=== PATIENT | male | born 1985 | race Two or more races ===

== ENCOUNTER 2024-03-19 21:34 | Inpatient (IN) ==
--- NOTE | 2024-03-19 22:08 | Emergency Department Note ---
History of Present Illness General Chief complaint: Confusion Time Seen by Provider: 03/19/24 22:02 History of Present Illness This is a 39-year-old male presenting to the emergency department through triage for evaluation of confusion. Patient arrives with friends who are acting as normal translators as patient is Wolof speaking only. Friends are concerned as they feel the patient is going through alcohol withdrawal. Patient feels like he is hallucinating but otherwise is without additional complaints. Patient denies drug or alcohol use. No pain or injury. He rates his discomfort a 7/10. Home Medications Medication Instructions Recorded Confirmed Type No Known Home Medications 03/20/24 03/20/24 History Allergies Allergy/AdvReac Type Severity Reaction Status Date / Time No Known Allergies Allergy Unverified 03/20/24 00:57 Past Med/Surg History Problem List (Updated 03/20/24 @ 01:13 by Chacha Guajardo MD) Elevated troponin (Acute) Acute renal failure with oliguria (Acute) Acute renal failure (Acute) Delirium due to general medical condition (Acute) DKA (diabetic ketoacidosis) (Acute) Medical History (Updated 03/20/24 @ 01:13 by Chacha Guajardo MD) No chronic diseases present Surgical History (Updated 03/19/24 @ 22:08 by Colt Meier PA-C) No significant past surgical history Social History Smoking Status: Unknown if ever smoked Preferred Language: Wolof Communication Tools: IPad Feels Safe at Home: Yes Review of Systems A total of 10 systems reviewed and were otherwise negative Physical Exam Vital Signs Vital Signs - 24 hr 03/19/24 21:46 03/19/24 21:53 03/19/24 21:57 Temperature 36.8 C Temperature Source Oral Pulse Rate 90 93 H Pulse Rate [Apical] Pulse Rate from SpO2 Sensor Pulse Rhythm Pulse Rhythm [Apical] Pulse Strength [Apical] Respiratory Rate 20 Respiratory Effort / Characteristics Non-Labored Spontaneous Respiratory Depth Normal Respiratory Pattern Regular Blood Pressure 131/85 Blood Pressure [Left Arm] Blood Pressure Mean 100 Blood Pressure Mean [Left Arm] Blood Pressure Position [Left Arm] Pulse Oximetry 98 88 L Oxygen Delivery Method Room Air Room Air Nasal Cannula Oxygen Flow Rate 0 Sepsis Recent Fever Within 48 Hours No Sepsis New/Unexplained Change in Mental Status Yes Sepsis Action Taken by Nursing No Action Required Pulse Oximetry Post Tiitration 92 06/03/24 22:48 03/19/24 22:57 03/19/24 23:00 Temperature Temperature Source Pulse Rate 93 H Pulse Rate [Apical] Pulse Rate from SpO2 Sensor 94 H Pulse Rhythm Pulse Rhythm [Apical] Pulse Strength [Apical] Respiratory Rate 26 H Respiratory Effort / Characteristics Respiratory Depth Respiratory Pattern Blood Pressure 127/73 144/86 H 120/85 Blood Pressure [Left Arm] Blood Pressure Mean 91 105 93 Blood Pressure Mean [Left Arm] Blood Pressure Position [Left Arm] Pulse Oximetry 90 Oxygen Delivery Method Nasal Cannula Oxygen Flow Rate 2 Sepsis Recent Fever Within 48 Hours Sepsis New/Unexplained Change in Mental Status Sepsis Action Taken by Nursing Pulse Oximetry Post Tiitration 03/19/24 23:06 03/19/24 23:12 03/19/24 23:24 Temperature 34.3 C L 36.1 C L Temperature Source Pulse Rate 91 H 92 H 93 H Pulse Rate [Apical] Pulse Rate from SpO2 Sensor 92 H 92 H 94 H Pulse Rhythm Pulse Rhythm [Apical] Pulse Strength [Apical] Respiratory Rate 27 H 19 21 Respiratory Effort / Characteristics Respiratory Depth Respiratory Pattern Blood Pressure Blood Pressure [Left Arm] Blood Pressure Mean Blood Pressure Mean [Left Arm] Blood Pressure Position [Left Arm] Pulse Oximetry 91 91 93 Oxygen Delivery Method Oxygen Flow Rate Sepsis Recent Fever Within 48 Hours Sepsis New/Unexplained Change in Mental Status Sepsis Action Taken by Nursing Pulse Oximetry Post Tiitration 03/19/24 23:36 03/19/24 23:42 03/19/24 23:43 Temperature 36.2 C L 36.2 C L Temperature Source Pulse Rate 90 92 H Pulse Rate [Apical] Pulse Rate from SpO2 Sensor 92 H Pulse Rhythm Pulse Rhythm [Apical] Pulse Strength [Apical] Respiratory Rate 41 H 33 H Respiratory Effort / Characteristics Respiratory Depth Respiratory Pattern Blood Pressure 133/79 Blood Pressure [Left Arm] Blood Pressure Mean 93 Blood Pressure Mean [Left Arm] Blood Pressure Position [Left Arm] Pulse Oximetry 94 Oxygen Delivery Method Oxygen Flow Rate Sepsis Recent Fever Within 48 Hours Sepsis New/Unexplained Change in Mental Status Sepsis Action Taken by Nursing Pulse Oximetry Post Tiitration 03/20/24 00:00 03/20/24 00:01 03/20/24 00:30 Temperature 36.2 C L 36.3 C L Temperature Source Sinha Cath ( Temp Sensing) Pulse Rate 94 H 90 Pulse Rate [Apical] 92 H Pulse Rate from SpO2 Sensor Pulse Rhythm Regular Pulse Rhythm [Apical] Regular Pulse Strength [Apical] Normal Respiratory Rate 36 H 30 H 40 H Respiratory Effort / Characteristics Non-Labored Spontaneous Respiratory Depth Shallow Respiratory Pattern Tachypnea Blood Pressure 133/82 Blood Pressure [Left Arm] 131/77 Blood Pressure Mean 99 Blood Pressure Mean [Left Arm] 95 Blood Pressure Position [Left Arm] Lying Pulse Oximetry 93 93 94 Oxygen Delivery Method Nasal Cannula Nasal Cannula Oxygen Flow Rate 2 2 Sepsis Recent Fever Within 48 Hours Sepsis New/Unexplained Change in Mental Status Sepsis Action Taken by Nursing Pulse Oximetry Post Tiitration 03/20/24 01:00 03/20/24 01:33 Temperature 36.4 C L Temperature Source Pulse Rate 88 Pulse Rate [Apical] 91 H Pulse Rate from SpO2 Sensor 87 Pulse Rhythm Pulse Rhythm [Apical] Regular Pulse Strength [Apical] Normal Respiratory Rate 45 H 30 H Respiratory Effort / Characteristics Non-Labored Spontaneous Respiratory Depth Shallow Respiratory Pattern Tachypnea Blood Pressure 120/78 Blood Pressure [Left Arm] 122/87 Blood Pressure Mean 92 Blood Pressure Mean [Left Arm] 98 Blood Pressure Position [Left Arm] Lying Pulse Oximetry 93 91 Oxygen Delivery Method Nasal Cannula Room Air Oxygen Flow Rate 2 Sepsis Recent Fever Within 48 Hours Sepsis New/Unexplained Change in Mental Status Sepsis Action Taken by Nursing Pulse Oximetry Post Tiitration VITALS: Vitals are noted on the nurse's note and reviewed by myself. Vital signs stable. GENERAL: Well-developed, well-nourished, male, who is mildly agitated but fairly redirectable. He does appear somewhat altered. EARS: External ear normal. External auditory canals clear, tympanic membranes pearly gregory without erythema or effusion bilaterally. EYES: Pupils equal round and reactive to light and accommodation. Conjunctivae without injection, sclerae without icterus. Extraocular movements intact. NOSE: Patent, turbinates without inflammation or discharge. MOUTH: Mucous membranes dry NECK: Supple without nuchal rigidity. No lymphadenopathy. No thyromegaly. Cervical spine is nontender. HEART: Regular rate and rhythm without murmurs gallops or rubs. LUNGS: Clear to auscultation bilaterally without wheezes, rales or rhonchi. No retractions or accessory muscle use. ABDOMEN: Positive normal bowel sounds x 4. Soft, nontender, without masses or organomegaly. No guarding or rebound tenderness. MUSCULOSKELETAL: No muscle atrophy, erythema, or edema noted. Full range of motion in all extremities. Course Administered Medications Insulin Human Regular 250 (units/ Sodium Chloride) 250 mls @ 10 mls/hr IV .Q24H LINDSEY; Protocol Stop: 04/18/24 23:14 Last Titration: 03/20/24 01:25 Dose: 10 units/hr, 10 mls/hr Documented By: BEBO Co-signed By: BOB Titration: 03/20/24 00:25 Dose: 10 units/hr, 10 mls/hr Documented By: BEBO Co-signed By: BOB Admin: 03/19/24 23:24 Dose: 10 units/hr, 10 mls/hr Documented By: BEBO Co-signed By: BOB Sodium Chloride (Nss) 1,000 mls @ 250 mls/hr IV .Q4H LINDSEY Stop: 04/19/24 00:44 Last Admin: 03/20/24 00:46 Dose: 250 mls/hr Documented By: BEBO Piperacillin Sod/Tazobactam Sod (Zosyn) 4.5 gm in 100 mls @ 200 mls/hr IV NOW ONE; Protocol Stop: 03/20/24 01:57 Last Admin: 03/20/24 01:38 Dose: 200 mls/hr Documented By: BEBO Discontinued Medications Albuterol (Albut/Ipratrop 3mg/0.5mg Neb 3 Ml Vial) 3 ml NEB NOW STA; Protocol Stop: 03/20/24 01:28 Last Admin: 03/20/24 01:38 Dose: 3 ml Documented By: BEBO Sodium Chloride (Nss) 1,000 mls @ 999 mls/hr IV .Q1H1M LINDSEY Stop: 03/19/24 23:15 Last Infusion: 03/19/24 23:10 Dose: Infused Documented By: Admin: 03/19/24 22:09 Dose: 999 mls/hr Documented By: MISTI Sodium Chloride (Nss) 1,000 mls @ 999 mls/hr IV .Q1H1M LINDSEY Stop: 03/20/24 01:15 Last Infusion: 03/20/24 00:56 Dose: Infused Documented By: Admin: 03/19/24 23:56 Dose: 999 mls/hr Documented By: Infusion: 03/19/24 23:56 Dose: Infused Documented By: Admin: 03/19/24 23:11 Dose: 999 mls/hr Documented By: BEOB Ceftriaxone Sodium (Rocephin) 2,000 mg in 50 mls @ 100 mls/hr IV NOW STA Stop: 03/19/24 23:50 Last Infusion: 03/20/24 00:10 Dose: Infused Documented By: Admin: 03/19/24 23:40 Dose: 100 mls/hr Documented By: BEBO Cefepime HCl (Maxipime) 2,000 mg in 20 mls @ 5 mls/min IV NOW STA; Protocol Stop: 03/20/24 00:21 Last Admin: 03/20/24 00:36 Dose: 5 mls/min Documented By: BEBO Calcium Gluconate () 1,000 mg in 60 mls @ 240 mls/hr IV NOW Stop: 03/20/24 00:39 Last Infusion: 03/20/24 01:15 Dose: Infused Documented By: Admin: 03/20/24 01:00 Dose: 240 mls/hr Documented By: BEBO Insulin Human Regular (Novolin-R Insulin Per Unit Charge) 10 units IV NOW STA Stop: 03/19/24 22:58 Last Admin: 03/19/24 23:13 Dose: 10 units Documented By: BEBO Co-signed By: MISTI Insulin Human Regular (Novolin-R Bolus From Bag) 3.5 units IV ONE ONE Stop: 03/19/24 23:16 Last Admin: 03/19/24 23:13 Dose: Not Given Documented By: BEBO Lorazepam (Lorazepam 1 Mg/1 Ml Syr Ed Inj Use) 1 mg IV ONE STA Stop: 03/19/24 22:07 Last Admin: 03/19/24 22:09 Dose: 1 mg Documented By: MISTI Boyd (Insulin Protocol Goal Range ) 1 each N/A ONE ONE Stop: 03/19/24 22:51 Last Admin: 03/19/24 23:25 Dose: Not Given Documented By: BEBO Boyd (Severe Stress Level ) 1 each N/A ONE ONE; Protocol Stop: 03/19/24 22:51 Last Admin: 03/19/24 23:25 Dose: Not Given Documented By: BEBO Boyd (Stat Iv Infusion Titration Per Protocol) 1 each N/A NOW Stop: 03/19/24 22:58 Last Admin: 03/20/24 00:03 Dose: Not Given Documented By: BEBO Miscellaneous Information (Patient's Allergy Info Needs Entered) 1 each N/A NOW STA Stop: 03/19/24 23:06 Last Admin: 03/20/24 00:03 Dose: Not Given Documented By: BEBO Sodium Bicarbonate (Sodium Bicarb 8.4% Inj 50 Meq/50 Ml Syr) 50 meq IV NOW STA Stop: 03/20/24 00:26 Last Admin: 03/20/24 00:56 Dose: 50 meq Documented By: BEBO Medical Decision Making Differential Diagnosis Differential diagnosis: Etiologies such as sepsis, dehydration, substance abuse, DKA, alcohol intoxication, toxicological, infection, hypoglycemia, electrolyte abnormalities, cardiac sources, intracerebral event, neurologic, as well as others were entertained. Laboratory Data 03/19/24 21:45 03/19/24 21:45 Lab Results 03/19/24 03/19/24 03/19/24 Range/Units 21:45 21:50 22:43 WBC 28.41 H (4.8-10.8) K/ul RBC 5.10 (4.70-6.10) M/uL Hgb 14.9 (14.0-18.0) g/dl Hct 42.3 (42.0-52.0) % MCV 82.9 (80.0-100.0) fL MCH 29.2 (25.0-34.0) pg MCHC 35.2 (32.0-36.0) g/dL RDW Std Deviation 43.8 (36.4-46.3) fL RDW Coeff of Eliza 14.4 (11.5-14.5) % Plt Count 42 L (130-400) K/uL Immature Gran % (Auto) 7.0 % Neut % (Auto) 87.0 % Lymph % (Auto) 2.5 % [place] % (Auto) 3.4 % Eos % (Auto) 0.0 % Baso % (Auto) 0.1 % Neut # (Auto) 24.70 H (1.40-6.50) K/uL Lymph # (Auto) 0.71 L (1.20-3.40) K/uL [place] # (Auto) 0.97 H (0.11-0.59) K/uL Eos # (Auto) 0.01 (0.00-0.50) K/uL Baso # (Auto) 0.04 (0.00-0.20) K/uL Immature Gran # (Auto) 1.98 H (0.01-0.20) K/uL Dohle Bodies 2+ PT 10.0 (9.0-12.0) Seconds INR 0.9 (0.9-1.1) APTT 26 (21-31) Seconds PTT Ratio 1.0 VBG pH (7.36-7.41) VBG pCO2 (38-50) mmHg VBG pO2 mmHg VBG HCO3 mmol/L VBG O2 Saturation % VBG Base Excess mEq/L Sodium 109 L* (136-145) mmol/L Potassium 6.2 H* (3.5-5.1) mmol/L Chloride 66 L (98-107) mmol/L Carbon Dioxide 18 L (21-32) mmol/L Anion Gap 25 H (3-11) BUN 145 H (6-23) mg/dl Creatinine 8.26 H* (0.6-1.4) mg/dl Est Cr Clr Drug Dosing 12.9 ml/min Est GFR ( Amer) 8.5 ml/min Est GFR (Non-Af Amer) 7.3 ml/min BUN/Creatinine Ratio 17.6 (10-20) Glucose 784 H* (70-99(Fasting)) mg/dl POC Glucose > 600 H* (70-99) mg/dl Osmolality 338 H (280-300) mOsm/kg Lactate (0.4-2.0) mmol/L Calcium 8.3 L (8.6-10.3) mg/dl Magnesium 4.1 H (1.7-2.4) mg/dl Total Bilirubin 1.6 H (0.2-1.0) mg/dl AST 19 (13-39) U/L ALT 41 (7-52) U/L Alkaline Phosphatase 284 H (34-104) U/L Ammonia (18-72) umol/L Troponin I High Sens 103.2 H* (0-20) pg/ml Total Protein 7.4 (6.0-8.3) gm/dl Albumin 2.9 L (3.4-5.0) gm/dl Globulin 4.5 H (2.5-4.0) gm/dl Albumin/Globulin Ratio 0.6 L (0.9-2) TSH 1.142 (0.300-4.500) uIu/ml Urine Color Yellow Urine Appearance Cloudy A (Clear) Urine pH 6.5 (4.5-7.5) Ur Specific Luna 1.020 (1.000-1.030) Urine Protein 3+ H (Negative) Urine Glucose (UA) 2+ H (Negative) Urine Ketones 1+ H (Negative) Urine Blood 3+ H (Negative) Urine Nitrite Positive A (Negative) Urine Bilirubin 1+ H (Negative) Urine Urobilinogen Negative (Negative) Ur Leukocyte Esterase 3+ H (Negative) Urine RBC 11-20 H (0-2) /hpf Urine WBC >50 H (0-5) /hpf Ur Epithelial Cells 6-10 H (0-2) /hpf Urine Bacteria 2+ H (None Seen) Urine Osmolality Ur Random Sodium mmol/L Urine Opiates Screen Neg (Neg) Ur Methadone, Qual Neg (Neg) Urine Fentanyl Screen Neg (Neg) Urine Barbiturates Neg (Neg) Ur Phencyclidine (PCP) Neg (Neg) U Amphetamin/Meth Scrn Neg (Neg) MDMA (Ecstasy) Screen Neg (Neg) U Benzodiazepines Scrn Neg (Neg) Ur Cocaine Metabolite Neg (Neg) U Marijuana (THC) Screen Neg (Neg) Ethyl Alcohol mg/dL < 10.0 (<10.0) mg/dl Adenovirus (PCR) (NotDetected) B. pertussis DNA (PCR) (NotDetected) B.parapertussis DNA PCR (NotDetected) C. pneumoniae DNA (PCR) (NotDetected) Coronavirus OC43 (PCR) (NotDetected) Coronavirus HKU1 (PCR) (NotDetected) Coronavirus 229E (PCR) (NotDetected) SARS-CoV-2 (PCR) (NotDetected) Coronavirus NL63 (PCR) (NotDetected) Human Metapneumovir PCR (NotDetected) Influenza Type A (PCR) (NotDetected) Influenza Type B (PCR) (NotDetected) M. pneumoniae (PCR) (NotDetected) Parainfluenza 1 (PCR) (NotDetected) Parainfluenza 2 (PCR) (NotDetected) Parainfluenza 3 (PCR) (NotDetected) Parainfluenza 4 (PCR) (NotDetected) RSV (PCR) (NotDetected) Entero/Rhino (PCR) (NotDetected) 03/19/24 03/19/24 03/20/24 Range/Units 23:01 23:05 00:25 WBC (4.8-10.8) K/ul RBC (4.70-6.10) M/uL Hgb (14.0-18.0) g/dl Hct (42.0-52.0) % MCV (80.0-100.0) fL MCH (25.0-34.0) pg MCHC (32.0-36.0) g/dL RDW Std Deviation (36.4-46.3) fL RDW Coeff of Eliza (11.5-14.5) % Plt Count (130-400) K/uL Immature Gran % (Auto) % Neut % (Auto) % Lymph % (Auto) % [place] % (Auto) % Eos % (Auto) % Baso % (Auto) % Neut # (Auto) (1.40-6.50) K/uL Lymph # (Auto) (1.20-3.40) K/uL [place] # (Auto) (0.11-0.59) K/uL Eos # (Auto) (0.00-0.50) K/uL Baso # (Auto) (0.00-0.20) K/uL Immature Gran # (Auto) (0.01-0.20) K/uL Dohle Bodies PT (9.0-12.0) Seconds INR (0.9-1.1) APTT (21-31) Seconds PTT Ratio VBG pH 7.27 L (7.36-7.41) VBG pCO2 37 L (38-50) mmHg VBG pO2 46 mmHg VBG HCO3 17 mmol/L VBG O2 Saturation 76.6 % VBG Base Excess -9.2 mEq/L Sodium (136-145) mmol/L Potassium (3.5-5.1) mmol/L Chloride (98-107) mmol/L Carbon Dioxide (21-32) mmol/L Anion Gap (3-11) BUN (6-23) mg/dl Creatinine (0.6-1.4) mg/dl Est Cr Clr Drug Dosing ml/min Est GFR ( Amer) ml/min Est GFR (Non-Af Amer) ml/min BUN/Creatinine Ratio (10-20) Glucose (70-99(Fasting)) mg/dl POC Glucose 570 H* (70-99) mg/dl Osmolality (280-300) mOsm/kg Lactate 2.4 H* (0.4-2.0) mmol/L Calcium (8.6-10.3) mg/dl Magnesium (1.7-2.4) mg/dl Total Bilirubin (0.2-1.0) mg/dl AST (13-39) U/L ALT (7-52) U/L Alkaline Phosphatase (34-104) U/L Ammonia 37.0 (18-72) umol/L Troponin I High Sens (0-20) pg/ml Total Protein (6.0-8.3) gm/dl Albumin (3.4-5.0) gm/dl Globulin (2.5-4.0) gm/dl Albumin/Globulin Ratio (0.9-2) TSH (0.300-4.500) uIu/ml Urine Color Urine Appearance (Clear) Urine pH (4.5-7.5) Ur Specific Luna (1.000-1.030) Urine Protein (Negative) Urine Glucose (UA) (Negative) Urine Ketones (Negative) Urine Blood (Negative) Urine Nitrite (Negative) Urine Bilirubin (Negative) Urine Urobilinogen (Negative) Ur Leukocyte Esterase (Negative) Urine RBC (0-2) /hpf Urine WBC (0-5) /hpf Ur Epithelial Cells (0-2) /hpf Urine Bacteria (None Seen) Urine Osmolality Ur Random Sodium mmol/L Urine Opiates Screen (Neg) Ur Methadone, Qual (Neg) Urine Fentanyl Screen (Neg) Urine Barbiturates (Neg) Ur Phencyclidine (PCP) (Neg) U Amphetamin/Meth Scrn (Neg) MDMA (Ecstasy) Screen (Neg) U Benzodiazepines Scrn (Neg) Ur Cocaine Metabolite (Neg) U Marijuana (THC) Screen (Neg) Ethyl Alcohol mg/dL (<10.0) mg/dl Adenovirus (PCR) Not Detected (NotDetected) B. pertussis DNA (PCR) Not Detected (NotDetected) B.parapertussis DNA PCR Not Detected (NotDetected) C. pneumoniae DNA (PCR) Not Detected (NotDetected) Coronavirus OC43 (PCR) Not Detected (NotDetected) Coronavirus HKU1 (PCR) Not Detected (NotDetected) Coronavirus 229E (PCR) Not Detected (NotDetected) SARS-CoV-2 (PCR) Not Detected (NotDetected) Coronavirus NL63 (PCR) Not Detected (NotDetected) Human Metapneumovir PCR Not Detected (NotDetected) Influenza Type A (PCR) Not Detected (NotDetected) Influenza Type B (PCR) Not Detected (NotDetected) M. pneumoniae (PCR) Not Detected (NotDetected) Parainfluenza 1 (PCR) Not Detected (NotDetected) Parainfluenza 2 (PCR) Not Detected (NotDetected) Parainfluenza 3 (PCR) Not Detected (NotDetected) Parainfluenza 4 (PCR) Not Detected (NotDetected) RSV (PCR) Not Detected (NotDetected) Entero/Rhino (PCR) Not Detected (NotDetected) 03/20/24 03/20/24 03/20/24 Range/Units 00:26 00:52 01:03 WBC (4.8-10.8) K/ul RBC (4.70-6.10) M/uL Hgb (14.0-18.0) g/dl Hct (42.0-52.0) % MCV (80.0-100.0) fL MCH (25.0-34.0) pg MCHC (32.0-36.0) g/dL RDW Std Deviation (36.4-46.3) fL RDW Coeff of Eliza (11.5-14.5) % Plt Count (130-400) K/uL Immature Gran % (Auto) % Neut % (Auto) % Lymph % (Auto) % [place] % (Auto) % Eos % (Auto) % Baso % (Auto) % Neut # (Auto) (1.40-6.50) K/uL Lymph # (Auto) (1.20-3.40) K/uL [place] # (Auto) (0.11-0.59) K/uL Eos # (Auto) (0.00-0.50) K/uL Baso # (Auto) (0.00-0.20) K/uL Immature Gran # (Auto) (0.01-0.20) K/uL Dohle Bodies PT (9.0-12.0) Seconds INR (0.9-1.1) APTT (21-31) Seconds PTT Ratio VBG pH (7.36-7.41) VBG pCO2 (38-50) mmHg VBG pO2 mmHg VBG HCO3 mmol/L VBG O2 Saturation % VBG Base Excess mEq/L Sodium (136-145) mmol/L Potassium (3.5-5.1) mmol/L Chloride (98-107) mmol/L Carbon Dioxide (21-32) mmol/L Anion Gap (3-11) BUN (6-23) mg/dl Creatinine (0.6-1.4) mg/dl Est Cr Clr Drug Dosing ml/min Est GFR ( Amer) ml/min Est GFR (Non-Af Amer) ml/min BUN/Creatinine Ratio (10-20) Glucose (70-99(Fasting)) mg/dl POC Glucose > 600 H* (70-99) mg/dl Osmolality (280-300) mOsm/kg Lactate 2.7 H* (0.4-2.0) mmol/L Calcium (8.6-10.3) mg/dl Magnesium (1.7-2.4) mg/dl Total Bilirubin (0.2-1.0) mg/dl AST (13-39) U/L ALT (7-52) U/L Alkaline Phosphatase (34-104) U/L Ammonia (18-72) umol/L Troponin I High Sens (0-20) pg/ml Total Protein (6.0-8.3) gm/dl Albumin (3.4-5.0) gm/dl Globulin (2.5-4.0) gm/dl Albumin/Globulin Ratio (0.9-2) TSH (0.300-4.500) uIu/ml Urine Color Urine Appearance (Clear) Urine pH (4.5-7.5) Ur Specific Luna (1.000-1.030) Urine Protein (Negative) Urine Glucose (UA) (Negative) Urine Ketones (Negative) Urine Blood (Negative) Urine Nitrite (Negative) Urine Bilirubin (Negative) Urine Urobilinogen (Negative) Ur Leukocyte Esterase (Negative) Urine RBC (0-2) /hpf Urine WBC (0-5) /hpf Ur Epithelial Cells (0-2) /hpf Urine Bacteria (None Seen) Urine Osmolality Ur Random Sodium 92 mmol/L Urine Opiates Screen (Neg) Ur Methadone, Qual (Neg) Urine Fentanyl Screen (Neg) Urine Barbiturates (Neg) Ur Phencyclidine (PCP) (Neg) U Amphetamin/Meth Scrn (Neg) MDMA (Ecstasy) Screen (Neg) U Benzodiazepines Scrn (Neg) Ur Cocaine Metabolite (Neg) U Marijuana (THC) Screen (Neg) Ethyl Alcohol mg/dL (<10.0) mg/dl Adenovirus (PCR) (NotDetected) B. pertussis DNA (PCR) (NotDetected) B.parapertussis DNA PCR (NotDetected) C. pneumoniae DNA (PCR) (NotDetected) Coronavirus OC43 (PCR) (NotDetected) Coronavirus HKU1 (PCR) (NotDetected) Coronavirus 229E (PCR) (NotDetected) SARS-CoV-2 (PCR) (NotDetected) Coronavirus NL63 (PCR) (NotDetected) Human Metapneumovir PCR (NotDetected) Influenza Type A (PCR) (NotDetected) Influenza Type B (PCR) (NotDetected) M. pneumoniae (PCR) (NotDetected) Parainfluenza 1 (PCR) (NotDetected) Parainfluenza 2 (PCR) (NotDetected) Parainfluenza 3 (PCR) (NotDetected) Parainfluenza 4 (PCR) (NotDetected) RSV (PCR) (NotDetected) Entero/Rhino (PCR) (NotDetected) 03/20/24 03/20/24 03/20/24 Range/Units 01:23 01:24 Unknown WBC (4.8-10.8) K/ul RBC (4.70-6.10) M/uL Hgb (14.0-18.0) g/dl Hct (42.0-52.0) % MCV (80.0-100.0) fL MCH (25.0-34.0) pg MCHC (32.0-36.0) g/dL RDW Std Deviation (36.4-46.3) fL RDW Coeff of Eliza (11.5-14.5) % Plt Count (130-400) K/uL Immature Gran % (Auto) % Neut % (Auto) % Lymph % (Auto) % [place] % (Auto) % Eos % (Auto) % Baso % (Auto) % Neut # (Auto) (1.40-6.50) K/uL Lymph # (Auto) (1.20-3.40) K/uL [place] # (Auto) (0.11-0.59) K/uL Eos # (Auto) (0.00-0.50) K/uL Baso # (Auto) (0.00-0.20) K/uL Immature Gran # (Auto) (0.01-0.20) K/uL Dohle Bodies PT (9.0-12.0) Seconds INR (0.9-1.1) APTT (21-31) Seconds PTT Ratio VBG pH (7.36-7.41) VBG pCO2 (38-50) mmHg VBG pO2 mmHg VBG HCO3 mmol/L VBG O2 Saturation % VBG Base Excess mEq/L Sodium (136-145) mmol/L Potassium (3.5-5.1) mmol/L Chloride (98-107) mmol/L Carbon Dioxide (21-32) mmol/L Anion Gap (3-11) BUN (6-23) mg/dl Creatinine (0.6-1.4) mg/dl Est Cr Clr Drug Dosing ml/min Est GFR ( Amer) ml/min Est GFR (Non-Af Amer) ml/min BUN/Creatinine Ratio (10-20) Glucose (70-99(Fasting)) mg/dl POC Glucose 523 H* 546 H* (70-99) mg/dl Osmolality (280-300) mOsm/kg Lactate (0.4-2.0) mmol/L Calcium (8.6-10.3) mg/dl Magnesium (1.7-2.4) mg/dl Total Bilirubin (0.2-1.0) mg/dl AST (13-39) U/L ALT (7-52) U/L Alkaline Phosphatase (34-104) U/L Ammonia (18-72) umol/L Troponin I High Sens (0-20) pg/ml Total Protein (6.0-8.3) gm/dl Albumin (3.4-5.0) gm/dl Globulin (2.5-4.0) gm/dl Albumin/Globulin Ratio (0.9-2) TSH (0.300-4.500) uIu/ml Urine Color Urine Appearance (Clear) Urine pH (4.5-7.5) Ur Specific Luna (1.000-1.030) Urine Protein (Negative) Urine Glucose (UA) (Negative) Urine Ketones (Negative) Urine Blood (Negative) Urine Nitrite (Negative) Urine Bilirubin (Negative) Urine Urobilinogen (Negative) Ur Leukocyte Esterase (Negative) Urine RBC (0-2) /hpf Urine WBC (0-5) /hpf Ur Epithelial Cells (0-2) /hpf Urine Bacteria (None Seen) Urine Osmolality Cancelled Ur Random Sodium Cancelled mmol/L Urine Opiates Screen (Neg) Ur Methadone, Qual (Neg) Urine Fentanyl Screen (Neg) Urine Barbiturates (Neg) Ur Phencyclidine (PCP) (Neg) U Amphetamin/Meth Scrn (Neg) MDMA (Ecstasy) Screen (Neg) U Benzodiazepines Scrn (Neg) Ur Cocaine Metabolite (Neg) U Marijuana (THC) Screen (Neg) Ethyl Alcohol mg/dL (<10.0) mg/dl Adenovirus (PCR) (NotDetected) B. pertussis DNA (PCR) (NotDetected) B.parapertussis DNA PCR (NotDetected) C. pneumoniae DNA (PCR) (NotDetected) Coronavirus OC43 (PCR) (NotDetected) Coronavirus HKU1 (PCR) (NotDetected) Coronavirus 229E (PCR) (NotDetected) SARS-CoV-2 (PCR) (NotDetected) Coronavirus NL63 (PCR) (NotDetected) Human Metapneumovir PCR (NotDetected) Influenza Type A (PCR) (NotDetected) Influenza Type B (PCR) (NotDetected) M. pneumoniae (PCR) (NotDetected) Parainfluenza 1 (PCR) (NotDetected) Parainfluenza 2 (PCR) (NotDetected) Parainfluenza 3 (PCR) (NotDetected) Parainfluenza 4 (PCR) (NotDetected) RSV (PCR) (NotDetected) Entero/Rhino (PCR) (NotDetected) MDM Narrative Physical exam and history were performed. Nursing notes, EMR, and Medication List were personally reviewed. No social concerns were identified as barriers to patients care. Patient appears to have altered mental status bringing him to the ER. Patient presentation is concerning as clinically he appears ill. IV access was established and labs were obtained. Chest x-ray was performed. Patient's blood work began to return very quickly, and patient has significant lab abnormalities. Creatinine is over 8. Glucose is over 700. Troponin is over 100. Patient is critically ill with potential life threatening process. Patient case was discussed with my attending physician, Dr. Guajardo, who will assume primary care of the patient. Please see Dr. Guajardo's dictation for further patient course. The chart was completed utilizing [employer] Speech Voice Recognition Software. Grammatical errors, random word insertions, pronoun errors, and incomplete sentences are an occasional consequence of this system due to software limitations, ambient noise, and hardware issues. Any formal questions or concerns about the content, text, or information contained within the body of this dictation should be directly addressed to the provider for clarification. . Impression & Plan DKA (diabetic ketoacidosis), Delirium due to general medical condition, Acute renal failure, Acute renal failure with oliguria, Elevated troponin Discharge Plan Visit Data Chief Complaint: Confusion ED Provider: Chacha Guajardo ED Midlevel Provider: Colt Meier Discharge Problem: DKA (diabetic ketoacidosis), Delirium due to general medical condition, Acute renal failure, Acute renal failure with oliguria, Elevated troponin Forms Stand Alone Forms: My knowNormal Prescriptions Prescriptions: No Action No Known Home Medications Referrals Referrals: PCP,TOMASZ [Primary Care Provider] -
[2024-03-19] MEDS: LORazepam 1 MG/1 ML SYR ED Inj Use IV STA (22:09)
[2024-03-19] MEDS: SODIUM CHLORIDE 0.9% 1,000 ML IV SCH ×2 (22:09→23:11)
[2024-03-19 22:13] LABS: Appearance Urine Cloudy (Clear); Bilirubin Urine 1+ (Negative); Blood Urine 3+ (Negative); Color Urine Yellow; Glucose Urine UA 2+ (Negative); Ketones Urine 1+ (Negative); Leukocyte Esterase Urine 3+ (Negative); Nitrite Urine Positive (Negative); Protein Urine 3+ (Negative); Urobilinogen Urine Negative (Negative); pH Urine 6.5 (4.5-7.5)
[2024-03-19 22:22] LABS: Hematocrit (blood only) 42.3 % (42.0-52.0); Hemoglobin 14.9 g/dl (14.0-18.0); Mean Corpuscular Hemoglobin 29.2 pg (25.0-34.0); Mean Corpuscular Hgb Conc 35.2 g/dL (32.0-36.0); Mean Corpuscular Volume 82.9 fL (80.0-100.0); Platelet Count 42 K/uL (130-400); RDW Coefficient of Variation 14.4 % (11.5-14.5); RDW Standard Deviation 43.8 fL (36.4-46.3); White Blood Count 28.41 K/ul (4.8-10.8)
[2024-03-19 22:26] LABS: Bacteria Urine 2+ (None Seen); WBC Urine >50 /hpf (0-5)
[2024-03-19 22:38] LABS: INR 0.9 (0.9-1.1); Partial Thromboplastin Time 26 Seconds (21-31)
[2024-03-19 22:39] LABS: Basophils # (auto) 0.04 K/uL (0.00-0.20); Basophils % (auto) 0.1 %; Dohle Bodies 2+; Eosinophils # (auto) 0.01 K/uL (0.00-0.50); Immature Granulocytes # (auto) 1.98 K/uL (0.01-0.20); Lymphocytes # (auto) 0.71 K/uL (1.20-3.40); Lymphocytes % (auto) 2.5 %; Monocytes # (auto) 0.97 K/uL (0.11-0.59); Monocytes % (auto) 3.4 %
[2024-03-19 22:48] LABS: Amphetamines+Metham, Urine Neg (Neg); Barbiturates, Urine Neg (Neg); Benzodiazepine, Urine Neg (Neg); Cocaine, Urine Neg (Neg); Fentanyl, Urine Neg (Neg); MDMA (Ecstacy), Urine Neg (Neg); Marijuana, Urine Neg (Neg); Methadone, Urine Neg (Neg); Opiate, Urine Neg (Neg); Phencyclidine, Urine Neg (Neg)
[2024-03-19] MEDS ORDERED: NovoLIN-R BOLUS FROM BAG IV ONE (22:50)
[2024-03-19 22:51] LABS: Albumin Globulin Ratio 0.6 (0.9-2); Albumin Level 2.9 gm/dl (3.4-5.0); BUN Creatinine Ratio 17.6 (10-20); Bilirubin,Total 1.6 mg/dl (0.2-1.0); Calcium 8.3 mg/dl (8.6-10.3); Creatinine Clr Calc Pharmacy 12.9 ml/min; Est GFR (African American) 8.5 ml/min; Est GFR (Non-African American) 7.3 ml/min; Globulin 4.5 gm/dl (2.5-4.0); Magnesium 4.1 mg/dl (1.7-2.4); Potassium 6.2 mmol/L (3.5-5.1); Thyroid Stimulating Hormone 1.142 uIu/ml (0.300-4.500); Total Protein 7.4 gm/dl (6.0-8.3); Troponin I High Sensitivity 103.2 pg/ml (0-20)
[2024-03-19] MEDS ORDERED: INSULIN REGULAR 250 UNITS in SODIUM CHLORIDE 0.9% 247.5 ML IV SCH (23:00)
[2024-03-19] MEDS: NovoLIN-R BOLUS FROM BAG IV ONE (23:13)
[2024-03-19] MEDS: NovoLIN-R INSULIN PER UNIT CHARGE IV STA (23:13)
[2024-03-19] MEDS ORDERED: CARBOHYDRATES FOR HYPOGLYCEMIA PO PRN (23:15)
[2024-03-19] MEDS ORDERED: GLUCOSE 10 TAB/TUBE PO PRN (23:15)
[2024-03-19] MEDS ORDERED: GLUCOSE 40% GEL 15 GM TUBE PO PRN (23:15)
[2024-03-19] MEDS ORDERED: DEXTROSE 50% 50 ML SYRINGE IV PRN (23:15)
[2024-03-19] MEDS ORDERED: GLUCAGON FOR INJ 1 MG VIAL IM PRN (23:15)
[2024-03-19 23:21] LABS: Base Excess VBG -9.2 mEq/L; HCO3 VBG 17 mmol/L; Oxygen Saturation VBG 76.6 %; PCO2 VBG 37 mmHg (38-50); PO2 VBG 46 mmHg; pH VBG 7.27 (7.36-7.41)
[2024-03-19] MEDS: INSULIN REGULAR 250 UNITS in SODIUM CHLORIDE 0.9% 247.5 ML IV SCH (23:24)
[2024-03-19] MEDS: SEVERE STRESS LEVEL ONE (23:25)
[2024-03-19] MEDS: INSULIN PROTOCOL GOAL RANGE ONE (23:25)
[2024-03-19] MEDS: cefTRIAXone SODIUM 2,000 MG/50 ML BAG IV STA (23:40)
[2024-03-20] MEDS: STAT IV Infusion **Titration per Protocol STA (00:03)
[2024-03-20] MEDS: Patient's ALLERGY Info needs ENTERED STA (00:03)
[2024-03-20 00:31] LABS: Adenovirus PCR Not Detected (NotDetected); Bordetella parapertussis PCR Not Detected (NotDetected); Bordetella pertussis PCR Not Detected (NotDetected); Chlamydia pneumoniae PCR Not Detected (NotDetected); Coronavirus 229E PCR Not Detected (NotDetected); Coronavirus CoV-2 (COVID19)PCR Not Detected (NotDetected); Coronavirus HKU1 PCR Not Detected (NotDetected); Coronavirus NL63 PCR Not Detected (NotDetected); Coronavirus OC43PCR Not Detected (NotDetected); Human Metapneumovirus PCR Not Detected (NotDetected); Influenza A PCR Not Detected (NotDetected); Influenza B PCR Not Detected (NotDetected); Mycoplasma pneumoniae PCR Not Detected (NotDetected); Parainfluenza Virus 1 PCR Not Detected (NotDetected); Parainfluenza Virus 2 PCR Not Detected (NotDetected); Parainfluenza Virus 3 PCR Not Detected (NotDetected); Parainfluenza Virus 4 PCR Not Detected (NotDetected); Respiratory Syncytial VirusPCR Not Detected (NotDetected); Rhinovirus/Enterovirus PCR Not Detected (NotDetected)
[2024-03-20] MEDS: CEFEPIME 2,000 MG/20 ML VIAL IV STA (00:36)
--- NOTE | 2024-03-20 00:43 | Emergency Department Note ---
Impression & Plan DKA (diabetic ketoacidosis), Delirium due to general medical condition, Acute renal failure, Acute renal failure with oliguria, Elevated troponin ED Provider Note NAME: DAVID MONSALVE AGE: 39 SEX: M : 1985 ARRIVES VIA: Walk-In INFORMANT: Patient, ED PROVIDER(S): Chacha Guajardo MD CHIEF COMPLAINT: Confusion HPI: This is a 39-year-old male presenting for confusion. Initially seen by Colt Meier PA-C, who claimed that patient is Ukrainian-speaking, confused as per his coworkers. The coworkers are stating that he is having dizziness, hallucinations. They deny any alcohol or drug use with this that he drinks occasionally. Otherwise he has remote history of possible diabetes. Patient initial blood work showing signs of significant DKA. Upon my evaluation patient able to answer basic questioning, states he has no family members in the [place]. He states that he understands what is going on and he is permitted but he also is confused and sometimes trails off and does not finish speaking. He does appear clinically well ROS: Unable to obtain PHYSICAL EXAMINATION: General: Awake, grasping and air Head: Normocephalic and atraumatic Eyes: Normal inspection, extraocular muscles intact Ear, nose, throat: Normal external exam Neck: Normal range of motion Respiratory: lungs clear to auscultation bilaterally Cardiovascular: Regular rate/rhythm, no murmur GI: Distended without tenderness or rebound Extremities: nontender, moves all extremities Neuro: Awake, moves all extremities spontaneously, symmetric face Skin: Warm, dry, and intact MEDICAL DECISION MAKING: This is a 39-year-old male presenting for likely DKA. Patient care transition from Cotl Meier PA-C, after is found the patient has significant abnormalities on blood work -Chest Xray independently interpreted by me showing no pneumothorax,pleural effusions, possible opacity in left lower lobe concerning for pneumonia. -Patient blood work shows a significant leukocytosis 2/28. Otherwise patient has acidosis with pH of 7.27/37. Significant hyponatremia 109 corrected is 120. Potassium is 6.2 with EKG that does not show signs of hyperkalemia. He is simply hypochloremic, acidotic, anion gap 25 with a glucose of 784. -Patient does have a creatinine of 8.26 but is not anuric. He we will give a urine sample and has been making small amounts of urine while here. -Urinalysis reveals signs of UTI -Given ceftriaxone for broad coverage of this pneumonia as well as UTI -Will start DKA protocol. Will give 10 units as a bolus, fluids to stay with 3 L and 2 maintenance fluid at 250 MLS per hour. Will do insulin drip at 0.1 units per kilogram per hour, (10 units/h at this time) -Will recheck BMPs every 2 hours. -Patient has improvement in glucose from 786 to 500s over the course of 1 hour. -Care discussed with Dr. Sanford, hospitalist -Patient care assisted by friend who speaks manage well as iPad director of in service education Differential diagnosis: DKA, sepsis, ER treatment provided: See below Diagnostics interpreted by me: ECG: ECG independently interpreted by me with normal sinus rhythm, rate of 89, normal axis, normal NV, normal QRS, normal QTc, no ST segment elevations consistent with STEMI criteria Cardiac Monitoring: An order was placed for continuous cardiac monitoring. The monitor shows a rate of 92 with sinus rhythm. Laboratory studies: As stated above and show below. Imaging studies: See below. Critical Care Note: I have personally spent 120 minutes of critical care time in the direct management of this patient. This includes bedside care, interpretation of diagnostic studies, and testing, discussion with consultants, patient, and family members, and other required patient management activities. This 120 minutes is in excess of all separately billable procedures. Past Med/Surg History Problem List (Updated 03/20/24 @ 01:13 by Chacha Guajardo MD) Elevated troponin (Acute) Acute renal failure with oliguria (Acute) Acute renal failure (Acute) Delirium due to general medical condition (Acute) DKA (diabetic ketoacidosis) (Acute) Medical History (Updated 03/20/24 @ 01:13 by Chacha Guajardo MD) No chronic diseases present Surgical History (Updated 03/19/24 @ 22:08 by Colt Meier PA-C) No significant past surgical history Social History Smoking Status: Unknown if ever smoked Preferred Language: Ukrainian Communication Tools: IPad Feels Safe at Home: Yes Allergies Allergies Allergy/AdvReac Type Severity Reaction Status Date / Time No Known Allergies Allergy Unverified 03/20/24 00:57 Home Meds Home Medications Medication Instructions Recorded Confirmed No Known Home Medications 03/20/24 03/20/24 Results & Data (ED) Vital Signs Vital Signs - 24 hr 03/19/24 21:46 03/19/24 21:53 03/19/24 21:57 Temperature 36.8 C Temperature Source Oral Pulse Rate 90 93 H Pulse Rate [Apical] Pulse Rate from SpO2 Sensor Pulse Rhythm Pulse Rhythm [Apical] Pulse Strength [Apical] Respiratory Rate 20 Respiratory Effort / Characteristics Non-Labored Spontaneous Respiratory Depth Normal Respiratory Pattern Regular Blood Pressure 131/85 Blood Pressure [Left Arm] Blood Pressure Mean 100 Blood Pressure Mean [Left Arm] Blood Pressure Position [Left Arm] Pulse Oximetry 98 88 L Oxygen Delivery Method Room Air Room Air Nasal Cannula Oxygen Flow Rate 0 Sepsis Recent Fever Within 48 Hours No Sepsis New/Unexplained Change in Mental Status Yes Sepsis Action Taken by Nursing No Action Required Pulse Oximetry Post Tiitration 92 03/19/24 22:48 03/19/24 22:57 03/19/24 23:00 Temperature Temperature Source Pulse Rate 93 H Pulse Rate [Apical] Pulse Rate from SpO2 Sensor 94 H Pulse Rhythm Pulse Rhythm [Apical] Pulse Strength [Apical] Respiratory Rate 26 H Respiratory Effort / Characteristics Respiratory Depth Respiratory Pattern Blood Pressure 127/73 144/86 H 120/85 Blood Pressure [Left Arm] Blood Pressure Mean 91 105 93 Blood Pressure Mean [Left Arm] Blood Pressure Position [Left Arm] Pulse Oximetry 90 Oxygen Delivery Method Nasal Cannula Oxygen Flow Rate 2 Sepsis Recent Fever Within 48 Hours Sepsis New/Unexplained Change in Mental Status Sepsis Action Taken by Nursing Pulse Oximetry Post Tiitration 03/19/24 23:06 03/19/24 23:12 03/19/24 23:24 Temperature 34.3 C L 36.1 C L Temperature Source Pulse Rate 91 H 92 H 93 H Pulse Rate [Apical] Pulse Rate from SpO2 Sensor 92 H 92 H 94 H Pulse Rhythm Pulse Rhythm [Apical] Pulse Strength [Apical] Respiratory Rate 27 H 19 21 Respiratory Effort / Characteristics Respiratory Depth Respiratory Pattern Blood Pressure Blood Pressure [Left Arm] Blood Pressure Mean Blood Pressure Mean [Left Arm] Blood Pressure Position [Left Arm] Pulse Oximetry 91 91 93 Oxygen Delivery Method Oxygen Flow Rate Sepsis Recent Fever Within 48 Hours Sepsis New/Unexplained Change in Mental Status Sepsis Action Taken by Nursing Pulse Oximetry Post Tiitration 03/19/24 23:36 03/19/24 23:42 03/19/24 23:43 Temperature 36.2 C L 36.2 C L Temperature Source Pulse Rate 90 92 H Pulse Rate [Apical] Pulse Rate from SpO2 Sensor 92 H Pulse Rhythm Pulse Rhythm [Apical] Pulse Strength [Apical] Respiratory Rate 41 H 33 H Respiratory Effort / Characteristics Respiratory Depth Respiratory Pattern Blood Pressure 133/79 Blood Pressure [Left Arm] Blood Pressure Mean 93 Blood Pressure Mean [Left Arm] Blood Pressure Position [Left Arm] Pulse Oximetry 94 Oxygen Delivery Method Oxygen Flow Rate Sepsis Recent Fever Within 48 Hours Sepsis New/Unexplained Change in Mental Status Sepsis Action Taken by Nursing Pulse Oximetry Post Tiitration 03/20/24 00:00 03/20/24 00:01 03/20/24 00:30 Temperature 36.2 C L 36.3 C L Temperature Source Sinha Cath ( Temp Sensing) Pulse Rate 94 H 90 Pulse Rate [Apical] 92 H Pulse Rate from SpO2 Sensor Pulse Rhythm Regular Pulse Rhythm [Apical] Regular Pulse Strength [Apical] Normal Respiratory Rate 36 H 30 H 40 H Respiratory Effort / Characteristics Non-Labored Spontaneous Respiratory Depth Shallow Respiratory Pattern Tachypnea Blood Pressure 133/82 Blood Pressure [Left Arm] 131/77 Blood Pressure Mean 99 Blood Pressure Mean [Left Arm] 95 Blood Pressure Position [Left Arm] Lying Pulse Oximetry 93 93 94 Oxygen Delivery Method Nasal Cannula Nasal Cannula Oxygen Flow Rate 2 2 Sepsis Recent Fever Within 48 Hours Sepsis New/Unexplained Change in Mental Status Sepsis Action Taken by Nursing Pulse Oximetry Post Tiitration Laboratory Data 03/19/24 21:45 03/19/24 21:45 Lab Results 03/19/24 03/19/24 03/19/24 Range/Units 21:45 21:50 22:43 WBC 28.41 H (4.8-10.8) K/ul RBC 5.10 (4.70-6.10) M/uL Hgb 14.9 (14.0-18.0) g/dl Hct 42.3 (42.0-52.0) % MCV 82.9 (80.0-100.0) fL MCH 29.2 (25.0-34.0) pg MCHC 35.2 (32.0-36.0) g/dL RDW Std Deviation 43.8 (36.4-46.3) fL RDW Coeff of Eliza 14.4 (11.5-14.5) % Plt Count 42 L (130-400) K/uL Immature Gran % (Auto) 7.0 % Neut % (Auto) 87.0 % Lymph % (Auto) 2.5 % [place] % (Auto) 3.4 % Eos % (Auto) 0.0 % Baso % (Auto) 0.1 % Neut # (Auto) 24.70 H (1.40-6.50) K/uL Lymph # (Auto) 0.71 L (1.20-3.40) K/uL [place] # (Auto) 0.97 H (0.11-0.59) K/uL Eos # (Auto) 0.01 (0.00-0.50) K/uL Baso # (Auto) 0.04 (0.00-0.20) K/uL Immature Gran # (Auto) 1.98 H (0.01-0.20) K/uL Dohle Bodies 2+ PT 10.0 (9.0-12.0) Seconds INR 0.9 (0.9-1.1) APTT 26 (21-31) Seconds PTT Ratio 1.0 VBG pH (7.36-7.41) VBG pCO2 (38-50) mmHg VBG pO2 mmHg VBG HCO3 mmol/L VBG O2 Saturation % VBG Base Excess mEq/L Sodium 109 L* (136-145) mmol/L Potassium 6.2 H* (3.5-5.1) mmol/L Chloride 66 L (98-107) mmol/L Carbon Dioxide 18 L (21-32) mmol/L Anion Gap 25 H (3-11) BUN 145 H (6-23) mg/dl Creatinine 8.26 H* (0.6-1.4) mg/dl Est Cr Clr Drug Dosing 12.9 ml/min Est GFR ( Amer) 8.5 ml/min Est GFR (Non-Af Amer) 7.3 ml/min BUN/Creatinine Ratio 17.6 (10-20) Glucose 784 H* (70-99(Fasting)) mg/dl POC Glucose > 600 H* (70-99) mg/dl Lactate (0.4-2.0) mmol/L Calcium 8.3 L (8.6-10.3) mg/dl Magnesium 4.1 H (1.7-2.4) mg/dl Total Bilirubin 1.6 H (0.2-1.0) mg/dl AST 19 (13-39) U/L ALT 41 (7-52) U/L Alkaline Phosphatase 284 H (34-104) U/L Ammonia (18-72) umol/L Troponin I High Sens 103.2 H* (0-20) pg/ml Total Protein 7.4 (6.0-8.3) gm/dl Albumin 2.9 L (3.4-5.0) gm/dl Globulin 4.5 H (2.5-4.0) gm/dl Albumin/Globulin Ratio 0.6 L (0.9-2) TSH 1.142 (0.300-4.500) uIu/ml Urine Color Yellow Urine Appearance Cloudy A (Clear) Urine pH 6.5 (4.5-7.5) Ur Specific [place] 1.020 (1.000-1.030) Urine Protein 3+ H (Negative) Urine Glucose (UA) 2+ H (Negative) Urine Ketones 1+ H (Negative) Urine Blood 3+ H (Negative) Urine Nitrite Positive A (Negative) Urine Bilirubin 1+ H (Negative) Urine Urobilinogen Negative (Negative) Ur Leukocyte Esterase 3+ H (Negative) Urine RBC 11-20 H (0-2) /hpf Urine WBC >50 H (0-5) /hpf Ur Epithelial Cells 6-10 H (0-2) /hpf Urine Bacteria 2+ H (None Seen) Urine Osmolality Ur Random Sodium Urine Opiates Screen Neg (Neg) Ur Methadone, Qual Neg (Neg) Urine Fentanyl Screen Neg (Neg) Urine Barbiturates Neg (Neg) Ur Phencyclidine (PCP) Neg (Neg) U Amphetamin/Meth Scrn Neg (Neg) MDMA (Ecstasy) Screen Neg (Neg) U Benzodiazepines Scrn Neg (Neg) Ur Cocaine Metabolite Neg (Neg) U Marijuana (THC) Screen Neg (Neg) Ethyl Alcohol mg/dL < 10.0 (<10.0) mg/dl Adenovirus (PCR) (NotDetected) B. pertussis DNA (PCR) (NotDetected) B.parapertussis DNA PCR (NotDetected) C. pneumoniae DNA (PCR) (NotDetected) Coronavirus OC43 (PCR) (NotDetected) Coronavirus HKU1 (PCR) (NotDetected) Coronavirus 229E (PCR) (NotDetected) SARS-CoV-2 (PCR) (NotDetected) Coronavirus NL63 (PCR) (NotDetected) Human Metapneumovir PCR (NotDetected) Influenza Type A (PCR) (NotDetected) Influenza Type B (PCR) (NotDetected) M. pneumoniae (PCR) (NotDetected) Parainfluenza 1 (PCR) (NotDetected) Parainfluenza 2 (PCR) (NotDetected) Parainfluenza 3 (PCR) (NotDetected) Parainfluenza 4 (PCR) (NotDetected) RSV (PCR) (NotDetected) Entero/Rhino (PCR) (NotDetected) 03/19/24 03/19/24 03/20/24 Range/Units 23:01 23:05 00:25 WBC (4.8-10.8) K/ul RBC (4.70-6.10) M/uL Hgb (14.0-18.0) g/dl Hct (42.0-52.0) % MCV (80.0-100.0) fL MCH (25.0-34.0) pg MCHC (32.0-36.0) g/dL RDW Std Deviation (36.4-46.3) fL RDW Coeff of Eliza (11.5-14.5) % Plt Count (130-400) K/uL Immature Gran % (Auto) % Neut % (Auto) % Lymph % (Auto) % [place] % (Auto) % Eos % (Auto) % Baso % (Auto) % Neut # (Auto) (1.40-6.50) K/uL Lymph # (Auto) (1.20-3.40) K/uL [place] # (Auto) (0.11-0.59) K/uL Eos # (Auto) (0.00-0.50) K/uL Baso # (Auto) (0.00-0.20) K/uL Immature Gran # (Auto) (0.01-0.20) K/uL Dohle Bodies PT (9.0-12.0) Seconds INR (0.9-1.1) APTT (21-31) Seconds PTT Ratio VBG pH 7.27 L (7.36-7.41) VBG pCO2 37 L (38-50) mmHg VBG pO2 46 mmHg VBG HCO3 17 mmol/L VBG O2 Saturation 76.6 % VBG Base Excess -9.2 mEq/L Sodium (136-145) mmol/L Potassium (3.5-5.1) mmol/L Chloride (98-107) mmol/L Carbon Dioxide (21-32) mmol/L Anion Gap (3-11) BUN (6-23) mg/dl Creatinine (0.6-1.4) mg/dl Est Cr Clr Drug Dosing ml/min Est GFR ( Amer) ml/min Est GFR (Non-Af Amer) ml/min BUN/Creatinine Ratio (10-20) Glucose (70-99(Fasting)) mg/dl POC Glucose 570 H* (70-99) mg/dl Lactate 2.4 H* (0.4-2.0) mmol/L Calcium (8.6-10.3) mg/dl Magnesium (1.7-2.4) mg/dl Total Bilirubin (0.2-1.0) mg/dl AST (13-39) U/L ALT (7-52) U/L Alkaline Phosphatase (34-104) U/L Ammonia 37.0 (18-72) umol/L Troponin I High Sens (0-20) pg/ml Total Protein (6.0-8.3) gm/dl Albumin (3.4-5.0) gm/dl Globulin (2.5-4.0) gm/dl Albumin/Globulin Ratio (0.9-2) TSH (0.300-4.500) uIu/ml Urine Color Urine Appearance (Clear) Urine pH (4.5-7.5) Ur Specific [place] (1.000-1.030) Urine Protein (Negative) Urine Glucose (UA) (Negative) Urine Ketones (Negative) Urine Blood (Negative) Urine Nitrite (Negative) Urine Bilirubin (Negative) Urine Urobilinogen (Negative) Ur Leukocyte Esterase (Negative) Urine RBC (0-2) /hpf Urine WBC (0-5) /hpf Ur Epithelial Cells (0-2) /hpf Urine Bacteria (None Seen) Urine Osmolality Ur Random Sodium Urine Opiates Screen (Neg) Ur Methadone, Qual (Neg) Urine Fentanyl Screen (Neg) Urine Barbiturates (Neg) Ur Phencyclidine (PCP) (Neg) U Amphetamin/Meth Scrn (Neg) MDMA (Ecstasy) Screen (Neg) U Benzodiazepines Scrn (Neg) Ur Cocaine Metabolite (Neg) U Marijuana (THC) Screen (Neg) Ethyl Alcohol mg/dL (<10.0) mg/dl Adenovirus (PCR) Not Detected (NotDetected) B. pertussis DNA (PCR) Not Detected (NotDetected) B.parapertussis DNA PCR Not Detected (NotDetected) C. pneumoniae DNA (PCR) Not Detected (NotDetected) Coronavirus OC43 (PCR) Not Detected (NotDetected) Coronavirus HKU1 (PCR) Not Detected (NotDetected) Coronavirus 229E (PCR) Not Detected (NotDetected) SARS-CoV-2 (PCR) Not Detected (NotDetected) Coronavirus NL63 (PCR) Not Detected (NotDetected) Human Metapneumovir PCR Not Detected (NotDetected) Influenza Type A (PCR) Not Detected (NotDetected) Influenza Type B (PCR) Not Detected (NotDetected) M. pneumoniae (PCR) Not Detected (NotDetected) Parainfluenza 1 (PCR) Not Detected (NotDetected) Parainfluenza 2 (PCR) Not Detected (NotDetected) Parainfluenza 3 (PCR) Not Detected (NotDetected) Parainfluenza 4 (PCR) Not Detected (NotDetected) RSV (PCR) Not Detected (NotDetected) Entero/Rhino (PCR) Not Detected (NotDetected) 03/20/24 03/20/24 Range/Units 00:26 Unknown WBC (4.8-10.8) K/ul RBC (4.70-6.10) M/uL Hgb (14.0-18.0) g/dl Hct (42.0-52.0) % MCV (80.0-100.0) fL MCH (25.0-34.0) pg MCHC (32.0-36.0) g/dL RDW Std Deviation (36.4-46.3) fL RDW Coeff of Eliza (11.5-14.5) % Plt Count (130-400) K/uL Immature Gran % (Auto) % Neut % (Auto) % Lymph % (Auto) % [place] % (Auto) % Eos % (Auto) % Baso % (Auto) % Neut # (Auto) (1.40-6.50) K/uL Lymph # (Auto) (1.20-3.40) K/uL [place] # (Auto) (0.11-0.59) K/uL Eos # (Auto) (0.00-0.50) K/uL Baso # (Auto) (0.00-0.20) K/uL Immature Gran # (Auto) (0.01-0.20) K/uL Dohle Bodies PT (9.0-12.0) Seconds INR (0.9-1.1) APTT (21-31) Seconds PTT Ratio VBG pH (7.36-7.41) VBG pCO2 (38-50) mmHg VBG pO2 mmHg VBG HCO3 mmol/L VBG O2 Saturation % VBG Base Excess mEq/L Sodium (136-145) mmol/L Potassium (3.5-5.1) mmol/L Chloride (98-107) mmol/L Carbon Dioxide (21-32) mmol/L Anion Gap (3-11) BUN (6-23) mg/dl Creatinine (0.6-1.4) mg/dl Est Cr Clr Drug Dosing ml/min Est GFR ( Amer) ml/min Est GFR (Non-Af Amer) ml/min BUN/Creatinine Ratio (10-20) Glucose (70-99(Fasting)) mg/dl POC Glucose > 600 H* (70-99) mg/dl Lactate (0.4-2.0) mmol/L Calcium (8.6-10.3) mg/dl Magnesium (1.7-2.4) mg/dl Total Bilirubin (0.2-1.0) mg/dl AST (13-39) U/L ALT (7-52) U/L Alkaline Phosphatase (34-104) U/L Ammonia (18-72) umol/L Troponin I High Sens (0-20) pg/ml Total Protein (6.0-8.3) gm/dl Albumin (3.4-5.0) gm/dl Globulin (2.5-4.0) gm/dl Albumin/Globulin Ratio (0.9-2) TSH (0.300-4.500) uIu/ml Urine Color Urine Appearance (Clear) Urine pH (4.5-7.5) Ur Specific [place] (1.000-1.030) Urine Protein (Negative) Urine Glucose (UA) (Negative) Urine Ketones (Negative) Urine Blood (Negative) Urine Nitrite (Negative) Urine Bilirubin (Negative) Urine Urobilinogen (Negative) Ur Leukocyte Esterase (Negative) Urine RBC (0-2) /hpf Urine WBC (0-5) /hpf Ur Epithelial Cells (0-2) /hpf Urine Bacteria (None Seen) Urine Osmolality Cancelled Ur Random Sodium Cancelled Urine Opiates Screen (Neg) Ur Methadone, Qual (Neg) Urine Fentanyl Screen (Neg) Urine Barbiturates (Neg) Ur Phencyclidine (PCP) (Neg) U Amphetamin/Meth Scrn (Neg) MDMA (Ecstasy) Screen (Neg) U Benzodiazepines Scrn (Neg) Ur Cocaine Metabolite (Neg) U Marijuana (THC) Screen (Neg) Ethyl Alcohol mg/dL (<10.0) mg/dl Adenovirus (PCR) (NotDetected) B. pertussis DNA (PCR) (NotDetected) B.parapertussis DNA PCR (NotDetected) C. pneumoniae DNA (PCR) (NotDetected) Coronavirus OC43 (PCR) (NotDetected) Coronavirus HKU1 (PCR) (NotDetected) Coronavirus 229E (PCR) (NotDetected) SARS-CoV-2 (PCR) (NotDetected) Coronavirus NL63 (PCR) (NotDetected) Human Metapneumovir PCR (NotDetected) Influenza Type A (PCR) (NotDetected) Influenza Type B (PCR) (NotDetected) M. pneumoniae (PCR) (NotDetected) Parainfluenza 1 (PCR) (NotDetected) Parainfluenza 2 (PCR) (NotDetected) Parainfluenza 3 (PCR) (NotDetected) Parainfluenza 4 (PCR) (NotDetected) RSV (PCR) (NotDetected) Entero/Rhino (PCR) (NotDetected) Administered Medications Sodium Chloride (Nss) 1,000 mls @ 999 mls/hr IV .Q1H1M LINDSEY Stop: 03/20/24 01:15 Last Infusion: 03/20/24 00:56 Dose: Infused Documented By: Admin: 03/19/24 23:56 Dose: 999 mls/hr Documented By: Infusion: 03/19/24 23:56 Dose: Infused Documented By: Admin: 03/19/24 23:11 Dose: 999 mls/hr Documented By: BEBO Insulin Human Regular 250 (units/ Sodium Chloride) 250 mls @ 10 mls/hr IV .Q24H LINDSEY; Protocol Stop: 04/18/24 23:14 Last Titration: 03/20/24 00:25 Dose: 10 units/hr, 10 mls/hr Documented By: BEBO Co-signed By: BOB Admin: 03/19/24 23:24 Dose: 10 units/hr, 10 mls/hr Documented By: BEBO Co-signed By: BOB Sodium Chloride (Nss) 1,000 mls @ 250 mls/hr IV .Q4H LINDSEY Stop: 04/19/24 00:44 Last Admin: 03/20/24 00:46 Dose: 250 mls/hr Documented By: BEBO Discontinued Medications Sodium Chloride (Nss) 1,000 mls @ 999 mls/hr IV .Q1H1M LINDSEY Stop: 03/19/24 23:15 Last Infusion: 03/19/24 23:10 Dose: Infused Documented By: Admin: 03/19/24 22:09 Dose: 999 mls/hr Documented By: MISTI Ceftriaxone Sodium (Rocephin) 2,000 mg in 50 mls @ 100 mls/hr IV NOW STA Stop: 03/19/24 23:50 Last Infusion: 03/20/24 00:10 Dose: Infused Documented By: Admin: 03/19/24 23:40 Dose: 100 mls/hr Documented By: BEBO Cefepime HCl (Maxipime) 2,000 mg in 20 mls @ 5 mls/min IV NOW STA; Protocol Stop: 03/20/24 00:21 Last Admin: 03/20/24 00:36 Dose: 5 mls/min Documented By: BEBO Calcium Gluconate () 1,000 mg in 60 mls @ 240 mls/hr IV NOW STA Stop: 03/20/24 00:39 Last Admin: 03/20/24 01:00 Dose: 240 mls/hr Documented By: BEBO Insulin Human Regular (Novolin-R Insulin Per Unit Charge) 10 units IV NOW STA Stop: 03/19/24 22:58 Last Admin: 03/19/24 23:13 Dose: 10 units Documented By: BEBO Co-signed By: MISTI Insulin Human Regular (Novolin-R Bolus From Bag) 3.5 units IV ONE ONE Stop: 03/19/24 23:16 Last Admin: 03/19/24 23:13 Dose: Not Given Documented By: BEBO Lorazepam (Lorazepam 1 Mg/1 Ml Syr Ed Inj Use) 1 mg IV ONE STA Stop: 03/19/24 22:07 Last Admin: 03/19/24 22:09 Dose: 1 mg Documented By: MISTI Boyd (Insulin Protocol Goal Range ) 1 each N/A ONE ONE Stop: 03/19/24 22:51 Last Admin: 03/19/24 23:25 Dose: Not Given Documented By: BEBO Boyd (Severe Stress Level ) 1 each N/A ONE ONE; Protocol Stop: 03/19/24 22:51 Last Admin: 03/19/24 23:25 Dose: Not Given Documented By: BEBO Boyd (Stat Iv Infusion Titration Per Protocol) 1 each N/A NOW STA Stop: 03/19/24 22:58 Last Admin: 03/20/24 00:03 Dose: Not Given Documented By: BEBO Boyd Information (Patient's Allergy Info Needs Entered) 1 each N/A NOW STA Stop: 03/19/24 23:06 Last Admin: 03/20/24 00:03 Dose: Not Given Documented By: BEBO Sodium Bicarbonate (Sodium Bicarb 8.4% Inj 50 Meq/50 Ml Syr) 50 meq IV NOW Stop: 03/20/24 00:26 Last Admin: 03/20/24 00:56 Dose: 50 meq Documented By: BEBO Discharge Plan Visit Data Chief Complaint: Confusion ED Provider: Chacha Guajardo ED Midlevel Provider: Colt Meier Discharge Problem: DKA (diabetic ketoacidosis), Delirium due to general medical condition, Acute renal failure, Acute renal failure with oliguria, Elevated troponin Forms Stand Alone Forms: My [facility] [email or web address] Prescriptions Prescriptions: No Action No Known Home Medications Referrals Referrals: PCP,NO [Primary Care Provider] -
[2024-03-20] MEDS: SODIUM CHLORIDE 0.9% 1,000 ML IV SCH (00:46)
[2024-03-20] MEDS: SODIUM BICARB 8.4% INJ 50 MEQ/50 ML SYR IV STA (00:56)
[2024-03-20] MEDS: CALCIUM GLUCONATE 1,000 MG/60 ML BAG IV STA (01:00)
--- NOTE | 2024-03-20 01:30 | History & Physical Report ---
Date of Service March 20, 2024 Assessment & Plan (1) Encephalopathy: Plan: Multifactorial: Hyperglycemic crisis (combined HHS/DKA), new diagnosis DM Severe sepsis (SIRS plus lactic acidosis plus ARF plus encephalopathy) secondary to complicated UTI, atypical pneumonia Hyponatremia Past tobacco abuse Thrombocytopenia possibly from sepsis ICU IV insulin, IVF Check hemoglobin A1c,Pharmacy glycemic control consult DM education CS, Cefepime for complicated UTI, Doxycycline for atypical pneumonia Hyponatremia workup Nephrology consult Re: Hyponatremia, ARF Nicotine replacement therapy as needed DVT prophylaxis. SCDs Re: Thrombocytopenia Full code Patient friend requesting updates providers. Mr. Blaine William, contact #[phone]. Total critical time was 40 minutes. Text document was generated using [employer] voice recognition software. It may contain grammatical or spelling errors. Kindly contact undersigned for clarification of any documentation item in question. History of Present Illness Chief Complaint: Dizziness, hallucinations Primary Care Provider: NO PCP History obtained from patient, patient's friend and records. History limited from patient due to confusion and language barrier. Medical history significant for ongoing tobacco abuse. Patient is a resident of [place], [place] who arrived in [facility] last week to do contractual [employer] work. Patient not feeling well the last few days. Achy abdominal pain with nausea, vomiting symptoms. Cough symptoms productive of junky sputum. Not sure about sick contacts. No chest pain, no SOB. Mild headache symptoms. Last night, patient noted to be confused and disoriented by work buddies. Patient with visual hallucinations. Patient denies EtOH abuse. Last drink was few weeks ago. Patient brought to the ER for evaluation. BSG 700s. NSS boluses, IV insulin, ceftriaxone, Zosyn administered at the ER. 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, occasional EtOH intake, demolition work Allergies Allergy/AdvReac Type Severity Reaction Status Date / Time No Known Allergies Allergy Unverified 03/20/24 00:57 Home Medications Medication Instructions Recorded Confirmed Type No Known Home Medications 03/20/24 03/20/24 History Past Med/Surg History Problem List (Updated 03/20/24 @ 05:23 by Sarbjit Varner MD) Encephalopathy UTI (urinary tract infection) Sepsis Hyponatremia Encephalopathy acute Elevated troponin (Acute) Acute renal failure with oliguria (Acute) Acute renal failure (Acute) Delirium due to general medical condition (Acute) DKA (diabetic ketoacidosis) (Acute) Medical History (Updated 03/20/24 @ 05:23 by Sarbjit Varner MD) No chronic diseases present Surgical History (Updated 03/19/24 @ 22:08 by Colt Meier PA-C) No significant past surgical history Social History Smoking Status: Current some day smoker Tobacco Type: Cigarettes Hx Alcohol Use: No Hx Substance Use: No Preferred Language: Lao Communication Ability: Effective Communication Tools: IPad Keno Writer Required: Yes Beliefs That Will Affect Care: None Current Living Situation: Other Current Living Situation Comment: Patient from [place]. Staying in [place] with friends for work Other Information That Helps Us Care for You: No Feels Safe at Home: Yes Safety Concerns: Feels Safe At This Time Assistive Devices: None Review of Systems Review of Systems: Could not be reliably obtained secondary to disorientation/language barrier Physical Exam Physical Exam: GENERAL: Lethargic, uncomfortable, obese, no respiratory distress SKIN: Normal color, warm HEENT: Friant palpebral conjunctivae, no ptosis, dry buccal mucosa NECK : Supple, no tenderness CHEST : Scattered expiratory wheezes,, no tenderness HEART : Tachycardic, no obvious murmurs ABDOMEN: Some distention, minimal central abdominal tenderness EXTREMITIES : Minimal LE swelling, no LE tenderness, no other conspicuous deformities noted NEUROLOGIC : Lethargic, no facial asymmetry, no other gross focality Results & Data Results & Data Vital Signs (Past 12 Hours) Vital Signs Temp Pulse Pulse Resp BP BP Pulse Ox 03/20/24 01:00 36.4 C L 88 45 H 120/78 93 03/20/24 00:30 36.3 C L 90 40 H 133/82 94 03/20/24 00:01 94 H 30 H 93 03/20/24 00:00 36.2 C L 92 H 36 H 131/77 93 03/19/24 23:43 133/79 03/19/24 23:42 36.2 C L 92 H 33 H 94 03/19/24 23:36 36.2 C L 90 41 H 03/19/24 23:24 36.1 C L 93 H 21 93 03/19/24 23:12 34.3 C L 92 H 19 91 03/19/24 23:06 91 H 27 H 91 06/03/24 23:00 120/85 03/19/24 22:57 144/86 H 03/19/24 22:48 93 H 26 H 127/73 90 03/19/24 21:57 88 L 03/19/24 21:53 36.8 C 93 H 20 131/85 98 03/19/24 21:46 90 O2 Del Method O2 Flow Rate 03/20/24 01:00 Nasal Cannula 2 03/20/24 00:30 03/20/24 00:01 Nasal Cannula 2 03/20/24 00:00 Nasal Cannula 2 03/19/24 23:43 03/19/24 23:42 03/19/24 23:36 03/19/24 23:24 03/19/24 23:12 03/19/24 23:06 03/19/24 23:00 03/19/24 22:57 03/19/24 22:48 Nasal Cannula 2 03/19/24 21:57 Room Air, Nasal Cannula 0 03/19/24 21:53 Room Air 03/19/24 21:46 Laboratory Results Laboratory Results WBC 28.41 K/ul (4.8-10.8) H 03/19/24 21:45 RBC 5.10 M/uL (4.70-6.10) 03/19/24 21:45 Hgb 14.9 g/dl (14.0-18.0) 03/19/24 21:45 Hct 42.3 % (42.0-52.0) 03/19/24 21:45 MCV 82.9 fL (80.0-100.0) 03/19/24 21:45 MCH 29.2 pg (25.0-34.0) 03/19/24 21:45 MCHC 35.2 g/dL (32.0-36.0) 03/19/24 21:45 RDW Std Deviation 43.8 fL (36.4-46.3) 03/19/24 21:45 RDW Coeff of Eliza 14.4 % (11.5-14.5) 03/19/24 21:45 Plt Count 42 K/uL (130-400) L 03/19/24 21:45 Immature Gran % (Auto) 7.0 % 03/19/24 21:45 Neut % (Auto) 87.0 % 03/19/24 21:45 Lymph % (Auto) 2.5 % 03/19/24 21:45 [place] % (Auto) 3.4 % 03/19/24 21:45 Eos % (Auto) 0.0 % 03/19/24 21:45 Baso % (Auto) 0.1 % 03/19/24 21:45 Neut # (Auto) 24.70 K/uL (1.40-6.50) H 03/19/24 21:45 Lymph # (Auto) 0.71 K/uL (1.20-3.40) L 03/19/24 21:45 [place] # (Auto) 0.97 K/uL (0.11-0.59) H 03/19/24 21:45 Eos # (Auto) 0.01 K/uL (0.00-0.50) 03/19/24 21:45 Baso # (Auto) 0.04 K/uL (0.00-0.20) 03/19/24 21:45 Immature Gran # (Auto) 1.98 K/uL (0.01-0.20) H 03/19/24 21:45 Dohle Bodies 2+ 03/19/24 21:45 PT 10.0 Seconds (9.0-12.0) 03/19/24 21:45 INR 0.9 (0.9-1.1) 03/19/24 21:45 APTT 26 Seconds (21-31) 03/19/24 21:45 PTT Ratio 1.0 03/19/24 21:45 VBG pH 7.27 (7.36-7.41) L 03/19/24 23:05 VBG pCO2 37 mmHg (38-50) L 03/19/24 23:05 VBG pO2 46 mmHg 03/19/24 23:05 VBG HCO3 17 mmol/L 03/19/24 23:05 VBG O2 Saturation 76.6 % 03/19/24 23:05 VBG Base Excess -9.2 mEq/L 03/19/24 23:05 Sodium 109 mmol/L (136-145) L* 03/19/24 21:45 Potassium 6.2 mmol/L (3.5-5.1) H* 03/19/24 21:45 Chloride 66 mmol/L (98-107) L 06/03/24 21:45 Carbon Dioxide 18 mmol/L (21-32) L 03/19/24 21:45 Anion Gap 25 (3-11) H 03/19/24 21:45 BUN 145 mg/dl (6-23) H 03/19/24 21:45 Creatinine 8.26 mg/dl (0.6-1.4) H* 03/19/24 21:45 Est Cr Clr Drug Dosing 12.9 ml/min 03/19/24 21:45 Est GFR ( Amer) 8.5 ml/min 03/19/24 21:45 Est GFR (Non-Af Amer) 7.3 ml/min 03/19/24 21:45 BUN/Creatinine Ratio 17.6 (10-20) 03/19/24 21:45 Glucose 784 mg/dl (70-99(Fasting)) H* 03/19/24 21:45 POC Glucose 546 mg/dl (70-99) H* 03/20/24 01:24 Lactate 2.7 mmol/L (0.4-2.0) H* 03/20/24 00:52 Calcium 8.3 mg/dl (8.6-10.3) L 03/19/24 21:45 Magnesium 4.1 mg/dl (1.7-2.4) H 03/19/24 21:45 Total Bilirubin 1.6 mg/dl (0.2-1.0) H 03/19/24 21:45 AST 19 U/L (13-39) 03/19/24 21:45 ALT 41 U/L (7-52) 03/19/24 21:45 Alkaline Phosphatase 284 U/L (34-104) H 03/19/24 21:45 Ammonia 37.0 umol/L (18-72) 03/19/24 23:05 Troponin I High Sens 103.2 pg/ml (0-20) H* 03/19/24 21:45 Total Protein 7.4 gm/dl (6.0-8.3) 03/19/24 21:45 Albumin 2.9 gm/dl (3.4-5.0) L 03/19/24 21:45 Globulin 4.5 gm/dl (2.5-4.0) H 03/19/24 21:45 Albumin/Globulin Ratio 0.6 (0.9-2) L 03/19/24 21:45 TSH 1.142 uIu/ml (0.300-4.500) 03/19/24 21:45 Urine Color Yellow 03/19/24 21:50 Urine Appearance Cloudy (Clear) A 03/19/24 21:50 Urine pH 6.5 (4.5-7.5) 03/19/24 21:50 Ur Specific Davenport 1.020 (1.000-1.030) 03/19/24 21:50 Urine Protein 3+ (Negative) H 03/19/24 21:50 Urine Glucose (UA) 2+ (Negative) H 03/19/24 21:50 Urine Ketones 1+ (Negative) H 03/19/24 21:50 Urine Blood 3+ (Negative) H 03/19/24 21:50 Urine Nitrite Positive (Negative) A 03/19/24 21:50 Urine Bilirubin 1+ (Negative) H 03/19/24 21:50 Urine Urobilinogen Negative (Negative) 03/19/24 21:50 Ur Leukocyte Esterase 3+ (Negative) H 03/19/24 21:50 Urine RBC 11-20 /hpf (0-2) H 03/19/24 21:50 Urine WBC >50 /hpf (0-5) H 03/19/24 21:50 Ur Epithelial Cells 6-10 /hpf (0-2) H 03/19/24 21:50 Urine Bacteria 2+ (None Seen) H 03/19/24 21:50 Urine Osmolality Cancelled 03/20/24 Unknown Ur Random Sodium Cancelled 03/20/24 Unknown Urine Opiates Screen Neg (Neg) 03/19/24 21:50 Ur Methadone, Qual Neg (Neg) 03/19/24 21:50 Urine Fentanyl Screen Neg (Neg) 03/19/24 21:50 Urine Barbiturates Neg (Neg) 03/19/24 21:50 Ur Phencyclidine (PCP) Neg (Neg) 03/19/24 21:50 U Amphetamin/Meth Scrn Neg (Neg) 03/19/24 21:50 MDMA (Ecstasy) Screen Neg (Neg) 03/19/24 21:50 U Benzodiazepines Scrn Neg (Neg) 03/19/24 21:50 Ur Cocaine Metabolite Neg (Neg) 03/19/24 21:50 U Marijuana (THC) Screen Neg (Neg) 03/19/24 21:50 Ethyl Alcohol mg/dL < 10.0 mg/dl (<10.0) 03/19/24 21:45 Adenovirus (PCR) Not Detected (NotDetected) 03/19/24 23:01 B. pertussis DNA (PCR) Not Detected (NotDetected) 03/19/24 23:01 B.parapertussis DNA PCR Not Detected (NotDetected) 03/19/24 23:01 C. pneumoniae DNA (PCR) Not Detected (NotDetected) 03/19/24 23:01 Coronavirus OC43 (PCR) Not Detected (NotDetected) 03/19/24 23:01 Coronavirus HKU1 (PCR) Not Detected (NotDetected) 03/19/24 23:01 Coronavirus 229E (PCR) Not Detected (NotDetected) 03/19/24 23:01 SARS-CoV-2 (PCR) Not Detected (NotDetected) 03/19/24 23:01 Coronavirus NL63 (PCR) Not Detected (NotDetected) 03/19/24 23:01 Human Metapneumovir PCR Not Detected (NotDetected) 03/19/24 23:01 Influenza Type A (PCR) Not Detected (NotDetected) 03/19/24 23:01 Influenza Type B (PCR) Not Detected (NotDetected) 03/19/24 23:01 M. pneumoniae (PCR) Not Detected (NotDetected) 03/19/24 23:01 Parainfluenza 1 (PCR) Not Detected (NotDetected) 03/19/24 23:01 Parainfluenza 2 (PCR) Not Detected (NotDetected) 03/19/24 23:01 Parainfluenza 3 (PCR) Not Detected (NotDetected) 03/19/24 23:01 Parainfluenza 4 (PCR) Not Detected (NotDetected) 03/19/24 23:01 RSV (PCR) Not Detected (NotDetected) 03/19/24 23:01 Entero/Rhino (PCR) Not Detected (NotDetected) 03/19/24 23:01 CT head: No acute intracranial finding CT chest Interseptal thickening could relate to atelectasis, atypical infection and/or pulmonary edema. CT abdomen pelvis: 1. Markedly enlarged bilateral kidneys with perinephric stranding, right slightly greater than left. No definitive hydronephrosis. There is nonspecific, cannot exclude ascending infection. 2. Diverticulosis. Diagnostic Findings EKG as per my interpretation : Rate 90, NSR, normal axis, no ischemia
[2024-03-20] MEDS: ALBUT/IPRATROP 3MG/0.5MG NEB 3 ML VIAL NEB STA (01:38)
[2024-03-20] MEDS: PIPERACILLIN/TAZOBACTAM 4.5 GM/100 ML BAG IV ONE (01:38)
[2024-03-20] MEDS ORDERED: PHARMACY GLYCEMIC MGMT CONSULT PRN (01:39)
[2024-03-20] MEDS ORDERED: PROMETHAZINE HCL 12.5 MG in SODIUM CHLORIDE 0.9% 50 ML IV PRN (01:43)
[2024-03-20] MEDS ORDERED: oxyCODONE HCL IR 5 MG TAB (IMMEDIATE RELEASE) PO PRN (01:43)
[2024-03-20] MEDS: ACETAMINOPHEN 1,000 MG/100 ML VIAL IV STA (01:55)
[2024-03-20 02:16] LABS: BUN Creatinine Ratio 17.8 (10-20); Calcium 7.2 mg/dl (8.6-10.3); Creatinine Clr Calc Pharmacy 13.3 ml/min; Est GFR (African American) 8.7 ml/min; Est GFR (Non-African American) 7.5 ml/min; Potassium 5.2 mmol/L (3.5-5.1)
--- NOTE | 2024-03-20 03:27 | Critical Care Consultation ---
Date of Consultation March 20, 2024 Assessment & Plan (1) DKA (diabetic ketoacidosis): Impression: 39-year-old speaking male with PMH of DM type II presents to the ICU with what appears to be new onset DKA, and acute renal failure possibly due to underlying sepsis from urinary source. Neuro - Encephalopathypatient with mild confusion with what appears to be metabolic encephalopathy in the setting of DKA, underlying sepsis, Uremia, and hyponatremia may be contributing as well. - Follow-up read on CT head - Treat underlying disease process and monitor. Cardiac - No history of cardiac disease. Elevated troponin of 100 in the setting of acute renal failure and tachycardia likely demand ischemia, with underlying DKA and sepsis. - EKG without ST elevation. - Trend troponins for peak. - Continuous monitor on telemetry Respiratory - Currently maintaining oxygen saturation on room air. No known history of pulmonary disease. Continuous monitoring pulse ox GI - N.p.o. for now RENAL/LYTES - Acute renal failurepatient with creatinine of 8 and BUN 140. Expect this is prerenal in the setting of DKA with severe dehydration. Serum Osmo 338. - Received 2 L crystalloid bolus and emergency department. Continue with aggressive fluid resuscitation - CT abdomen and pelvis pending - Avoid nephrotoxins and renally adjust medications -Trend BMPs -Nephrology consult pending Hyperosmolar hypovolemic Hyponatremiapatient with corrected sodium of 125 in the setting of DKA and acute renal failure. - Currently receiving Plasma-Lyte at 200 mL/h. Trending BMPs every 4 hours. Correction complicated by underlying DKA. Goal to increase corrected sodium by 8 mEq/dL over 24hr -Nephrology consult pending - Foleystrict I's and O's ENDO - DKApatient with history of type 2 diabetes previously managed with oral medications. Patient currently noncompliant with his normal regimen. - Initial BSG 700, Anion gap 25, HCO3 18, pH 7.28. Positive ketones in urine - Continue fluid resuscitation and insulin drip per DKA protocol. HEME - H&H stable, monitor routine CBC ID - Sepsis?Suspect patient may have underlying sepsis from urinary source given UTI which may be contributing to her DKA. - BioFire negative - Nasal MRSA pending - CT abdomen pelvis, chest pending - Urine culture and blood cultures pending - Continue Zosyn for now LINES/IV ACCESS - Peripheral IVs DVT PROPHYLAXIS - SCDs I have personally spent 42 minutes of critical care time in the direct management of this patient. This is a life/limb threatening event. This includes time spent evaluating patient, direct bedside care, chart review, placing orders, interpretation of diagnostic studies, discussion with consultants, patient, and family members, as well as other required patient management activities. This time is exclusive of all separately billable procedures, and teaching time and separate from and in addition to any other critical care service time. Thank you for allowing us to participate in the care of this patient. Please refer to my attending physician's documentation for any further recommendations. (2) Encephalopathy acute: (3) Acute renal failure: (4) Hyponatremia: (5) Sepsis: (6) UTI (urinary tract infection): Supervising Physician Co-Signing Physician Notes I have personally evaluated and examined this patient. I agree with assessment and plan of Stella STYLES. This note reflects my management from signout at 0 700 till 1900. Patient's mental status waxed and waned throughout the day. He was seen by urology for any concerns for possible obstructive issues. Discussed the case with nephrology, patient's history is vague and unreliable with waxing and waning mental status. Not forthcoming with any family members or contact information. The numbers provided of who dropped him off today he reports he does not know these individuals. Upon further questioning he reports he has a in [place] who is who he does not want to make worry/contact. He is not forthcoming with his citizenship, we do not have identification for this individual and he is not forthcoming with a substitute medical decision-maker. Accordingly we proceeded with two-physician consent for dialysis lines and dialysis. Patient did verbally assent to the procedure. Of note the patient is bacteremic, he has significant thrombocytopenia. The acute encephalopathy is likely multifactorial not limited to but including sepsis/bacteremia and azotemia. He does not exhibit any hard signs indicative of meningitis, he has full range of motion of his neck not complaining of neck pain. He did report mild sore throat. I feel the risks of possible lumbar puncture for encephalopathy without hard signs of meningismus given significant thrombocytopenia outweigh the benefits. Have requested social work to assist in obtaining additional details/surrogate decision makers for this individual. Patient was been significantly volume expanded and has no urine production. Given the encephalopathy and mild impulsivity felt it was safer to proceed with intubation for a more controlled environment and to allow for effective dialysis. I am hopeful we will be able to liberate the patient from the ventilator after course of dialysis and see if this significantly improves his encephalopathy. I have personally spent 95 minutes of critical care time in the direct management of this patient. This is a life/limb threatening event. This includes time spent evaluating patient, direct bedside care, chart review, placing orders, interpretation of diagnostic studies, discussion with consultants, patient, and/or family members regarding treatment decisions, as well as other required patient management activities. This time is exclusive of all separately billable procedures, and teaching time and separate from and in addition to any other critical care service time. 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 Patient is in town doing demolition work locally. He was dropped off at the emergency department. On arrival to the emergency department was patient was found to be confused. He underwent CT head, CT abdomen and pelvis, and CT chest with reads currently pending. Lab work is consistent with DKA, with initial BSG 700s, high anion gap metabolic acidosis, and positive ketones in urine, Along with acute renal failure with creatinine of 8 and BUN of 140. Urinalysis is consistent with UTI. Patient does not have history of diabetes, but also does not follow with primary care physician. He was given 2 L crystalloid bolus and started on insulin drip. He is now transferred to ICU for further management at this time. On arrival to the ICU, he is without acute distress and hemodynamically stable. He was interviewed with japanese interpreter as he speaks very little [place]. He currently complains of abdominal pain. He denies headache, dizziness, syncope, shortness of breath, chest pain or palpitations, cough or congestion or sore throat, back pain, changes in gait, swelling hands or feet. Allergies Allergy/AdvReac Type Severity Reaction Status Date / Time No Known Allergies Allergy Unverified 03/20/24 00:57 Home Medications Medication Instructions Recorded Confirmed Type No Known Home Medications 03/20/24 03/20/24 History Patient History Medical History No chronic diseases present Surgical History No significant past surgical history Social History Smoking Status: Current some day smoker Tobacco Type: Cigarettes Hx Alcohol Use: No Hx Substance Use: No Preferred Language: Scottish Communication Ability: Effective Communication Tools: IPad and Language Line Telecommunications Field Technician Telecommunications Field Technician Required: Yes Beliefs That Will Affect Care: None Current Living Situation: Other Current Living Situation Comment: Patient from [place]. Staying in [place] with friends for work Other Information That Helps Us Care for You: No Feels Safe at Home: Yes Safety Concerns: Feels Safe At This Time Assistive Devices: None Review of Systems Review of Systems: All systems reviewed & are unremarkable except as noted in HPI & below Physical Exam Constitutional: cooperative and comfortable; no acute distress Eyes: PERRL, conjunctivae normal, anicteric sclerae ENMT: external ear and nose normal, oropharynx normal Neck: trachea midline, no thyromegaly Respiratory: normal respiratory effort, lungs clear to auscultation Cardiovascular: RRR, no murmur, no edema Heart Sounds: normal S1 and normal S2; no murmur Gastrointestinal (Abdomen): Abdomen semifirm, nontender, distended, bowel sounds auscultated all 4 quadrants Musculoskeletal: no cyanosis or clubbing, extremities motor strength 5/5 Skin: no rashes, warm and dry Neurologic: PERRL, EOMI, accommodation nl, no face palsy, no dysarthria Psychiatric: Orientation: oriented to person and cooperative; + not oriented to place and + not oriented to time Results & Data Results & Data Vital Signs (Past 12 Hours) Vital Signs Temp Pulse Pulse Resp BP BP Pulse Ox 03/20/24 01:40 93 H 03/20/24 01:33 36.4 C L 91 H 36 H 122/87 91 03/20/24 01:33 91 H 30 H 122/87 91 03/20/24 01:00 36.4 C L 88 45 H 120/78 93 03/20/24 00:30 36.3 C L 90 40 H 133/82 94 03/20/24 00:01 94 H 30 H 93 03/20/24 00:00 36.2 C L 92 H 36 H 131/77 93 03/19/24 23:43 133/79 03/19/24 23:42 36.2 C L 92 H 33 H 94 03/19/24 23:36 36.2 C L 90 41 H 03/19/24 23:24 36.1 C L 93 H 21 93 03/19/24 23:12 34.3 C L 92 H 19 91 03/19/24 23:06 91 H 27 H 91 03/19/24 23:00 120/85 03/19/24 22:57 144/86 H 03/19/24 22:48 93 H 26 H 127/73 90 03/19/24 21:57 88 L 03/19/24 21:53 36.8 C 93 H 20 131/85 98 03/19/24 21:46 90 O2 Del Method O2 Flow Rate 03/20/24 01:40 03/20/24 01:33 03/20/24 01:33 Room Air 03/20/24 01:00 Nasal Cannula 2 03/20/24 00:30 03/20/24 00:01 Nasal Cannula 2 03/20/24 00:00 Nasal Cannula 2 03/19/24 23:43 03/19/24 23:42 03/19/24 23:36 03/19/24 23:24 03/19/24 23:12 03/19/24 23:06 03/19/24 23:00 03/19/24 22:57 03/19/24 22:48 Nasal Cannula 2 03/19/24 21:57 Room Air, Nasal Cannula 0 03/19/24 21:53 Room Air 03/19/24 21:46 Coding Level of Care Code 73817 CRITICAL CARE 1ST 30-74M Diagnoses DKA (diabetic ketoacidosis) E11.10 Encephalopathy acute G93.40 Acute renal failure N17.9 Hyponatremia E87.1 Sepsis A41.9 UTI (urinary tract infection) N39.0 Time Spent (min) 132
--- NOTE | 2024-03-20 03:56 | CT Scan Report ---
Exam(s): CT ABDOMEN + PELVIS Without Contrast EXAM: CT Abdomen and Pelvis Without Intravenous Contrast CLINICAL HISTORY: Abdominal Pain. TECHNIQUE: Axial computed tomography images of the abdomen and pelvis without intravenous contrast. CTDI is 28 mGy and DLP is 3687 mGy-cm. Automated exposure control was utilized for the study. A dose lowering technique was utilized adhering to the principles of ALARA. COMPARISON: No relevant prior studies available. FINDINGS: Lung bases: Unremarkable. No mass. No consolidation. ABDOMEN: Liver: Unremarkable. Gallbladder and bile ducts: Unremarkable. No calcified stones. No ductal dilation. Pancreas: Unremarkable. No ductal dilation. Spleen: Unremarkable. No splenomegaly. Adrenals: Unremarkable. No mass. Kidneys and ureters: Markedly enlarged bilateral kidneys with perinephric stranding, right slightly greater than left. No definitive hydronephrosis. Stomach and bowel: Diverticulosis. No obstruction. No mucosal thickening. PELVIS: Appendix: Normal appendix. Bladder: A Sinha catheter is present. No stones. Reproductive: Unremarkable as visualized. ABDOMEN and PELVIS: Intraperitoneal space: Unremarkable. No free air. No significant fluid collection. Bones/joints: No acute fracture. No dislocation. Soft tissues: Small bilateral fat-containing inguinal hernias. Vasculature: Unremarkable. No abdominal aortic aneurysm. Lymph nodes: Unremarkable. No enlarged lymph nodes. IMPRESSION: 1. Markedly enlarged bilateral kidneys with perinephric stranding, right slightly greater than left. No definitive hydronephrosis. There is nonspecific, cannot exclude ascending infection. 2. Diverticulosis. Electronically signed by: Tracee Iqbal MD 03/20/24 03:55 AM
[2024-03-20] MEDS: PLASMA-LYTE A 1,000 ML IV SCH ×2 (03:57→11:07)
--- NOTE | 2024-03-20 03:57 | CT Scan Report ---
Exam(s): CT HEAD Without Contrast EXAM: CT Head Without Intravenous Contrast CLINICAL HISTORY: Headache TECHNIQUE: Axial computed tomography images of the head/brain without intravenous contrast. CTDI is 37 mGy and DLP is 624 mGy-cm. Automated exposure control was utilized for the study. A dose lowering technique was utilized adhering to the principles of ALARA. COMPARISON: No relevant prior studies available. FINDINGS: Brain: Unremarkable. No significant white matter disease. No intracranial hemorrhage, mass-effect or midline shift. No abnormal extra axial fluid. No evidence of acute infarct. Ventricles: Unremarkable. No ventriculomegaly. Bones/joints: Unremarkable. No acute fracture. Soft tissues: Unremarkable. Sinuses: Unremarkable as visualized. No acute sinusitis. Mastoid air cells: Unremarkable as visualized. No mastoid effusion. IMPRESSION: No acute intracranial finding. Electronically signed by: Tracee Iqbal MD 03/20/24 03:56 AM
--- NOTE | 2024-03-20 03:59 | CT Scan Report ---
Exam(s): CT CHEST Without Contrast EXAM: CT Chest Without Intravenous Contrast CLINICAL HISTORY: Cough. TECHNIQUE: Axial computed tomography images of the chest without intravenous contrast. CTDI is 28 mGy and DLP is 1596 mGy-cm. Automated exposure control was utilized for the study. A dose lowering technique was utilized adhering to the principles of ALARA. COMPARISON: No relevant prior studies available. FINDINGS: Lungs: Interseptal thickening could relate to atelectasis and/or pulmonary edema. No mass. Pleural space: Unremarkable. No pneumothorax. No significant effusion. Heart: Unremarkable. No cardiomegaly. No significant pericardial effusion. No significant coronary artery calcifications. Bones/joints: There are degenerative changes of the spine. Fusion of T3, T4 and T5 with posterior screws and rods extending from the cervical spine through T8. No acute fracture. No dislocation. Soft tissues: Unremarkable. Vasculature: Unremarkable. No thoracic aortic aneurysm. Lymph nodes: Unremarkable. No enlarged lymph nodes. IMPRESSION: Interseptal thickening could relate to atelectasis, atypical infection and/or pulmonary edema. Electronically signed by: Tracee Iqbal MD 03/20/24 03:58 AM
[2024-03-20 04:45] LABS: Hematocrit (blood only) 32.9 % (42.0-52.0); Mean Corpuscular Hemoglobin 29.2 pg (25.0-34.0); Mean Corpuscular Hgb Conc 36.5 g/dL (32.0-36.0); Nucleated RBC # (auto) 0.02 K/uL (0.00-0.12); Nucleated RBC % (auto) 0.1 %; Platelet Count 36 K/uL (130-400); RDW Coefficient of Variation 13.6 % (11.5-14.5); RDW Standard Deviation 39.8 fL (36.4-46.3); Red Blood Count 4.11 M/uL (4.70-6.10); White Blood Count 28.78 K/ul (4.8-10.8)
[2024-03-20 05:05] LABS: BUN Creatinine Ratio 18.9 (10-20); Calcium 6.9 mg/dl (8.6-10.3); Creatinine Clr Calc Pharmacy 13.6 ml/min; Est GFR (Non-African American) 7.8 ml/min; Phosphorus 5.8 mg/dl (2.5-4.9); Potassium 4.7 mmol/L (3.5-5.1); Troponin I High Sensitivity 23.9 pg/ml (0-20)
[2024-03-20 05:09] LABS: Basophils # (auto) 0.15 K/uL (0.00-0.20); Basophils % (auto) 0.5 %; Dohle Bodies 1+; Echinocytes 1+; Eosinophils # (auto) 0.02 K/uL (0.00-0.50); Eosinophils % (auto) 0.1 %; Immature Granulocytes # (auto) 1.68 K/uL (0.01-0.20); Immature Granulocytes % (auto) 5.8 %; Lymphocytes # (auto) 0.92 K/uL (1.20-3.40); Lymphocytes % (auto) 3.2 %; Monocytes # (auto) 1.15 K/uL (0.11-0.59); Neutrophils # (auto) 24.86 K/uL (1.40-6.50); Neutrophils % (auto) 86.4 %
[2024-03-20] MEDS: DOXYCYCLINE HYCLATE 100 MG in DEXTROSE 5% MINI-B 100 ML IV STA (05:25)
[2024-03-20] MEDS: POTASSIUM CHLORIDE 20 MEQ in PLASMA-LYTE A 1,000 ML IV SCH (06:35)
--- NOTE | 2024-03-20 07:06 | XRay Report ---
XR chest 2V PA/lateral HISTORY: 39 years-old Male ams acute weakness COMPARISON: Chest CT 03/20/2024 TECHNIQUE: PA and lateral views of the chest FINDINGS: Cardiac silhouette is enlarged. There is mild right hemidiaphragmatic elevation. Nonspecific reticula r interstitial densities, most pronounced on the midlung distributions and lung bases. No pneumothora x, pleural effusion or lobar airspace consolidation. Healed chronic left clavicular fracture deformit y. Extensive spinal fusion hardware. IMPRESSION: Cardiomegaly with nonspecific reticular interstitial densities. Pulmonary edema, intersti tial pneumonia versus pulmonary fibrosis are differential considerations. ACT 112: Negative or not required by law. The above report was generated using voice recognition software. It may contain grammatical, syntax o r spelling errors. Electronically signed by: Augusto Morris M.D. 03/20/2024 7:04 AM
[2024-03-20 07:09] LABS: Estimated Average Glucose 260 mg/dl; Hemoglobin A1C 10.7 % (4.5-5.6)
--- NOTE | 2024-03-20 07:37 | Communication Note ---
Date of Service: March 20, 2024 Pt was seen while in the ICU. Agitated, complaining of pain in the penile area. Urology consulted by ICU, appreciate recs. For full plan of care, please see History and Physical from same date of service.
[2024-03-20] MEDS ORDERED: MIDAZOLAM HCL 5 MG/ML 2ML VIAL IV ONE (08:44)
[2024-03-20] MEDS ORDERED: ROCURONIUM BROMIDE 10 MG/ML 5 ML VIAL IV ONE (08:44)
[2024-03-20] MEDS ORDERED: fentaNYL citrate PF 100 MCG/2 ML VIAL IV ONE (08:44)
[2024-03-20] MEDS: PIPERACILLIN/TAZOBACTAM 4.5 GM in DEXTROSE 5% MINI-B 100 ML IV SCH ×2 (08:47→19:31)
[2024-03-20 10:39] LABS: Calcium 7.1 mg/dl (8.6-10.3); Creatinine Clr Calc Pharmacy 13.6 ml/min; Est GFR (Non-African American) 7.8 ml/min; Phosphorus 5.1 mg/dl (2.5-4.9); Potassium 4.9 mmol/L (3.5-5.1)
[2024-03-20 10:51] LABS: BUN Creatinine Ratio 19.2 (10-20)
[2024-03-20] MEDS: fentaNYL citrate PF 100 MCG/2 ML VIAL IV STA (11:38)
--- NOTE | 2024-03-20 12:08 | Pharmacy Report ---
Pharmacy Glycemic Short Note 2 - Date of Service March 20, 2024 - Glycemic Short BSG Results (Last 24 hours): 03/19/24 03/19/24 03/20/24 21:45 22:43 00:25 Glucose 784 H* POC Glucose > 600 H* 570 H* 03/20/24 03/20/24 03/20/24 00:26 01:23 01:24 Glucose POC Glucose > 600 H* 523 H* 546 H* 03/20/24 03/20/24 03/20/24 01:25 02:29 03:32 Glucose 578 H* POC Glucose 503 H* 462 H* 03/20/24 03/20/24 03/20/24 03:56 04:30 05:36 Glucose 482 H* POC Glucose 409 H* 353 H* 03/20/24 03/20/24 03/20/24 06:30 07:32 08:25 Glucose POC Glucose 302 H* 223 H 230 H 03/20/24 03/20/24 03/20/24 09:23 09:51 10:24 Glucose 204 H POC Glucose 203 H 181 H 03/20/24 11:33 Glucose POC Glucose 196 H OUTPATIENT ANTIDIABETIC REGIMEN: * Not taking any medications currently (previously on orals) * HbA1c 10.7% ASSESSMENT: * 39 yo M w hx T2DM but not on any current medications admitted with complicated clinical picture of sepsis possibly 2nd urinary source, acute renal failure, hyponatremia, DKA (acidosis and anion gap noted) and possible HHS (calculated effective osmolality not elevated, but serum was) * Discussed extensively at ICU rounds - prefer to keep BSG's higher 2nd possible HHS and goal range was adjusted to 250-350 mg/dL, per Dr. Post. Insulin drip was temporarily put on hold for BSG below goal, per Dr. Post. OK to hold despite also having DKA picture as CO2 has normalized and pH is now elevated. Patient is not producing urine at this time. * Discussed fluids extensively as well - Plasmalyte w/o potassium reasonable as K is high/normal and patient is not making urine. OK to hold off on adding dextrose as insulin not as necessary at this time 2nd pH elevation and normal CO2. * Will continue to follow labs and make adjustments to regimen, with input from Dr. Post. * Discussed w Dr. Post again at 1630 - OK to resume insulin drip at this time. Discussed goal range of 250-350 mg/dL and resuming at lower rate of 2 units/hr. Discussed fluids - stopping all fluids. May or may not be DKA, but either way patient doesn't need dextrose at this point to keep BSG >250. Discussed pending order to flag RN to notify sales support engineer if/when insulin drip falls below 1 unit/hr to consider need for supplemental dextrose at this time. Dr. Post agreed. HD planned for today. PLAN FOR INPATIENT GLYCEMIC CONTROL: * Insulin drip * Goal range 250-350 mg/dL * Resume at 2 units/hr
--- NOTE | 2024-03-20 12:16 | Urology Consultation ---
Date of Consultation March 20, 2024 Assessment & Plan (1) Acute renal failure with oliguria: Plan Acutely ill 39-year-old male with multiple acute issues Current leukocytosis of 28,000 Sodium level of 123 Creatinine of 7.8 currently, similar to arrival Current glucose level 204 Hemoglobin A1c 10.7 Essentially no urine output since Sinha placement He has renal parenchymal swelling without hydronephrosis Has perinephric stranding This is all consistent with a nephrological cause of renal failure not an obstructive cause. Unfortunately we do not yet know the definitive underlying cause. He does have some evidence of diabetic ketoacidosis, however there very well could be a secondary issue that is contributing -hypotensive injury? low perfusion injury? For now certainly appears that his renal failure is not post renal it is either prerenal or intrinsic renal. I have recommended nephrology evaluation in addition to his acute care management. At present I see no role for urology and treatment of his current disease. History of Present Illness Attending Physician: Barbara Boggs MD History of Present Illness 39-year-old gentleman presenting secondary to acute renal failure with question of sepsis Called by the ICU attending secondary to CT findings of swollen kidneys without hydronephrosis, Sinha catheter in position and no urine output I have personally reviewed his imaging studies and his lab work and discussed the case with the ICU attending His CT shows renal parenchymal swelling and stranding without any hydronephrosis His Sinha catheter is in good position also without any distention of the bladder or significant urine around the catheter. Has had minimal urine output since catheter placement When I evaluated the patient he was undergoing renal bladder ultrasound in the room and I was able to look over the shoulder with the field rep and again has no evidence of building hydronephrosis or distention of the bladder. He has a dark-colored urine within the tubingapproximately 10 cc consistent with a renal failure produced urine Currently temperature is 37.6, heart rate 100, he is mentating only moderately, somewhat confused He is not a quileute Citizen Of [place] speaker Allergies Allergy/AdvReac Type Severity Reaction Status Date / Time No Known Allergies Allergy Unverified 03/20/24 00:57 Home Medications Medication Instructions Recorded Confirmed Type No Known Home Medications 03/20/24 03/20/24 History Patient History Medical History No chronic diseases present Surgical History No significant past surgical history Social History Smoking Status: Current some day smoker Tobacco Type: Cigarettes Hx Alcohol Use: No Hx Substance Use: No Preferred Language: Finnish Communication Ability: Effective Communication Tools: IPad and Language Line Document Control Coordinator Document Control Coordinator Required: Yes Beliefs That Will Affect Care: None Current Living Situation: Other Current Living Situation Comment: Patient from [place]. Staying in [place] with friends for work Other Information That Helps Us Care for You: No Feels Safe at Home: Yes Safety Concerns: Feels Safe At This Time Assistive Devices: None Review of Systems Review of Systems: All systems reviewed & are unremarkable except as noted in HPI & below Physical Exam Physical Exam: NC O2 in place responds to questions, but quite somnolent abd mildly distended/protuberant no rebound, no guarding no severe edema urine dark/tea colored with scant production Results & Data Vital Signs (Past 12 Hours) Vital Signs Temp Pulse Pulse Resp BP BP BP 03/20/24 09:00 37.6 C H 100 H 24 134/77 03/20/24 08:00 37.3 C 102 H 21 136/60 03/20/24 07:00 03/20/24 07:00 37.0 C 86 22 140/79 03/20/24 06:00 36.6 C 87 42 H 130/73 03/20/24 05:54 36.6 C 95 H 22 03/20/24 05:36 36.6 C 91 H 39 H 03/20/24 05:00 36.6 C 91 H 31 H 122/75 03/20/24 04:57 36.6 C 91 H 37 H 03/20/24 04:30 36.6 C 92 H 28 H 03/20/24 04:24 36.6 C 92 H 35 H 03/20/24 04:12 36.6 C 93 H 35 H 03/20/24 04:00 129/80 03/20/24 03:48 36.6 C 92 H 36 H 03/20/24 03:05 03/20/24 03:05 36.6 C 92 H 18 126/70 03/20/24 01:40 93 H 03/20/24 01:33 36.4 C L 91 H 36 H 122/87 03/20/24 01:33 91 H 30 H 122/87 03/20/24 01:00 36.4 C L 88 45 H 120/78 03/20/24 00:30 36.3 C L 90 40 H 133/82 Pulse Ox O2 Del Method O2 Flow Rate 03/20/24 09:00 93 Room Air 03/20/24 08:00 91 Room Air 03/20/24 07:00 Room Air 03/20/24 07:00 94 Room Air 03/20/24 06:00 93 03/20/24 05:54 91 03/20/24 05:36 93 03/20/24 05:00 93 03/20/24 04:57 92 03/20/24 04:30 94 03/20/24 04:24 92 03/20/24 04:12 92 03/20/24 04:00 03/20/24 03:48 93 03/20/24 03:05 Room Air 03/20/24 03:05 92 Room Air 03/20/24 01:40 03/20/24 01:33 91 03/20/24 01:33 91 Room Air 03/20/24 01:00 93 Nasal Cannula 2 03/20/24 00:30 94 PG Care Time/CCT Total # of Minutes Spent Total Time Spent with Patient: Total time spent is greater than 50% in coordination of care (as documented) at patient's floor/unit and/or counseling patient: Coding Level of Care Code 13905 IN/OBS CONSULT LVL 4,60M Diagnoses Acute renal failure with oliguria N17.9; R34
--- NOTE | 2024-03-20 12:27 | Nephrology Consultation ---
Date of Consultation March 20, 2024 Assessment & Plan (1) Acute renal failure with oliguria: anuric renal failure with unknown baseline and uremic sx (encephalopathy) w/ large kidneys and cortical thickening >> presume CKD; cannot r/o R ANGELICA, though BP has been controlled. AG 25>18; VBG w/ minimal acidemia > not unexpected given tachypnea/Kussmaul. his osmolal gap from admission is high at 25 >> could be accumulated small solutes from advanced /untreated CKD; less likely toxic EtOH ingestion though can't r/o -emergent dialysis given encephalopathy, anuria -spoke w/ pt at length and consent obtained w/ RN and catalyst supervisor and later with Dr Post >> consider this emergent procedure; he will need intubation in order to place line and to dialyze safely -reevaluate need for dialysis daily > likely to need tomorrow; for today 2.5 hr tx with regular dialyzer Qb250; Qd 400; 3K bath; no heparin; Na 134; bic 32; up to 500 mL UF as tolerated - may not need any -monitor K carefully > stat level at start of tx and again stat 2 hrs after; K dropping as expected w/ better blood sugar control; total body K stores unknown/complicated by anuric renal failure -hold tylenol pending level -f/u pending thrombocytopenia w/u > again do not believe emergent PLEX indicated at this time; hemolysis eval/workup -f/u pending cultures -strict I/O -recheck osmolal gap and lipid profile (2) Bacteremia due to Escherichia coli: also w/ Enterobacter on biofire. on daptomycin now >consider switching back to zosyn or ceftazidime >> primary service put on ceftriaxone; >>consider antispeudomonal coverage (3) Hyponatremia: Presenting sodium 109 at 2200 with a blood sugar of 784 (corrects to 123); at 10 AM today sodium was 123 with a blood sugar of 204 (corrects for BG to 125). >goal is sNa no more than 129 this evening 2099 >cont q6h BMP (4) DKA (diabetic ketoacidosis): gap improving; on insulin gtt; agree w/ lower fluid rate of plasmalyte 75 for the moment; has already had 5.7 L fluid and 70 mL UOP only (5) Thrombocytopenia: plts in 30-40s; coags ok >do not believe emergent PLEX indicated despite renal failure, altered MS >hemolysis eval/work up > stat smear, fibrinogen, B12, TORRE TS 13, haptoglobin, LDH, D dimer >serial cbc (6) Encephalopathy: Possibly uremic; possibly from septicemia. Neuro exam somewhat odd/atypical > stares briefly at times; very restless. tox screen negative; head CT unremarkable. does c/o sore thoat Consider LP if persistent after dialysis and if thrombocytopenia improves; consider neck CT Plan total time spent today 110 minutes reviewing data, repeatedly interviewing patient and obtaining consent, working w/ catalyst supervisor, coordinating repeatedly w/ Dr Post and with ICU and dialysis RNs. History of Present Illness Reason for Consultation: hyponatremia, ARF Requesting Physician: Dr Varner Attending Physician: Barbara Boggs MD History of Present Illness 39 y/o M whom I'm asked to see for hyponatremia and ARF was admitted overnight to ICU for HHS/DKA and SIRS/Sepsis. Only PMH is active tobacco use. He tells me he's had problems w/ his kidneys in the past but does not follow w/ a kidney doctor; denies stone hx. I asked him how long he's had diabetes but he does not really answer. He denies nsaid use but tells me he's been taking daily tylenol for 3 days; 3 pills once daily he states. He presented after a few days of malaise, n/v abd pain, productive cough; did have some confusion and visual hallucinations per coworker who brought him in per report. Pt denies hallucinations visual to me. hi presented w/ BG 784, Na 109, creat 8.3, BUN 145, plts 42. 3LNS > plasmalyte at 200 mL hourly, insulin gtt, ceftriaxone, Zosyn > currently on doxycycline; urine and blood cxs + in <12 hrs for E coli. he is anuric. we removed the grewal b/c it was causing him pain. he has no urine in bladder on multiple bladder scans. 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 His 's name is Andie and they're expecting; she's in [place] but he does not have her # b/c his coworkers took his fphone. Allergies Allergy/AdvReac Type Severity Reaction Status Date / Time No Known Allergies Allergy Unverified 03/20/24 00:57 Home Medications Medication Instructions Recorded Confirmed Type No Known Home Medications 03/20/24 03/20/24 History Patient History Medical History No chronic diseases present Surgical History No significant past surgical history Social History Smoking Status: Current some day smoker Tobacco Type: Cigarettes Hx Alcohol Use: No Hx Substance Use: No Preferred Language: Qatari Communication Ability: Effective Communication Tools: IPad and Language Line Senior Product Marketing Manager Senior Product Marketing Manager Required: Yes Beliefs That Will Affect Care: None Current Living Situation: Other Current Living Situation Comment: Patient from [place]. Staying in [place] with friends for work Other Information That Helps Us Care for You: No Feels Safe at Home: Yes Safety Concerns: Feels Safe At This Time Assistive Devices: None Review of Systems 2 Review of Systems: All systems reviewed & are unremarkable except as noted in HPI & below Physical Exam 2 Constitutional: well developed, well nourished, + acute distress, + obese, + altered mental status, + language barrier (faroese speaking; speaks w/ me in faroese and w/ catalyst supervisor) and cooperative Eyes: EOM intact bilaterally ENMT: Ears: no external ear abnormality Nose: no external nose abnormality Mouth: + dry oral mucous membranes Neck: no nuchal rigidity Respiratory: normal respiratory effort, + labored breathing, able to speak in complete sentences, + abnormal respiratory pattern and + tachypneic; no respiratory distress, no cough, expiratory phase not prolonged, no grunting and no stridor Auscultation: + diminished lung sounds Cardiovascular: RRR, no murmur, no edema Gastrointestinal (Abdomen): Inspection/Auscultation: + abdomen distended and normal bowel sounds Percussion/Palpation: abdomen soft; abdomen nontender and no ascites Musculoskeletal: Extremities: strength 5/5 throughout Skin: no rashes, warm and dry Neurologic: farris, fluent speech, no tremor; very restless in bed, moves constantly, stares into space periodically Psychiatric: Orientation: oriented to person, oriented to place and cooperative Insight: + limited insight Judgment: + limited judgement Genitourinary: no grewal Results & Data Vital Signs (Past 12 Hours) Vital Signs Temp Pulse Pulse Resp BP BP BP 03/20/24 09:00 37.6 C H 100 H 24 134/77 03/20/24 08:00 37.3 C 102 H 21 136/60 03/20/24 07:00 03/20/24 07:00 37.0 C 86 22 140/79 03/20/24 06:00 36.6 C 87 42 H 130/73 03/20/24 05:54 36.6 C 95 H 22 03/20/24 05:36 36.6 C 91 H 39 H 03/20/24 05:00 36.6 C 91 H 31 H 122/75 03/20/24 04:57 36.6 C 91 H 37 H 03/20/24 04:30 36.6 C 92 H 28 H 03/20/24 04:24 36.6 C 92 H 35 H 03/20/24 04:12 36.6 C 93 H 35 H 03/20/24 04:00 129/80 03/20/24 03:48 36.6 C 92 H 36 H 03/20/24 03:05 03/20/24 03:05 36.6 C 92 H 18 126/70 03/20/24 01:40 93 H 03/20/24 01:33 36.4 C L 91 H 36 H 122/87 03/20/24 01:33 91 H 30 H 122/87 03/20/24 01:00 36.4 C L 88 45 H 120/78 03/20/24 00:30 36.3 C L 90 40 H 133/82 Pulse Ox O2 Del Method O2 Flow Rate 03/20/24 09:00 93 Room Air 03/20/24 08:00 91 Room Air 03/20/24 07:00 Room Air 03/20/24 07:00 94 Room Air 03/20/24 06:00 93 03/20/24 05:54 91 03/20/24 05:36 93 03/20/24 05:00 93 03/20/24 04:57 92 03/20/24 04:30 94 03/20/24 04:24 92 03/20/24 04:12 92 03/20/24 04:00 03/20/24 03:48 93 03/20/24 03:05 Room Air 03/20/24 03:05 92 Room Air 03/20/24 01:40 03/20/24 01:33 91 03/20/24 01:33 91 Room Air 03/20/24 01:00 93 Nasal Cannula 2 03/20/24 00:30 94 Laboratory Results 03/20/24 03:56 03/20/24 09:[address] a/p 1. Markedly enlarged bilateral kidneys with perinephric stranding, right slightly greater than left. No definitive hydronephrosis. There is nonspecific, cannot exclude ascending infection. 2. Diverticulosis. ct chest Interseptal thickening could relate to atelectasis, atypical infection and/or pulmonary edema.
[2024-03-20] MEDS: DOXYCYCLINE HYCLATE 100 MG in D5W MINI-B 100 ML (Q12H) IV SCH (12:34)
[2024-03-20 12:35] LABS: A calco-baum cmplx NotReported Not Detected (NotDetected); Bact fragilis Not Reported Not Detected (NotDetected); Blood Culture Id Panel See PCR Comment (NotDetected); C auris Not Reported Not Detected (NotDetected); CTX-M Resistant Gene Not Detected (NotDetected); Calbicans Not Reported Not Detected (NotDetected); Candida glabrata Not Reported Not Detected (NotDetected); Candida krusei Not Reported Not Detected (NotDetected); Cneoformans/gatti Not Reported Not Detected (NotDetected); Cparapsilosis Not Reported Not Detected (NotDetected); E cloacae compx Not Reported Not Detected (NotDetected); Efaecalis Not Reported Not Detected (NotDetected); Efaecium Not Reported Not Detected (NotDetected); Enterobacterales Not Reported DETECTED (NotDetected); Escherichia coli Not Reported DETECTED (NotDetected); H influenzae Not Reported Not Detected (NotDetected); IMP Resistant Gene Not Detected (NotDetected); K aerogenes Not Reported Not Detected (NotDetected); KPC Resistant Gene Not Detected (NotDetected); Koxytoca Not Reported Not Detected (NotDetected); Kpneumoniae grp Not Reported Not Detected (NotDetected); Lmonocyt Not Reported Not Detected (NotDetected); N meningitidis Not Reported Not Detected (NotDetected); NDM Resistant Gene Not Detected (NotDetected); OXA 48 Like Resistant Gene Not Detected (NotDetected); P aeruginosa Not Reported Not Detected (NotDetected); Proteus spp Not Reported Not Detected (NotDetected); Salmonella spp Not Reported Not Detected (NotDetected); Smarcescens Not Reported Not Detected (NotDetected); Staph lugdunensis Not Reported Not Detected (NotDetected); Staph spp. Not Reported Not Detected (NotDetected); Staphaureus Not Reported Not Detected (NotDetected); Staphepi Not Reported Not Detected (NotDetected); Stenmaltophilia Not Reported Not Detected (NotDetected); Strep agal(GrpB) Not Reported Not Detected (NotDetected); Strep pneum Not Reported Not Detected (NotDetected); Strep pyog (GrpA) Not Reported Not Detected (NotDetected); Strep spp Not Reported Not Detected (NotDetected); VIM Resistant Gene Not Detected (NotDetected); mcr-1 Colistin Resistant Gene Not Detected (NotDetected)
--- NOTE | 2024-03-20 12:44 | Ultrasound Report ---
ULTRASOUND KIDNEYS AND BLADDER CLINICAL HISTORY: Acute renal insufficiency. COMPARISON STUDY: Abdominal CT dated 03/20/2024 TECHNIQUE: Real-time, grayscale, and color flow sonography of the kidneys and bladder is performed. I mages are reviewed in the transverse and longitudinal planes. FINDINGS: Kidneys: The kidneys appear enlarged with cortical thickening. Echotexture is normal. The right kidne y measures 14.2 cm in length and the left kidney measures 14.0 cm in length. There is no hydronephro sis. No shadowing renal calculi are identified. There is no sonographic evidence of contour deforming renal mass lesion. No perinephric fluid is identified. Bladder: The bladder is decompressed around a Sinha catheter and could not be assessed. IMPRESSION: 1. The kidneys are enlarged with cortical thickening. 2. No hydronephrosis is seen. 3. The bladder was decompressed and could not be evaluated. ACT 112: Negative or not required by law. Electronically signed by: Rui Tee M.D. 03/20/2024 12:43 PM
[2024-03-20 12:47] LABS: Enterobacterales DETECTED (NotDetected)
--- NOTE | 2024-03-20 13:01 | Ultrasound Report ---
DOPPLER ULTRASOUND OF THE RENAL ARTERIES CLINICAL HISTORY: Acute renal insufficiency. COMPARISON STUDY: Renal ultrasound dated 03/20/2024. Abdominal CT dated 03/20/2024. TECHNIQUE: Doppler sonography of the renal arteries was performed to assess renal artery stenosis. Im ages are reviewed in the transverse and longitudinal planes. The examination is degraded by lack of p atient cooperation. FINDINGS: The kidneys appear enlarged with cortical thickening. Echotexture is normal. The right kidney measure s 14.2 cm in length and the left kidney measures 14.0 cm in length. There is no hydronephrosis. On the right, intrarenal arterial resistive indices range from 0.71 to 0.81. Intrarenal arterial wave forms are normal with brisk upstrokes. The proximal right renal artery is not visualized. Velocities within the mid to distal portions measure up to 232 cm/sec. The right renal vein is patent. On the left, intrarenal arterial resistive indices range from 0.47 to 0.76. Intrarenal arterial wave forms are normal with brisk upstrokes. The left renal arterial waveform is normal, and velocities wit hin the left renal artery measure up to 112 cm/sec. The left renal vein is patent. The abdominal aorta is patent. Velocities within the abdominal aorta measure up to 121 cm/s. IMPRESSION: 1. The kidneys are enlarged and show cortical thickening. 2. There are mildly elevated velocities within the mid right renal artery. No significant atheroscler otic plaque was seen by CT and this may be artifactual. Stenosis is not excluded. 3. There is no sonographic evidence of left renal artery stenosis. ACT 112: Negative or not required by law. Electronically signed by: Rui Tee M.D. 03/20/2024 12:59 PM
[2024-03-20] MEDS ORDERED: STAT IV Infusion **Titration per Protocol STA ×5 (15:00→19:53)
[2024-03-20] MEDS ORDERED: fentaNYL citrate PF 100 MCG/2 ML VIAL IV PRN (15:00)
[2024-03-20] MEDS: PROPOFOL BOLUS FROM BAG IV PRN (15:06)
[2024-03-20] MEDS: RAPID SEQUENCE INDUCTION BAG ONE (15:07)
[2024-03-20 15:10] LABS: White Blood Count 42.36 K/ul (4.8-10.8)
[2024-03-20] MEDS: propofoL 1,000 MG/100 ML VIAL IV SCH (15:16)
[2024-03-20] MEDS ORDERED: SODIUM CHLORIDE 0.9% 1,000 ML IV PRN (15:26)
[2024-03-20 15:42] LABS: Fibrinogen > 860 mg/dl (184-400)
[2024-03-20 15:47] LABS: Hemoglobin 12.2 g/dl (14.0-18.0); Mean Corpuscular Hgb Conc 35.9 g/dL (32.0-36.0); Nucleated RBC # (auto) 0.03 K/uL (0.00-0.12); Nucleated RBC % (auto) 0.1 %; Platelet Count 44 K/uL (130-400); RDW Coefficient of Variation 13.7 % (11.5-14.5)
[2024-03-20 15:52] LABS: D Dimer 4540 ug/L FEU (0-500)
[2024-03-20] MEDS: PROPOFOL IV EMULSION 10 MG/ML 100 ML VIAL IV ONE (15:53)
[2024-03-20 15:57] LABS: Creatinine Clr Calc Pharmacy 13.6 ml/min; Est GFR (Non-African American) 7.8 ml/min; Potassium 5.5 mmol/L (3.5-5.1)
[2024-03-20 15:58] LABS: Phosphorus 5.4 mg/dl (2.5-4.9)
[2024-03-20] MEDS ORDERED: Nursing to Pharmacy Communication SCH ×3 (16:00→18:00)
[2024-03-20] MEDS: fentaNYL citrate PF 100 MCG/2 ML VIAL IV PRN (16:03)
[2024-03-20 16:27] LABS: BUN Creatinine Ratio 19.4 (10-20)
[2024-03-20] MEDS: fentaNYL citrate 2,500 MCG/250 ML BAG IV SCH (16:52)
--- NOTE | 2024-03-20 17:04 | XRay Report ---
XR chest 1V portable HISTORY: Evaluate lines and tubes. COMPARISON: Chest 03/19/2024. FINDINGS: The china is is not clearly identified due to the overlapping spinal fusion hardware. Ramirez rufus, the endotracheal tube appears to terminate approximately 4.2 cm from the china. The nasogastric tube terminates in the mid stomach. A right jugular central venous catheter terminates in the SVC. T here are low lung volumes. No definite pneumothorax. The heart remains enlarged. Small right pleural effusion. Mild congestive changes noted. There are patchy bibasilar densities. IMPRESSION: 1. Satisfactory support line placement as described above. 2. Cardiomegaly with mild congestive change and a small right pleural effusion. 3. Patchy bibasilar densities have progressed. This could represent atelectasis or a pneumonia ACT 112: Negative or not required by law. Electronically signed by: En Stahl M.D. 03/20/2024 5:02 PM
[2024-03-20] MEDS: MIDAZOLAM HCL 125 MG/250 ML BAG IV SCH (17:39)
[2024-03-20] MEDS: MIDAZOLAM HCL 125MG/250ML D5W IV ONE (17:46)
[2024-03-20] MEDS: ROCURONIUM BROMIDE 10 MG/ML 5 ML VIAL IV ONE ×2 (17:47→17:50)
[2024-03-20] MEDS: PHENYLEPHRINE/NSS 25 MG/250 ML BAG IV SCH (17:51)
[2024-03-20] MEDS: PHENYLEPHRINE HCL 25 MG/250 ML NSS IV ONE (17:52)
--- NOTE | 2024-03-20 18:38 | Dialysis Progress Note ---
Date of Service March 20, 2024 Assessment & Plan (1) Acute renal failure with oliguria: Plan: anuric renal failure with unknown baseline and uremic sx (encephalopathy) w/ large kidneys and cortical thickening >> presume CKD; cannot r/o R ANGELICA, though BP has been controlled. AG 25>18; VBG w/ minimal acidemia > not unexpected given tachypnea/Kussmaul. his osmolal gap from admission is high at 25 >> could be accumulated small solutes from advanced /untreated CKD; less likely toxic EtOH ingestion though can't r/o -emergent dialysis given encephalopathy, anuria >> first tx today; reeval /plan further tx in AM -intubated in order to place dialysis catheter and to dialyze safely >> issues w/ sedation, hypotension as above -reevaluate need for dialysis daily > likely to need tomorrow; for today 2.5 hr tx with regular dialyzer Qb250; Qd 400; 3K bath; no heparin; Na 134; bic 32; up to 1000 mL UF as tolerated - rapidly stopped all UF -monitor K carefully > stat level at start of tx and again stat 2 hrs after; K dropping as expected w/ better blood sugar control; total body K stores unknown/complicated by anuric renal failure -hold tylenol pending level -f/u pending thrombocytopenia w/u > again do not believe emergent PLEX indicated at this time; hemolysis eval/workup -f/u pending cultures -strict I/O -recheck osmolal gap and lipid profile in AM (2) Bacteremia due to Escherichia coli: Plan: also w/ Enterobacter on biofire >> this is apparently cross reactivity, not a true +. >on zosyn and doxy now -f/u pending TTE (3) Hyponatremia: Plan: Presenting sodium 109 at 2200 with a blood sugar of 784 (corrects to 123); at 10 AM today sodium was 123 with a blood sugar of 204 (corrects for BG to 125). >goal is sNa no more than 129 corrected this evening 2099 >cont q6h BMP -maintain eukalemia (4) DKA (diabetic ketoacidosis): Plan: gap improving; on insulin gtt; agree w/ lower fluid rate of plasmalyte 75 for the moment; has already had 5.7 L fluid and 70 mL UOP only > defer to critical care for use of pressors/IVF after HD (5) Thrombocytopenia: Plan: plts in 30-40s; coags ok >do not believe emergent PLEX indicated despite renal failure, altered MS >hemolysis eval/work up > stat smear, fibrinogen, B12, TORRE TS 13, haptoglobin, LDH, D dimer >serial cbc (6) Encephalopathy: Plan: Possibly uremic; possibly from septicemia. Neuro exam somewhat odd/atypical > stares briefly at times; very restless. tox screen negative; head CT unremarkable. does c/o sore thoat Consider LP if persistent after dialysis and if thrombocytopenia improves; consider neck CT Plan work for this evaluation is discrete and separate from previous 110 min w/u; reviewed data, coordinated repeatedly w/ Dr Post and with ICU and dialysis RNs. Admission and Anticipated Discharge Date Admission Date: March 20, 2024 Subjective Seen on dialysis. He remained very agitated after intubation despite aggressive sedation medication. Propofol was added and his blood pressure dropped shortly thereafter requiring 2 pressors. I came by again shortly after propofol was stopped and patient was weaned back to 1 pressor. All UF was held for dialysis Review of Systems 2 Review of Systems: Unobtainable due to endotracheal tube Physical Exam 2 Constitutional: well developed, well nourished, + acute distress (On initial exam on dialysis; then improved with sedation) and + obese Eyes: EOM intact bilaterally ENMT: Ears: no external ear abnormality Nose: no external nose abnormality Mouth: + dry oral mucous membranes Neck: no nuchal rigidity Respiratory: normal respiratory effort (On ventilator) Auscultation: + diminished lung sounds Cardiovascular: Rate/Rhythm: + tachycardic Extremities: no edema Gastrointestinal (Abdomen): Inspection/Auscultation: + abdomen distended and normal bowel sounds Percussion/Palpation: abdomen soft; abdomen nontender and no ascites Musculoskeletal: Extremities: strength 5/5 throughout Skin: no rashes, warm and dry Results & Data Vital Signs (Past 12 Hours) Vital Signs Temp Pulse Pulse Resp BP BP BP 03/20/24 18:28 03/20/24 18:00 130 H 114/65 03/20/24 17:51 128 H 19 03/20/24 17:48 124 H 19 03/20/24 17:45 123 H 68/43 L 03/20/24 17:36 121 H 33 H 03/20/24 17:33 96/69 L 03/20/24 17:30 103/70 03/20/24 17:30 127 H 103/70 03/20/24 17:25 130 H 112/53 L 03/20/24 17:24 130 H 30 H 03/20/24 17:20 03/20/24 17:00 119/51 L 03/20/24 16:57 125 H 34 H 03/20/24 16:42 124 H 27 H 03/20/24 16:30 119 H 26 H 03/20/24 16:21 119 H 28 H 03/20/24 16:18 124/72 03/20/24 16:15 114 H 26 H 03/20/24 16:15 117 H 27 H 130/55 L 03/20/24 16:14 96/60 L 03/20/24 16:00 122 H 22 03/20/24 16:00 122 H 23 139/63 03/20/24 15:50 122 H 25 H 03/20/24 15:20 110 H 16 104/60 03/20/24 15:18 112 H 16 111/64 03/20/24 15:17 116 H 16 135/71 03/20/24 15:15 86 95/55 L 03/20/24 15:12 102 H 97/62 L 03/20/24 15:10 100 H 102/62 03/20/24 15:08 100 H 104/68 03/20/24 15:07 97 H 36 H 120/86 03/20/24 14:00 37.0 C 98 H 39 H 132/81 03/20/24 13:00 99 H 41 H 126/76 03/20/24 12:00 37.7 C H 99 H 38 H 119/56 L 03/20/24 11:00 37.6 C H 96 H 25 H 125/70 03/20/24 10:00 37.6 C H 95 H 40 H 128/73 03/20/24 09:00 37.6 C H 100 H 24 134/77 03/20/24 08:00 37.3 C 102 H 21 136/60 03/20/24 07:00 03/20/24 07:00 37.0 C 86 22 140/79 Pulse Ox O2 Del Method O2 Flow Rate FiO2 03/20/24 18:28 80 03/20/24 18:00 03/20/24 17:51 96 03/20/24 17:48 95 03/20/24 17:45 03/20/24 17:36 94 03/20/24 17:33 03/20/24 17:30 03/20/24 17:30 03/20/24 17:25 03/20/24 17:24 94 03/20/24 17:20 80 03/20/24 17:00 03/20/24 16:57 92 03/20/24 16:42 92 03/20/24 16:30 92 03/20/24 16:21 92 03/20/24 16:18 03/20/24 16:15 91 03/20/24 16:15 92 Mechanical Vent 80 03/20/24 16:14 03/20/24 16:00 91 03/20/24 16:00 91 Mechanical Vent 80 03/20/24 15:50 92 80 03/20/24 15:20 94 Mechanical Vent 80 03/20/24 15:18 94 Mechanical Vent 80 03/20/24 15:17 94 Mechanical Vent 80 03/20/24 15:15 97 Mechanical Vent 80 03/20/24 15:12 58 L Ambu-Bag 15 03/20/24 15:10 94 Room Air 03/20/24 15:08 97 Room Air 03/20/24 15:07 95 Room Air 03/20/24 14:00 93 Room Air 03/20/24 13:00 92 Room Air 03/20/24 12:00 95 Room Air 03/20/24 11:00 93 Room Air 03/20/24 10:00 92 Room Air 03/20/24 09:00 93 Room Air 03/20/24 08:00 91 Room Air 03/20/24 07:00 Room Air 03/20/24 07:00 94 Room Air Laboratory Results 03/20/24 14:25 03/20/24 14:25
--- NOTE | 2024-03-20 18:53 | Procedure Note ---
Procedure Note Date of Service March 20, 2024 Note Procedure Date: Noted above Procedure: Endotracheal intubation Pre-procedure Diagnosis: Inability to follow commands, acute encephalopathy need for dialysis Post-procedure Diagnosis: same as above Prior to Procedure: Informed Consent: emergent Attending Staff: Ivette Post DO The identity of the patient was confirmed and a bedside time out was performed. Description of Procedure: Patient was evaluated and required intubation for impending respiratory failure. The patient was prepared in the usual fashion. A video laryngoscope was used. A 8 mm inner diameter endotrachial tube was placed endotracheally to 24 cm at the teeth. A grade 2 view was obtained. The endotracheal tube was noted to pass through the vocal cords. Chest rise was bilateral. Bilateral breath sounds were heard without air sounds in the abdomen. Mist was noted in the endotracheal tube. End-tidal CO2 measurement was positive. Chest x-ray shows proper endotracheal tube placement. Complications: None Findings: Not applicable Specimens: Not applicable Estimated blood loss: Zero Coding CPT Codes Resuscitation - Resuscitation: 57443 Endotracheal Intubation, emergency ([id number]) [facility] [place] Procedure Codes (Charges) Resuscitation Resuscitation: 30159 Endotracheal Intubation, emergency
--- NOTE | 2024-03-20 18:55 | Procedure Note ---
Procedure Note Date of Service March 20, 2024 Note Procedure date: Noted above Procedure: Central venous access Pre-procedure indication: Need for dialysis Post-procedure Diagnosis: same as above Prior to Procedure: Informed Consent: Emergent consent implied, two-physician consent with Dr. Dyer nephrology. Patient assented to procedure verbally Attending Staff: Ivette Post DO Resident/APC: Not applicable Skin Prep: Chlorhexidine Anesthesia: 4 mL 1% lidocaine without epinephrine The identity of the patient was confirmed and a bedside time out was performed. Description of Procedure: After sterile prep and sterile drape utilizing standard sterile technique the superficial skin of the right internal jugular area was anesthetized. The target vessel was identified and entered with an 18- gauge needle. Dark venous blood return was noted. A guidewire was inserted through the needle and into the vessel. The needle was withdrawn and a skin karri was made. A tissue dilator was advanced via Seldinger technique and removed. A double lumen catheter was inserted via Seldinger technique and the guidewire removed. All ports joseph and flushed easily. A Biopatch was placed, and the catheter was secured via silk suture. A sterile dressing was then applied. Complications: None Estimated blood loss: Trace Patient tolerated the procedure well. Procedure Date: Noted Above Procedure: Procedural Ultrasound Indication: Central venous access Attending: Ivette Post DO Resident/Physician Governor Assembler: Not applicable Artery visualized: Yes Vein visualized: Yes Compressible Vein: Yes Vein patent: Yes Guidewire or Short Catheter seen in vein prior to dilation: Yes Line confirmed in Vein with ultrasound: Yes Lung Sliding on side of attempt (if applicable): NA If no lung sliding or not obtained has CXR been ordered: Yes Impression: Successful central venous access placement Images obtained are saved for permanent record Coding CPT Codes Tubes, Drains, and Vasc Access - Tubes, Drains, and Vasc Access: [id number] Insertion Of Non-tunneled Catheter Age 4 Yrs> ([id number]) Tubes, Drains, and Vasc Access - Tubes, Drains, and Vasc Access: [id number] Ultrasound Guidance For Vascular ([id number]) [facility] [place] C[place] (Charges) Tubes, Drains, and Vasc Access Procedure 1: Tubes, Drains, and Vasc Access: [id number] Insertion Of Non-tunneled Catheter Age 4 Yrs> Procedure 2: Tubes, Drains, and Vasc Access: [id number] Ultrasound Guidance For Vascular
--- NOTE | 2024-03-20 18:57 | Procedure Note ---
Procedure Note Date of Service March 20, 2024 Note Procedure date: Noted above Procedure: Radial artery cannulation Pre-procedure Diagnosis: Need for invasive monitoring, hypotension/frequent blood draws Post-procedure Diagnosis: same as above Prior to Procedure: Informed Consent: Emergent consent implied. Attending Staff: Ivette Post DO Skin Prep: Chlorhexidine Anesthesia: 3 mL 1% lidocaine without epinephrine The identity of the patient was confirmed and a bedside time out was performed. Description of Procedure: After sterile prep and sterile drape utilizing standard sterile technique the superficial skin of the right radial artery was anesthetized. The target artery was identified via dynamic ultrasound guidance and entered with a 20-gauge arrow Angiocath. Pulsatile bright red blood return was noted. Via modified Seldinger technique the self-contained guidewire was advanced and the Angiocath advanced over the guidewire. The guidewire was removed and brisk arterial blood return was noted. The pressure monitor was connected, and the arterial line was secured via commercial securement device. A sterile dressing was then applied. Complications: None Estimated blood loss: Trace Patient tolerated the procedure well. Coding CPT Codes Tubes, Drains, and Vasc Access - Tubes, Drains, and Vasc Access: [id number] Arterial Cath/Cannulation Sampling/Monitoring/Transfusion ([id number]) [facility] [place] Procedure Codes (Charges) Tubes, Drains, and Vasc Access Procedure 1: Tubes, Drains, and Vasc Access: [id number] Arterial Cath/Cannulation Sampling/Monitoring/Transfusion
[2024-03-20] MEDS: NOREPINEPHRINE/D5W 4 MG/250 ML PLCT IV SCH (20:00)
[2024-03-20] MEDS: MIDAZOLAM BOLUS FROM BAG IV PRN (20:30)
[2024-03-20] MEDS: fentaNYL BOLUS from BAG IV PRN (20:30)
[2024-03-20] MEDS: NOREPINEPHRINE/D5W 4 MG/250 ML IV ONE (20:31)
[2024-03-20] MEDS ORDERED: cefTRIAXone SODIUM 2,000 MG/50 ML BAG IV SCH (21:00)
[2024-03-20] MEDS ORDERED: DOXYCYCLINE HYCLATE 100 MG CAP PO SCH (21:00)
[2024-03-20 21:07] LABS: iSTAT Art Bld Gas pCO2 Correct 47 mmHg (35-46); iSTAT Art Bld Gas pH Corrected 7.263 (7.35-7.45); iSTAT Arterial Blood Gas HCO3 21 meg/L (19-24); iSTAT Arterial Blood Gas pCO2 47 mmHg (35-46); iSTAT Arterial Blood Gas pH 7.26 (7.35-7.45); iSTAT Arterial Blood Gas pO2 139 mmHg (80-95); iSTAT Arterial Blood Gas pO2 C 137; iSTAT Carbon Dioxide 22 mmol/L (24-31); iSTAT FiO2 70 %; iSTAT Hematocrit 37 % (42-52); iSTAT Hemoglobin 12.6 g/dl (14.0-18.0); iSTAT Potassium 5.1 mmol/L (3.3-5.0); iSTAT Site Art Line; iSTAT Sodium 125 mmol/L (135-144)
[2024-03-20 21:52] LABS: BUN Creatinine Ratio 16.3 (10-20); Calcium 7.4 mg/dl (8.6-10.3); Creatinine Clr Calc Pharmacy 17.4 ml/min; Est GFR (African American) 12.1 ml/min; Est GFR (Non-African American) 10.4 ml/min; Phosphorus 6.3 mg/dl (2.5-4.9); Potassium 5.1 mmol/L (3.5-5.1)
[2024-03-20] MEDS: CALCIUM GLUCONATE 1,000 MG/60 ML BAG IV SCH (23:20)
[2024-03-21 01:19] LABS: Urine Potassium 15.6 mmol/L
[2024-03-21 01:21] LABS: Calcium 7.6 mg/dl (8.6-10.3); Creatinine Clr Calc Pharmacy 16.1 ml/min; Est GFR (Non-African American) 9.5 ml/min; Potassium 5.3 mmol/L (3.5-5.1)
[2024-03-21 01:23] LABS: BUN Creatinine Ratio 16.3 (10-20)
[2024-03-21] MEDS: ACETAMINOPHEN 325 MG TAB PO PRN (03:48)
[2024-03-21 04:13] LABS: iSTAT Art Bld Gas pCO2 Correct 43 mmHg (35-46); iSTAT Art Bld Gas pH Corrected 7.339 (7.35-7.45); iSTAT Arterial Blood Gas HCO3 23 meg/L (19-24); iSTAT Arterial Blood Gas pCO2 41 mmHg (35-46); iSTAT Arterial Blood Gas pH 7.36 (7.35-7.45); iSTAT Arterial Blood Gas pO2 93 mmHg (80-95); iSTAT Arterial Blood Gas pO2 C 99; iSTAT Carbon Dioxide 24 mmol/L (24-31); iSTAT FiO2 40 %; iSTAT Hematocrit 33 % (42-52); iSTAT Hemoglobin 11.2 g/dl (14.0-18.0); iSTAT Potassium 5.8 mmol/L (3.3-5.0); iSTAT Site Art Line; iSTAT Sodium 124 mmol/L (135-144)
[2024-03-21] MEDS: ACETAMINOPHEN SUSP 325 MG/10.15 ML UDC PO PRN (04:25)
[2024-03-21 05:26] LABS: Creatinine Clr Calc Pharmacy 15.8 ml/min; Est GFR (African American) 10.8 ml/min; Est GFR (Non-African American) 9.3 ml/min
[2024-03-21 05:27] LABS: Anion Gap 15 (3-11); BUN Creatinine Ratio 16.1 (10-20); Blood Urea Nitrogen 109 mg/dl (6-23); Calcium 7.4 mg/dl (8.6-10.3); Carbon Dioxide 21 mmol/L (21-32); Chloride 90 mmol/L (98-107); Chol HDL Ratio 39.7 (0-5); Cholesterol 119 mg/dl (0-200); Glucose 308 mg/dl (70-99(Fasting)); HDL Cholesterol 3 mg/dl; Magnesium 3.2 mg/dl (1.7-2.4); Phosphorus 7.2 mg/dl (2.5-4.9); Potassium 5.3 mmol/L (3.5-5.1); Sodium 126 mmol/L (136-145); Triglycerides 419 mg/dl (0-150)
[2024-03-21 06:22] LABS: Basophils # (auto) 0.04 K/uL (0.00-0.20); Basophils % (auto) 0.1 %; Dohle Bodies 1+; Eosinophils # (auto) 0.04 K/uL (0.00-0.50); Eosinophils % (auto) 0.1 %; Hematocrit (blood only) 29.4 % (42.0-52.0); Hemoglobin 10.5 g/dl (14.0-18.0); Immature Granulocytes # (auto) 2.36 K/uL (0.01-0.20); Immature Granulocytes % (auto) 6.7 %; Lymphocytes # (auto) 1.35 K/uL (1.20-3.40); Lymphocytes % (auto) 3.9 %; Mean Corpuscular Hgb Conc 35.7 g/dL (32.0-36.0); Mean Corpuscular Volume 81.2 fL (80.0-100.0); Monocytes # (auto) 1.62 K/uL (0.11-0.59); Monocytes % (auto) 4.6 %; Neutrophils # (auto) 29.64 K/uL (1.40-6.50); Neutrophils % (auto) 84.6 %; Nucleated RBC # (auto) 0.04 K/uL (0.00-0.12); Nucleated RBC % (auto) 0.1 %; Platelet Count 67 K/uL (130-400); RDW Coefficient of Variation 14.5 % (11.5-14.5); Red Blood Count 3.62 M/uL (4.70-6.10)
[2024-03-21 06:24] LABS: White Blood Count 35.05 K/ul (4.8-10.8)
--- NOTE | 2024-03-21 07:22 | Pharmacy Report ---
Pharmacy Glycemic Short Note 2 - Date of Service March 21, 2024 - Glycemic Short BSG Results (Last 24 hours): 03/20/24 03/20/24 03/20/24 07:32 08:25 09:23 Glucose POC Glucose 223 H 230 H 203 H POC Glucose (other) 03/20/24 03/20/24 03/20/24 09:51 10:24 11:33 Glucose 204 H POC Glucose 181 H 196 H POC Glucose (other) 03/20/24 03/20/24 03/20/24 12:30 13:46 14:25 Glucose 267 H POC Glucose 234 H 243 H POC Glucose (other) 03/20/24 03/20/24 03/20/24 14:27 15:56 16:55 Glucose POC Glucose 260 H 322 H* 343 H* POC Glucose (other) 03/20/24 03/20/24 03/20/24 19:21 20:28 21:08 Glucose 283 H POC Glucose POC Glucose (other) 277 H 273 H 03/20/24 03/21/24 03/21/24 22:33 00:27 00:34 Glucose 315 H* POC Glucose POC Glucose (other) 301 H 313 H 03/21/24 03/21/24 03/21/24 02:31 04:18 04:38 Glucose 308 H* POC Glucose POC Glucose (other) 310 H 305 H 03/21/24 06:25 Glucose POC Glucose POC Glucose (other) 299 H OUTPATIENT ANTIDIABETIC REGIMEN: * Not taking any medications currently (previously on orals) * HbA1c 10.7% ASSESSMENT: 03/21 * Patient completed 2.5 hours of HD yesterday, ending at ~1999. He is now intubated and on pressors in the ICU. * Since resuming the insulin drip at a lower rate of 2 units/hr yesterday, BSG's have remained in goal range consistently and no drip titrations have been needed * Discussed on ICU rounds - per Dr. Post, continue insulin drip but reduce goal range to 150-250 mg/dL 03/20 * 39 yo M w hx T2DM but not on any current medications admitted with complicated clinical picture of sepsis possibly 2nd urinary source, acute renal failure, hyponatremia, DKA (acidosis and anion gap noted) and possible HHS (calculated effective osmolality not elevated, but serum was) * Discussed extensively at ICU rounds - prefer to keep BSG's higher 2nd possible HHS and goal range was adjusted to 250-350 mg/dL, per Dr. Post. Insulin drip was temporarily put on hold for BSG below goal, per Dr. Post. OK to hold despite also having DKA picture as CO2 has normalized and pH is now elevated. Patient is not producing urine at this time. * Discussed fluids extensively as well - Plasmalyte w/o potassium reasonable as K is high/normal and patient is not making urine. OK to hold off on adding dextrose as insulin not as necessary at this time 2nd pH elevation and normal CO2. * Will continue to follow labs and make adjustments to regimen, with input from Dr. Post. * Discussed w Dr. Post again at 1630 - OK to resume insulin drip at this time. Discussed goal range of 250-350 mg/dL and resuming at lower rate of 2 units/hr. Discussed fluids - stopping all fluids. May or may not be DKA, but either way patient doesn't need dextrose at this point to keep BSG >250. Discussed pending order to flag RN to notify tile finisher if/when insulin drip falls below 1 unit/hr to consider need for supplemental dextrose at this time. Dr. Post agreed. HD planned for today. PLAN FOR INPATIENT GLYCEMIC CONTROL: * Insulin drip * Change goal range to 150-250 mg/dL * Currently running at 2 units/hr * Continue for today
--- NOTE | 2024-03-21 08:13 | XRay Report ---
XR chest 1V portable HISTORY: Resp failure COMPARISON: Chest 03/20/2024. FINDINGS: Endotracheal tube and china are not well visualized due to the overlapping thoracic spinal fusion hardware. The endotracheal tube appears to be coursing towards the right mainstem bronchus an d is likely at the level of the china. This should be pulled back by approximately 2 cm. There are l ow lung volumes. The heart remains enlarged. There is mild congestive change and a small right pleura l effusion. Patchy bibasilar densities persist. There are low lung volumes. Lucency at the right lung base may represent a small amount of aerated lung. A right jugular central venous catheter terminate s at the SVC. The nasogastric tube terminates below the diaphragm. The tip is not included on this st udy. IMPRESSION: 1. The endotracheal tube and china are not well visualized due to the overlapping thoracic spinal fu patricia hardware. The endotracheal tube appears to be coursing towards the right mainstem bronchus and i s likely at the level of the china. This should be pulled back by approximately 2 cm. 2. Low lung volumes with patchy bibasilar densities. This may represent a pneumonia. 3. Cardiomegaly and mild congestive change persist. 4. This report was called/faxed to the referring physician following dictation. ACT 112: Negative or not required by law. Electronically signed by: En Stahl M.D. 03/21/2024 8:12 AM
[2024-03-21] MEDS: PANTOprazole 40 MG in SYRINGE 0 ML IV SCH (08:27)
[2024-03-21 08:42] LABS: BUN Creatinine Ratio 16.6 (10-20); Calcium 7.1 mg/dl (8.6-10.3); Est GFR (African American) 10.3 ml/min; Est GFR (Non-African American) 8.9 ml/min; Potassium 5.2 mmol/L (3.5-5.1)
[2024-03-21] MEDS ORDERED: SODIUM CHLORIDE 0.9% 1,000 ML IV PRN (08:59)
--- NOTE | 2024-03-21 09:30 | Dialysis Progress Note ---
Date of Service March 21, 2024 Assessment & Plan Admission and Anticipated Discharge Date Admission Date: March 20, 2024 Subjective Assessment & Plan (1) Acute renal failure with oliguria: Plan: anuric renal failure with unknown baseline and uremic sx (encephalopathy) w/ large kidneys and cortical thickening. Most likely had some preexisting CKD from DM. He had emergent dialysis yesterday given encephalopathy, anuria and severe renal failure. intubated in order to place dialysis catheter and to dialyze safely Dialysis today qb 300 Qd 600 take 2 kilo off with help from pressors. 2K bath; no heparin. epogen 64956 units. Will reassess for dialysis need tomorrow. Sometime they need daily dialysis (2) Bacteremia due to Escherichia coli: Plan: also w/ Enterobacter on biofire >> this is apparently cross reactivity, not a true +. on zosyn and doxy now f/u pending TTE (3) Hyponatremia: Plan: Presenting sodium 109 at 2200 with a blood sugar of 784 (corrects to 123); at 10 AM today sodium was 123 with a blood sugar of 204 (corrects for BG to 125). na is rising nicely at appropriate rate (5) Thrombocytopenia: Plan: plts `went up a bit. Most likely related with bacteremia and sepsis. do not believe emergent PLEX indicated despite renal failure, altered MS hemolysis eval/work up -- stat smear, fibrinogen, B12, TORRE TS 13, haptoglobin, LDH, D dimer--pending peripheral smear as per report--related more with sepsis than Thrombotic microangiopathy. So no indication for PLEX. (6) Encephalopathy: Plan: Possibly uremic and septicemia. tox screen negative; head CT unremarkable. Does c/o sore thoat Consider LP if persistent after dialysis and if thrombocytopenia improves. Case complexity high. Subjective Seen on dialysis. So far tolerating fine. CVC working fine. had fever last night. Now intubated and more sedated and is on pressors also. has high fever also. Review of Systems Review of Systems: Unobtainable due to endotracheal tube Physical Exam Constitutional: well developed, well nourished, + acute distress (On initial exam on dialysis; then improved with sedation) and + obese Eyes: EOM intact bilaterally ENMT: Ears: no external ear abnormality Nose: no external nose abnormality Mouth: + dry oral mucous membranes Neck: no nuchal rigidity Respiratory: normal respiratory effort (On ventilator) Auscultation: + diminished lung sounds Cardiovascular: Rate/Rhythm: + tachycardic Extremities: no edema Gastrointestinal (Abdomen): Inspection/Auscultation: + abdomen distended and normal bowel sounds Percussion/Palpation: abdomen soft; abdomen nontender and no ascites Musculoskeletal: Extremities: strength 5/5 throughout Skin: no rashes, warm and dry Results & Data Vital Signs (Past 12 Hours) Vital Signs Temp Pulse Resp BP Pulse Ox O2 Del Method FiO2 03/21/24 08:56 Mechanical Vent 40 03/21/24 08:53 85 03/21/24 08:00 40 03/21/24 07:22 89 25 H 94 40 03/21/24 07:00 38.5 C H 90 24 03/21/24 06:12 38.5 C H 86 25 H 03/21/24 06:09 38.5 C H 86 26 H 03/21/24 05:51 38.4 C H 87 26 H 03/21/24 05:33 38.4 C H 87 24 03/21/24 05:21 38.4 C H 87 25 H 03/21/24 05:15 38.4 C H 87 25 H 03/21/24 05:00 38.4 C H 90 20 03/21/24 04:51 38.4 C H 92 H 23 03/21/24 04:18 38.2 C H 87 24 03/21/24 04:00 40 03/21/24 03:57 38.1 C H 87 24 03/21/24 03:50 86 24 95 40 03/21/24 03:42 38.0 C H 86 24 03/21/24 03:30 38.0 C H 86 24 03/21/24 03:21 37.9 C H 86 21 03/21/24 03:12 37.8 C H 85 21 03/21/24 03:00 37.8 C H 85 21 03/21/24 02:57 37.7 C H 85 21 03/21/24 02:15 37.5 C 84 24 03/21/24 02:06 37.4 C 84 24 03/21/24 01:45 37.3 C 83 21 03/21/24 01:30 37.2 C 82 21 97 03/21/24 01:21 37.2 C 82 21 97 03/21/24 01:12 37.1 C 81 24 97 03/21/24 01:03 37.1 C 81 24 96 03/21/24 00:48 37.0 C 81 21 96 03/21/24 00:33 37.0 C 83 24 96 03/21/24 00:12 36.9 C 86 24 95 03/21/24 00:00 36.9 C 86 24 95 03/21/24 00:00 50 03/21/24 00:00 84 03/20/24 23:51 37.0 C 86 24 94 03/20/24 23:50 86 25 H 98 50 03/20/24 23:24 82 25 H 92 03/20/24 23:00 136/66 03/20/24 23:00 84 24 96 03/20/24 22:54 84 24 96 03/20/24 22:45 81 24 97 03/20/24 22:30 125/65 03/20/24 22:30 84 24 96 03/20/24 22:27 84 24 96 03/20/24 21:54 86 24 95 03/20/24 21:42 87 24 95 03/20/24 21:30 89 24 138/71 95
--- NOTE | 2024-03-21 10:10 | Critical Care Progress Note ---
Date of Service March 21, 2024 Assessment & Plan (1) DKA (diabetic ketoacidosis): Plan: Impression: 39-year-old speaking male with PMH of DM type II sepsis secondary to E. coli bacteremia Neuro - Encephalopathylikely multifactorial: Azotemia and infection -Impulsivity encephalopathy large indications to proceed with intubation to facilitate dialysis Cardiac - Elevated troponins: Likely in the setting of acute kidney injury and sepsis -Echo reviewed Respiratory - Pleural effusion: Right -Suspect relative volume overload from crystalloid expansion yesterday in the setting of oliguric acute kidney failure GI - N.p.o. for now Hypertriglyceridemia: Given diabetes patient would probably benefit from statin therapy, question compliance given current noncompliance with diabetic regimen RENAL/LYTES - Acute renal failure -Reviewed nephrology notes, tolerated dialysis today anticipate repeat dialysis tomorrow - Foleystrict I's and O's ENDO - Hyperglycemiapatient with history of type 2 diabetes previously managed with oral medications. Patient currently noncompliant with his normal regimen. -Blood sugar goal 150-250 -Continue insulin infusion HEME - Leukocytosis Anemia: Suspect related to underlying kidney disease Thrombocytopenia: Likely related to underlying bacteremia ID - Sepsispansensitive E. coli bacteremia -Rocephin day: Will require 14 days from negative blood culture date -Repeat blood cultures LINES/IV ACCESS - Right IJ temporary HD cath, left radial art line DVT PROPHYLAXIS - SCDs Social: Social work to assist to obtain identification and surrogate decision tommie juarez I have personally spent 50 minutes of critical care time in the direct management of this patient. This is a life/limb threatening event. This includes time spent evaluating patient, direct bedside care, chart review, placing orders, interpretation of diagnostic studies, discussion with consultants, patient, and family members, as well as other required patient management activities. This time is exclusive of all separately billable procedures, and teaching time and separate from and in addition to any other critical care service time. (2) Encephalopathy acute: (3) Acute renal failure: (4) Hyponatremia: (5) Sepsis: (6) UTI (urinary tract infection): Admission and Anticipated Discharge Date Admission Date: March 20, 2024 Subjective No overnight events. Physical Exam Physical Exam: General: Sedated. nontoxic. Skin: Warm, dry, Head: Atraumatic Ears, nose, mouth and throat: airway obscured by endotracheal tube Cardiovascular: Normal peripheral perfusion Respiratory: Ventilator settings reviewed Gastrointestinal: Non distended Musculoskeletal: No deformity Results & Data Results & Data Vital Signs (Past 12 Hours) Vital Signs Temp Pulse Pulse Resp BP Pulse Ox O2 Del Method 03/21/24 09:30 82 100/50 L 03/21/24 09:18 83 103/51 L 03/21/24 09:10 38.5 C H 84 03/21/24 08:56 Mechanical Vent 03/21/24 08:53 85 03/21/24 08:00 03/21/24 07:22 89 25 H 94 03/21/24 07:00 38.5 C H 90 24 03/21/24 06:12 38.5 C H 86 25 H 94 03/21/24 06:09 38.5 C H 86 26 H 03/21/24 05:51 38.4 C H 87 26 H 03/21/24 05:33 38.4 C H 87 24 03/21/24 05:21 38.4 C H 87 25 H 03/21/24 05:15 38.4 C H 87 25 H 95 03/21/24 05:00 38.4 C H 90 20 03/21/24 04:51 38.4 C H 92 H 23 03/21/24 04:18 38.2 C H 87 24 03/21/24 04:00 03/21/24 03:57 38.1 C H 87 24 03/21/24 03:50 86 24 03/21/24 03:42 38.0 C H 86 24 03/21/24 03:30 38.0 C H 86 24 03/21/24 03:21 37.9 C H 86 21 03/21/24 03:12 37.8 C H 85 21 03/21/24 03:00 37.8 C H 85 21 03/21/24 02:57 37.7 C H 85 21 03/21/24 02:15 37.5 C 84 24 03/21/24 02:06 37.4 C 84 24 03/21/24 01:45 37.3 C 83 21 03/21/24 01:30 37.2 C 82 21 03/21/24 01:21 37.2 C 82 21 97 06/05/24 01:12 37.1 C 81 24 97 03/21/24 01:03 37.1 C 81 24 96 03/21/24 00:48 37.0 C 81 21 96 03/21/24 00:33 37.0 C 83 24 96 03/21/24 00:12 36.9 C 86 24 95 03/21/24 00:00 36.9 C 86 24 95 03/21/24 00:00 03/21/24 00:00 84 03/20/24 23:51 37.0 C 86 24 94 03/20/24 23:50 86 25 H 98 03/20/24 23:24 82 25 H 92 03/20/24 23:00 136/66 03/20/24 23:00 84 24 96 03/20/24 22:54 84 24 96 03/20/24 22:45 81 24 97 03/20/24 22:30 125/65 03/20/24 22:30 84 24 96 03/20/24 22:27 84 24 96 FiO2 03/21/24 09:30 03/21/24 09:18 03/21/24 09:10 03/21/24 08:56 40 03/21/24 08:53 03/21/24 08:00 40 03/21/24 07:22 40 03/21/24 07:00 03/21/24 06:12 03/21/24 06:09 03/21/24 05:51 03/21/24 05:33 03/21/24 05:21 03/21/24 05:15 03/21/24 05:00 03/21/24 04:51 03/21/24 04:18 03/21/24 04:00 40 03/21/24 03:57 03/21/24 03:50 40 03/21/24 03:42 03/21/24 03:30 03/21/24 03:21 03/21/24 03:12 03/21/24 03:00 03/21/24 02:57 03/21/24 02:15 03/21/24 02:06 03/21/24 01:45 03/21/24 01:30 03/21/24 01:21 03/21/24 01:12 03/21/24 01:03 03/21/24 00:48 03/21/24 00:33 03/21/24 00:12 03/21/24 00:00 03/21/24 00:00 50 03/21/24 00:00 03/20/24 23:51 03/20/24 23:50 50 03/20/24 23:24 03/20/24 23:00 03/20/24 23:00 03/20/24 22:54 03/20/24 22:45 03/20/24 22:30 03/20/24 22:30 03/20/24 22:27 Critical Care Results & Data Vital Signs (Past 12 Hours) Vital Signs Temp Pulse Pulse Resp BP BP Pulse Ox 03/21/24 15:49 83 03/21/24 15:40 03/21/24 15:07 85 24 95 03/21/24 12:20 37.8 C H 79 118/59 L 03/21/24 12:00 03/21/24 12:00 77 107/56 L 03/21/24 11:30 78 98/52 L 03/21/24 11:00 38.0 C H 79 24 95 03/21/24 11:00 79 92/48 L 03/21/24 10:51 79 24 95 03/21/24 10:33 38.0 C H 81 25 H 95 03/21/24 10:30 79 96/52 L 03/21/24 10:12 38.1 C H 83 28 H 95 03/21/24 10:00 81 99/52 L 03/21/24 09:33 38.3 C H 87 26 H 96 03/21/24 09:30 82 100/50 L 03/21/24 09:18 83 103/51 L 03/21/24 09:10 38.5 C H 84 03/21/24 09:00 38.5 C H 85 22 94 03/21/24 08:56 03/21/24 08:53 85 03/21/24 08:51 38.5 C H 85 22 94 03/21/24 08:24 38.5 C H 85 27 H 94 03/21/24 08:00 03/21/24 07:30 38.5 C H 86 24 94 03/21/24 07:22 89 25 H 94 03/21/24 07:00 38.5 C H 90 24 94 03/21/24 06:12 38.5 C H 86 25 H 94 03/21/24 06:09 38.5 C H 86 26 H 94 03/21/24 05:51 38.4 C H 87 26 H 95 03/21/24 05:33 38.4 C H 87 24 95 03/21/24 05:21 38.4 C H 87 25 H 95 03/21/24 05:15 38.4 C H 87 25 H 95 03/21/24 05:00 38.4 C H 90 20 95 03/21/24 04:51 38.4 C H 92 H 23 95 03/21/24 04:18 38.2 C H 87 24 95 O2 Del Method FiO2 03/21/24 15:49 03/21/24 15:40 40 03/21/24 15:07 40 03/21/24 12:20 03/21/24 12:00 40 03/21/24 12:00 03/21/24 11:30 03/21/24 11:00 03/21/24 11:00 03/21/24 10:51 40 03/21/24 10:33 03/21/24 10:30 03/21/24 10:12 03/21/24 10:00 03/21/24 09:33 03/21/24 09:30 03/21/24 09:18 03/21/24 09:10 03/21/24 09:00 03/21/24 08:56 Mechanical Vent 40 03/21/24 08:53 03/21/24 08:51 03/21/24 08:24 03/21/24 08:00 40 03/21/24 07:30 03/21/24 07:22 40 03/21/24 07:00 03/21/24 06:12 03/21/24 06:09 03/21/24 05:51 03/21/24 05:33 03/21/24 05:21 03/21/24 05:15 03/21/24 05:00 03/21/24 04:51 03/21/24 04:18 Lab & Micro Results (Past 24 Hours) RBC 3.62 M/uL (4.70-6.10) L 03/21/24 WBC 35.05 K/ul (4.8-10.8) H* 03/21/24 Hgb 10.5 g/dl (14.0-18.0) L 03/21/24 Hct 29.4 % (42.0-52.0) L 03/21/24 MCV 81.2 fL (80.0-100.0) 03/21/24 MCH 29.0 pg (25.0-34.0) 03/21/24 MCHC 35.7 g/dL (32.0-36.0) 03/21/24 RDW Standard Deviation 43.0 fL (36.4-46.3) 03/21/24 RDW Coefficient of Variation 14.5 % (11.5-14.5) 03/21/24 Plt Count 67 K/uL (130-400) L 03/21/24 Nucleated Red Blood Cells % (auto) 0.1 % 03/21 Nucleated RBC Absolute Count (auto) 0.04 K/uL (0.00-0.12) 0 03/21/24 Neutrophils (%) (Auto) 84.6 % 03/21/24 Lymphocytes (%) (Auto) 3.9 % 03/21/24 Monocytes # (Auto) 1.62 K/uL (0.11-0.59) H 03/21/24 Eosinophils # (Auto) 0.04 K/uL (0.00-0.50) 03/21/24 Immature Granulocyte % (Auto) 6.7 % 03/21/24 Neutrophils # (Auto) 29.64 K/uL (1.40-6.50) H 03/21/24 Lymphocytes # (Auto) 1.35 K/uL (1.20-3.40) 03/21/24 Monocytes # (Auto) 1.62 K/uL (0.11-0.59) H 03/21/24 Eosinophils # (Auto) 0.04 K/uL (0.00-0.50) 03/21/24 Basophils # (Auto) 0.04 K/uL (0.00-0.20) 03/21/24 Immature Granulocyte # (Auto) 2.36 K/uL (0.01-0.20) H 03/21 Dohle Bodies 1+ 03/21/24 Na 133 mmol/L (136-145) L 03/21/24 K 3.6 mmol/L (3.5-5.1) 03/21/24 Cl 98 mmol/L (98-107) 03/21/24 CO2 25 mmol/L (21-32) 03/21/24 Anion Gap 10 (3-11) 03/21/24 BUN 56 mg/dl (6-23) H 03/21/24 Creatinine 3.64 mg/dl (0.6-1.4) H 03/21/24 Estimated GFR ( Amer) 22.8 ml/min 03/21/24 Estimated GFR (Non-Af Amer) 19.7 ml/min 03/21/24 BUN/Creatinine Ratio 15.4 (10-20) 03/21/24 Glu 182 mg/dl (70-99(Fasting)) H 03/21/24 Ca 7.4 mg/dl (8.6-10.3) L 03/21/24 Phosphorus Level 7.2 mg/dl (2.5-4.9) H 03/21/24 Mg 3.2 mg/dl (1.7-2.4) H 03/21/24 04:18 Calcium Level 7.4 mg/dl (8.6-10.3) L 03/21/24 11:56 Ionized Calcium 1.00 mmol/L (1.12-1.32) L 03/20/24 21:08 Eugene Test NA 03/21/24 04:00 Microbiology 03/19/24 21:50 Urine Culture - Final Urine,Clean Catch Escherichia coli 03/19/24 23:06 Aerobic Blood Culture - Preliminary Blood Gram negative bacilli Anaerobic Blood Culture - Final 03/19/24 23:00 Aerobic Blood Culture - Preliminary Blood Gram negative bacilli Anaerobic Blood Culture - Preliminary Gram negative bacilli Diagnostic Findings (Past 24 Hours) Chest X-Ray 03/20/24 16:27 XR chest 1V portable HISTORY: Evaluate lines and tubes. COMPARISON: Chest 03/19/2024. FINDINGS: The [place] is is not clearly identified due to the overlapping spinal fusion hardware. However, the endotracheal tube appears to terminate approximately 4.2 cm from the [place]. The nasogastric tube terminates in the mid stomach. A right jugular central venous catheter terminates in the SVC. There are low lung volumes. No definite pneumothorax. The heart remains enlarged. Small right pleural effusion. Mild congestive changes noted. There are patchy bibasilar densities. IMPRESSION: 1. Satisfactory support line placement as described above. 2. Cardiomegaly with mild congestive change and a small right pleural effusion. 3. Patchy bibasilar densities have progressed. This could represent atelectasis or a pneumonia ACT 112: Negative or not required by law. Electronically signed by: En Stahl M.D. 03/20/2024 5:02 PM Chest X-Ray 03/21/24 07:00 XR chest 1V portable HISTORY: Resp failure COMPARISON: Chest 03/20/2024. FINDINGS: Endotracheal tube and [place] are not well visualized due to the overlapping thoracic spinal fusion hardware. The endotracheal tube appears to be coursing towards the right mainstem bronchus and is likely at the level of the [place]. This should be pulled back by approximately 2 cm. There are low lung volumes. The heart remains enlarged. There is mild congestive change and a small right pleural effusion. Patchy bibasilar densities persist. There are low lung volumes. Lucency at the right lung base may represent a small amount of aerated lung. A right jugular central venous catheter terminates at the SVC. The nasogastric tube terminates below the diaphragm. The tip is not included on this study. IMPRESSION: 1. The endotracheal tube and [place] are not well visualized due to the overlapping thoracic spinal fusion hardware. The endotracheal tube appears to be coursing towards the right mainstem bronchus and is likely at the level of the [place]. This should be pulled back by approximately 2 cm. 2. Low lung volumes with patchy bibasilar densities. This may represent a pneumonia. 3. Cardiomegaly and mild congestive change persist. 4. This report was called/faxed to the referring physician following dictation. ACT 112: Negative or not required by law. Electronically signed by: En Stahl M.D. 03/21/2024 8:12 AM I & O Totals 24 Hours 03/20/24 03/21/24 03/22/24 06:59 06:59 06:59 Intake Total 4603.713 / 4603.713 2727.151 / 2727.151 859.834 / 859.834 Output Total 38 / 38 55 / 55 15 / 15 Balance 4565.713 / 4565.713 2672.151 / 2672.151 844.834 / 844.834 Cumulative 03/19/24 21:33 thru 03/21/24 14:22 Intake Total 8190.698 Output Total 108 Balance 8082.698 RT Ventilator Mngmt (Last Documented) Ventilator Ordered Settings Ventilator Support Mode Assist Control 03/21/24 15:40 Respiratory Rate 24 03/21/24 15:07 Ventilator Tidal Volume 400 03/21/24 15:40 Setting Minute Ventilation 10 03/21/24 15:07 Positive End Expiratory 5 03/21/24 15:40 Pressure Fraction of Inspired Oxygen 40 03/21/24 15:40 Peak Inspiratory Flow 46 03/20/24 15:50 Ventilator - PT Measurements Respiratory Rate 24 Exhaled Tidal Volume 400 Minute Ventilation 10 Peak Inspiratory Airway 26 Pressure Plateau Pressure 14 Respiratory Cycle Inspiratory: 1:2.6 Expiratory Ratio Inspiratory Phase Time 0.7 End-Tidal CO2 40 Static Lung Compliance 44.44 Dynamic Lung Compliance 19.05 Normal Static Lung Compliance 45.00 Patient Measurements Comment vent setting changed after obtaining ABG results Coding Level of Care Code 12875 CRITICAL CARE 1ST 30-74M Diagnoses DKA (diabetic ketoacidosis) E11.10 Encephalopathy acute G93.40 Acute renal failure N17.9 Hyponatremia E87.1 Sepsis due to Escherichia coli with acute renal failure without septic shock, unspecified acute renal failure type A41.51; R65.20; N17.9 Sepsis type: Escherichia coli Sepsis acute organ dysfunction status: with acute organ dysfunction Severe sepsis acute organ dysfunction type: acute renal failure Acute renal failure type: unspecified Severe sepsis shock status: without septic shock UTI (urinary tract infection) N39.0 (5) Sepsis Sepsis type: Escherichia coli Sepsis acute organ dysfunction status: with acute organ dysfunction Severe sepsis acute organ dysfunction type: acute renal failure Acute renal failure type: unspecified Severe sepsis shock status: without septic shock Qualified Code(s): A41.51 - Sepsis due to Escherichia coli [E. coli]; R65.20 - Severe sepsis without septic shock; N17.9 - Acute kidney failure, unspecified
--- NOTE | 2024-03-21 11:14 | Electrocardiogram Report ---
Test Reason : Blood Pressure : / mmHG Vent. Rate : 089 BPM Atrial Rate : 089 BPM P-R Int : 198 ms QRS Dur : 114 ms QT Int : 394 ms P-R-T Axes : 026 020 038 degrees QTc Int : 479 ms Normal sinus rhythm Minimal voltage criteria for LVH, may be normal variant Nonspecific ST abnormality Abnormal ECG No previous ECGs available Confirmed by Dc Gutierrez ([id number]) on 03/21/2024 11:14:40 AM Referred By: REFERRED SELF Confirmed By:Dc Gutierrez
[2024-03-21] MEDS: EPOETIN ALFA 10,000 UNITS/ML VIAL IV ONE (11:28)
[2024-03-21] MEDS: cefTRIAXone SODIUM 2,000 MG/50 ML BAG IV SCH (12:03)
[2024-03-21 12:31] LABS: BUN Creatinine Ratio 15.4 (10-20); Calcium 7.4 mg/dl (8.6-10.3); Creatinine Clr Calc Pharmacy 29.1 ml/min; Est GFR (African American) 22.8 ml/min; Est GFR (Non-African American) 19.7 ml/min; Potassium 3.6 mmol/L (3.5-5.1)
[2024-03-21 16:32] LABS: BUN Creatinine Ratio 13.7 (10-20); Calcium 7.2 mg/dl (8.6-10.3); Creatinine Clr Calc Pharmacy 21.1 ml/min; Est GFR (African American) 15.4 ml/min; Est GFR (Non-African American) 13.3 ml/min; Potassium 4.2 mmol/L (3.5-5.1)
--- NOTE | 2024-03-21 16:58 | Hospitalist Progress Note ---
Date of Service March 21, 2024 Assessment & Plan (1) Encephalopathy: Plan: Multifactorial: Complicated by sepsis, FER and hyponatremia Hyperglycemic crisis (combined HHS/DKA), new diagnosis DM Has been on insulin infusion Intravenous fluid as needed Appreciate glycemic pharmacist input and recommendation Severe sepsis (SIRS plus lactic acidosis plus ARF plus encephalopathy) secondary to complicated UTI, atypical pneumonia Secondary to E. coli bacteremia Has been on intravenous Rocephin and will need help least 14 days of antibiotic from negative culture date Repeat blood cultures have been taken Leukocytosis has not improved yet Acute renal failure Likely complicated by sepsis with ATN Requiring dialysis Appreciate nephrology input and recommendation Monitor electrolytes and avoid any nephrotoxins Hyponatremia Severe hyponatremia with sodium of 109 on admission Has been improved to 130 as of 03/21/2024 at 4 PM Appreciate nephrology input and recommendation Past tobacco abuse Thrombocytopenia possibly from sepsis Nicotine replacement therapy as needed DVT prophylaxis. SCDs Re: Thrombocytopenia Full code Patient friend requesting updates providers. Mr. Blaine William, contact #[phone]. Will need social service and case management involvement Admission and Anticipated Discharge Date Admission Date: March 20, 2024 Subjective 03/21/2024 The patient was seen and examined in ICU Remains intubated and sedated Opens eyes but not in any acute distress Review of Systems Review of Systems: Unobtainable due to endotracheal tube Physical Exam Physical Exam: Lying in bed without any acute distress on mechanical ventilator Constitutional: well developed, well nourished and + ill appearing Eyes: PERRL, conjunctivae normal, anicteric sclerae ENMT: external ear and nose normal, oropharynx normal Neck: trachea midline, no thyromegaly Respiratory: no respiratory distress Auscultation: + diminished lung sounds; no crackles (Bibasilar crackles) Cardiovascular: Rate/Rhythm: regular rate and regular rhythm; not tachycardic Heart Sounds: normal S1 and normal S2; no murmur Extremities: no edema Gastrointestinal (Abdomen): Inspection/Auscultation: normal bowel sounds; abdomen not distended Percussion/Palpation: abdomen soft; abdomen nontender Musculoskeletal: No acute arthritis involving any of the joint Neurologic: Remains sedated on vent Results & Data Results & Data Vital Signs (Past 12 Hours) Vital Signs Temp Pulse Pulse Resp BP BP Pulse Ox 03/21/24 16:03 38.6 C H 81 24 95 03/21/24 15:49 83 03/21/24 15:40 03/21/24 15:30 38.7 C H 84 24 94 03/21/24 15:09 38.6 C H 85 24 94 03/21/24 15:07 85 24 95 03/21/24 14:45 38.4 C H 84 25 H 84 L 03/21/24 14:00 38.1 C H 79 24 97 03/21/24 13:30 37.9 C H 77 24 97 03/21/24 13:03 37.8 C H 78 24 97 03/21/24 12:39 37.8 C H 80 24 97 03/21/24 12:20 37.8 C H 79 118/59 L 03/21/24 12:00 37.8 C H 77 24 95 03/21/24 12:00 03/21/24 12:00 77 107/56 L 03/21/24 11:36 37.9 C H 78 24 94 03/21/24 11:30 78 98/52 L 03/21/24 11:00 38.0 C H 79 24 95 03/21/24 11:00 79 92/48 L 03/21/24 10:51 79 24 95 03/21/24 10:33 38.0 C H 81 25 H 95 03/21/24 10:30 79 96/52 L 03/21/24 10:12 38.1 C H 83 28 H 95 03/21/24 10:00 81 99/52 L 03/21/24 09:33 38.3 C H 87 26 H 96 03/21/24 09:30 82 100/50 L 03/21/24 09:18 83 103/51 L 03/21/24 09:10 38.5 C H 84 03/21/24 09:00 38.5 C H 85 22 94 03/21/24 08:56 03/21/24 08:53 85 03/21/24 08:51 38.5 C H 85 22 94 03/21/24 08:24 38.5 C H 85 27 H 94 03/21/24 08:00 03/21/24 07:30 38.5 C H 86 24 94 03/21/24 07:22 89 25 H 94 03/21/24 07:00 38.5 C H 90 24 94 03/21/24 06:12 38.5 C H 86 25 H 94 03/21/24 06:09 38.5 C H 86 26 H 94 03/21/24 05:51 38.4 C H 87 26 H 95 03/21/24 05:33 38.4 C H 87 24 95 03/21/24 05:21 38.4 C H 87 25 H 95 03/21/24 05:15 38.4 C H 87 25 H 95 03/21/24 05:00 38.4 C H 90 20 95 03/21/24 04:51 38.4 C H 92 H 23 95 O2 Del Method FiO2 03/21/24 16:03 03/21/24 15:49 03/21/24 15:40 40 03/21/24 15:30 03/21/24 15:09 03/21/24 15:07 40 03/21/24 14:45 03/21/24 14:00 03/21/24 13:30 03/21/24 13:03 03/21/24 12:39 03/21/24 12:20 03/21/24 12:00 03/21/24 12:00 40 03/21/24 12:00 03/21/24 11:36 03/21/24 11:30 03/21/24 11:00 03/21/24 11:00 03/21/24 10:51 40 03/21/24 10:33 03/21/24 10:30 03/21/24 10:12 03/21/24 10:00 03/21/24 09:33 03/21/24 09:30 03/21/24 09:18 03/21/24 09:10 03/21/24 09:00 03/21/24 08:56 Mechanical Vent 40 03/21/24 08:53 03/21/24 08:51 03/21/24 08:24 03/21/24 08:00 40 03/21/24 07:30 03/21/24 07:22 40 03/21/24 07:00 03/21/24 06:12 03/21/24 06:09 03/21/24 05:51 03/21/24 05:33 03/21/24 05:21 03/21/24 05:15 03/21/24 05:00 03/21/24 04:51 Laboratory Results Short CBC 06/05/24 Range/Units 04:18 WBC 35.05 H* (4.8-10.8) K/ul Hgb 10.5 L (14.0-18.0) g/dl Hct 29.4 L (42.0-52.0) % Plt Count 67 L D (130-400) K/uL BMP 03/20/24 03/21/24 03/21/24 21:08 00:34 04:18 Sodium 127 L 126 L 126 L Potassium 5.1 5.3 H 5.3 H Chloride 90 L 90 L 90 L Carbon Dioxide 20 L 20 L 21 BUN 100 H D 108 H 109 H Creatinine 6.14 H* D 6.63 H* D 6.75 H* Glucose 283 H 315 H* 308 H* Calcium 7.4 L 7.6 L 7.4 L 03/21/24 03/21/24 03/21/24 07:59 11:56 16:01 Sodium 126 L 133 L 130 L Potassium 5.2 H 3.6 D 4.2 Chloride 90 L 98 96 L Carbon Dioxide 20 L 25 23 BUN 117 H 56 H D 69 H Creatinine 7.04 H* 3.64 H D 5.02 H* D Glucose 300 H 182 H 216 H Calcium 7.1 L 7.4 L 7.2 L Medications Administered Current Inpatient Medications Acetaminophen (Acetaminophen Susp 325 Mg/10.15 Ml Udc) 650 mg PO Q6H PRN PRN Reason: Fever Stop: 04/20/24 03:56 Last Admin: 03/21/24 14:48 Dose: 650 mg Dextrose (Dextrose 50% 50 Ml Syringe) 25 - 50 ml IV UD PRN; Protocol PRN Reason: Hypoglycemia Protocol Stop: 04/18/24 23:14 Fentanyl Citrate (Fentanyl Bolus From Bag) 50 mcg IV Q60M PRN PRN Reason: Pain or Agitation Stop: 04/03/24 16:43 Last Admin: 03/20/24 23:59 Dose: 50 mcg Glucagon (Glucagon For Inj 1 Mg Vial) 1 mg IM UD PRN; Protocol PRN Reason: Hypoglycemia Protocol Stop: 04/18/24 23:14 Glucose (Glucose 40% Gel 15 Gm Tube) 15 - 30 gm PO UD PRN; Protocol PRN Reason: Hypoglycemia Protocol Stop: 04/18/24 23:14 Glucose (Glucose 10 Tab/Tube) 4 - 8 tab PO UD PRN; Protocol PRN Reason: Hypoglycemia Protocol Stop: 04/18/24 23:14 Insulin Human Regular 250 (units/ Sodium Chloride) 250 mls @ 2 mls/hr IV .Q24H [facility]; Protocol Stop: 04/18/24 23:14 Last Titration: 03/21/24 16:10 Dose: 2 units/hr, 2 mls/hr Propofol (Diprivan) 1,000 mg in 100 mls @ 0 mls/hr IV .Q0M [facility]; Protocol Stop: 03/23/24 14:59 Last Admin: 03/21/24 14:18 Dose: Not Given Fentanyl Citrate (Fentanyl Citrate) 2,500 mcg in 250 mls @ 12.5 mls/hr IV .Q20H [facility]; Protocol Stop: 04/03/24 16:44 Last Admin: 03/21/24 07:35 Dose: 125 mcg/hr, 12.5 mls/hr Midazolam HCl (Versed) 125 mg in 250 mls @ 10 mls/hr IV .Q25H [facility]; Protocol Stop: 04/19/24 17:29 Last Admin: 03/21/24 16:11 Dose: 5 mg/hr, 10 mls/hr Phenylephrine HCl (Phenylephrine/Nss) 25 mg in 250 mls @ 30 mls/hr IV .Q8H20M [facility]; Protocol Stop: 04/19/24 17:59 Last Admin: 03/21/24 12:12 Dose: Not Given Norepinephrine Bitartrate (Levophed/D5w) 4 mg in 250 mls @ 15 mls/hr IV .[id number] [facility]; Protocol Stop: 04/19/24 19:59 Last Titration: 03/21/24 16:49 Dose: 0.08 mcg/kg/min, 30 mls/hr Ceftriaxone Sodium (Rocephin) 2,000 mg in 50 mls @ 100 mls/hr IV Q24H [facility] Stop: 04/04/24 11:59 Last Infusion: 03/21/24 12:48 Dose: Infused Pantoprazole Sodium 40 mg/ (Syringe) 10 mls @ 5 mls/min IV DAILY@1100 [facility] Stop: 04/21/24 10:59 Midazolam HCl (Midazolam Bolus From Bag) 2 mg IV Q60M PRN PRN Reason: Sedation Stop: 04/19/24 17:26 Last Admin: 03/20/24 23:59 Dose: 2 mg Miscellaneous (Carbohydrates For Hypoglycemia ) 15 - 30 gm PO UD PRN PRN Reason: Hypoglycemia Treatment Stop: 04/18/24 23:14 Miscellaneous Information (Pharmacy Glycemic Mgmt Consult) 1 each N/A UD PRN PRN Reason: Consult Stop: 04/19/24 01:38 Propofol (Propofol Bolus From Bag) 20 mg IV Q5M PRN PRN Reason: Sedation Stop: 03/23/24 14:59 Last Admin: 03/20/24 16:42 Dose: 20 mg
[2024-03-21 21:05] LABS: BUN Creatinine Ratio 13.9 (10-20); Calcium 7.3 mg/dl (8.6-10.3); Creatinine Clr Calc Pharmacy 19.6 ml/min; Est GFR (African American) 14.1 ml/min; Est GFR (Non-African American) 12.2 ml/min; Potassium 4.3 mmol/L (3.5-5.1)
--- NOTE | 2024-03-21 22:48 | Electrocardiogram Report ---
Test Reason : Blood Pressure : / mmHG Vent. Rate : 092 BPM Atrial Rate : 092 BPM P-R Int : 162 ms QRS Dur : 102 ms QT Int : 386 ms P-R-T Axes : 036 009 015 degrees QTc Int : 477 ms Normal sinus rhythm Normal ECG When compared with ECG of 19-MAR-2024 21:41, No significant change was found Confirmed by Dc Gutierrez ([id number]) on 03/21/2024 10:48:45 PM Referred By: REFERRED SELF Confirmed By:Dc Gutierrez
[2024-03-22 05:05] LABS: iSTAT Art Bld Gas pCO2 Correct 40 mmHg (35-46); iSTAT Art Bld Gas pH Corrected 7.358 (7.35-7.45); iSTAT Arterial Blood Gas HCO3 22 meg/L (19-24); iSTAT Arterial Blood Gas pCO2 38 mmHg (35-46); iSTAT Arterial Blood Gas pH 7.38 (7.35-7.45); iSTAT Arterial Blood Gas pO2 79 mmHg (80-95); iSTAT Arterial Blood Gas pO2 C 86; iSTAT Carbon Dioxide 23 mmol/L (24-31); iSTAT FiO2 40 %; iSTAT Hematocrit 31 % (42-52); iSTAT Hemoglobin 10.5 g/dl (14.0-18.0); iSTAT Site Art Line; iSTAT Sodium 129 mmol/L (135-144)
[2024-03-22 05:36] LABS: Hematocrit (blood only) 28.5 % (42.0-52.0); Mean Corpuscular Hemoglobin 28.7 pg (25.0-34.0); Mean Corpuscular Hgb Conc 35.1 g/dL (32.0-36.0); Mean Corpuscular Volume 81.9 fL (80.0-100.0); Mean Platelet Volume 14.2 fL (9.4-12.4); Nucleated RBC # (auto) 0.03 K/uL (0.00-0.12); Nucleated RBC % (auto) 0.1 %; Platelet Count 123 K/uL (130-400); RDW Coefficient of Variation 14.6 % (11.5-14.5); RDW Standard Deviation 43.1 fL (36.4-46.3); Red Blood Count 3.48 M/uL (4.70-6.10); White Blood Count 38.51 K/ul (4.8-10.8)
[2024-03-22 05:42] LABS: BUN Creatinine Ratio 14.4 (10-20); Calcium 7.1 mg/dl (8.6-10.3); Creatinine Clr Calc Pharmacy 18.4 ml/min; Est GFR (African American) 13.1 ml/min; Est GFR (Non-African American) 11.3 ml/min; Magnesium 2.7 mg/dl (1.7-2.4); Phosphorus 5.6 mg/dl (2.5-4.9); Potassium 4.1 mmol/L (3.5-5.1)
[2024-03-22 06:40] LABS: Basophils # (auto) 0.16 K/uL (0.00-0.20); Basophils % (auto) 0.4 %; Dohle Bodies 1+; Eosinophils # (auto) 0.18 K/uL (0.00-0.50); Eosinophils % (auto) 0.5 %; Immature Granulocytes # (auto) 3.68 K/uL (0.01-0.20); Immature Granulocytes % (auto) 9.6 %; Lymphocytes # (auto) 1.42 K/uL (1.20-3.40); Lymphocytes % (auto) 3.7 %; Monocytes # (auto) 1.25 K/uL (0.11-0.59); Monocytes % (auto) 3.2 %; Neutrophils # (auto) 31.82 K/uL (1.40-6.50); Neutrophils % (auto) 82.6 %; Polychromasia 1+
--- NOTE | 2024-03-22 07:09 | XRay Report ---
XR chest 1V portable HISTORY: Resp failure COMPARISON: Chest 03/21/2024. FINDINGS: The tip of the endotracheal tube is obscured by the thoracic spinal fusion hardware. Nasoga stric tube terminates below the diaphragm. The tip is not included on this study. A right jugular mahi tral venous catheter terminates in the SVC. No pneumothorax. Cardiomegaly again noted. Mild congestiv e change has slightly improved.. Patchy bibasilar densities/effusions are again noted. There are low lung volumes. Old, healed right rib and left clavicle fractures. IMPRESSION: 1. The tip of the endotracheal tube is obscured by the overlying thoracic spinal fusion hardware. 2. Otherwise, satisfactory support line placement. 3. Mild congestive change has improved. 4. Patchy bibasilar densities/effusions persist. ACT 112: Negative or not required by law. Electronically signed by: En Stahl M.D. 03/22/2024 7:08 AM
[2024-03-22] MEDS ORDERED: SODIUM CHLORIDE 0.9% 1,000 ML IV PRN (08:13)
--- NOTE | 2024-03-22 09:00 | Dialysis Progress Note ---
Date of Service March 22, 2024 Assessment & Plan Admission and Anticipated Discharge Date Admission Date: March 20, 2024 Subjective Assessment & Plan (1) Acute renal failure with oliguria: Plan: anuric renal failure with unknown baseline and uremic sx (encephalopathy) w/ large kidneys and cortical thickening. Most likely had some preexisting CKD from DM. but we dont know the baseline creat He had emergent dialysis yesterday given encephalopathy, anuria and severe renal failure. intubated in order to place dialysis catheter and to dialyze safely Dialysis today qb 300 Qd 600 take 2 kilo off with help from pressors. 3K bath; will do low dose heparin as he clotted yesterday. Will reassess for dialysis need tomorrow.But more likely he will not need ECHO reviewed and did not look bad. (2) Bacteremia due to Escherichia coli: Plan: also w/ Enterobacter on biofire >> this is apparently cross reactivity, not a true +. on zosyn and doxy now f/u pending TTE (3) Hyponatremia: Plan: Presenting sodium 109 at 2200 and now 129. Should get better with dialysis na is rising nicely at appropriate rate (5) Thrombocytopenia: Plan: plts `went up quite a bit. Related with bacteremia and sepsis. peripheral smear as per report--related more with sepsis than Thrombotic microangiopathy. So no indication for PLEX. (6) Encephalopathy: Plan: Possibly uremic and septicemia. tox screen negative; head CT unremarkable. Does c/o sore thoat Consider LP if persistent after dialysis and if thrombocytopenia improves. Case complexity high. Subjective Seen on dialysis. So far tolerating fine. CVC working fine. He had Clotting last 1/2 hr yesterday. Still intubated and more sedated and is on pressors also. Still has fever Review of Systems Review of Systems: Unobtainable due to endotracheal tube Physical Exam Constitutional: well developed, well nourished, + acute distress (On initial exam on dialysis; then improved with sedation) and + obese Eyes: EOM intact bilaterally ENMT: Ears: no external ear abnormality Nose: no external nose abnormality Mouth: + dry oral mucous membranes Neck: no nuchal rigidity Respiratory: normal respiratory effort (On ventilator) Auscultation: + diminished lung sounds Cardiovascular: Rate/Rhythm: + tachycardic Extremities: no edema Gastrointestinal (Abdomen): Inspection/Auscultation: + abdomen distended and normal bowel sounds Percussion/Palpation: abdomen soft; abdomen nontender and no ascites Musculoskeletal: Extremities: strength 5/5 throughout Skin: no rashes, warm and dry Results & Data Vital Signs (Past 12 Hours) Vital Signs Temp Pulse Resp BP Pulse Ox O2 Del Method FiO2 03/22/24 08:00 Mechanical Vent 40 03/22/24 08:00 77 03/22/24 07:42 76 24 96 40 03/22/24 06:16 38.2 C H 77 24 103/49 L 96 Mechanical Vent 03/22/24 05:06 38.3 C H 78 24 103/49 L 96 Mechanical Vent 40 03/22/24 04:59 Mechanical Vent 40 03/22/24 04:06 38.5 C H 79 24 125/53 L 96 Mechanical Vent 40 03/22/24 04:00 40 03/22/24 03:30 79 24 96 40 03/22/24 02:06 38.2 C H 75 24 118/55 L 97 Mechanical Vent 97 03/22/24 01:00 38.0 C H 74 24 96 Mechanical Vent 03/22/24 00:06 37.8 C H 73 24 97 Mechanical Vent 03/21/24 23:30 40 03/21/24 23:19 72 03/21/24 23:04 72 24 97 40 03/21/24 23:03 37.8 C H 71 24 98 Mechanical Vent 03/21/24 22:03 38.0 C H 74 24 98 Mechanical Vent 03/21/24 21:00 38.2 C H 76 21 97 Mechanical Vent
[2024-03-22] MEDS: HEPARIN SOD (PORCINE) 1000 UNIT/ML IV ONE (10:06)
[2024-03-22] MEDS: HEPARIN SOD (PORCINE) 1000 UNIT/ML IV SCH (10:06)
--- NOTE | 2024-03-22 10:08 | Critical Care Progress Note ---
Date of Service March 22, 2024 Assessment & Plan (1) DKA (diabetic ketoacidosis): Plan: Impression: 39-year-old speaking male with PMH of DM type II sepsis secondary to E. coli bacteremia Neuro - Encephalopathylikely multifactorial: Azotemia and infection -Off sedation after extubation -I am hopeful that with improvement in azotemia the patient's mental status will have also improved Cardiac - Elevated troponins: Likely in the setting of acute kidney injury and sepsis -Echo reviewed Hypotension: Most consistent secondary to sedation requirements hopefully we will be able to discontinue vasoactive medication Respiratory - Pleural effusion: Right: Improved GI - N.p.o. for now Hypertriglyceridemia: Given diabetes patient would probably benefit from statin therapy, question compliance given current noncompliance with diabetic regimen RENAL/LYTES - Acute renal failure -Reviewed nephrology notes, tolerated dialysis today, negligible urine output - Foleystrict I's and O's ENDO - Hyperglycemiapatient with history of type 2 diabetes previously managed with oral medications. Patient currently noncompliant with his normal regimen. -Blood sugar goal 150-250 -Continue insulin infusion HEME - Leukocytosis Anemia: Suspect related to underlying kidney disease Thrombocytopenia: Significant improvement -Heparin 7500 subcu 3 times daily ID - Sepsispansensitive E. coli bacteremia -Rocephin day: Will require 14 days from negative blood culture date -Repeat blood cultures LINES/IV ACCESS - Right IJ temporary HD cath, left radial art line DVT PROPHYLAXIS - SCDs Social: Hopefully patient will be more forthcoming if mental status improves after extubation and metabolizing sedatives. No report of visitors I have personally spent 45 minutes of critical care time in the direct management of this patient. This is a life/limb threatening event. This includes time spent evaluating patient, direct bedside care, chart review, placing orders, interpretation of diagnostic studies, discussion with consultants, patient, and family members, as well as other required patient management activities. This time is exclusive of all separately billable procedures, and teaching time and separate from and in addition to any other critical care service time. (2) Encephalopathy acute: (3) Acute renal failure: (4) Hyponatremia: (5) Sepsis: (6) UTI (urinary tract infection): Admission and Anticipated Discharge Date Admission Date: March 20, 2024 Subjective No overnight events. With lightening of sedation patient became very agitated attempted to remove breathing tube pulling at lines necessitating increase of sedation. Physical Exam Physical Exam: General: Sedated. nontoxic. Skin: Warm, dry, Head: Atraumatic, right temporary HD catheter in place Ears, nose, mouth and throat: airway obscured by endotracheal tube Cardiovascular: Normal peripheral perfusion Respiratory: Ventilator settings reviewed Gastrointestinal: Non distended Musculoskeletal: No deformity Results & Data Results & Data Vital Signs (Past 12 Hours) Vital Signs Temp Pulse Pulse Resp BP Pulse Ox O2 Del Method 03/22/24 09:01 75 108/48 L 03/22/24 08:56 38.3 C H 75 03/22/24 08:00 Mechanical Vent 03/22/24 08:00 77 03/22/24 07:42 76 24 96 03/22/24 06:16 38.2 C H 77 24 103/49 L 96 Mechanical Vent 03/22/24 05:06 38.3 C H 78 24 103/49 L 96 Mechanical Vent 03/22/24 04:59 Mechanical Vent 03/22/24 04:06 38.5 C H 79 24 125/53 L 96 Mechanical Vent 03/22/24 04:00 03/22/24 03:30 79 24 96 03/22/24 02:06 38.2 C H 75 24 118/55 L 97 Mechanical Vent 03/22/24 01:00 38.0 C H 74 24 96 Mechanical Vent 03/22/24 00:06 37.8 C H 73 24 97 Mechanical Vent 03/21/24 23:30 03/21/24 23:19 72 03/21/24 23:04 72 24 97 03/21/24 23:03 37.8 C H 71 24 98 Mechanical Vent FiO2 03/22/24 09:01 03/22/24 08:56 03/22/24 08:00 40 03/22/24 08:00 03/22/24 07:42 40 03/22/24 06:16 03/22/24 05:06 40 03/22/24 04:59 40 03/22/24 04:06 40 03/22/24 04:00 40 03/22/24 03:30 40 03/22/24 02:06 97 03/22/24 01:00 03/22/24 00:06 03/21/24 23:30 40 03/21/24 23:19 03/21/24 23:04 40 03/21/24 23:03 Critical Care Results & Data Vital Signs (Past 12 Hours) Vital Signs Temp Pulse Pulse Resp BP BP Pulse Ox 03/22/24 13:30 80 40 H 96 03/22/24 13:00 38.0 C H 89 24 98 03/22/24 12:45 37.9 C H 86 24 99 03/22/24 12:38 37.3 C 85 137/61 03/22/24 12:27 37.8 C H 81 24 99 03/22/24 12:00 37.8 C H 79 24 99 03/22/24 12:00 03/22/24 12:00 78 118/53 L 03/22/24 12:00 78 118/53 L 03/22/24 11:57 37.7 C H 80 25 H 99 03/22/24 11:39 37.7 C H 78 23 99 03/22/24 11:30 77 114/53 L 03/22/24 11:18 37.7 C H 77 24 99 03/22/24 11:00 37.8 C H 76 24 99 03/22/24 11:00 85 24 99 03/22/24 11:00 79 106/49 L 03/22/24 10:48 37.8 C H 76 21 99 03/22/24 10:30 77 107/50 L 03/22/24 10:15 37.8 C H 75 24 98 03/22/24 10:06 37.9 C H 76 24 98 03/22/24 10:00 74 112/51 L 03/22/24 09:48 38.0 C H 75 29 H 98 03/22/24 09:39 38.0 C H 75 29 H 98 03/22/24 09:30 76 107/51 L 03/22/24 09:18 38.2 C H 76 21 98 03/22/24 09:01 75 108/48 L 03/22/24 09:00 38.2 C H 76 21 96 03/22/24 08:56 38.3 C H 75 03/22/24 08:45 38.2 C H 75 21 97 03/22/24 08:36 38.2 C H 75 29 H 96 03/22/24 08:24 38.2 C H 78 29 H 97 03/22/24 08:00 03/22/24 08:00 77 03/22/24 07:42 76 24 96 03/22/24 07:18 38.2 C H 76 24 96 03/22/24 07:03 38.2 C H 77 24 97 03/22/24 06:16 38.2 C H 77 24 103/49 L 96 03/22/24 05:06 38.3 C H 78 24 103/49 L 96 03/22/24 04:59 03/22/24 04:06 38.5 C H 79 24 125/53 L 96 03/22/24 04:00 03/22/24 03:30 79 24 96 O2 Del Method FiO2 03/22/24 13:30 03/22/24 13:00 03/22/24 12:45 03/22/24 12:38 03/22/24 12:27 03/22/24 12:00 03/22/24 12:00 40 03/22/24 12:00 03/22/24 12:00 03/22/24 11:57 03/22/24 11:39 03/22/24 11:30 03/22/24 11:18 03/22/24 11:00 03/22/24 11:00 40 03/22/24 11:00 03/22/24 10:48 03/22/24 10:30 03/22/24 10:15 03/22/24 10:06 03/22/24 10:00 03/22/24 09:48 03/22/24 09:39 03/22/24 09:30 03/22/24 09:18 03/22/24 09:01 03/22/24 09:00 03/22/24 08:56 03/22/24 08:45 03/22/24 08:36 03/22/24 08:24 03/22/24 08:00 Mechanical Vent 40 03/22/24 08:00 03/22/24 07:42 40 03/22/24 07:18 03/22/24 07:03 03/22/24 06:16 Mechanical Vent 03/22/24 05:06 Mechanical Vent 40 03/22/24 04:59 Mechanical Vent 40 03/22/24 04:06 Mechanical Vent 40 03/22/24 04:00 40 03/22/24 03:30 40 Lab & Micro Results (Past 24 Hours) RBC 3.48 M/uL (4.70-6.10) L 03/22/24 WBC 38.51 K/ul (4.8-10.8) H* 03/22/24 Hgb 10.0 g/dl (14.0-18.0) L 03/22/24 Hct 28.5 % (42.0-52.0) L 03/22/24 MCV 81.9 fL (80.0-100.0) 03/22/24 MCH 28.7 pg (25.0-34.0) 03/22/24 MCHC 35.1 g/dL (32.0-36.0) 03/22/24 RDW Standard Deviation 43.1 fL (36.4-46.3) 03/22/24 RDW Coefficient of Variation 14.6 % (11.5-14.5) H 03/22/24 Plt Count 123 K/uL (130-400) L 03/22/24 MPV 14.2 fL (9.4-12.4) H 03/22/24 Nucleated Red Blood Cells % (auto) 0.1 % 03/22 Nucleated RBC Absolute Count (auto) 0.03 K/uL (0.00-0.12) 0 03/22/24 Neutrophils (%) (Auto) 82.6 % 03/22/24 Lymphocytes (%) (Auto) 3.7 % 03/22/24 Monocytes # (Auto) 1.25 K/uL (0.11-0.59) H 03/22/24 Eosinophils # (Auto) 0.18 K/uL (0.00-0.50) 03/22/24 Immature Granulocyte % (Auto) 9.6 % 03/22/24 Neutrophils # (Auto) 31.82 K/uL (1.40-6.50) H 03/22/24 Lymphocytes # (Auto) 1.42 K/uL (1.20-3.40) 03/22/24 Monocytes # (Auto) 1.25 K/uL (0.11-0.59) H 03/22/24 Eosinophils # (Auto) 0.18 K/uL (0.00-0.50) 03/22/24 Basophils # (Auto) 0.16 K/uL (0.00-0.20) 03/22/24 Immature Granulocyte # (Auto) 3.68 K/uL (0.01-0.20) H 03/22 Polychromasia 1+ 03/22/24 Dohle Bodies 1+ 03/22/24 Na 129 mmol/L (136-145) L 03/22/24 K 4.1 mmol/L (3.5-5.1) 03/22/24 Cl 94 mmol/L (98-107) L 03/22/24 CO2 22 mmol/L (21-32) 03/22/24 Anion Gap 13 (3-11) H 03/22/24 BUN 83 mg/dl (6-23) H 03/22/24 Creatinine 5.75 mg/dl (0.6-1.4) H* 03/22/24 Estimated GFR ( Amer) 13.1 ml/min 03/22/24 Estimated GFR (Non-Af Amer) 11.3 ml/min 03/22/24 BUN/Creatinine Ratio 14.4 (10-20) 03/22/24 Glu 201 mg/dl (70-99(Fasting)) H 03/22/24 Ca 7.1 mg/dl (8.6-10.3) L 03/22/24 Phosphorus Level 5.6 mg/dl (2.5-4.9) H 03/22/24 Mg 2.7 mg/dl (1.7-2.4) H 03/22/24 04:32 Calcium Level 7.1 mg/dl (8.6-10.3) L 03/22/24 04:32 Eugene Test NA 03/22/24 04:50 Microbiology 03/19/24 23:06 Aerobic Blood Culture - Final Blood Escherichia coli Anaerobic Blood Culture - Final 03/19/24 23:00 Aerobic Blood Culture - Final Blood Escherichia coli Anaerobic Blood Culture - Final Escherichia coli 03/20/24 16:49 Aerobic Blood Culture - Preliminary Blood No growth in Aerobic bottle after 24 hours. Anaerobic Blood Culture - Preliminary No growth in Anaerobic bottle after 24 hours. Diagnostic Findings (Past 24 Hours) Chest X-Ray 03/22/24 07:00 XR chest 1V portable HISTORY: Resp failure COMPARISON: Chest 03/21/2024. FINDINGS: The tip of the endotracheal tube is obscured by the thoracic spinal fusion hardware. Nasogastric tube terminates below the diaphragm. The tip is not included on this study. A right jugular central venous catheter terminates in the SVC. No pneumothorax. Cardiomegaly again noted. Mild congestive change has slightly improved.. Patchy bibasilar densities/effusions are again noted. There are low lung volumes. Old, healed right rib and left clavicle fractures. IMPRESSION: 1. The tip of the endotracheal tube is obscured by the overlying thoracic spinal fusion hardware. 2. Otherwise, satisfactory support line placement. 3. Mild congestive change has improved. 4. Patchy bibasilar densities/effusions persist. ACT 112: Negative or not required by law. Electronically signed by: En Stahl M.D. 03/22/2024 7:08 AM I & O Totals 24 Hours 03/21/24 03/22/24 03/23/24 06:59 06:59 06:59 Intake Total 2727.151 / 2727.151 1504.677 / 1504.677 775.320 / 775.320 Output Total 55 / 55 585 / 585 Balance 2672.151 / 2672.151 919.677 / 919.677 775.320 / 775.320 Cumulative 03/19/24 21:33 thru 03/22/24 14:38 Intake Total 9610.861 Output Total 678 Balance 8932.861 RT Ventilator Mngmt (Last Documented) Ventilator Ordered Settings Ventilator Support Mode Assist Control 03/22/24 12:00 Respiratory Rate 40 03/22/24 13:30 Ventilator Tidal Volume 400 03/22/24 12:00 Setting Minute Ventilation 13.3 03/22/24 13:30 Positive End Expiratory 8 03/22/24 12:00 Pressure Fraction of Inspired Oxygen 40 03/22/24 12:00 Peak Inspiratory Flow 46 03/20/24 15:50 Ventilator - PT Measurements Respiratory Rate 40 Exhaled Tidal Volume 375 Minute Ventilation 13.3 Peak Inspiratory Airway 18 Pressure Plateau Pressure 25 Respiratory Cycle Inspiratory: 1:2.1 Expiratory Ratio Inspiratory Phase Time 0.8 End-Tidal CO2 38 Static Lung Compliance 23.53 Dynamic Lung Compliance 21.05 Normal Static Lung Compliance 46.00 Patient Measurements Comment Pt is awake, but very agitated and uncooperative . Pt is tachypnic w/ RR in the 40s due to level of agitation. Per Dr. Post, RT is to extubate pt at this time. Pre-extubation, RT suctioned pt thoroughly both in-line and orally. Pt extubated at this time. Post-extubation, no stridor present. Pt placed on 4LPM NC. Coding Level of Care Code 93954 CRITICAL CARE 1ST 30-74M Diagnoses DKA (diabetic ketoacidosis) E11.10 Encephalopathy acute G93.40 Acute renal failure N17.9 Hyponatremia E87.1 Sepsis due to Escherichia coli with acute renal failure without septic shock, unspecified acute renal failure type A41.51; R65.20; N17.9 Acute renal failure type: unspecified Sepsis acute organ dysfunction status: with acute organ dysfunction Sepsis type: Escherichia coli Severe sepsis acute organ dysfunction type: acute renal failure Severe sepsis shock status: without septic shock UTI (urinary tract infection) N39.0 (5) Sepsis Acute renal failure type: unspecified Sepsis acute organ dysfunction status: with acute organ dysfunction Sepsis type: Escherichia coli Severe sepsis acute organ dysfunction type: acute renal failure Severe sepsis shock status: without septic shock Qualified Code(s): A41.51 - Sepsis due to Escherichia coli [E. coli]; R65.20 - Severe sepsis without septic shock; N17.9 - Acute kidney failure, unspecified
[2024-03-22] MEDS: PANTOprazole 40 MG in SYRINGE 0 ML IV SCH (13:07)
--- NOTE | 2024-03-22 13:08 | Hospitalist Progress Note ---
Date of Service March 22, 2024 Assessment & Plan (1) Encephalopathy: Plan: Multifactorial: Complicated by sepsis, FER and hyponatremia Remains intubated on mechanical vent Sedated Management as per accounts receivable clerk Planned extubation after dialysis today 03/22/2024 Hyperglycemic crisis (combined HHS/DKA), new diagnosis DM Has been on insulin infusion Intravenous fluid as needed Appreciate glycemic pharmacist input and recommendation Blood sugar seems to be reasonably controlled Severe sepsis (SIRS plus lactic acidosis plus ARF plus encephalopathy) secondary to complicated UTI, atypical pneumonia Secondary to E. coli bacteremia Has been on intravenous Rocephin and will need help least 14 days of antibiotic from negative culture date Repeat blood cultures have been taken Leukocytosis has not improved yet and remains febrile Will continue current antibiotic Acute renal failure Likely complicated by sepsis with ATN Requiring dialysis Appreciate nephrology input and recommendation Monitor electrolytes and avoid any nephrotoxins Continue with hemodialysis as per globe tester Hyponatremia Severe hyponatremia with sodium of 109 on admission Has been improved to 130 as of 03/21/2024 at 4 PM Appreciate nephrology input and recommendation Sodium level remains low at 129 Past tobacco abuse Thrombocytopenia possibly from sepsis Nicotine replacement therapy as needed DVT prophylaxis. SCDs Re: Thrombocytopenia Has been on heparin subcu Full code Patient friend requesting updates providers. Mr. Blaine William, contact #[phone]. Will need social service and case management involvement Will try to call the family members Prognosis remains guarded Admission and Anticipated Discharge Date Admission Date: March 20, 2024 Subjective 03/21/2024 The patient was seen and examined in ICU Remains intubated and sedated Opens eyes but not in any acute distress 03/22/2024 The patient was seen and examined in ICU Remains intubated and sedated On hemodialysis Planned extubation today after dialysis Review of Systems Review of Systems: Unobtainable due to endotracheal tube Physical Exam Physical Exam: Lying in bed without any acute distress on mechanical ventilator Constitutional: well developed, well nourished and + ill appearing Eyes: PERRL, conjunctivae normal, anicteric sclerae ENMT: external ear and nose normal, oropharynx normal Neck: trachea midline, no thyromegaly Respiratory: no respiratory distress Auscultation: + diminished lung sounds; no crackles (Bibasilar crackles) Cardiovascular: Rate/Rhythm: regular rate and regular rhythm; not tachycardic Heart Sounds: normal S1 and normal S2; no murmur Extremities: no edema Gastrointestinal (Abdomen): Inspection/Auscultation: normal bowel sounds; abdomen not distended Percussion/Palpation: abdomen soft; abdomen nontender Musculoskeletal: No acute arthritis involving any of the joint Neurologic: Remains sedated on vent Results & Data Results & Data Vital Signs (Past 12 Hours) Vital Signs Temp Pulse Pulse Resp BP Pulse Ox O2 Del Method 03/22/24 12:00 03/22/24 12:00 78 118/53 L 03/22/24 12:00 78 118/53 L 03/22/24 11:30 77 114/53 L 03/22/24 11:00 85 24 99 03/22/24 11:00 79 106/49 L 03/22/24 10:30 77 107/50 L 03/22/24 10:00 74 112/51 L 03/22/24 09:30 76 107/51 L 03/22/24 09:01 75 108/48 L 03/22/24 08:56 38.3 C H 75 03/22/24 08:00 Mechanical Vent 03/22/24 08:00 77 03/22/24 07:42 76 24 96 03/22/24 06:16 38.2 C H 77 24 103/49 L 96 Mechanical Vent 03/22/24 05:06 38.3 C H 78 24 103/49 L 96 Mechanical Vent 03/22/24 04:59 Mechanical Vent 03/22/24 04:06 38.5 C H 79 24 125/53 L 96 Mechanical Vent 03/22/24 04:00 03/22/24 03:30 79 24 96 03/22/24 02:06 38.2 C H 75 24 118/55 L 97 Mechanical Vent 03/22/24 01:00 38.0 C H 74 24 96 Mechanical Vent FiO2 03/22/24 12:00 40 03/22/24 12:00 03/22/24 12:00 03/22/24 11:30 03/22/24 11:00 40 03/22/24 11:00 03/22/24 10:30 03/22/24 10:00 03/22/24 09:30 03/22/24 09:01 03/22/24 08:56 03/22/24 08:00 40 03/22/24 08:00 03/22/24 07:42 40 03/22/24 06:16 06/06/24 05:06 40 03/22/24 04:59 40 03/22/24 04:06 40 03/22/24 04:00 40 03/22/24 03:30 40 03/22/24 02:06 97 03/22/24 01:00 Laboratory Results Short CBC 03/22/24 Range/Units 04:32 WBC 38.51 H* (4.8-10.8) K/ul Hgb 10.0 L (14.0-18.0) g/dl Hct 28.5 L (42.0-52.0) % Plt Count 123 L D (130-400) K/uL BMP 03/21/24 03/21/24 03/22/24 16:01 20:19 04:32 Sodium 130 L 129 L 129 L Potassium 4.2 4.3 4.1 Chloride 96 L 95 L 94 L Carbon Dioxide 23 23 22 BUN 69 H 75 H 83 H Creatinine 5.02 H* D 5.40 H* D 5.75 H* D Glucose 216 H 218 H 201 H Calcium 7.2 L 7.3 L 7.1 L Medications Administered Current Inpatient Medications Acetaminophen (Acetaminophen Susp 325 Mg/10.15 Ml Udc) 650 mg PO Q6H PRN PRN Reason: Fever Stop: 04/20/24 03:56 Last Admin: 03/22/24 03:46 Dose: 650 mg Dextrose (Dextrose 50% 50 Ml Syringe) 25 - 50 ml IV UD PRN; Protocol PRN Reason: Hypoglycemia Protocol Stop: 04/18/24 23:14 Fentanyl Citrate (Fentanyl Bolus From Bag) 50 mcg IV Q60M PRN PRN Reason: Pain or Agitation Stop: 04/03/24 16:43 Last Admin: 03/21/24 20:00 Dose: 50 mcg Glucagon (Glucagon For Inj 1 Mg Vial) 1 mg IM UD PRN; Protocol PRN Reason: Hypoglycemia Protocol Stop: 04/18/24 23:14 Glucose (Glucose 40% Gel 15 Gm Tube) 15 - 30 gm PO UD PRN; Protocol PRN Reason: Hypoglycemia Protocol Stop: 04/18/24 23:14 Glucose (Glucose 10 Tab/Tube) 4 - 8 tab PO UD PRN; Protocol PRN Reason: Hypoglycemia Protocol Stop: 04/18/24 23:14 Heparin Sodium (Porcine) (Heparin Sod 5,000 Unit/0.5 Ml Vial) 7,500 units SQ TID [facility] Stop: 04/21/24 13:59 Insulin Human Regular 250 (units/ Sodium Chloride) 250 mls @ 0 mls/hr IV .Q0M [facility]; Protocol Stop: 04/18/24 23:14 Last Titration: 03/22/24 10:20 Dose: 0 units/hr, 0 mls/hr Propofol (Diprivan) 1,000 mg in 100 mls @ 0 mls/hr IV .Q0M [facility]; Protocol Stop: 03/23/24 14:59 Last Admin: 03/22/24 04:46 Dose: Not Given Fentanyl Citrate (Fentanyl Citrate) 2,500 mcg in 250 mls @ 12.5 mls/hr IV .Q20H [facility]; Protocol Stop: 04/03/24 16:44 Last Titration: 03/22/24 07:13 Dose: 125 mcg/hr, 12.5 mls/hr Midazolam HCl (Versed) 125 mg in 250 mls @ 10 mls/hr IV .Q25H [facility]; Protocol Stop: 04/19/24 17:29 Last Titration: 03/22/24 07:13 Dose: 5 mg/hr, 10 mls/hr Phenylephrine HCl (Phenylephrine/Nss) 25 mg in 250 mls @ 30 mls/hr IV .Q8H20M [facility]; Protocol Stop: 04/19/24 17:59 Last Admin: 03/22/24 03:50 Dose: Not Given Norepinephrine Bitartrate (Levophed/D5w) 4 mg in 250 mls @ 37.5 mls/hr IV .Q6H40M [facility]; Protocol Stop: 04/19/24 19:59 Last Titration: 03/22/24 09:22 Dose: 0.1 mcg/kg/min, 37.5 mls/hr Ceftriaxone Sodium (Rocephin) 2,000 mg in 50 mls @ 100 mls/hr IV Q24H [facility] Stop: 04/04/24 11:59 Last Infusion: 03/21/24 12:48 Dose: Infused Pantoprazole Sodium 40 mg/ (Syringe) 10 mls @ 5 mls/min IV DAILY@1100 [facility] Stop: 04/21/24 10:59 Sodium Chloride (Nss) 1,000 mls @ 0 mls/hr IV .Q0M PRN PRN Reason: For Hemodialysis Use ONLY Stop: 03/22/24 14:12 Midazolam HCl (Midazolam Bolus From Bag) 2 mg IV Q60M PRN PRN Reason: Sedation Stop: 04/19/24 17:26 Last Admin: 03/22/24 08:00 Dose: 2 mg Miscellaneous (Carbohydrates For Hypoglycemia ) 15 - 30 gm PO UD PRN PRN Reason: Hypoglycemia Treatment Stop: 04/18/24 23:14 Miscellaneous Information (Pharmacy Glycemic Mgmt Consult) 1 each N/A UD PRN PRN Reason: Consult Stop: 04/19/24 01:38 Propofol (Propofol Bolus From Bag) 20 mg IV Q5M PRN PRN Reason: Sedation Stop: 03/23/24 14:59 Last Admin: 03/20/24 16:42 Dose: 20 mg
--- NOTE | 2024-03-22 14:18 | Pharmacy Report ---
Pharmacy Glycemic Short Note 2 - Date of Service March 22, 2024 - Glycemic Short BSG Results (Last 24 hours): 03/20/24 03/21/24 03/21/24 18:18 16:01 16:10 Glucose 216 H POC Glucose POC Glucose (other) 312 H 212 H 03/21/24 03/21/24 03/21/24 20:17 20:19 23:40 Glucose 218 H POC Glucose 213 H 209 H POC Glucose (other) 03/22/24 03/22/24 03/22/24 03:56 04:32 07:33 Glucose 201 H POC Glucose 186 H 256 H POC Glucose (other) 03/22/24 03/22/24 03/22/24 09:05 10:17 10:29 Glucose POC Glucose 186 H 144 H 145 H POC Glucose (other) 03/22/24 03/22/24 03/22/24 10:46 11:04 11:24 Glucose POC Glucose 133 H 149 H 142 H POC Glucose (other) 03/22/24 03/22/24 03/22/24 11:42 13:00 13:25 Glucose POC Glucose 123 H 148 H 161 H POC Glucose (other) 03/22/24 13:50 Glucose POC Glucose 181 H POC Glucose (other) OUTPATIENT ANTIDIABETIC REGIMEN: * Not taking any medications currently (previously on orals) * HbA1c 10.7% (03/20/24) ASSESSMENT: 03/22: * Insulin drip ran all day yesterday at 2 units/hr. Patient has required 3 straight days of hemodialysis. * Discussed on ICU rounds. Still requiring norepinephrine, currently running at 0.04 mcg/kg/min. Patient was extubated this afternoon. Hat And Cap Drying Room Attendant okay with transitioning off insulin drip at this time. * Will give 15 units basal x 1 dose. Overlap with the insulin drip for 2 hours and shut drip off (currently running at 0.8 units/hr). * Novolog will be ordered q4 with goal range 120-160. Carb ratio and correction will be based on weight/stress of 2-3. 6/5: * Patient completed 2.5 hours of HD yesterday, ending at ~2000. He is now intubated and on pressors in the ICU. * Since resuming the insulin drip at a lower rate of 2 units/hr yesterday, BSG's have remained in goal range consistently and no drip titrations have been needed * Discussed on ICU rounds - per Dr. Post, continue insulin drip but reduce goal range to 150-250 mg/dL 03/20: * 39 yo M w hx T2DM but not on any current medications admitted with complicated clinical picture of sepsis possibly 2nd urinary source, acute renal failure, hyponatremia, DKA (acidosis and anion gap noted) and possible HHS (calculated effective osmolality not elevated, but serum was) * Discussed extensively at ICU rounds - prefer to keep BSG's higher 2nd possible HHS and goal range was adjusted to 250-350 mg/dL, per Dr. Post. Insulin drip was temporarily put on hold for BSG below goal, per Dr. Post. OK to hold despite also having DKA picture as CO2 has normalized and pH is now elevated. Patient is not producing urine at this time. * Discussed fluids extensively as well - Plasmalyte w/o potassium reasonable as K is high/normal and patient is not making urine. OK to hold off on adding dextrose as insulin not as necessary at this time 2nd pH elevation and normal CO2. * Will continue to follow labs and make adjustments to regimen, with input from Dr. Post. * Discussed w Dr. Post again at 1630 - OK to resume insulin drip at this time. Discussed goal range of 250-350 mg/dL and resuming at lower rate of 2 units/hr. Discussed fluids - stopping all fluids. May or may not be DKA, but either way patient doesn't need dextrose at this point to keep BSG >250. Discussed pending order to flag RN to notify accounts payable payroll coordinator if/when insulin drip falls below 1 unit/hr to consider need for supplemental dextrose at this time. Dr. Post agreed. HD planned for today. PLAN FOR INPATIENT GLYCEMIC CONTROL: * Insulin drip * Currently running at 0.8 units/hr * D/c insulin drip 2 hours after administering 15 units of Lantus and BSG must be < 200 mg/dL at time of discontinuation * Basal * Lantus 15 units SC x 1 * Reassess this evening * Bolus * Accuchecks q4 hours for the time being regardless if NPO or eating * Goal range: 120 - 160 mg/dL * Correction factor: 1 unit for every 20 mg/dL over goal range * Carb ratio: 1 unit for every 7 g of CHO eaten
[2024-03-22] MEDS: HEPARIN SOD 5,000 UNIT/0.5 ML VIAL SQ SCH (14:21)
[2024-03-22] MEDS: LANTUS PER UNIT CHARGE SC STA (14:22)
[2024-03-22 15:22] LABS: HBSAG NON-REACTIVE (NON-REACTIVE); Haptoglobin 318 mg/dL (43-212); Hepatitis B Core Antibody IgM NON-REACTIVE (NON-REACTIVE); Hepatitis B Surface Ab, Quant <5 mIU/mL (> OR = 10)
[2024-03-23 04:23] LABS: BUN Creatinine Ratio 11.1 (10-20); Calcium 7.5 mg/dl (8.6-10.3); Est GFR (African American) 13.6 ml/min; Est GFR (Non-African American) 11.7 ml/min; Magnesium 2.5 mg/dl (1.7-2.4); Phosphorus 6.5 mg/dl (2.5-4.9); Potassium 4.1 mmol/L (3.5-5.1)
[2024-03-23 04:24] LABS: Hematocrit (blood only) 29.4 % (42.0-52.0); Hemoglobin 10.1 g/dl (14.0-18.0); Mean Corpuscular Hemoglobin 29.1 pg (25.0-34.0); Mean Corpuscular Hgb Conc 34.4 g/dL (32.0-36.0); Mean Corpuscular Volume 84.7 fL (80.0-100.0); Platelet Count 187 K/uL (130-400); Red Blood Count 3.47 M/uL (4.70-6.10); White Blood Count 35.01 K/ul (4.8-10.8)
[2024-03-23 04:53] LABS: Basophils # (auto) 0.17 K/uL (0.00-0.20); Basophils % (auto) 0.5 %; Dohle Bodies 1+; Eosinophils # (auto) 0.18 K/uL (0.00-0.50); Eosinophils % (auto) 0.5 %; Immature Granulocytes # (auto) 3.39 K/uL (0.01-0.20); Immature Granulocytes % (auto) 9.7 %; Lymphocytes # (auto) 1.03 K/uL (1.20-3.40); Lymphocytes % (auto) 2.9 %; Monocytes # (auto) 1.43 K/uL (0.11-0.59); Monocytes % (auto) 4.1 %; Neutrophils # (auto) 28.81 K/uL (1.40-6.50); Neutrophils % (auto) 82.3 %
[2024-03-23] MEDS: LANTUS PER UNIT CHARGE SC ONE (08:46)
[2024-03-23] MEDS: INSULIN ASPART PER UNIT CHARGE SC SCH (08:47)
--- NOTE | 2024-03-23 09:21 | Critical Care Progress Note ---
Date of Service March 23, 2024 Assessment & Plan (1) DKA (diabetic ketoacidosis): Plan: Impression: 39-year-old speaking male with PMH of DM type II sepsis secondary to E. coli bacteremia and acute renal failure Neuro - Encephalopathylikely multifactorial: Azotemia and infection -Off sedation -Unclear if at risk for alcohol withdraw, suspect encephalopathy more likely to underlying medical issues Cardiac - Elevated troponins: Likely in the setting of acute kidney injury and sepsis -Echo reviewed Hypotension: Resolved this appears to be secondary to sedative effects to facilitate mechanical ventilation, off pressors since 10pm yesterday Respiratory - Pleural effusion: Right: Improved GI - N.p.o. for now Hypertriglyceridemia: Given diabetes patient would probably benefit from statin therapy, question compliance given current noncompliance with diabetic regimen RENAL/LYTES - Acute renal failure -negligible urine output, I suspect patient will require additional runs of dialysis - Foleystrict I's and O's ENDO - Hyperglycemiapatient with history of type 2 diabetes previously managed with oral medications. Patient currently noncompliant with his normal regimen. -Blood sugar goal 150-250 -Small basal insulin dose HEME - Leukocytosis: Improving Anemia: Suspect related to underlying kidney disease Thrombocytopenia: Significant improvement -Heparin 7500 subcu 3 times daily ID - Sepsispansensitive E. coli bacteremia, possible pyelonephritis -Rocephin day: Will require 14 days from negative blood culture date (last negative culture 03/20/2024: Day 4) -Consideration given to repeat scan for possible evolution of pyelo-/perinephric abscess, would likely require contrast which is ill- advised waiting for return of renal function) LINES/IV ACCESS - Right IJ temporary HD cath DVT PROPHYLAXIS - SCDs: Heparin 7500 3 times daily Social: Report of phone contact overnight, attempting to coordinate conference call to include custodial engineer Andie number placed into chart, non-nauruan speaking. (2) Encephalopathy acute: (3) Acute renal failure: (4) Hyponatremia: (5) Sepsis: (6) UTI (urinary tract infection): Admission and Anticipated Discharge Date Admission Date: March 20, 2024 Supervising Physician Co-Signing Physician Notes I have personally spent 45 minutes of critical care time in the direct management of this patient. This is a life/limb threatening event. This i ncludes time spent evaluating patient, direct bedside care, chart review, placing orders, interpretation of diagnostic studies, discussion with consultants, patient, and/or family members regarding treatment decisions, as well as other required patient management activities. This time is exclusive of all separately billable procedures, and teaching time and separate from and in addition to any other critical care service time. Subjective Overnight patient came to arterial line and this was discontinued. Review of Systems Review of Systems: Unobtainable due to cognitive status Physical Exam Physical Exam: General: Alert. Mildly agitated moving in bed, difficult to communicate with not withstanding language barrier appears to follow simple commands but minimal insight/orientation. Skin: Warm, dry, Head: Atraumatic Ears, nose, mouth and throat: airway patent, poor dentition Cardiovascular: Normal peripheral perfusion Respiratory: no respiratory distress, mild tachypnea Gastrointestinal: Non distended, no guarding no rebound Musculoskeletal: No deformity Results & Data Results & Data Vital Signs (Past 12 Hours) Vital Signs Temp Pulse Resp BP Pulse Ox O2 Del Method O2 Flow Rate 03/23/24 08:00 Nasal Cannula 2 03/23/24 08:00 91 H 03/23/24 07:00 37.5 C 91 H 26 H 133/74 95 03/23/24 06:00 91 H 28 H 120/82 95 03/23/24 05:30 130/78 03/23/24 05:29 93 H 42 H 95 03/23/24 05:02 94 H 32 H 95 03/23/24 05:00 130/78 03/23/24 05:00 132/70 03/23/24 04:05 91 H 43 H 94 03/23/24 04:00 127/63 03/23/24 04:00 37.5 C 03/23/24 03:08 93 H 28 H 96 03/23/24 03:00 123/79 03/23/24 02:31 119/64 03/23/24 02:01 108/80 03/23/24 01:06 85 24 97 03/23/24 00:00 82 25 H 96 03/23/24 00:00 80 03/22/24 23:59 37.1 C 03/22/24 23:00 85 31 H 97 03/22/24 22:39 86 13 97 03/22/24 22:03 85 29 H 98 03/22/24 21:30 85 17 97 Critical Care Results & Data Vital Signs (Past 12 Hours) Vital Signs Temp Pulse Resp BP Pulse Ox O2 Del Method O2 Flow Rate 03/23/24 09:10 37.3 C 03/23/24 08:00 Nasal Cannula 2 03/23/24 08:00 91 H 03/23/24 07:00 37.5 C 91 H 26 H 133/74 95 03/23/24 06:00 91 H 28 H 120/82 95 03/23/24 05:30 130/78 03/23/24 05:29 93 H 42 H 95 03/23/24 05:02 94 H 32 H 95 03/23/24 05:00 130/78 03/23/24 05:00 132/70 03/23/24 04:05 91 H 43 H 94 03/23/24 04:00 127/63 03/23/24 04:00 37.5 C 03/23/24 03:08 93 H 28 H 96 03/23/24 03:00 123/79 03/23/24 02:31 119/64 03/23/24 02:01 108/80 03/23/24 01:06 85 24 97 03/23/24 00:00 82 25 H 96 03/23/24 00:00 80 03/22/24 23:59 37.1 C 03/22/24 23:00 85 31 H 97 03/22/24 22:39 86 13 97 03/22/24 22:03 85 29 H 98 03/22/24 21:30 85 17 97 Lab & Micro Results (Past 24 Hours) 2 RBC 3.47 M/uL (4.70-6.10) L 03/23/24 WBC 35.01 K/ul (4.8-10.8) H* 03/23/24 Hgb 10.1 g/dl (14.0-18.0) L 03/23/24 Hct 29.4 % (42.0-52.0) L 03/23/24 MCV 84.7 fL (80.0-100.0) 03/23/24 MCH 29.1 pg (25.0-34.0) 03/23/24 MCHC 34.4 g/dL (32.0-36.0) 03/23/24 RDW Standard Deviation 46.0 fL (36.4-46.3) 03/23/24 RDW Coefficient of Variation 15.0 % (11.5-14.5) H 03/23/24 Plt Count 187 K/uL (130-400) 03/23/24 MPV 13.0 fL (9.4-12.4) H 03/23/24 Neutrophils (%) (Auto) 82.3 % 03/23/24 Lymphocytes (%) (Auto) 2.9 % 03/23/24 Monocytes # (Auto) 1.43 K/uL (0.11-0.59) H 03/23/24 Eosinophils # (Auto) 0.18 K/uL (0.00-0.50) 03/23/24 Immature Granulocyte % (Auto) 9.7 % 03/23/24 Neutrophils # (Auto) 28.81 K/uL (1.40-6.50) H 03/23/24 Lymphocytes # (Auto) 1.03 K/uL (1.20-3.40) L 03/23/24 Monocytes # (Auto) 1.43 K/uL (0.11-0.59) H 03/23/24 Eosinophils # (Auto) 0.18 K/uL (0.00-0.50) 03/23/24 Basophils # (Auto) 0.17 K/uL (0.00-0.20) 03/23/24 Immature Granulocyte # (Auto) 3.39 K/uL (0.01-0.20) H 03/23 Dohle Bodies 1+ 03/23/24 Na 134 mmol/L (136-145) L 03/23/24 K 4.1 mmol/L (3.5-5.1) 03/23/24 Cl 100 mmol/L (98-107) 03/23/24 CO2 22 mmol/L (21-32) 03/23/24 Anion Gap 12 (3-11) H 03/23/24 BUN 62 mg/dl (6-23) H 03/23/24 Creatinine 5.58 mg/dl (0.6-1.4) H* 03/23/24 Estimated GFR ( Amer) 13.6 ml/min 03/23/24 Estimated GFR (Non-Af Amer) 11.7 ml/min 03/23/24 BUN/Creatinine Ratio 11.1 (10-20) 03/23/24 Glu 151 mg/dl (70-99(Fasting)) H 03/23/24 Ca 7.5 mg/dl (8.6-10.3) L 03/23/24 Phosphorus Level 6.5 mg/dl (2.5-4.9) H 03/23/24 Mg 2.5 mg/dl (1.7-2.4) H 03/23/24 03:37 Calcium Level 7.5 mg/dl (8.6-10.3) L 03/23/24 03:37 Microbiology 03/20/24 16:49 Aerobic Blood Culture - Preliminary Blood No growth in Aerobic bottle after 48 hours. Anaerobic Blood Culture - Preliminary No growth in Anaerobic bottle after 48 hours. 03/19/24 23:06 Aerobic Blood Culture - Final Blood Escherichia coli Anaerobic Blood Culture - Final 03/19/24 23:00 Aerobic Blood Culture - Final Blood Escherichia coli Anaerobic Blood Culture - Final Escherichia coli I & O Totals 24 Hours 03/22/24 03/23/24 03/24/24 06:59 06:59 06:59 Intake Total 1504.677 / 1708.495 5786.897 / 1037.897 1.733 / 1.733 Output Total 585 / 585 30 / 30 Balance 919.677 / 891.946 7811.897 / 1007.897 1.733 / 1.733 Cumulative 03/19/24 21:33 thru 03/23/24 08:47 Intake Total 9875.171 Output Total 708 Balance 9167.171 RT Ventilator Mngmt (Last Documented) Ventilator Ordered Settings Ventilator Support Mode Assist Control 03/22/24 12:00 Respiratory Rate 26 03/23/24 07:00 Ventilator Tidal Volume 400 03/22/24 12:00 Setting Minute Ventilation 13.3 03/22/24 13:30 Positive End Expiratory 8 03/22/24 12:00 Pressure Fraction of Inspired Oxygen 40 03/22/24 12:00 Peak Inspiratory Flow 46 03/20/24 15:50 Ventilator - PT Measurements Respiratory Rate 26 Exhaled Tidal Volume 375 Minute Ventilation 13.3 Peak Inspiratory Airway 18 Pressure Plateau Pressure 25 Respiratory Cycle Inspiratory: 1:2.1 Expiratory Ratio Inspiratory Phase Time 0.8 End-Tidal CO2 35 Static Lung Compliance 23.53 Dynamic Lung Compliance 21.05 Normal Static Lung Compliance 46.00 Patient Measurements Comment Pt is awake, but very agitated and uncooperative . Pt is tachypnic w/ RR in the 40s due to level of agitation. Per Dr. Post, RT is to extubate pt at this time. Pre-extubation, RT suctioned pt thoroughly both in-line and orally. Pt extubated at this time. Post-extubation, no stridor present. Pt placed on 4LPM NC. Coding Level of Care Code 98511 CRITICAL CARE 1ST 30-74M Diagnoses DKA (diabetic ketoacidosis) E11.10 Encephalopathy acute G93.40 Acute renal failure N17.9 Hyponatremia E87.1 Sepsis due to Escherichia coli with acute renal failure without septic shock, unspecified acute renal failure type A41.51; R65.20; N17.9 Acute renal failure type: unspecified Sepsis acute organ dysfunction status: with acute organ dysfunction Sepsis type: Escherichia coli Severe sepsis acute organ dysfunction type: acute renal failure Severe sepsis shock status: without septic shock UTI (urinary tract infection) N39.0 (5) Sepsis Acute renal failure type: unspecified Sepsis acute organ dysfunction status: with acute organ dysfunction Sepsis type: Escherichia coli Severe sepsis acute organ dysfunction type: acute renal failure Severe sepsis shock status: without septic shock Qualified Code(s): A41.51 - Sepsis due to Escherichia coli [E. coli]; R65.20 - Severe sepsis without septic shock; N17.9 - Acute kidney failure, unspecified
--- NOTE | 2024-03-23 10:15 | Nephrology Progress Note ---
Date of Service March 23, 2024 Assessment & Plan Admission and Anticipated Discharge Date Admission Date: March 20, 2024 Subjective Assessment & Plan (1) Acute renal failure with oliguria: Plan: anuric renal failure with unknown baseline and uremic sx (encephalopathy) w/ large kidneys and cortical thickening. Most likely he had some preexisting CKD from DM. but we dont know the baseline creat for sure He had emergent dialysis given encephalopathy, anuria and severe renal failure. intubated in order to place dialysis catheter and to dialyze safely Dialysis yesterday. took 2 kilo off with help from pressors. 3K bath. No clotting. ECHO reviewed and did not look bad. after 3 dialysis days in a row will pause today. will do again tomorrow and then tuesday. Still minimal urine. Dialysis 4hrs , 2k bath and take 2 kilo off tomorrow with heparin. (2) Bacteremia due to Escherichia coli: Plan: also w/ Enterobacter on biofire >> this is apparently cross reactivity, not a true +. on zosyn and doxy now f/u pending TTE (3) Hyponatremia: Plan: Presenting sodium 109 at 2200 and now 129. Should get better with dialysis na is rising nicely at appropriate rate and now 134. (5) Thrombocytopenia: Plan: plts `went up quite a bit. Related with bacteremia and sepsis. peripheral smear as per report--related more with sepsis than Thrombotic microangiopathy. So no indication for PLEX. PLT normal today. (6) Encephalopathy: Plan: Possibly uremic and septicemia. tox screen negative; head CT unremarkable. Does c/o sore thoat Consider LP/MRI. he still seems very agitated and restless. Case complexity high. Discussed with Dr Post. Subjective has had dialysis 3 days in a row. No issues with Clotting yesterday. still no urine. CVC working fine. Now extubated. No fever now. Review of Systems Review of Systems: Unobtainable due to endotracheal tube Physical Exam Constitutional: well developed, well nourished, + acute distress (On initial exam on dialysis; then improved with sedation) and + obese Eyes: EOM intact bilaterally ENMT: Ears: no external ear abnormality Nose: no external nose abnormality Mouth: + dry oral mucous membranes Neck: no nuchal rigidity Respiratory: normal respiratory effort (On ventilator) Auscultation: + diminished lung sounds Cardiovascular: Rate/Rhythm: + tachycardic Extremities: no edema Gastrointestinal (Abdomen): Inspection/Auscultation: + abdomen distended and normal bowel sounds Percussion/Palpation: abdomen soft; abdomen nontender and no ascites Musculoskeletal: Extremities: strength 5/5 throughout Skin: no rashes, warm and dry Results & Data Vital Signs (Past 12 Hours) Vital Signs Temp Pulse Resp BP Pulse Ox O2 Del Method O2 Flow Rate 03/23/24 09:10 37.3 C 03/23/24 08:00 Nasal Cannula 2 03/23/24 08:00 91 H 03/23/24 07:00 37.5 C 91 H 26 H 133/74 95 03/23/24 06:00 91 H 28 H 120/82 95 03/23/24 05:30 130/78 03/23/24 05:29 93 H 42 H 95 03/23/24 05:02 94 H 32 H 95 03/23/24 05:00 130/78 03/23/24 05:00 132/70 03/23/24 04:05 91 H 43 H 94 03/23/24 04:00 127/63 03/23/24 04:00 37.5 C 03/23/24 03:08 93 H 28 H 96 03/23/24 03:00 123/79 03/23/24 02:31 119/64 03/23/24 02:01 108/80 03/23/24 01:06 85 24 97 03/23/24 00:00 82 25 H 96 03/23/24 00:00 80 03/22/24 23:59 37.1 C 03/22/24 23:00 85 31 H 97 03/22/24 22:39 86 13 97
--- NOTE | 2024-03-23 11:44 | Pharmacy Report ---
Pharmacy Glycemic Short Note 2 - Date of Service March 23, 2024 - Glycemic Short BSG Results (Last 24 hours): 03/22/24 03/22/24 03/22/24 11:42 13:00 13:25 Glucose POC Glucose 123 H 148 H 161 H POC Glucose (other) 03/22/24 03/22/24 03/22/24 13:50 15:04 16:31 Glucose POC Glucose 181 H 238 H 262 H POC Glucose (other) 03/22/24 03/22/24 03/22/24 17:26 18:28 19:37 Glucose POC Glucose 215 H 249 H POC Glucose (other) 230 H 03/22/24 03/22/24 03/22/24 20:49 21:42 22:43 Glucose POC Glucose 158 H POC Glucose (other) 222 H 187 H 03/22/24 03/23/24 03/23/24 23:38 00:30 02:33 Glucose POC Glucose 182 H 150 H 152 H POC Glucose (other) 03/23/24 03/23/24 03/23/24 03:37 04:48 06:23 Glucose 151 H POC Glucose 147 H 144 H POC Glucose (other) 03/23/24 03/23/24 08:41 11:03 Glucose POC Glucose 139 H 191 H POC Glucose (other) OUTPATIENT ANTIDIABETIC REGIMEN: * Not taking any medications currently (previously on orals) * HbA1c 10.7% (03/20/24) ASSESSMENT: 03/23: * Patient was transitioned off insulin drip for only a short period yesterday and then it was resumed for BSGs persistently above 200 mg/dL. Insulin drip ran at 0.8 units/hr overnight. * Still NPO and encephalopathic. No HD today. Orders in for HD tomorrow. * Will give an increased basal dose this AM and shut insulin drip off. Novolog again will be started based on weight/stress of 2-3 with q4 checks to start. May need tightened throughout the evening. Would be hesitant to give any more basal today. 03/22: * Insulin drip ran all day yesterday at 2 units/hr. Patient has required 3 straight days of hemodialysis. * Discussed on ICU rounds. Still requiring norepinephrine, currently running at 0.04 mcg/kg/min. Patient was extubated this afternoon. Gas Maker okay with transitioning off insulin drip at this time. * Will give 15 units basal x 1 dose. Overlap with the insulin drip for 2 hours and shut drip off (currently running at 0.8 units/hr). * Novolog will be ordered q4 with goal range 120-160. Carb ratio and correction will be based on weight/stress of 2-3. 6/5: * Patient completed 2.5 hours of HD yesterday, ending at ~2000. He is now intubated and on pressors in the ICU. * Since resuming the insulin drip at a lower rate of 2 units/hr yesterday, BSG's have remained in goal range consistently and no drip titrations have been needed * Discussed on ICU rounds - per Dr. Post, continue insulin drip but reduce goal range to 150-250 mg/dL 03/20: * 39 yo M w hx T2DM but not on any current medications admitted with complicated clinical picture of sepsis possibly 2nd urinary source, acute renal failure, hyponatremia, DKA (acidosis and anion gap noted) and possible HHS (calculated effective osmolality not elevated, but serum was) * Discussed extensively at ICU rounds - prefer to keep BSG's higher 2nd possible HHS and goal range was adjusted to 250-350 mg/dL, per Dr. Post. Insulin drip was temporarily put on hold for BSG below goal, per Dr. Post. OK to hold despite also having DKA picture as CO2 has normalized and pH is now elevated. Patient is not producing urine at this time. * Discussed fluids extensively as well - Plasmalyte w/o potassium reasonable as K is high/normal and patient is not making urine. OK to hold off on adding dextrose as insulin not as necessary at this time 2nd pH elevation and normal CO2. * Will continue to follow labs and make adjustments to regimen, with input from Dr. Post. * Discussed w Dr. Post again at 1630 - OK to resume insulin drip at this time. Discussed goal range of 250-350 mg/dL and resuming at lower rate of 2 units/hr. Discussed fluids - stopping all fluids. May or may not be DKA, but either way patient doesn't need dextrose at this point to keep BSG >250. Discussed pending order to flag RN to notify sports information director if/when insulin drip falls below 1 unit/hr to consider need for supplemental dextrose at this time. Dr. Post agreed. HD planned for today. PLAN FOR INPATIENT GLYCEMIC CONTROL: * Insulin drip * Discontinue * Basal * Lantus 20 units SC x 1 * Reassess tomorrow morning * Bolus * Accuchecks q4 hours for the time being regardless if NPO or eating * Goal range: 110 - 140 mg/dL * Correction factor: 1 unit for every 20 mg/dL over goal range * Carb ratio: 1 unit for every 7 g of CHO eaten
--- NOTE | 2024-03-23 14:38 | Hospitalist Progress Note ---
Date of Service March 23, 2024 Assessment & Plan (1) Encephalopathy: Plan: Multifactorial: Complicated by sepsis, FER and hyponatremia Remains intubated on mechanical vent Sedated Management as per refinery operator assistant Planned extubation after dialysis today 03/22/2024 S/p extubation on 03/22/2024 Remains hemodynamically stable with restlessness in bed Maintaining on 2 L of nasal cannula Hyperglycemic crisis (combined HHS/DKA), new diagnosis DM Has been on insulin infusion Intravenous fluid as needed Appreciate glycemic pharmacist input and recommendation Blood sugar seems to be reasonably controlled Severe sepsis (SIRS plus lactic acidosis plus ARF plus encephalopathy) secondary to complicated UTI, atypical pneumonia Secondary to E. coli bacteremia Has been on intravenous Rocephin and will need help least 14 days of antibiotic from negative culture date Repeat blood cultures have been taken Leukocytosis has not improved yet and remains febrile Will continue current antibiotic White count remains elevated without any more fever and or chills Acute renal failure Likely complicated by sepsis with ATN Requiring dialysis Appreciate nephrology input and recommendation Monitor electrolytes and avoid any nephrotoxins Continue with hemodialysis as per metal or wood blocker Has had dialysis today and will have dialysis tomorrow and on Tuesday as per metal or wood blocker Hyponatremia Severe hyponatremia with sodium of 109 on admission Has been improved to 130 as of 03/21/2024 at 4 PM Appreciate nephrology input and recommendation Sodium level remains low at 129 Hyponatremia seems to be corrected at 134 today Past tobacco abuse Thrombocytopenia possibly from sepsis Nicotine replacement therapy as needed DVT prophylaxis. SCDs Re: Thrombocytopenia Has been on heparin subcu Full code Patient friend requesting updates providers. Mr. Blaine William, contact #[phone]. Will need social service and case management involvement Will try to call the family members Prognosis remains guarded [place]-speaking Not yet ready to communicate normal Will try to contact the family members Admission and Anticipated Discharge Date Admission Date: March 20, 2024 Subjective 03/21/2024 The patient was seen and examined in ICU Remains intubated and sedated Opens eyes but not in any acute distress 03/22/2024 The patient was seen and examined in ICU Remains intubated and sedated On hemodialysis Planned extubation today after dialysis 03/23/2024 The patient was seen and examined in ICU He is a status post extubation on 03/22/2024 Remains confused with occasional restlessness Remains hemodynamically stable Review of Systems Review of Systems: Unobtainable due to cognitive status Physical Exam Physical Exam: Lying in bed with some restlessness Constitutional: well developed, well nourished and + ill appearing Eyes: PERRL, conjunctivae normal, anicteric sclerae ENMT: external ear and nose normal, oropharynx normal Neck: trachea midline, no thyromegaly Respiratory: no respiratory distress Auscultation: + diminished lung sounds; no crackles (Bibasilar crackles) Cardiovascular: Rate/Rhythm: regular rate and regular rhythm; not tachycardic Heart Sounds: normal S1 and normal S2; no murmur Extremities: no edema Gastrointestinal (Abdomen): Inspection/Auscultation: normal bowel sounds; abdomen not distended Percussion/Palpation: abdomen soft; abdomen nontender Musculoskeletal: No acute arthritis involving any of the joints Neurologic: Remains confused. Encephalopathic. Occasional restlessness. Moving all limbs Results & Data Results & Data Vital Signs (Past 12 Hours) Vital Signs Temp Pulse Resp BP Pulse Ox O2 Del Method O2 Flow Rate 03/23/24 13:32 37.2 C 03/23/24 11:01 37.4 C 03/23/24 10:30 96 H 41 H 97 03/23/24 09:30 126/96 03/23/24 09:18 97 H 49 H 98 03/23/24 09:12 98 H 47 H 99 03/23/24 09:10 37.3 C 03/23/24 08:31 101/78 03/23/24 08:30 99 H 25 H 96 03/23/24 08:06 93 H 49 H 97 03/23/24 08:00 Nasal Cannula 2 03/23/24 08:00 91 H 03/23/24 07:33 96 H 29 H 96 03/23/24 07:00 37.5 C 91 H 26 H 133/74 95 03/23/24 06:00 91 H 28 H 120/82 95 03/23/24 05:30 130/78 03/23/24 05:29 93 H 42 H 95 03/23/24 05:02 94 H 32 H 95 03/23/24 05:00 130/78 03/23/24 05:00 132/70 03/23/24 04:05 91 H 43 H 94 03/23/24 04:00 127/63 03/23/24 04:00 37.5 C 03/23/24 03:08 93 H 28 H 96 03/23/24 03:00 123/79 Laboratory Results Short CBC 03/23/24 Range/Units 03:37 WBC 35.01 H* (4.8-10.8) K/ul Hgb 10.1 L (14.0-18.0) g/dl Hct 29.4 L (42.0-52.0) % Plt Count 187 D (130-400) K/uL BMP 03/23/24 03:37 Sodium 134 L Potassium 4.1 Chloride 100 Carbon Dioxide 22 BUN 62 H D Creatinine 5.58 H* Glucose 151 H Calcium 7.5 L Medications Administered Current Inpatient Medications Acetaminophen (Acetaminophen Susp 325 Mg/10.15 Ml Udc) 650 mg PO Q6H PRN PRN Reason: Fever Stop: 04/20/24 03:56 Last Admin: 03/22/24 13:07 Dose: 650 mg Dextrose (Dextrose 50% 50 Ml Syringe) 25 - 50 ml IV UD PRN; Protocol PRN Reason: Hypoglycemia Protocol Stop: 04/18/24 23:14 Epoetin Mark (Epoetin Mark 20,000 Units/Ml Vial) 20,000 units IV ONE ONE Stop: 03/24/24 07:01 Glucagon (Glucagon For Inj 1 Mg Vial) 1 mg IM UD PRN; Protocol PRN Reason: Hypoglycemia Protocol Stop: 04/18/24 23:14 Glucose (Glucose 40% Gel 15 Gm Tube) 15 - 30 gm PO UD PRN; Protocol PRN Reason: Hypoglycemia Protocol Stop: 04/18/24 23:14 Glucose (Glucose 10 Tab/Tube) 4 - 8 tab PO UD PRN; Protocol PRN Reason: Hypoglycemia Protocol Stop: 04/18/24 23:14 Heparin Sodium (Porcine) (Heparin Sod 5,000 Unit/0.5 Ml Vial) 7,500 units SQ TID LINDSEY Stop: 04/21/24 13:59 Last Admin: 03/23/24 08:48 Dose: 7,500 units Ceftriaxone Sodium (Rocephin) 2,000 mg in 50 mls @ 100 mls/hr IV Q24H LINDSEY Stop: 04/04/24 11:59 Last Infusion: 03/23/24 11:37 Dose: Infused Pantoprazole Sodium 40 mg/ (Syringe) 10 mls @ 5 mls/min IV DAILY@1100 [facility] Stop: 04/21/24 10:59 Last Admin: 03/23/24 11:09 Dose: 5 mls/min Sodium Chloride (Nss) 1,000 mls @ 0 mls/hr IV .Q0M PRN PRN Reason: For Hemodialysis Use ONLY Stop: 03/24/24 12:59 Insulin Aspart (Insulin Aspart Per Unit Charge) 0 units SC Q4 LINDSEY; Protocol Stop: 04/22/24 08:34 Last Admin: 03/23/24 11:09 Dose: 3 units Miscellaneous (Carbohydrates For Hypoglycemia ) 15 - 30 gm PO UD PRN PRN Reason: Hypoglycemia Treatment Stop: 04/18/24 23:14 Miscellaneous Information (Pharmacy Glycemic Mgmt Consult) 1 each N/A UD PRN PRN Reason: Consult Stop: 04/19/24 01:38
[2024-03-24 04:26] LABS: BUN Creatinine Ratio 10.6 (10-20); Calcium 7.3 mg/dl (8.6-10.3); Creatinine Clr Calc Pharmacy 13.7 ml/min; Est GFR (African American) 9.5 ml/min; Est GFR (Non-African American) 8.2 ml/min; Magnesium 2.8 mg/dl (1.7-2.4); Phosphorus 8.8 mg/dl (2.5-4.9); Potassium 4.1 mmol/L (3.5-5.1)
[2024-03-24 04:42] LABS: Basophils # (auto) 0.17 K/uL (0.00-0.20); Basophils % (auto) 0.5 %; Dohle Bodies 1+; Eosinophils # (auto) 0.14 K/uL (0.00-0.50); Eosinophils % (auto) 0.4 %; Hematocrit (blood only) 30.9 % (42.0-52.0); Hemoglobin 10.7 g/dl (14.0-18.0); Immature Granulocytes # (auto) 2.66 K/uL (0.01-0.20); Immature Granulocytes % (auto) 7.6 %; Lymphocytes % (auto) 3.4 %; Mean Corpuscular Hemoglobin 29.2 pg (25.0-34.0); Mean Corpuscular Hgb Conc 34.6 g/dL (32.0-36.0); Mean Corpuscular Volume 84.2 fL (80.0-100.0); Mean Platelet Volume 11.8 fL (9.4-12.4); Monocytes # (auto) 1.34 K/uL (0.11-0.59); Monocytes % (auto) 3.8 %; Neutrophils # (auto) 29.45 K/uL (1.40-6.50); Neutrophils % (auto) 84.3 %; Platelet Count 311 K/uL (130-400); Polychromasia 1+; RDW Coefficient of Variation 14.9 % (11.5-14.5); RDW Standard Deviation 46.1 fL (36.4-46.3); Red Blood Count 3.67 M/uL (4.70-6.10); White Blood Count 34.96 K/ul (4.8-10.8)
[2024-03-24] MEDS ORDERED: SODIUM CHLORIDE 0.9% 1,000 ML IV PRN (07:00)
[2024-03-24] MEDS: RAPID SEQUENCE INDUCTION BAG ONE (07:05)
[2024-03-24] MEDS ORDERED: STAT IV Infusion **Titration per Protocol STA ×2 (07:19→07:24)
[2024-03-24] MEDS ORDERED: PROPOFOL BOLUS FROM BAG IV PRN (07:19)
[2024-03-24] MEDS ORDERED: MIDAZOLAM HCL 1 MG/ML 2ML VIAL IV PRN (07:24)
[2024-03-24] MEDS ORDERED: MIDAZOLAM BOLUS FROM BAG IV PRN (07:24)
[2024-03-24] MEDS: VECURONIUM BROMIDE 10 MG VIAL IV ONE (07:26)
[2024-03-24] MEDS ORDERED: propofoL 1,000 MG/100 ML VIAL IV SCH (07:30)
[2024-03-24] MEDS: fentaNYL citrate 2,500 MCG/250 ML BAG IV SCH (07:40)
[2024-03-24] MEDS: MIDAZOLAM HCL 125 MG/250 ML BAG IV SCH (07:40)
[2024-03-24] MEDS: NOREPINEPHRINE/D5W 4 MG/250 ML PLCT IV SCH (07:51)
--- NOTE | 2024-03-24 08:39 | Procedure Note ---
Procedure Note Date of Service March 24, 2024 Note INTUBATION PROCEDURE NOTE: Attending: Lemuel Psot DO KWAN: Baltazar STYLES ([facility]) A time-out was completed verifying correct patient, procedure, site, positioning. Patient was evaluated and required intubation for obtaining advanced imaging as well as LP for continued encephalopathy Sedative agent used: Fentanyl/Etomidate Paralysis agent used: Vecuronium Emergent consent was implied given patients continued encephalopathy and need for further advanced diagnostics The patient was prepared in the appropriate fashion. Sedation was achieved utilizing Etomidate, Fentanyl and Vecuronium, per Dr. Post's administration. The patient was easily ventilated using [id number] to achieve adequate oxygenation. Under direct video laryngoscopy with manipulation from Dr. Post, the chords and epiglotis were visualized. Suction was needed to clear thick white secretions. Under direct video visualization a 8.0 Citizen [place] endotracheal tube was placed under 23 to cm at the lip. The stylette was removed and balloon was inflated with 10mL of air. Appropriate Colorimetric change was appreciated. Bilateral breath sounds were heard without air sounds in the abdomen. Dr. Post was present and completed the procedure Post Intubation Chest X-ray confirms placement without pneumothorax. Patient tolerated the procedure well and there were no immediate complications. Coding CPT Codes Resuscitation - Resuscitation: 71286 Endotracheal Intubation, emergency ([id number]) [facility] [place] Procedure Codes (Charges) Resuscitation Resuscitation: 40676 Endotracheal Intubation, emergency
[2024-03-24] MEDS: fentaNYL citrate 2,500 MCG/250 ML BAG IV ONE (08:43)
--- NOTE | 2024-03-24 08:43 | Procedure Note ---
Procedure Note Date of Service March 24, 2024 Note INTERNAL JUGULAR CENTRAL LINE PROCEDURE NOTE: Procedure: Internal Jugular Central Line Placement Proceduralist: Baltazar STYLES ([facility]) Attending: Lemuel Saini DO Indication: Central Drug Administration, Poor Venous Access, Multiple Lab Draws Necessary, etc. Anesthesia: Sedation with fentanyl and Versed Emergent Consent was implied as patient required central access for advanced diagnostics and hemodyanmic support A time-out was completed verifying correct patient, procedure, site, positioning, and implants(s) or special equipment if applicable. Patients LEFT Neck was scouted prior to procedure to identify appropriate target. Once apporpriate target was identified, the left neck was cleansed and draped in the typical sterile fashion using Chloraprep. The Internal Jugular Vein and Carotid Artery were identified using ultrasound. Internal Jugular vein was cannulated under direct ultrasound guidance using an introducer needle on a syringe. Good venous blood return was maintained prior to removal of syringe from introducer needle. There was initial difficulty maintain flow and passing the wire requiring assistance from Dr. Post to maintain the vascular space. Using Seldinger Technique, a guide wire was advanced through the introducer needle without resistance. The introducer needle was removed and ultrasound images were obtained of the guide wire within the Internal Jugular Vein and saved to the patients medical record. A small incision was made in penetrating fashion at the guide wire insertion site utilizing an 11 blade scalpel. The dilator was advanced to the vessel without resistance. The dilator was exchanged for the triple lumen catheter which was advanced into the vessel without resistance. The guide wire was removed intact from the catheter without issue. Claves were pl aced on each catheter tip with confirmation of good blood flow from each lumen. Each port was easily flushed with sterile saline. The catheter was placed at [] cm and sutured in place. CHG impregnated dressing was applied to the catheter and a sterile Tegaderm dressing was applied over the catheter with careful attention to sterility. Patient tolerated procedure well. No immediate complications were met. Post procedure x-ray was completed, placement was appropriate and no pneumothorax was noted. Images obtained are saved for permanent record Procedural Ultrasound Guidance: Procedure Date: 03/24/24 Indication: Central venous access Attending: Dr. Post Artery AND Vein visualized: YES Compressible Vein: YES Guidewire or Short Catheter seen in vein prior to dilation: YES Images obtained are saved for permanent record. Coding CPT Codes Tubes, Drains, and Vasc Access - Tubes, Drains, and Vasc Access: [id number] Ultrasound Guidance For Vascular ([id number]) Tubes, Drains, and Vasc Access - Tubes, Drains, and Vasc Access: [id number] Insertion Of Non-tunneled Catheter Age 4 Yrs> ([id number]) [facility] [place] Procedure Codes (Charges) Tubes, Drains, and Vasc Access Procedure 1: Tubes, Drains, and Vasc Access: [id number] Ultrasound Guidance For Vascular Procedure 2: Tubes, Drains, and Vasc Access: [id number] Insertion Of Non-tunneled Catheter Age 4 Yrs>
[2024-03-24] MEDS: NOREPINEPHRINE/D5W 4 MG/250 ML IV ONE (08:44)
[2024-03-24] MEDS: MIDAZOLAM HCL 125MG/250ML D5W IV ONE (08:44)
[2024-03-24] MEDS ORDERED: Nursing to Pharmacy Communication SCH (09:00)
--- NOTE | 2024-03-24 09:01 | XRay Report ---
SINGLE VIEW CHEST CLINICAL HISTORY: Central venous catheter placement. FINDINGS: An AP, portable, supine chest radiograph is compared to study dated 03/22/2024 and correlated with chest CT dated 03/20/2024. A right internal jugular central venous catheter is unchanged in posit ion. A left internal jugular central venous catheter has been placed. The tip projects over the SVC. An endotracheal tube is in place. An enteric tube has been removed. The heart is enlarged. There is p ulmonary vascular congestion. There are small pleural effusions. Multifocal airspace opacities are se en throughout both lungs. No pneumothorax is seen. There is chronic posttraumatic deformity of the le ft clavicle. Cervicothoracic spinal rods are in place. IMPRESSION: 1. Lines and tubes as above. No pneumothorax is seen following central venous catheter placement. 2. Cardiomegaly with pulmonary vascular congestion. 3. Small pleural effusions. 4. Multifocal airspace opacities have somewhat increased from yesterday ACT 112: Negative or not required by law. Electronically signed by: Rui Tee M.D. 03/24/2024 8:59 AM
[2024-03-24] MEDS: OPTIRAY 320 100ml IV ONE (09:19)
[2024-03-24] MEDS: LANTUS PER UNIT CHARGE SC SCH (09:41)
--- NOTE | 2024-03-24 09:51 | CT Scan Report ---
CT SCAN OF THE BRAIN WITHOUT IV CONTRAST CLINICAL HISTORY: Encephalopathy. COMPARISON STUDY: CT of the brain dated 03/20/2024. TECHNIQUE: Unenhanced axial CT scan of the brain is performed from the vertex to the skull base. A d ose lowering technique was utilized adhering to the principles of ALARA. FINDINGS: Brain parenchyma: The brain parenchyma is normal in appearance. There is no hemorrhage, mass effect, or evidence of acute territorial ischemia by CT criteria. Alfonso-white matter differentiation is preser luz. No extra-axial fluid collection is seen. Ventricles, sulci, cisterns: Normal in configuration. Intracranial vasculature: The visualized intracranial vasculature at the skull base is normal in appe arance. Calvarium: Unremarkable. Sinuses and mastoids: There is mild mucosal thickening within the ethmoid sinuses. The remaining para nasal sinuses are clear. There is evidence of previous right mastoid surgery. There is fluid within t he remaining right mastoid air cells as well as the right middle ear. The left the mastoid air cells are well pneumatized. Orbits: The bony orbits are grossly intact. IMPRESSION: There is no hemorrhage, mass effect, or evidence of acute territorial ischemia by CT timothy reyes. ACT 112: Negative or not required by law. Electronically signed by: Rui Tee M.D. 03/24/2024 9:48 AM
--- NOTE | 2024-03-24 10:00 | CT Scan Report ---
CT SCAN OF THE ABDOMEN AND PELVIS WITH IV CONTRAST CLINICAL HISTORY: Acute renal failure. Concern for renal abscess. COMPARISON STUDY: Abdominal CT and renal ultrasound dated 03/20/2024. TECHNIQUE: Following the IV administration of 90 cc of Optiray 320, CT scan of the abdomen and pelvi s is performed from the lung bases to the proximal femora. Images are reviewed in the axial, sagittal , and coronal planes. IV contrast was administered without complication. A dose lowering technique wa s utilized adhering to the principles of ALARA. The examination is degraded by streak artifact from t he arms which could not be elevated above the abdomen. CT DOSE: 2297.5 mGy.cm FINDINGS: Lung bases: The heart is enlarged and without pericardial effusion. There are small pleural effusions with dependent consolidation. Liver: The contrast-enhanced liver is enlarged, measuring 21.5 cm in craniocaudal length. Attenuation is diffusely diminished indicating steatosis. There is no intrahepatic biliary ductal dilatation. Th e hepatic veins and portal veins are patent. Gallbladder: Unremarkable. Spleen: Normal in size and attenuation. Pancreas: Unremarkable. Adrenal glands: Unremarkable. Kidneys: The contrast enhanced kidneys are enlarged and markedly heterogeneous. There is no hydroneph rosis. Enhancement of both kidneys is markedly heterogeneous, right greater than left. There is peric ystic perinephric inflammation/fluid. Phlegmonous change and a tiny focus of gas is suggested in the lower pole of the right kidney. Subcentimeter cortical hypodensities are seen in both kidneys. No org anized/drainable fluid collection is seen at this time. Mild urothelial thickening is noted involving the ureters with surrounding inflammation. The renal vessels appear patent. Abdominal vasculature: The abdominal aorta is normal in course and caliber. Bowel: There is mild colonic diverticulosis without CT evidence of acute diverticulitis. No bowel obs truction is identified. The appendix is well-visualized and normal. Peritoneum: There is trace perihepatic and perisplenic ascites, as well as trace pelvic ascites. No i ntraperitoneal free air is seen. There is a fat-containing umbilical hernia. Lymphadenopathy: None. Pelvic viscera: The bladder is largely decompressed around a Sinha catheter and appears thick-walled. There is pericystic infiltration. Gas is noted within the bladder lumen. The prostate and seminal ve sicles are normal as visualized. There are small bilateral fat-containing groin hernias. Skeletal structures: No lytic or blastic lesions are seen. Fusion hardware is seen in the lower cervi montrell spine. There are numerous chronic/healed right-sided rib fractures. Soft tissues: There is body wall edema. IMPRESSION: 1. The kidneys are enlarged and edematous. No hydronephrosis is seen. 2. There is markedly heterogeneous enhancement of both kidneys, right greater than left with perineph mónica inflammation and fluid. Correlate with clinical findings and urinalysis for evidence of infection /pyelonephritis. 3. There is phlegmonous change with a small focus of gas involving the lower pole of the right kidney . No organized/drainable fluid collection is seen at this time to indicate abscess. 4. The bladder wall appears thickened with surrounding inflammation and there is urothelial thickenin g with surrounding inflammation involving the ureters. Again, this could be related to cystitis/infec tion. 5. Small pleural effusions with airspace consolidation at both lung bases. 6. Trace abdominal pelvic ascites. 7. Hepatomegaly and hepatic steatosis. 8. Additional findings as above. ACT 112: Negative or not required by law. Electronically signed by: Rui Tee M.D. 03/24/2024 9:58 AM
[2024-03-24 10:07] LABS: Cryptococcus neoformans/ga PCR Not Detected (NotDetected); Cytomegalovirus PCR Not Detected (NotDetected); Enterovirus PCR Not Detected (NotDetected); Escherichia coli K1 PCR Not Detected (NotDetected); Haemophilius influenzae PCR Not Detected (NotDetected); Herpes Simplex Virus 1 PCR Not Detected (NotDetected); Herpes Simplex Virus 2 PCR Not Detected (NotDetected); Human Herpes Virus 6 PCR Not Detected (NotDetected); Human Parechovirus PCR Not Detected (NotDetected); Listeria monocytogenes PCR Not Detected (NotDetected); Neisseria meningitidis PCR Not Detected (NotDetected); Streptococcus agalactiae PCR Not Detected (NotDetected); Streptococcus pneumoniae PCR Not Detected (NotDetected); Varicella Zoster Virus PCR Not Detected (NotDetected)
[2024-03-24] MEDS: EPOETIN ALFA 20,000 UNITS/ML VIAL IV ONE (10:38)
--- NOTE | 2024-03-24 11:44 | Dialysis Progress Note ---
Date of Service March 24, 2024 Assessment & Plan Admission and Anticipated Discharge Date Admission Date: March 20, 2024 Subjective Assessment & Plan (1) Acute renal failure with oliguria: Plan: anuric renal failure with unknown baseline and uremic sx (encephalopathy) w/ large kidneys and cortical thickening. Most likely had some preexisting CKD from DM. but we dont know the baseline creat He had emergent dialysis yesterday given encephalopathy, anuria and severe renal failure. intubated in order to place dialysis catheter and to dialyze safely Dialysis today qb 300 Qd 600 take 2 to 3 kilo off with help from pressors. 3K bath; will do low dose heparin next dialysis will be on tuesday. ECHO reviewed and did not look bad. (2) Bacteremia due to Escherichia coli: Plan: TTE--normal. On abx. 3 ) Encephalopathy: Plan: Possibly uremic and septicemia. tox screen negative; head CT unremarkable. had LP and is pending. Not quite clear about the etiology. Case complexity high. Subjective Seen on dialysis. So far tolerating fine. CVC working fine. had to be intubated for dialysis as he was very agitated. also had LP earlier. is on low pressors also. Still has fever Mo urine yet. Review of Systems Review of Systems: Unobtainable due to endotracheal tube Physical Exam Constitutional: well developed, well nourished, + acute distress (On initial exam on dialysis; then improved with sedation) and + obese. intubated an sedated Eyes: EOM intact bilaterally ENMT: Ears: no external ear abnormality Nose: no external nose abnormality Mouth: + dry oral mucous membranes Neck: no nuchal rigidity Respiratory: normal respiratory effort (On ventilator) Auscultation: + diminished lung sounds Cardiovascular: Rate/Rhythm: + tachycardic Extremities: no edema Gastrointestinal (Abdomen): Inspection/Auscultation: + abdomen distended and normal bowel sounds Percussion/Palpation: abdomen soft; abdomen nontender and no ascites Musculoskeletal: Extremities: strength 5/5 throughout Skin: no rashes, warm and dry Results & Data Vital Signs (Past 12 Hours) Vital Signs Temp Pulse Pulse Resp BP Pulse Ox O2 Del Method 03/24/24 11:00 78 94/60 L 03/24/24 10:56 71 18 96 03/24/24 10:30 70 90/66 L 03/24/24 10:00 73 89/53 L 03/24/24 09:45 73 92/58 L 03/24/24 09:45 73 24 99 03/24/24 09:39 75 95/56 L 03/24/24 09:32 36.4 C L 80 03/24/24 09:32 100/59 L 03/24/24 09:30 85 24 93 03/24/24 08:51 77 24 96 03/24/24 08:45 130/72 03/24/24 08:42 83 24 97 03/24/24 08:34 99/59 L 03/24/24 08:27 87 29 H 98 03/24/24 08:26 153/105 H 03/24/24 08:19 138/95 03/24/24 08:15 79 24 97 03/24/24 08:06 113/77 03/24/24 08:03 93 H 24 98 03/24/24 08:02 166/97 H 03/24/24 08:00 142/81 H 03/24/24 08:00 Mechanical Vent 03/24/24 07:54 142/90 H 03/24/24 07:36 96/63 L 03/24/24 07:30 79 32 H 96 03/24/24 07:28 117/84 03/24/24 07:21 80 28 H 98 03/24/24 07:20 116/79 03/24/24 07:18 80 31 H 98 03/24/24 07:18 120/77 03/24/24 07:15 81 36 H 97 03/24/24 07:00 79 26 H 98 03/24/24 06:57 79 26 H 98 03/24/24 06:21 87 25 H 98 03/24/24 06:12 82 29 H 98 03/24/24 06:00 104/65 03/24/24 06:00 82 27 H 97 03/24/24 05:18 85 31 H 121/70 95 03/24/24 04:00 92 H 32 H 91 03/24/24 04:00 145/85 H 03/24/24 04:00 36.8 C 03/24/24 03:01 157/82 H 03/24/24 03:00 94 H 40 H 93 03/24/24 02:03 93 H 36 H 124/76 96 03/24/24 01:00 126/80 03/24/24 00:42 96 H 28 H 93 03/24/24 00:06 94 H 25 H 95 03/24/24 00:00 93 H 03/24/24 00:00 136/77 03/24/24 00:00 37.1 C FiO2 03/24/24 11:00 03/24/24 10:56 50 03/24/24 10:30 03/24/24 10:00 03/24/24 09:45 03/24/24 09:45 03/24/24 09:39 03/24/24 09:32 03/24/24 09:32 03/24/24 09:30 03/24/24 08:51 03/24/24 08:45 03/24/24 08:42 03/24/24 08:34 03/24/24 08:27 03/24/24 08:26 03/24/24 08:19 03/24/24 08:15 100 03/24/24 08:06 03/24/24 08:03 03/24/24 08:02 03/24/24 08:00 03/24/24 08:00 65 03/24/24 07:54 03/24/24 07:36 03/24/24 07:30 03/24/24 07:28 03/24/24 07:21 03/24/24 07:20 03/24/24 07:18 03/24/24 07:18 03/24/24 07:15 03/24/24 07:00 03/24/24 06:57 03/24/24 06:21 03/24/24 06:12 03/24/24 06:00 03/24/24 06:00 03/24/24 05:18 03/24/24 04:00 03/24/24 04:00 03/24/24 04:00 03/24/24 03:01 03/24/24 03:00 03/24/24 02:03 03/24/24 01:00 03/24/24 00:42 03/24/24 00:06 03/24/24 00:00 03/24/24 00:00 03/24/24 00:00
--- NOTE | 2024-03-24 12:48 | Hospitalist Progress Note ---
Date of Service March 24, 2024 Assessment & Plan (1) Encephalopathy: Plan: Multifactorial: Complicated by sepsis, FER and hyponatremia Remains intubated on mechanical vent Sedated Management as per metal drill operator Planned extubation after dialysis today 03/22/2024 S/p extubation on 03/22/2024 Remains hemodynamically stable with restlessness in bed Maintaining on 2 L of nasal cannula Required reintubation early this morning on 03/24/2024 Remains sedated Hyperglycemic crisis (combined HHS/DKA), new diagnosis DM Has been on insulin infusion Intravenous fluid as needed Appreciate glycemic pharmacist input and recommendation Blood sugar seems to be reasonably controlled Severe sepsis (SIRS plus lactic acidosis plus ARF plus encephalopathy) secondary to complicated UTI, atypical pneumonia Secondary to E. coli bacteremia Has been on intravenous Rocephin and will need help least 14 days of antibiotic from negative culture date Repeat blood cultures have been taken Leukocytosis has not improved yet and remains febrile Will continue current antibiotic White count remains elevated without any more fever and or chills Has had limited LP-fluid chemistry is not yet back but CSF viral serology have been negative. Gram stain did not show any WBC and or organisms and the culture is pending Continue with current antibiotic Acute renal failure Likely complicated by sepsis with ATN Requiring dialysis Appreciate nephrology input and recommendation Monitor electrolytes and avoid any nephrotoxins Continue with hemodialysis as per bread molder Has had dialysis today and will have dialysis tomorrow and on Tuesday as per bread molder Has been having hemodialysis today Hyponatremia Severe hyponatremia with sodium of 109 on admission Has been improved to 130 as of 03/21/2024 at 4 PM Appreciate nephrology input and recommendation Sodium level remains low at 129 Hyponatremia seems to be corrected at 134 today 03/23/2024 Past tobacco abuse Thrombocytopenia possibly from sepsis Nicotine replacement therapy as needed DVT prophylaxis. SCDs Re: Thrombocytopenia Has been on heparin subcu Full code Patient friend requesting updates providers. Mr. Blaine William, contact #[phone]. Will need social service and case management involvement Will try to call the family members Prognosis remains guarded Maltese-speaking Not yet ready to communicate normal Will try to contact the family members Admission and Anticipated Discharge Date Admission Date: March 20, 2024 Subjective 03/21/2024 The patient was seen and examined in ICU Remains intubated and sedated Opens eyes but not in any acute distress 03/22/2024 The patient was seen and examined in ICU Remains intubated and sedated On hemodialysis Planned extubation today after dialysis 03/23/2024 The patient was seen and examined in ICU He is a status post extubation on 03/22/2024 Remains confused with occasional restlessness Remains hemodynamically stable 03/24/2024 The patient was seen and examined in ICU He is reintubated this morning Has had limited LP Remains sedated on vent with ongoing hemodialysis Review of Systems Review of Systems: Unobtainable due to endotracheal tube Physical Exam Physical Exam: Lying in bed with some restlessness Constitutional: well developed, well nourished and + ill appearing Eyes: PERRL, conjunctivae normal, anicteric sclerae ENMT: external ear and nose normal, oropharynx normal Neck: trachea midline, no thyromegaly Respiratory: no respiratory distress Auscultation: + diminished lung sounds; no crackles (Bibasilar crackles) Cardiovascular: Rate/Rhythm: regular rate and regular rhythm; not tachycardic Heart Sounds: normal S1 and normal S2; no murmur Extremities: no edema Gastrointestinal (Abdomen): Inspection/Auscultation: normal bowel sounds; abdomen not distended Percussion/Palpation: abdomen soft; abdomen nontender Musculoskeletal: No acute arthritis involving any of the joints Neurologic: Remains confused. Encephalopathic. Occasional restlessness. Moving all limbs Results & Data Results & Data Vital Signs (Past 12 Hours) Vital Signs Temp Pulse Pulse Resp BP Pulse Ox O2 Del Method 03/24/24 12:12 78 20 99 03/24/24 11:48 80 24 96 03/24/24 11:39 76 21 97 03/24/24 11:18 77 23 95 03/24/24 11:00 79 24 91 Mechanical Vent 03/24/24 11:00 78 94/60 L 03/24/24 10:56 71 18 96 03/24/24 10:54 80 21 92 03/24/24 10:30 90/66 L 03/24/24 10:30 70 90/66 L 03/24/24 10:15 78/50 L Mechanical Vent 03/24/24 10:09 73 24 100 03/24/24 10:06 73 24 100 03/24/24 10:00 89/55 L Mechanical Vent 03/24/24 10:00 73 89/53 L 03/24/24 09:51 72 24 99 03/24/24 09:45 73 92/58 L 03/24/24 09:45 73 24 99 03/24/24 09:39 75 95/56 L 03/24/24 09:32 36.4 C L 80 03/24/24 09:32 100/59 L 03/24/24 09:30 85 24 93 03/24/24 08:51 77 24 96 03/24/24 08:45 130/72 03/24/24 08:42 83 24 97 03/24/24 08:34 99/59 L 03/24/24 08:27 87 29 H 98 03/24/24 08:26 153/105 H 03/24/24 08:19 138/95 03/24/24 08:15 79 24 97 03/24/24 08:06 113/77 03/24/24 08:03 93 H 24 98 03/24/24 08:02 166/97 H 03/24/24 08:00 142/81 H 03/24/24 08:00 Mechanical Vent 03/24/24 07:54 142/90 H 03/24/24 07:36 96/63 L 03/24/24 07:30 79 32 H 96 03/24/24 07:28 117/84 03/24/24 07:21 80 28 H 98 03/24/24 07:20 116/79 03/24/24 07:18 80 31 H 98 03/24/24 07:18 120/77 03/24/24 07:15 81 36 H 97 03/24/24 07:00 79 26 H 98 03/24/24 06:57 79 26 H 98 03/24/24 06:21 87 25 H 98 03/24/24 06:12 82 29 H 98 03/24/24 06:00 104/65 03/24/24 06:00 82 27 H 97 03/24/24 05:18 85 31 H 121/70 95 03/24/24 04:00 92 H 32 H 91 03/24/24 04:00 145/85 H 03/24/24 04:00 36.8 C 03/24/24 03:01 157/82 H 03/24/24 03:00 94 H 40 H 93 03/24/24 02:03 93 H 36 H 124/76 96 03/24/24 01:00 126/80 FiO2 03/24/24 12:12 06/08/24 11:48 03/24/24 11:39 03/24/24 11:18 03/24/24 11:00 50 03/24/24 11:00 03/24/24 10:56 50 03/24/24 10:54 03/24/24 10:30 03/24/24 10:30 03/24/24 10:15 50 03/24/24 10:09 03/24/24 10:06 03/24/24 10:00 03/24/24 10:00 03/24/24 09:51 03/24/24 09:45 03/24/24 09:45 03/24/24 09:39 03/24/24 09:32 03/24/24 09:32 03/24/24 09:30 03/24/24 08:51 03/24/24 08:45 03/24/24 08:42 03/24/24 08:34 03/24/24 08:27 03/24/24 08:26 03/24/24 08:19 03/24/24 08:15 100 03/24/24 08:06 03/24/24 08:03 03/24/24 08:02 03/24/24 08:00 03/24/24 08:00 65 03/24/24 07:54 03/24/24 07:36 03/24/24 07:30 03/24/24 07:28 03/24/24 07:21 03/24/24 07:20 03/24/24 07:18 03/24/24 07:18 03/24/24 07:15 03/24/24 07:00 03/24/24 06:57 03/24/24 06:21 03/24/24 06:12 03/24/24 06:00 03/24/24 06:00 03/24/24 05:18 03/24/24 04:00 03/24/24 04:00 03/24/24 04:00 03/24/24 03:01 03/24/24 03:00 03/24/24 02:03 03/24/24 01:00 Laboratory Results Short CBC 03/24/24 Range/Units 03:46 WBC 34.96 H* (4.8-10.8) K/ul Hgb 10.7 L (14.0-18.0) g/dl Hct 30.9 L (42.0-52.0) % Plt Count 311 D (130-400) K/uL [facility] 03/24/24 03:46 Sodium 138 Potassium 4.1 Chloride 101 Carbon Dioxide 15 L BUN 80 H Creatinine 7.53 H* D Glucose 125 H Calcium 7.3 L Medications Administered Current Inpatient Medications Acetaminophen (Acetaminophen Susp 325 Mg/10.15 Ml Udc) 650 mg PO Q6H PRN PRN Reason: Fever Stop: 04/20/24 03:56 Last Admin: 03/22/24 13:07 Dose: 650 mg Dextrose (Dextrose 50% 50 Ml Syringe) 25 - 50 ml IV UD PRN; Protocol PRN Reason: Hypoglycemia Protocol Stop: 04/18/24 23:14 Fentanyl Citrate (Fentanyl Bolus From Bag) 50 mcg IV Q60M PRN PRN Reason: Pain or Agitation Stop: 04/07/24 07:18 Glucagon (Glucagon For Inj 1 Mg Vial) 1 mg IM UD PRN; Protocol PRN Reason: Hypoglycemia Protocol Stop: 04/18/24 23:14 Glucose (Glucose 40% Gel 15 Gm Tube) 15 - 30 gm PO UD PRN; Protocol PRN Reason: Hypoglycemia Protocol Stop: 04/18/24 23:14 Glucose (Glucose 10 Tab/Tube) 4 - 8 tab PO UD PRN; Protocol PRN Reason: Hypoglycemia Protocol Stop: 04/18/24 23:14 Heparin Sodium (Porcine) (Heparin Sod 5,000 Unit/0.5 Ml Vial) 7,500 units SQ TID [facility] Stop: 04/21/24 13:59 Last Admin: 03/24/24 09:41 Dose: Not Given Ceftriaxone Sodium (Rocephin) 2,000 mg in 50 mls @ 100 mls/hr IV Q24H [facility] Stop: 04/04/24 11:59 Last Infusion: 03/23/24 11:37 Dose: Infused Pantoprazole Sodium 40 mg/ (Syringe) 10 mls @ 5 mls/min IV DAILY@1100 [facility] Stop: 04/21/24 10:59 Last Admin: 03/24/24 11:06 Dose: 5 mls/min Sodium Chloride (Nss) 1,000 mls @ 0 mls/hr IV .Q0M PRN PRN Reason: For Hemodialysis Use ONLY Stop: 03/24/24 12:59 Norepinephrine Bitartrate (Levophed/D5w) 4 mg in 250 mls @ 20.61 mls/hr IV .Q12H8M [facility]; Protocol Stop: 04/23/24 07:29 Last Titration: 03/24/24 12:07 Dose: 0.06 mcg/kg/min, 20.6 mls/hr Fentanyl Citrate (Fentanyl Citrate) 2,500 mcg in 250 mls @ 12.5 mls/hr IV .Q20H [facility]; Protocol Stop: 04/07/24 07:29 Last Titration: 03/24/24 09:58 Dose: 125 mcg/hr, 12.5 mls/hr Midazolam HCl (Versed) 125 mg in 250 mls @ 10 mls/hr IV .Q25H [facility]; Protocol Stop: 04/23/24 07:29 Last Titration: 03/24/24 09:58 Dose: 5 mg/hr, 10 mls/hr Insulin Aspart (Insulin Aspart Per Unit Charge) 0 units SC Q6 [facility]; Protocol Stop: 04/23/24 17:59 Insulin Glargine (Lantus Per Unit Charge) 0 units SC QAM [facility]; Protocol Stop: 04/23/24 08:59 Last Admin: 03/24/24 09:41 Dose: 20 units Midazolam HCl (Midazolam Hcl 1 Mg/Ml 2ml Vial) 2 mg IV Q2H PRN PRN Reason: RASS goal -1 Stop: 04/23/24 07:23 Midazolam HCl (Midazolam Bolus From Bag) 2 mg IV Q60M PRN PRN Reason: Sedation Stop: 04/23/24 07:23 Miscellaneous (Carbohydrates For Hypoglycemia ) 15 - 30 gm PO UD PRN PRN Reason: Hypoglycemia Treatment Stop: 04/18/24 23:14 Miscellaneous Information (Pharmacy Glycemic Mgmt Consult) 1 each N/A UD PRN PRN Reason: Consult Stop: 04/19/24 01:38
[2024-03-24] MEDS: fentaNYL BOLUS from BAG IV PRN (13:14)
--- NOTE | 2024-03-24 13:31 | Procedure Note ---
Procedure Note Date of Service March 24, 2024 Note Procedure Date: Noted above Procedure: Lumbar puncture Pre-procedure Diagnosis: Encephalopathy Post-procedure Diagnosis: same as above Prior to Procedure: Informed Consent: Emergent consent implied Attending Staff: Montse Post DO Resident/Physician Latex Thread Machine Operator: Miky Indications: Patient is a 39-year-old male who has continued ongoing dense encephalopathy, ongoing elevated white blood cell count and fevers. The identity of the patient was confirmed and a bedside time out was performed. Description of Procedure: Patient was positioned in the left lateral decubitus position, prepped and draped in usual sterile fashion. The 3 4 space located with bilateral iliac crests as landmarks. 1% Lidocaine without epinephrine was used to anesthetize the area. A 20 gauge spinal needle was introduced into the subarachnoid space. Stylet was removed with appropriate fluid return. Needle removed after adequate fluid collected and sterile bandage placed at puncture site. 1 mL of CSF fluid collected. Fluid was clear. Specimen(s): sent for Gram Stain, BioFire PCR Complications: 0.5 mL of clear fluid was returned and then the fluid flow stopped. The needle was manipulated and approximately half mL more was collected. 2 additional needle passes were undertaken and felt to be in the space and no fluid was returned. Estimated Blood Loss: None Coding CPT Codes Lumbar Puncture - Lumbar Puncture, Diagnostic: 90378 Lumbar Puncture, Diagnostic ([id number]) [facility] Procedure Codes (Charges) Lumbar Puncture Lumbar Puncture, Diagnostic: 80774 Lumbar Puncture, Diagnostic
--- NOTE | 2024-03-24 13:43 | Critical Care Progress Note ---
Date of Service March 24, 2024 Assessment & Plan (1) Bacteremia due to Escherichia coli: Plan: Impression: 39-year-old speaking male with PMH of DM type II sepsis secondary to E. coli bacteremia and acute renal failure Neuro - Encephalopathylikely multifactorial: Azotemia and infection -Not able to follow commands, pulling at lines and tubes -Unclear if at risk for alcohol withdraw, suspect encephalopathy more likely to underlying medical issues -Cannot obtain MRI, D/W radiology, rods within the last 10 years have been none MRI compliant, unable to obtain history regarding spinal manipulation -EEG pending -LP performed: Minimal CSF, I doubt this represents infection I have ordered culture and bio fire studies and priority -If additional evaluation via lumbar puncture is needed may necessitate performance in interventional radiology Cardiac - Elevated troponins: Likely in the setting of acute kidney injury and sepsis -Echo reviewed Hypotension: Resolved this appears to be secondary to sedative effects to facilitate mechanical ventilation Respiratory - Pleural effusion: Right: Improved Initial intubation was to facilitate dialysis given patient was very impulsive and agitated, was successfully extubated following course of dialysis Repeat intubation to facilitate medical care again with dialysis optimized CT with contrast first to further evaluate ongoing infectious etiologies and to facilitate evaluation of encephalopathy GI - Would start trickle tube feed once NG placed. Hypertriglyceridemia: Given diabetes patient would probably benefit from statin therapy, question compliance given current noncompliance with diabetic regimen -Soft bore NG tube to facilitate tube feedings RENAL/LYTES - Acute renal failure -Clinical findings concerning patient will need long-term renal replacement therapy. -Would consult vascular surgery next week for possible timing of tunneled HD cath - Foleystrict I's and O's ENDO - Hyperglycemiapatient with history of type 2 diabetes previously managed with oral medications. Patient currently noncompliant with his normal regimen. -Blood sugar goal 150-250 Hyperglycemic ICU protocol HEME - Leukocytosis: Persistent Anemia: Suspect related to underlying kidney disease Thrombocytopenia: Significant improvement -Heparin 7500 subcu 3 times daily ID - Sepsispansensitive E. coli bacteremia, pyelonephritis -Rocephin day: Will require 14 days from negative blood culture date (last negative culture 03/20/2024: Day 02/27) -Repeat CT scan concerning for evolution of severe pyelonephritis, phlegmonous change of right kidney, no obvious abscess -At risk for possible development of nephric abscess: Continued monitoring LINES/IV ACCESS - Right IJ temporary HD cath Left IJ triple-lumen CVC DVT PROPHYLAXIS - SCDs: Heparin 7500 3 times daily Social: Report of phone contact overnight, attempting to coordinate conference call to include pmp project manager Andie appiah placed into chart, non-kazakh speaking. (2) Encephalopathy acute: (3) Hyponatremia: (4) Sepsis: (5) UTI (urinary tract infection): (6) Acute renal failure with oliguria: Admission and Anticipated Discharge Date Admission Date: March 20, 2024 Supervising Physician Co-Signing Physician Notes I have personally spent 70 minutes of critical care time in the direct management of this patient. This is a life/limb threatening event. This includes time spent evaluating patient, direct bedside care, chart review, placing orders, interpretation of diagnostic studies, discussion with consultants, patient, and/or family members regarding treatment decisions, as well as other required patient management activities. This time is exclusive of all separately billable procedures, and teaching time and separate from and in addition to any other critical care service time. Subjective No significant overnight events. Patient unable to follow commands nor pantomime Review of Systems Review of Systems: Unobtainable due to reduced consciousness Physical Exam Physical Exam: General: Arouses to verbal stimuli. Picking at equipment Skin: Warm, dry, Head: Atraumatic Ears, nose, mouth and throat: airway patent Cardiovascular: Normal peripheral perfusion Respiratory: no respiratory distress Gastrointestinal: Non distended Musculoskeletal: No deformity Skin: Possible grade 1 sacral decubiti, presacral edema Results & Data Results & Data Vital Signs (Past 12 Hours) Vital Signs Temp Pulse Pulse Resp BP Pulse Ox O2 Del Method 03/24/24 13:00 77 98/59 L 03/24/24 12:57 77 18 100 03/24/24 12:45 93/60 L 03/24/24 12:36 76 25 H 100 03/24/24 12:30 77 21 88/62 L 100 Mechanical Vent 03/24/24 12:30 77 88/62 L 03/24/24 12:12 78 20 99 03/24/24 12:00 79 88/57 L 03/24/24 11:48 80 24 96 03/24/24 11:39 76 21 97 03/24/24 11:30 76 97/64 L 03/24/24 11:18 77 23 95 03/24/24 11:00 79 24 91 Mechanical Vent 03/24/24 11:00 78 94/60 L 03/24/24 10:56 71 18 96 03/24/24 10:54 80 21 92 03/24/24 10:30 90/66 L 03/24/24 10:30 70 90/66 L 03/24/24 10:15 78/50 L Mechanical Vent 03/24/24 10:09 73 24 100 03/24/24 10:06 73 24 100 03/24/24 10:00 89/55 L Mechanical Vent 03/24/24 10:00 73 89/53 L 03/24/24 09:51 72 24 99 03/24/24 09:45 73 92/58 L 03/24/24 09:45 73 24 99 03/24/24 09:39 75 95/56 L 03/24/24 09:32 36.4 C L 80 03/24/24 09:32 100/59 L 03/24/24 09:30 85 24 93 03/24/24 08:51 77 24 96 03/24/24 08:45 130/72 03/24/24 08:42 83 24 97 03/24/24 08:34 99/59 L 03/24/24 08:27 87 29 H 98 03/24/24 08:26 153/105 H 03/24/24 08:19 138/95 03/24/24 08:15 79 24 97 03/24/24 08:06 113/77 03/24/24 08:03 93 H 24 98 03/24/24 08:02 166/97 H 03/24/24 08:00 142/81 H 03/24/24 08:00 Mechanical Vent 03/24/24 07:54 142/90 H 03/24/24 07:36 96/63 L 03/24/24 07:30 79 32 H 96 03/24/24 07:28 117/84 03/24/24 07:21 80 28 H 98 03/24/24 07:20 116/79 03/24/24 07:18 80 31 H 98 03/24/24 07:18 120/77 03/24/24 07:15 81 36 H 97 03/24/24 07:00 79 26 H 98 03/24/24 06:57 79 26 H 98 03/24/24 06:21 87 25 H 98 03/24/24 06:12 82 29 H 98 03/24/24 06:00 104/65 03/24/24 06:00 82 27 H 97 03/24/24 05:18 85 31 H 121/70 95 03/24/24 04:00 92 H 32 H 91 03/24/24 04:00 145/85 H 03/24/24 04:00 36.8 C 03/24/24 03:01 157/82 H 03/24/24 03:00 94 H 40 H 93 03/24/24 02:03 93 H 36 H 124/76 96 FiO2 03/24/24 13:00 03/24/24 12:57 03/24/24 12:45 03/24/24 12:36 03/24/24 12:30 50 03/24/24 12:30 03/24/24 12:12 03/24/24 12:00 03/24/24 11:48 03/24/24 11:39 03/24/24 11:30 03/24/24 11:18 03/24/24 11:00 50 03/24/24 11:00 03/24/24 10:56 50 03/24/24 10:54 03/24/24 10:30 03/24/24 10:30 03/24/24 10:15 50 03/24/24 10:09 03/24/24 10:06 03/24/24 10:00 03/24/24 10:00 03/24/24 09:51 03/24/24 09:45 03/24/24 09:45 03/24/24 09:39 03/24/24 09:32 03/24/24 09:32 03/24/24 09:30 03/24/24 08:51 03/24/24 08:45 03/24/24 08:42 03/24/24 08:34 03/24/24 08:27 03/24/24 08:26 03/24/24 08:19 03/24/24 08:15 100 03/24/24 08:06 03/24/24 08:03 03/24/24 08:02 03/24/24 08:00 03/24/24 08:00 65 03/24/24 07:54 03/24/24 07:36 03/24/24 07:30 03/24/24 07:28 03/24/24 07:21 03/24/24 07:20 03/24/24 07:18 03/24/24 07:18 03/24/24 07:15 03/24/24 07:00 03/24/24 06:57 03/24/24 06:21 03/24/24 06:12 03/24/24 06:00 03/24/24 06:00 03/24/24 05:18 03/24/24 04:00 03/24/24 04:00 03/24/24 04:00 03/24/24 03:01 03/24/24 03:00 03/24/24 02:03 Critical Care Results & Data Vital Signs (Past 12 Hours) Vital Signs Temp Pulse Pulse Resp BP Pulse Ox O2 Del Method 03/24/24 13:00 78 96/53 L 03/24/24 13:00 77 98/59 L 03/24/24 12:57 77 18 100 03/24/24 12:45 93/60 L 03/24/24 12:36 76 25 H 100 03/24/24 12:30 77 21 88/62 L 100 Mechanical Vent 03/24/24 12:30 77 88/62 L 03/24/24 12:12 78 20 99 03/24/24 12:00 79 88/57 L 03/24/24 11:48 80 24 96 03/24/24 11:39 76 21 97 03/24/24 11:30 76 97/64 L 03/24/24 11:18 77 23 95 03/24/24 11:00 79 24 91 Mechanical Vent 03/24/24 11:00 78 94/60 L 03/24/24 10:56 71 18 96 03/24/24 10:54 80 21 92 03/24/24 10:30 90/66 L 03/24/24 10:30 70 90/66 L 03/24/24 10:15 78/50 L Mechanical Vent 03/24/24 10:09 73 24 100 03/24/24 10:06 73 24 100 03/24/24 10:00 89/55 L Mechanical Vent 03/24/24 10:00 73 89/53 L 03/24/24 09:51 72 24 99 03/24/24 09:45 73 92/58 L 03/24/24 09:45 73 24 99 03/24/24 09:39 75 95/56 L 03/24/24 09:32 36.4 C L 80 03/24/24 09:32 100/59 L 03/24/24 09:30 85 24 93 03/24/24 08:51 77 24 96 03/24/24 08:45 130/72 03/24/24 08:42 83 24 97 03/24/24 08:34 99/59 L 03/24/24 08:27 87 29 H 98 03/24/24 08:26 153/105 H 03/24/24 08:19 138/95 03/24/24 08:15 79 24 97 03/24/24 08:06 113/77 03/24/24 08:03 93 H 24 98 03/24/24 08:02 166/97 H 03/24/24 08:00 142/81 H 03/24/24 08:00 Mechanical Vent 03/24/24 07:54 142/90 H 03/24/24 07:36 96/63 L 03/24/24 07:30 79 32 H 96 03/24/24 07:28 117/84 03/24/24 07:21 80 28 H 98 03/24/24 07:20 116/79 03/24/24 07:18 80 31 H 98 03/24/24 07:18 120/77 03/24/24 07:15 81 36 H 97 03/24/24 07:00 79 26 H 98 03/24/24 06:57 79 26 H 98 03/24/24 06:21 87 25 H 98 03/24/24 06:12 82 29 H 98 03/24/24 06:00 104/65 03/24/24 06:00 82 27 H 97 03/24/24 05:18 85 31 H 121/70 95 03/24/24 04:00 92 H 32 H 91 03/24/24 04:00 145/85 H 03/24/24 04:00 36.8 C 03/24/24 03:01 157/82 H 03/24/24 03:00 94 H 40 H 93 03/24/24 02:03 93 H 36 H 124/76 96 FiO2 03/24/24 13:00 03/24/24 13:00 03/24/24 12:57 03/24/24 12:45 03/24/24 12:36 03/24/24 12:30 50 03/24/24 12:30 03/24/24 12:12 03/24/24 12:00 03/24/24 11:48 03/24/24 11:39 03/24/24 11:30 03/24/24 11:18 03/24/24 11:00 50 03/24/24 11:00 03/24/24 10:56 50 03/24/24 10:54 03/24/24 10:30 03/24/24 10:30 03/24/24 10:15 50 03/24/24 10:09 03/24/24 10:06 03/24/24 10:00 03/24/24 10:00 03/24/24 09:51 03/24/24 09:45 03/24/24 09:45 03/24/24 09:39 03/24/24 09:32 03/24/24 09:32 03/24/24 09:30 03/24/24 08:51 03/24/24 08:45 03/24/24 08:42 03/24/24 08:34 03/24/24 08:27 03/24/24 08:26 03/24/24 08:19 03/24/24 08:15 100 03/24/24 08:06 03/24/24 08:03 03/24/24 08:02 03/24/24 08:00 03/24/24 08:00 65 03/24/24 07:54 03/24/24 07:36 03/24/24 07:30 03/24/24 07:28 03/24/24 07:21 03/24/24 07:20 03/24/24 07:18 03/24/24 07:18 03/24/24 07:15 03/24/24 07:00 03/24/24 06:57 03/24/24 06:21 03/24/24 06:12 03/24/24 06:00 03/24/24 06:00 03/24/24 05:18 03/24/24 04:00 03/24/24 04:00 03/24/24 04:00 03/24/24 03:01 03/24/24 03:00 03/24/24 02:03 Lab & Micro Results (Past 24 Hours) RBC 3.67 M/uL (4.70-6.10) L 03/24/24 WBC 34.96 K/ul (4.8-10.8) H* 03/24/24 Hgb 10.7 g/dl (14.0-18.0) L 03/24/24 Hct 30.9 % (42.0-52.0) L 03/24/24 MCV 84.2 fL (80.0-100.0) 03/24/24 MCH 29.2 pg (25.0-34.0) 03/24/24 MCHC 34.6 g/dL (32.0-36.0) 03/24/24 RDW Standard Deviation 46.1 fL (36.4-46.3) 03/24/24 RDW Coefficient of Variation 14.9 % (11.5-14.5) H 03/24/24 Plt Count 311 K/uL (130-400) 03/24/24 MPV 11.8 fL (9.4-12.4) 03/24/24 Neutrophils (%) (Auto) 84.3 % 03/24/24 Lymphocytes (%) (Auto) 3.4 % 03/24/24 Monocytes # (Auto) 1.34 K/uL (0.11-0.59) H 03/24/24 Eosinophils # (Auto) 0.14 K/uL (0.00-0.50) 03/24/24 Immature Granulocyte % (Auto) 7.6 % 03/24/24 Neutrophils # (Auto) 29.45 K/uL (1.40-6.50) H 03/24/24 Lymphocytes # (Auto) 1.20 K/uL (1.20-3.40) 03/24/24 Monocytes # (Auto) 1.34 K/uL (0.11-0.59) H 03/24/24 Eosinophils # (Auto) 0.14 K/uL (0.00-0.50) 03/24/24 Basophils # (Auto) 0.17 K/uL (0.00-0.20) 03/24/24 Immature Granulocyte # (Auto) 2.66 K/uL (0.01-0.20) H 03/24 Polychromasia 1+ 03/24/24 Dohle Bodies 1+ 03/24/24 Na 138 mmol/L (136-145) 03/24/24 K 4.1 mmol/L (3.5-5.1) 03/24/24 Cl 101 mmol/L (98-107) 03/24/24 CO2 15 mmol/L (21-32) L 03/24/24 Anion Gap 22 (3-11) H 03/24/24 BUN 80 mg/dl (6-23) H 03/24/24 Creatinine 7.53 mg/dl (0.6-1.4) H* 03/24/24 Estimated GFR ( Amer) 9.5 ml/min 03/24/24 Estimated GFR (Non-Af Amer) 8.2 ml/min 03/24/24 BUN/Creatinine Ratio 10.6 (10-20) 03/24/24 Glu 125 mg/dl (70-99(Fasting)) H 03/24/24 Ca 7.3 mg/dl (8.6-10.3) L 03/24/24 Phosphorus Level 8.8 mg/dl (2.5-4.9) H 03/24/24 Mg 2.8 mg/dl (1.7-2.4) H 03/24/24 03:46 Calcium Level 7.3 mg/dl (8.6-10.3) L 03/24/24 03:46 Microbiology 03/22/24 10:15 Aerobic Blood Culture - Preliminary Blood No growth in Aerobic bottle after 48 hours. Anaerobic Blood Culture - Preliminary No growth in Anaerobic bottle after 48 hours. 03/24/24 Unknown Gram Stain - Final Cerebral Spinal Fluid Diagnostic Findings (Past 24 Hours) Abdomen/Pelvis CT 03/24/24 07:21 CT SCAN OF THE ABDOMEN AND PELVIS WITH IV CONTRAST CLINICAL HISTORY: Acute renal failure. Concern for renal abscess. COMPARISON STUDY: Abdominal CT and renal ultrasound dated 03/20/2024. TECHNIQUE: Following the IV administration of 90 cc of Optiray 320, CT scan of the abdomen and pelvis is performed from the lung bases to the proximal femora. Images are reviewed in the axial, sagittal, and coronal planes. IV contrast was administered without complication. A dose lowering technique was utilized adhering to the principles of ALARA. The examination is degraded by streak artifact from the arms which could not be elevated above the abdomen. CT DOSE: 2297.5 mGy.cm FINDINGS: Lung bases: The heart is enlarged and without pericardial effusion. There are small pleural effusions with dependent consolidation. Liver: The contrast-enhanced liver is enlarged, measuring 21.5 cm in craniocaudal length. Attenuation is diffusely diminished indicating steatosis. There is no intrahepatic biliary ductal dilatation. The hepatic veins and portal veins are patent. Gallbladder: Unremarkable. Spleen: Normal in size and attenuation. Pancreas: Unremarkable. Adrenal glands: Unremarkable. Kidneys: The contrast enhanced kidneys are enlarged and markedly heterogeneous. There is no hydronephrosis. Enhancement of both kidneys is markedly heterogeneous, right greater than left. There is pericystic perinephric inflammation/fluid. Phlegmonous change and a tiny focus of gas is suggested in the lower pole of the right kidney. Subcentimeter cortical hypodensities are seen in both kidneys. No organized/drainable fluid collection is seen at this time. Mild urothelial thickening is noted involving the ureters with surrounding inflammation. The renal vessels appear patent. Abdominal vasculature: The abdominal aorta is normal in course and caliber. Bowel: There is mild colonic diverticulosis without CT evidence of acute diverticulitis. No bowel obstruction is identified. The appendix is well-visua lized and normal. Peritoneum: There is trace perihepatic and perisplenic ascites, as well as trace pelvic ascites. No intraperitoneal free air is seen. There is a fat-containing umbilical hernia. Lymphadenopathy: None. Pelvic viscera: The bladder is largely decompressed around a Sinha catheter and appears thick-walled. There is pericystic infiltration. Gas is noted within the bladder lumen. The prostate and seminal vesicles are normal as visualized. There are small bilateral fat-containing groin hernias. Skeletal structures: No lytic or blastic lesions are seen. Fusion hardware is seen in the lower cervical spine. There are numerous chronic/healed right-sided rib fractures. Soft tissues: There is body wall edema. IMPRESSION: 1. The kidneys are enlarged and edematous. No hydronephrosis is seen. 2. There is markedly heterogeneous enhancement of both kidneys, right greater than left with perinephric inflammation and fluid. Correlate with clinical findings and urinalysis for evidence of infection/pyelonephritis. 3. There is phlegmonous change with a small focus of gas involving the lower pole of the right kidney. No organized/drainable fluid collection is seen at this time to indicate abscess. 4. The bladder wall appears thickened with surrounding inflammation and there is urothelial thickening with surrounding inflammation involving the ureters. Again, this could be related to cystitis/infection. 5. Small pleural effusions with airspace consolidation at both lung bases. 6. Trace abdominal pelvic ascites. 7. Hepatomegaly and hepatic steatosis. 8. Additional findings as above. ACT 112: Negative or not required by law. Electronically signed by: Rui Tee M.D. 03/24/2024 9:[address] 03/24/24 08:03 CT SCAN OF THE BRAIN WITHOUT IV CONTRAST CLINICAL HISTORY: Encephalopathy. COMPARISON STUDY: CT of the brain dated 03/20/2024. TECHNIQUE: Unenhanced axial CT scan of the brain is performed from the vertex to the skull base. A dose lowering technique was utilized adhering to the principles of ALARA. FINDINGS: Brain parenchyma: The brain parenchyma is normal in appearance. There is no hemorrhage, mass effect, or evidence of acute territorial ischemia by CT criteria. Alfonso-white matter differentiation is preserved. No extra-axial fluid collection is seen. Ventricles, sulci, cisterns: Normal in configuration. Intracranial vasculature: The visualized intracranial vasculature at the skull base is normal in appearance. Calvarium: Unremarkable. Sinuses and mastoids: There is mild mucosal thickening within the ethmoid sinuses. The remaining paranasal sinuses are clear. There is evidence of previous right mastoid surgery. There is fluid within the remaining right mastoid air cells as well as the right middle ear. The left the mastoid air cells are well pneumatized. Orbits: The bony orbits are grossly intact. IMPRESSION: There is no hemorrhage, mass effect, or evidence of acute territorial ischemia by CT criteria. ACT 112: Negative or not required by law. Electronically signed by: Rui Tee M.D. 03/24/2024 9:48 AM Chest X-Ray 03/24/24 08:26 SINGLE VIEW CHEST CLINICAL HISTORY: Central venous catheter placement. FINDINGS: An AP, portable, supine chest radiograph is compared to study dated 03/22/2024 and correlated with chest CT dated 03/20/2024. A right internal jugular central venous catheter is unchanged in position. A left internal jugular central venous catheter has been placed. The tip projects over the SVC. An endotracheal tube is in place. An enteric tube has been removed. The heart is enlarged. There is pulmonary vascular congestion. There are small pleural effusions. Multifocal airspace opacities are seen throughout both lungs. No pneumothorax is seen. There is chronic posttraumatic deformity of the left clavicle. Cervicothoracic spinal rods are in place. IMPRESSION: 1. Lines and tubes as above. No pneumothorax is seen following central venous catheter placement. 2. Cardiomegaly with pulmonary vascular congestion. 3. Small pleural effusions. 4. Multifocal airspace opacities have somewhat increased from yesterday ACT 112: Negative or not required by law. Electronically signed by: Rui Tee M.D. 03/24/2024 8:59 AM I & O Totals 24 Hours 03/23/24 03/24/24 03/25/24 06:59 06:59 06:59 Intake Total 1037.897 / 1037.897 51.733 / 51.733 99.168 / 99.168 Output Total 30 289 / 289 75 / 75 Balance 1007.897 / 1007.897 -237.267 / -237.267 24.168 / 24.168 Cumulative 03/19/24 21:33 thru 03/24/24 12:07 Intake Total 70447.339 Output Total 1072 Balance 8952.339 RT Ventilator Mngmt (Last Documented) Ventilator Ordered Settings Ventilator Support Mode Assist Control 03/24/24 10:56 Respiratory Rate 18 03/24/24 12:57 Ventilator Tidal Volume 400 03/24/24 10:56 Setting Minute Ventilation 7.2 03/24/24 10:56 Positive End Expiratory 5 03/24/24 10:56 Pressure Fraction of Inspired Oxygen 50 03/24/24 12:30 Peak Inspiratory Flow 46 03/20/24 15:50 Machine Comment weaned RR to 14 and FIO2 to 50% 03/24/24 10:56 Ventilator - PT Measurements Respiratory Rate 18 Exhaled Tidal Volume 402 Minute Ventilation 7.2 Peak Inspiratory Airway 18 Pressure Plateau Pressure 11 Respiratory Cycle Inspiratory: 1:3.4 Expiratory Ratio Inspiratory Phase Time 0.80 End-Tidal CO2 37 Static Lung Compliance 67.00 Dynamic Lung Compliance 30.92 Normal Static Lung Compliance 47.00 Patient Measurements Comment Pt is awake, but very agitated and uncooperative . Pt is tachypnic w/ RR in the 40s due to level of agitation. Per Dr. Post, RT is to extubate pt at this time. Pre-extubation, RT suctioned pt thoroughly both in-line and orally. Pt extubated at this time. Post-extubation, no stridor present. Pt placed on 4LPM NC. Coding Level of Care Code 75817 CRITICAL CARE 1ST 30-74M Diagnoses Bacteremia due to Escherichia coli R78.81; B96.20 Encephalopathy acute G93.40 Hyponatremia E87.1 Sepsis due to Escherichia coli with acute renal failure without septic shock, unspecified acute renal failure type A41.51; R65.20; N17.9 Acute renal failure type: unspecified Sepsis acute organ dysfunction status: with acute organ dysfunction Sepsis type: Escherichia coli Severe sepsis acute organ dysfunction type: acute renal failure Severe sepsis shock status: without septic shock Acute pyelonephritis N10 Urinary tract infection type: acute pyelonephritis Acute renal failure with oliguria N17.9; R34 (4) Sepsis Acute renal failure type: unspecified Sepsis acute organ dysfunction status: with acute organ dysfunction Sepsis type: Escherichia coli Severe sepsis acute organ dysfunction type: acute renal failure Severe sepsis shock status: without septic shock Qualified Code(s): A41.51 - Sepsis due to Escherichia coli [E. coli]; R65.20 - Severe sepsis without septic shock; N17.9 - Acute kidney failure, unspecified (5) UTI (urinary tract infection) Urinary tract infection type: acute pyelonephritis Qualified Code(s): N10 - Acute pyelonephritis
--- NOTE | 2024-03-24 14:42 | XRay Report ---
KUB CLINICAL HISTORY: Enteric tube placement. FINDINGS: 2 AP, portable, supine abdominal radiographs are correlated with abdominal CT performed the same day 03/24/2024. An enteric tube has been placed. The tip is coiled above the gastroesophageal jyoti ction. No bowel obstruction is seen. No evidence of intraperitoneal free air is seen on these supine images. There are no abnormal abdominal calcifications. The bony structures appear intact. Postsurgic al change is seen in the thoracic spine. IMPRESSION: 1. An enteric tube is coiled in the distal esophagus above the gastroesophageal junction. Repositioni ng is indicated. 2. No bowel obstruction is identified. Electronically signed by: Rui Tee M.D. 03/24/2024 2:40 PM
--- NOTE | 2024-03-24 14:43 | XRay Report ---
KUB CLINICAL HISTORY: Enteric tube repositioning. FINDINGS: An AP, portable, supine abdominal radiograph is compared to abdominal radiographs and CT pe rformed earlier the same day 03/24/2024. An enteric tube is unchanged in position. The tip is coiled ab ove the gastroesophageal junction. No bowel obstruction is seen. No evidence of intraperitoneal free air is seen on this supine image. There are no abnormal abdominal calcifications. The bony structures appear intact. Postsurgical change is seen in the thoracic spine. IMPRESSION: 1. An enteric tube is unchanged in position with the tip coiled in the distal esophagus above the gas troesophageal junction. Repositioning is indicated. 2. No bowel obstruction is identified. Electronically signed by: Rui Tee M.D. 03/24/2024 2:42 PM
[2024-03-24] MEDS ORDERED: VECURONIUM BROMIDE 10 MG VIAL IV ONE (17:14)
[2024-03-24] MEDS ORDERED: fentaNYL citrate PF 100 MCG/2 ML VIAL IV ONE (17:14)
[2024-03-24] MEDS ORDERED: ETOMIDATE 2 MG/ML 20 ML VIAL IV ONE (17:14)
[2024-03-24] MEDS: INSULIN ASPART PER UNIT CHARGE SC SCH (18:09)
[2024-03-25] MEDS: ACETAMINOPHEN 1,000 MG/100 ML VIAL IV PRN
[2024-03-25 04:40] LABS: Hematocrit (blood only) 27.2 % (42.0-52.0); Mean Corpuscular Hemoglobin 28.6 pg (25.0-34.0); Mean Corpuscular Hgb Conc 33.1 g/dL (32.0-36.0); Mean Corpuscular Volume 86.3 fL (80.0-100.0); Mean Platelet Volume 11.3 fL (9.4-12.4); Platelet Count 355 K/uL (130-400); RDW Standard Deviation 46.8 fL (36.4-46.3); Red Blood Count 3.15 M/uL (4.70-6.10); White Blood Count 32.48 K/ul (4.8-10.8)
[2024-03-25 04:43] LABS: Basophils # (auto) 0.12 K/uL (0.00-0.20); Basophils % (auto) 0.4 %; Dohle Bodies 1+; Eosinophils # (auto) 0.21 K/uL (0.00-0.50); Eosinophils % (auto) 0.6 %; Immature Granulocytes # (auto) 1.48 K/uL (0.01-0.20); Immature Granulocytes % (auto) 4.6 %; Lymphocytes % (auto) 3.4 %; Monocytes # (auto) 1.96 K/uL (0.11-0.59); Neutrophils # (auto) 27.61 K/uL (1.40-6.50)
[2024-03-25 04:48] LABS: BUN Creatinine Ratio 8.1 (10-20); Calcium 7.2 mg/dl (8.6-10.3); Est GFR (African American) 12.6 ml/min; Est GFR (Non-African American) 10.9 ml/min
--- NOTE | 2024-03-25 07:15 | Critical Care Progress Note ---
Date of Service March 25, 2024 Assessment & Plan (1) Bacteremia due to Escherichia coli: Plan: Impression: 39-year-old speaking male with PMH of DM type II sepsis secondary to E. 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 have not been MRI compliant: unable to obtain history regarding spinal rods therefore cannot obtain MRI -LP performed: Minimal CSF, I doubt this represents infection; BioFire negative culture no growth to date -If additional evaluation via lumbar puncture is needed may necessitate performance in interventional radiology -Patient best tolerated fentanyl and Versed infusions for sedation when intubated, still required small amount of pressor support through norepinephrine Cardiac - Elevated troponins: Likely in the setting of acute kidney injury and sepsis -Echo reviewed Hypotension: Resolved: this appears to be secondary to sedative effects to facilitate mechanical ventilation Respiratory - Pleural effusion: Right: Improved Initial intubation was to facilitate dialysis given patient was very impulsive and agitated, patient was successfully extubated following course of dialysis Repeat intubation (03/24) to facilitate medical care again with dialysis optimized after CT with contrast and LP to further evaluate ongoing infectious etiologies and to facilitate evaluation of encephalopathy GI - Unable to successfully pass NG tube despite multiple attempts Hypertriglyceridemia: Given diabetes patient would probably benefit from statin therapy, question compliance given current noncompliance with diabetic regimen Speech therapy consult for intubation; however, if he is able to pass bedside swallow I would proceed with a renal diet RENAL/LYTES - Acute renal failure on suspected significant chronic diabetic kidney disease -Clinical findings concerning patient will need long-term renal replacement therapy. -Would consult vascular surgery next week for possible timing of tunneled HD cath - Foleystrict I's and O's - Awaiting return of renal function -If possible source of agitation given minimal urine output would consider discontinuation of Sinha ENDO - Hyperglycemiapatient with history of type 2 diabetes previously managed with oral medications. Patient currently noncompliant with his normal regimen. -Blood sugar goal 150-250 Hyperglycemic ICU protocol HEME - Leukocytosis: Persistent Anemia: Suspect related to underlying kidney disease - likely require epogen Thrombocytopenia: resolved -Heparin 7500 subcu 3 times daily ID - Sepsispansensitive E. coli bacteremia, pyelonephritis -Rocephin day: Will require 14 days from negative blood culture date (last negative culture 03/20/2024: Day 03/30) -Repeat CT scan concerning for evolution of severe pyelonephritis, phlegmonous change of right kidney, no obvious abscess -At risk for possible development of nephric abscess: Continued monitoring LINES/IV ACCESS - Right IJ temporary HD cath 03/20 Left IJ triple-lumen CVC 03/24 DVT PROPHYLAXIS - SCDs: Heparin 7500 3 times daily Physical therapy and Occupational Therapy consult Social: Friends presented to bedside in afternoon per nursing report. Returned phone to the patient. Disposition: If encephalopathy continues to improve and able to participate in care and care decisions, anticipate able to be downgraded from ICU in next 24 hours. (2) Encephalopathy acute: (3) Hyponatremia: (4) Sepsis: (5) UTI (urinary tract infection): (6) Acute renal failure with oliguria: Admission and Anticipated Discharge Date Admission Date: March 20, 2024 Subjective Overnight patient had dramatic improvement in mental status, was able to have conversation via language line. Physical Exam Physical Exam: General: Resting comfortably in room Skin: Warm, dry, Head: Atraumatic Ears, nose, mouth and throat: airway patent Cardiovascular: Normal peripheral perfusion Respiratory: no respiratory distress Gastrointestinal: Non distended Musculoskeletal: No deformity Results & Data Results & Data Vital Signs (Past 12 Hours) Vital Signs Temp Pulse Resp BP Pulse Ox O2 Del Method O2 Flow Rate 03/25/24 06:00 89 22 109/65 98 03/25/24 05:06 88 37 H 117/60 95 03/25/24 04:03 91 H 32 H 105/62 97 03/25/24 03:37 37 C 03/25/24 03:03 87 26 H 102/57 L 98 03/25/24 02:06 92 H 35 H 113/62 95 03/25/24 01:13 37.2 C 03/25/24 01:12 118/65 03/25/24 01:00 102 H 27 H 03/25/24 00:00 97 H 03/25/24 00:00 38 C H 03/25/24 00:00 98 H 31 H 123/74 92 03/24/24 23:06 100 H 26 H 126/71 94 03/24/24 22:03 97 H 32 H 96 03/24/24 22:00 99/58 L 03/24/24 21:03 99 H 36 H 113/76 98 03/24/24 20:03 108 H 36 H 95 03/24/24 20:02 102/66 03/24/24 19:58 37.2 C 03/24/24 19:18 98 H 32 H 148/78 H 95 03/24/24 19:15 Nasal Cannula 4 Critical Care Results & Data Vital Signs (Past 12 Hours) Vital Signs Temp Pulse Resp BP Pulse Ox 03/25/24 06:00 89 22 109/65 98 03/25/24 05:06 88 37 H 117/60 95 03/25/24 04:03 91 H 32 H 105/62 97 03/25/24 03:37 37 C 03/25/24 03:03 87 26 H 102/57 L 98 03/25/24 02:06 92 H 35 H 113/62 95 03/25/24 01:13 37.2 C 03/25/24 01:12 118/65 03/25/24 01:00 102 H 27 H 03/25/24 00:00 97 H 03/25/24 00:00 38 C H 03/25/24 00:00 98 H 31 H 123/74 92 03/24/24 23:06 100 H 26 H 126/71 94 03/24/24 22:03 97 H 32 H 96 03/24/24 22:00 99/58 L 03/24/24 21:03 99 H 36 H 113/76 98 03/24/24 20:03 108 H 36 H 95 03/24/24 20:02 102/66 03/24/24 19:58 37.2 C Lab & Micro Results (Past 24 Hours) RBC 3.15 M/uL (4.70-6.10) L 03/25/24 WBC 32.48 K/ul (4.8-10.8) H* 03/25/24 Hgb 9.0 g/dl (14.0-18.0) L 03/25/24 Hct 27.2 % (42.0-52.0) L 03/25/24 MCV 86.3 fL (80.0-100.0) 03/25/24 MCH 28.6 pg (25.0-34.0) 03/25/24 MCHC 33.1 g/dL (32.0-36.0) 03/25/24 RDW Standard Deviation 46.8 fL (36.4-46.3) H 03/25/24 RDW Coefficient of Variation 15.0 % (11.5-14.5) H 03/25/24 Plt Count 355 K/uL (130-400) 03/25/24 MPV 11.3 fL (9.4-12.4) 03/25/24 Neutrophils (%) (Auto) 85.0 % 03/25/24 Lymphocytes (%) (Auto) 3.4 % 03/25/24 Monocytes # (Auto) 1.96 K/uL (0.11-0.59) H 03/25/24 Eosinophils # (Auto) 0.21 K/uL (0.00-0.50) 03/25/24 Immature Granulocyte % (Auto) 4.6 % 03/25/24 Neutrophils # (Auto) 27.61 K/uL (1.40-6.50) H 03/25/24 Lymphocytes # (Auto) 1.10 K/uL (1.20-3.40) L 03/25/24 Monocytes # (Auto) 1.96 K/uL (0.11-0.59) H 03/25/24 Eosinophils # (Auto) 0.21 K/uL (0.00-0.50) 03/25/24 Basophils # (Auto) 0.12 K/uL (0.00-0.20) 03/25/24 Immature Granulocyte # (Auto) 1.48 K/uL (0.01-0.20) H 03/25 Dohle Bodies 1+ 03/25/24 Na 138 mmol/L (136-145) 03/25/24 K 4.0 mmol/L (3.5-5.1) 03/25/24 Cl 103 mmol/L (98-107) 03/25/24 CO2 20 mmol/L (21-32) L 03/25/24 Anion Gap 15 (3-11) H 03/25/24 BUN 48 mg/dl (6-23) H 03/25/24 Creatinine 5.95 mg/dl (0.6-1.4) H* 03/25/24 Estimated GFR ( Amer) 12.6 ml/min 03/25/24 Estimated GFR (Non-Af Amer) 10.9 ml/min 03/25/24 BUN/Creatinine Ratio 8.1 (10-20) L 03/25/24 Glu 136 mg/dl (70-99(Fasting)) H 03/25/24 Ca 7.2 mg/dl (8.6-10.3) L 03/25/24 Calcium Level 7.2 mg/dl (8.6-10.3) L 03/25/24 03:53 Microbiology 03/22/24 10:15 Aerobic Blood Culture - Preliminary Blood No growth in Aerobic bottle after 48 hours. Anaerobic Blood Culture - Preliminary No growth in Anaerobic bottle after 48 hours. 03/24/24 Unknown Gram Stain - Final Cerebral Spinal Fluid Diagnostic Findings (Past 24 Hours) Abdomen/Pelvis CT 03/24/24 07:21 CT SCAN OF THE ABDOMEN AND PELVIS WITH IV CONTRAST CLINICAL HISTORY: Acute renal failure. Concern for renal abscess. COMPARISON STUDY: Abdominal CT and renal ultrasound dated 03/20/2024. TECHNIQUE: Following the IV administration of 90 cc of Optiray 320, CT scan of the abdomen and pelvis is performed from the lung bases to the proximal femora. Images are reviewed in the axial, sagittal, and coronal planes. IV contrast was administered without complication. A dose lowering technique was utilized adhering to the principles of ALARA. The examination is degraded by streak artifact from the arms which could not be elevated above the abdomen. CT DOSE: 2297.5 mGy.cm FINDINGS: Lung bases: The heart is enlarged and without pericardial effusion. There are small pleural effusions with dependent consolidation. Liver: The contrast-enhanced liver is enlarged, measuring 21.5 cm in craniocaudal length. Attenuation is diffusely diminished indicating steatosis. There is no intrahepatic biliary ductal dilatation. The hepatic veins and portal veins are patent. Gallbladder: Unremarkable. Spleen: Normal in size and attenuation. Pancreas: Unremarkable. Adrenal glands: Unremarkable. Kidneys: The contrast enhanced kidneys are enlarged and markedly heterogeneous. There is no hydronephrosis. Enhancement of both kidneys is markedly heterogeneous, right greater than left. There is pericystic perinephric inflammation/fluid. Phlegmonous change and a tiny focus of gas is suggested in the lower pole of the right kidney. Subcentimeter cortical hypodensities are seen in both kidneys. No organized/drainable fluid collection is seen at this time. Mild urothelial thickening is noted involving the ureters with surrounding inflammation. The renal vessels appear patent. Abdominal vasculature: The abdominal aorta is normal in course and caliber. Bowel: There is mild colonic diverticulosis without CT evidence of acute diverticulitis. No bowel obstruction is identified. The appendix is well- visualized and normal. Peritoneum: There is trace perihepatic and perisplenic ascites, as well as trace pelvic ascites. No intraperitoneal free air is seen. There is a fat-containing umbilical hernia. Lymphadenopathy: None. Pelvic viscera: The bladder is largely decompressed around a Sinha catheter and appears thick-walled. There is pericystic infiltration. Gas is noted within the bladder lumen. The prostate and seminal vesicles are normal as visualized. There are small bilateral fat-containing groin hernias. Skeletal structures: No lytic or blastic lesions are seen. Fusion hardware is seen in the lower cervical spine. There are numerous chronic/healed right-sided rib fractures. Soft tissues: There is body wall edema. IMPRESSION: 1. The kidneys are enlarged and edematous. No hydronephrosis is seen. 2. There is markedly heterogeneous enhancement of both kidneys, right greater than left with perinephric inflammation and fluid. Correlate with clinical findings and urinalysis for evidence of infection/pyelonephritis. 3. There is phlegmonous change with a small focus of gas involving the lower pole of the right kidney. No organized/drainable fluid collection is seen at this time to indicate abscess. 4. The bladder wall appears thickened with surrounding inflammation and there is urothelial thickening with surrounding inflammation involving the ureters. Again, this could be related to cystitis/infection. 5. Small pleural effusions with airspace consolidation at both lung bases. 6. Trace abdominal pelvic ascites. 7. Hepatomegaly and hepatic steatosis. 8. Additional findings as above. ACT 112: Negative or not required by law. Electronically signed by: Rui Tee M.D. 03/24/2024 9:[address] 03/24/24 08:03 CT SCAN OF THE BRAIN WITHOUT IV CONTRAST CLINICAL HISTORY: Encephalopathy. COMPARISON STUDY: CT of the brain dated 03/20/2024. TECHNIQUE: Unenhanced axial CT scan of the brain is performed from the vertex to the skull base. A dose lowering technique was utilized adhering to the principles of ALARA. FINDINGS: Brain parenchyma: The brain parenchyma is normal in appearance. There is no hemorrhage, mass effect, or evidence of acute territorial ischemia by CT criteria. Alfonso-white matter differentiation is preserved. No extra-axial fluid collection is seen. Ventricles, sulci, cisterns: Normal in configuration. Intracranial vasculature: The visualized intracranial vasculature at the skull base is normal in appearance. Calvarium: Unremarkable. Sinuses and mastoids: There is mild mucosal thickening within the ethmoid sinuses. The remaining paranasal sinuses are clear. There is evidence of previous right mastoid surgery. There is fluid within the remaining right mastoid air cells as well as the right middle ear. The left the mastoid air cells are well pneumatized. Orbits: The bony orbits are grossly intact. IMPRESSION: There is no hemorrhage, mass effect, or evidence of acute territorial ischemia by CT criteria. ACT 112: Negative or not required by law. Electronically signed by: Rui Tee M.D. 03/24/2024 9:48 AM Chest X-Ray 03/24/24 08:26 SINGLE VIEW CHEST CLINICAL HISTORY: Central venous catheter placement. FINDINGS: An AP, portable, supine chest radiograph is compared to study dated 03/22/2024 and correlated with chest CT dated 03/20/2024. A right internal jugular central venous catheter is unchanged in position. A left internal jugular central venous catheter has been placed. The tip projects over the SVC. An endotracheal tube is in place. An enteric tube has been removed. The heart is e nlarged. There is pulmonary vascular congestion. There are small pleural effusions. Multifocal airspace opacities are seen throughout both lungs. No pneumothorax is seen. There is chronic posttraumatic deformity of the left clavicle. Cervicothoracic spinal rods are in place. IMPRESSION: 1. Lines and tubes as above. No pneumothorax is seen following central venous catheter placement. 2. Cardiomegaly with pulmonary vascular congestion. 3. Small pleural effusions. 4. Multifocal airspace opacities have somewhat increased from yesterday ACT 112: Negative or not required by law. Electronically signed by: Rui Tee M.D. 03/24/2024 8:59 AM KUB X-Ray 03/24/24 14:13 KUB CLINICAL HISTORY: Enteric tube repositioning. FINDINGS: An AP, portable, supine abdominal radiograph is compared to abdominal radiographs and CT performed earlier the same day 03/24/2024. An enteric tube is unchanged in position. The tip is coiled above the gastroesophageal junction. No bowel obstruction is seen. No evidence of intraperitoneal free air is seen on this supine image. There are no abnormal abdominal calcifications. The bony structures appear intact. Postsurgical change is seen in the thoracic spine. IMPRESSION: 1. An enteric tube is unchanged in position with the tip coiled in the distal esophagus above the gastroesophageal junction. Repositioning is indicated. 2. No bowel obstruction is identified. Electronically signed by: Rui Tee M.D. 03/24/2024 2:42 PM KUB X-Ray 03/24/24 14:16 KUB CLINICAL HISTORY: Enteric tube placement. FINDINGS: 2 AP, portable, supine abdominal radiographs are correlated with abdominal CT performed the same day 03/24/2024. An enteric tube has been placed. The tip is coiled above the gastroesophageal junction. No bowel obstruction is seen. No evidence of intraperitoneal free air is seen on these supine images. There are no abnormal abdominal calcifications. The bony structures appear intact. Postsurgical change is seen in the thoracic spine. IMPRESSION: 1. An enteric tube is coiled in the distal esophagus above the gastroesophageal junction. Repositioning is indicated. 2. No bowel obstruction is identified. Electronically signed by: Rui Tee M.D. 03/24/2024 2:40 PM I & O Totals 24 Hours 03/24/24 03/25/24 03/26/24 06:59 06:59 06:59 Intake Total 51.733 / 51.733 385.898 / 385.898 Output Total 289 / 289 260 / 260 Balance -237.267 / -237.267 125.898 / 125.898 Cumulative 03/19/24 21:33 thru 03/25/24 06:00 Intake Total 31283.069 Output Total 1257 Balance 9054.069 RT Ventilator Mngmt (Last Documented) Ventilator Ordered Settings Ventilator Support Mode Assist Control 03/24/24 14:10 Respiratory Rate 22 03/25/24 06:00 Ventilator Tidal Volume 400 03/24/24 14:10 Setting Minute Ventilation 8.3 03/24/24 14:10 Positive End Expiratory 5 03/24/24 14:10 Pressure Fraction of Inspired Oxygen 50 03/24/24 14:10 Peak Inspiratory Flow 46 03/20/24 15:50 Machine Comment weaned to 40%O2 03/24/24 14:10 Ventilator - PT Measurements Respiratory Rate 22 Exhaled Tidal Volume 393 Minute Ventilation 8.3 Peak Inspiratory Airway 20 Pressure Plateau Pressure 13 Respiratory Cycle Inspiratory: 1:3.3 Expiratory Ratio Inspiratory Phase Time 0.70 End-Tidal CO2 37 Static Lung Compliance 49.13 Dynamic Lung Compliance 26.20 Normal Static Lung Compliance 47.00 Patient Measurements Comment Patient extubated to 4L NC PER Dr Post and SPO2 95% Coding Level of Care Code 41612 SUB INP/OBS CARE 3/50MIN Diagnoses Bacteremia due to Escherichia coli R78.81; B96.20 Encephalopathy acute G93.40 Hyponatremia E87.1 Sepsis due to Escherichia coli with acute renal failure without septic shock, unspecified acute renal failure type A41.51; R65.20; N17.9 Acute renal failure type: unspecified Sepsis acute organ dysfunction status: with acute organ dysfunction Sepsis type: Escherichia coli Severe sepsis acute organ dysfunction type: acute renal failure Severe sepsis shock status: without septic shock Acute pyelonephritis N10 Urinary tract infection type: acute pyelonephritis Acute renal failure with oliguria N17.9; R34 (4) Sepsis Acute renal failure type: unspecified Sepsis acute organ dysfunction status: with acute organ dysfunction Sepsis type: Escherichia coli Severe sepsis acute organ dysfunction type: acute renal failure Severe sepsis shock status: without septic shock Qualified Code(s): A41.51 - Sepsis due to Escherichia coli [E. coli]; R65.20 - Severe sepsis without septic shock; N17.9 - Acute kidney failure, unspecified (5) UTI (urinary tract infection) Urinary tract infection type: acute pyelonephritis Qualified Code(s): N10 - Acute pyelonephritis
--- NOTE | 2024-03-25 11:29 | Hospitalist Progress Note ---
Date of Service March 25, 2024 Assessment & Plan (1) Encephalopathy: Plan: Multifactorial: Complicated by sepsis, FER and hyponatremia Remains intubated on mechanical vent Sedated Management as per procedures analyst Planned extubation after dialysis today 03/22/2024 S/p extubation on 03/22/2024 Remains hemodynamically stable with restlessness in bed Maintaining on 2 L of nasal cannula Required reintubation early this morning on 03/24/2024 Alert and awake and restlessness in bed Remains pleasantly confused Hyperglycemic crisis (combined HHS/DKA), new diagnosis DM Has been on insulin infusion Intravenous fluid as needed Appreciate glycemic pharmacist input and recommendation Blood sugar seems to be reasonably controlled Severe sepsis (SIRS plus lactic acidosis plus ARF plus encephalopathy) secondary to complicated UTI, atypical pneumonia Secondary to E. coli bacteremia Has been on intravenous Rocephin and will need help least 14 days of antibiotic from negative culture date Repeat blood cultures have been taken Leukocytosis has not improved yet and remains febrile Will continue current antibiotic White count remains elevated without any more fever and or chills Has had limited LP-fluid chemistry is not yet back but CSF viral serology have been negative. Gram stain did not show any WBC and or organisms and the culture is pending Continue with current antibiotic White cell count has been improving Acute renal failure Likely complicated by sepsis with ATN Requiring dialysis Appreciate nephrology input and recommendation Monitor electrolytes and avoid any nephrotoxins Continue with hemodialysis as per winding inspector and tester Has had dialysis today and will have dialysis tomorrow and on Tuesday as per winding inspector and tester Will have dialysis tomorrow Hyponatremia Severe hyponatremia with sodium of 109 on admission Has been improved to 130 as of 03/21/2024 at 4 PM Appreciate nephrology input and recommendation Sodium level remains low at 129 Hyponatremia seems to be corrected at 134 today 03/23/2024 Past tobacco abuse Thrombocytopenia possibly from sepsis Nicotine replacement therapy as needed DVT prophylaxis. SCDs Re: Thrombocytopenia Has been on heparin subcu Full code Patient friend requesting updates providers. Shari Rdzdo Stewart, contact #[phone]. Will need social service and case management involvement Will try to call the family members Prognosis remains guarded Indonesian-speaking Not yet ready to communicate normal Discussed with the friends and also his and daughter Admission and Anticipated Discharge Date Admission Date: March 20, 2024 Subjective 03/21/2024 The patient was seen and examined in ICU Remains intubated and sedated Opens eyes but not in any acute distress 03/22/2024 The patient was seen and examined in ICU Remains intubated and sedated On hemodialysis Planned extubation today after dialysis 03/23/2024 The patient was seen and examined in ICU He is a status post extubation on 03/22/2024 Remains confused with occasional restlessness Remains hemodynamically stable 03/24/2024 The patient was seen and examined in ICU He is reintubated this morning Has had limited LP Remains sedated on vent with ongoing hemodialysis 03/25/2024 The patient was seen and examined in ICU He has been feeling little better today Remains confused and little restless Has been able to communicate Review of Systems Review of Systems: Unobtainable due to cognitive status Physical Exam Physical Exam: Lying in bed with some restlessness Constitutional: well developed, well nourished and + ill appearing Eyes: PERRL, conjunctivae normal, anicteric sclerae ENMT: external ear and nose normal, oropharynx normal Neck: trachea midline, no thyromegaly Respiratory: no respiratory distress Auscultation: + diminished lung sounds; no crackles (Bibasilar crackles) Cardiovascular: Rate/Rhythm: regular rate and regular rhythm; not tachycardic Heart Sounds: normal S1 and normal S2; no murmur Extremities: no edema Gastrointestinal (Abdomen): Inspection/Auscultation: normal bowel sounds; abdomen not distended Percussion/Palpation: abdomen soft; abdomen nontender Musculoskeletal: No acute arthritis involving any of the joints Neurologic: Alert and awake. Pleasantly confused. Restlessness Results & Data Results & Data Vital Signs (Past 12 Hours) Vital Signs Temp Pulse Resp BP Pulse Ox O2 Del Method O2 Flow Rate 03/25/24 08:12 36.8 C 03/25/24 08:00 111/67 03/25/24 08:00 Nasal Cannula 2 03/25/24 07:48 81 27 H 98 03/25/24 07:09 81 27 H 98 03/25/24 07:00 100/62 03/25/24 06:39 81 26 H 98 03/25/24 06:00 89 22 109/65 98 03/25/24 05:06 88 37 H 117/60 95 03/25/24 04:03 91 H 32 H 105/62 97 03/25/24 03:37 37 C 03/25/24 03:03 87 26 H 102/57 L 98 06/09/24 02:06 92 H 35 H 113/62 95 03/25/24 01:13 37.2 C 03/25/24 01:12 118/65 03/25/24 01:00 102 H 27 H 03/25/24 00:00 97 H 03/25/24 00:00 38 C H 03/25/24 00:00 98 H 31 H 123/74 92 Laboratory Results Short CBC 03/25/24 Range/Units 03:53 WBC 32.48 H* (4.8-10.8) K/ul Hgb 9.0 L (14.0-18.0) g/dl Hct 27.2 L (42.0-52.0) % Plt Count 355 (130-400) K/uL BMP 03/25/24 03:53 Sodium 138 Potassium 4.0 Chloride 103 Carbon Dioxide 20 L BUN 48 H D Creatinine 5.95 H* D Glucose 136 H Calcium 7.2 L Medications Administered Current Inpatient Medications Acetaminophen (Acetaminophen Susp 325 Mg/10.15 Ml Udc) 650 mg PO Q6H PRN PRN Reason: Fever Stop: 04/20/24 03:56 Last Admin: 03/22/24 13:07 Dose: 650 mg Dextrose (Dextrose 50% 50 Ml Syringe) 25 - 50 ml IV UD PRN; Protocol PRN Reason: Hypoglycemia Protocol Stop: 04/18/24 23:14 Glucagon (Glucagon For Inj 1 Mg Vial) 1 mg IM UD PRN; Protocol PRN Reason: Hypoglycemia Protocol Stop: 04/18/24 23:14 Glucose (Glucose 40% Gel 15 Gm Tube) 15 - 30 gm PO UD PRN; Protocol PRN Reason: Hypoglycemia Protocol Stop: 04/18/24 23:14 Glucose (Glucose 10 Tab/Tube) 4 - 8 tab PO UD PRN; Protocol PRN Reason: Hypoglycemia Protocol Stop: 04/18/24 23:14 Heparin Sodium (Porcine) (Heparin Sod 5,000 Unit/0.5 Ml Vial) 7,500 units SQ TID [facility] Stop: 04/21/24 13:59 Last Admin: 03/25/24 08:27 Dose: 7,500 units Ceftriaxone Sodium (Rocephin) 2,000 mg in 50 mls @ 100 mls/hr IV Q24H [facility] Stop: 04/04/24 11:59 Last Admin: 03/25/24 11:21 Dose: 100 mls/hr Insulin Aspart (Insulin Aspart Per Unit Charge) 0 units SC Q6 [facility]; Protocol Stop: 04/23/24 17:59 Last Admin: 03/25/24 05:58 Dose: Not Given Insulin Glargine (Lantus Per Unit Charge) 0 units SC QAM [facility]; Protocol Stop: 04/23/24 08:59 Last Admin: 03/25/24 08:26 Dose: 15 units Miscellaneous (Carbohydrates For Hypoglycemia ) 15 - 30 gm PO UD PRN PRN Reason: Hypoglycemia Treatment Stop: 04/18/24 23:14 Miscellaneous Information (Pharmacy Glycemic Mgmt Consult) 1 each N/A UD PRN PRN Reason: Consult Stop: 04/19/24 01:38
[2024-03-25] MEDS ORDERED: MENTHOL-ZINC OXIDE 360 APPLN/120 GM TUBE EXT SCH (15:00)
--- NOTE | 2024-03-25 16:41 | Nephrology Progress Note ---
Date of Service March 25, 2024 Assessment & Plan Admission and Anticipated Discharge Date Admission Date: March 20, 2024 Subjective Assessment & Plan (1) Acute renal failure with oliguria: Plan: anuric renal failure with unknown baseline and uremic sx (encephalopathy) w/ large kidneys and cortical thickening. Most likely had some preexisting CKD from DM. but we dont know the baseline creat He had emergent dialysis yesterday given encephalopathy, anuria and severe renal failure. intubated in order to place dialysis catheter and to dialyze safely Dialysis tomorrow for qb 300 Qd 600 take 2 to 3 kilo off. 3K bath. for 4 hrs. will do low dose heparin ECHO reviewed and did not look bad. Overall status seems like better but still no urine and will need dialysis for some time. (2) Bacteremia due to Escherichia coli: Plan: TTE--normal. On abx. 3 ) Encephalopathy: Plan: Possibly uremic and septicemia. tox screen negative. LP and CT head negative Not quite clear about the etiology but seems like improving now. . Subjective Now extubated. Not as agitated and also not needing pressors. Not much urine. No grewal now. Not eating much but did have some lunch. Review of Systems Review of Systems: Unobtainable due to endotracheal tube Physical Exam Constitutional: well developed, well nourished, + acute distress (On initial exam on dialysis; then improved with sedation) and + obese. intubated an sedated Eyes: EOM intact bilaterally ENMT: Ears: no external ear abnormality Nose: no external nose abnormality Mouth: + dry oral mucous membranes Neck: no nuchal rigidity Respiratory: normal respiratory effort (On ventilator) Auscultation: + diminished lung sounds Cardiovascular: Rate/Rhythm: + tachycardic Extremities: no edema Gastrointestinal (Abdomen): Inspection/Auscultation: + abdomen distended and normal bowel sounds Percussion/Palpation: abdomen soft; abdomen nontender and no ascites Musculoskeletal: Extremities: strength 5/5 throughout Skin: no rashes, warm and dry Results & Data Vital Signs (Past 12 Hours) Vital Signs Temp Pulse Resp BP Pulse Ox O2 Del Method O2 Flow Rate 03/25/24 13:09 90 18 98 03/25/24 13:00 107/67 03/25/24 12:36 90 25 H 97 03/25/24 12:03 87 30 H 97 03/25/24 12:00 36.8 C 112/62 03/25/24 11:33 86 30 H 96 03/25/24 11:00 135/83 03/25/24 11:00 88 28 H 98 03/25/24 10:00 187/92 H 03/25/24 10:00 94 H 36 H 98 03/25/24 09:09 89 33 H 99 03/25/24 09:00 141/83 H 03/25/24 08:48 87 27 H 98 03/25/24 08:12 36.8 C 03/25/24 08:03 81 27 H 98 03/25/24 08:00 111/67 03/25/24 08:00 Nasal Cannula 2 03/25/24 07:48 81 27 H 98 03/25/24 07:09 81 27 H 98 03/25/24 07:00 100/62 03/25/24 06:39 81 26 H 98 03/25/24 06:00 89 22 109/65 98 03/25/24 05:06 88 37 H 117/60 95
[2024-03-25] MEDS: INSULIN ASPART PER UNIT CHARGE SC SCH (16:44)
[2024-03-26 05:26] LABS: Hematocrit (blood only) 27.2 % (42.0-52.0); Hemoglobin 9.1 g/dl (14.0-18.0); Mean Corpuscular Hemoglobin 28.7 pg (25.0-34.0); Mean Corpuscular Hgb Conc 33.5 g/dL (32.0-36.0); Mean Corpuscular Volume 85.8 fL (80.0-100.0); Mean Platelet Volume 11.4 fL (9.4-12.4); Platelet Count 478 K/uL (130-400); RDW Coefficient of Variation 15.2 % (11.5-14.5); Red Blood Count 3.17 M/uL (4.70-6.10); White Blood Count 32.28 K/ul (4.8-10.8)
[2024-03-26 05:38] LABS: Basophils # (auto) 0.09 K/uL (0.00-0.20); Basophils % (auto) 0.3 %; Eosinophils # (auto) 0.23 K/uL (0.00-0.50); Eosinophils % (auto) 0.7 %; Immature Granulocytes # (auto) 1.16 K/uL (0.01-0.20); Immature Granulocytes % (auto) 3.6 %; Lymphocytes # (auto) 1.18 K/uL (1.20-3.40); Lymphocytes % (auto) 3.7 %; Monocytes # (auto) 1.88 K/uL (0.11-0.59); Monocytes % (auto) 5.8 %; Neutrophils # (auto) 27.74 K/uL (1.40-6.50); Neutrophils % (auto) 85.9 %
[2024-03-26 05:56] LABS: BUN Creatinine Ratio 7.8 (10-20); Calcium 7.2 mg/dl (8.6-10.3); Creatinine Clr Calc Pharmacy 13.8 ml/min; Est GFR (African American) 9.8 ml/min; Est GFR (Non-African American) 8.4 ml/min; Potassium 3.8 mmol/L (3.5-5.1)
[2024-03-26] MEDS ORDERED: SODIUM CHLORIDE 0.9% 1,000 ML IV PRN ×2 (07:00)
[2024-03-26] MEDS: MoRPHine SULFATE 2 MG/ML CARP IV STA (09:29)
--- NOTE | 2024-03-26 09:33 | XRay Report ---
XR chest 1V portable CLINICAL HISTORY: CHF TECHNIQUE: Single frontal radiograph of the chest was obtained. Comparison: Comparison is made to chest radiograph 03/24/2024 FINDINGS: Posterior fixation hardware is seen. Stable right venous catheter. Cardiomegaly is noted. Prominence and cephalization of the vasculature is seen. No evidence of pleural effusion or pneumothorax. IMPRESSION: Cardiomegaly and mild pulmonary edema. Findings are increased from prior exam. Previously noted airsp sam opacities have resolved, likely representing atelectasis.. ACT 112: Negative or not required by law. Electronically signed by: Eloy Sparks M.D. 03/26/2024 9:32 AM
--- NOTE | 2024-03-26 11:37 | Hospitalist Progress Note ---
Date of Service March 26, 2024 Assessment & Plan (1) Encephalopathy: Plan: Multifactorial: Complicated by sepsis, FER and hyponatremia Remains intubated on mechanical vent Sedated Management as per yarn texturing machine operator Planned extubation after dialysis today 03/22/2024 S/p extubation on 03/22/2024 Remains hemodynamically stable with restlessness in bed Maintaining on 2 L of nasal cannula Required reintubation early this morning on 03/24/2024 Alert and awake and restlessness in bed And cephalopathy resolved-seems to be back to his baseline Minimal Uz[place] Hyperglycemic crisis (combined HHS/DKA), new diagnosis DM Has been on insulin infusion Intravenous fluid as needed Appreciate glycemic pharmacist input and recommendation Blood sugar seems to be reasonably controlled Blood sugar remains stable Severe sepsis (SIRS plus lactic acidosis plus ARF plus encephalopathy) secondary to complicated UTI, atypical pneumonia Secondary to E. coli bacteremia Has been on intravenous Rocephin and will need help least 14 days of antibiotic from negative culture date Repeat blood cultures have been taken Leukocytosis has not improved yet and remains febrile Will continue current antibiotic White count remains elevated without any more fever and or chills Has had limited LP-fluid chemistry is not yet back but CSF viral serology have been negative. Gram stain did not show any WBC and or organisms and the culture is pending Continue with current antibiotic White cell count has been improving-white blood cell count remains elevated at 32 K Will continue current intravenous antibiotic Acute renal failure Likely complicated by sepsis with ATN Requiring dialysis Appreciate nephrology input and recommendation Monitor electrolytes and avoid any nephrotoxins Continue with hemodialysis as per performance analyst Has had dialysis today and will have dialysis tomorrow and on Tuesday as per performance analyst Hyponatremia Severe hyponatremia with sodium of 109 on admission Has been improved to 130 as of 03/21/2024 at 4 PM Appreciate nephrology input and recommendation Sodium level remains low at 129 Hyponatremia seems to be corrected at 134 today 03/23/2024 Sodium level has been low at 130 Past tobacco abuse Thrombocytopenia possibly from sepsis Nicotine replacement therapy as needed DVT prophylaxis. SCDs Re: Thrombocytopenia Has been on heparin subcu Full code Patient friend requesting updates providers. Mr. Blaine William, contact #[phone]. Will need social service and case management involvement Will try to call the family members Prognosis remains guarded Mohawk-speaking Not yet ready to communicate normal Discussed with the friends and also his and daughter Admission and Anticipated Discharge Date Admission Date: March 20, 2024 Subjective 03/21/2024 The patient was seen and examined in ICU Remains intubated and sedated Opens eyes but not in any acute distress 03/22/2024 The patient was seen and examined in ICU Remains intubated and sedated On hemodialysis Planned extubation today after dialysis 03/23/2024 The patient was seen and examined in ICU He is a status post extubation on 03/22/2024 Remains confused with occasional restlessness Remains hemodynamically stable 03/24/2024 The patient was seen and examined in ICU He is reintubated this morning Has had limited LP Remains sedated on vent with ongoing hemodialysis 03/25/2024 The patient was seen and examined in ICU He has been feeling little better today Remains confused and little restless Has been able to communicate 03/26/2024 The patient was seen and examined in ICU He has been much better today and communicating normally Does not have any more confusion Denies any significant symptoms Review of Systems Review of Systems: Could not be reliably obtained secondary to disorientation/language barrier Physical Exam Physical Exam: Lying in bed with some restlessness Constitutional: well developed, well nourished and + ill appearing Eyes: PERRL, conjunctivae normal, anicteric sclerae ENMT: external ear and nose normal, oropharynx normal Neck: trachea midline, no thyromegaly Respiratory: no respiratory distress Auscultation: + diminished lung sounds; no crackles (Bibasilar crackles) Cardiovascular: Rate/Rhythm: regular rate and regular rhythm; not tachycardic Heart Sounds: normal S1 and normal S2; no murmur Extremities: no edema Gastrointestinal (Abdomen): Inspection/Auscultation: normal bowel sounds; abdomen not distended Percussion/Palpation: abdomen soft; abdomen nontender Musculoskeletal: No acute arthritis involving any of the joint Neurologic: Alert, awake and oriented x 3. Moves all extremities without any focal neurodeficit Lymphatic: no cervical or axillary lymphadenopathy Results & Data Results & Data Vital Signs (Past 12 Hours) Vital Signs Temp Pulse Pulse Resp BP BP Pulse Ox 03/26/24 09:03 103 H 22 114/50 L 95 03/26/24 08:00 95 H 24 97 03/26/24 08:00 03/26/24 07:18 95 H 21 97 03/26/24 07:00 122/74 03/26/24 07:00 36.7 C 16 140/73 96 03/26/24 03:30 37 C 93 H 16 133/82 92 03/26/24 00:05 36.9 C 96 H 16 126/71 90 O2 Del Method O2 Flow Rate 03/26/24 09:03 03/26/24 08:00 03/26/24 08:00 Room Air, Nasal Cannula 03/26/24 07:18 03/26/24 07:00 03/26/24 07:00 03/26/24 03:30 Nasal Cannula 2 03/26/24 00:05 Nasal Cannula 2 Laboratory Results Short CBC 03/26/24 Range/Units 04:39 WBC 32.28 H* (4.8-10.8) K/ul Hgb 9.1 L (14.0-18.0) g/dl Hct 27.2 L (42.0-52.0) % Plt Count 478 H (130-400) K/uL BMP 03/26/24 04:39 Sodium 130 L Potassium 3.8 Chloride 96 L Carbon Dioxide 20 L BUN 57 H Creatinine 7.32 H* D Glucose 129 H Calcium 7.2 L Medications Administered Current Inpatient Medications Acetaminophen (Acetaminophen Susp 325 Mg/10.15 Ml Udc) 650 mg PO Q6H PRN PRN Reason: Fever Stop: 04/20/24 03:56 Last Admin: 03/22/24 13:07 Dose: 650 mg Calamine/Phenol (Menthol-Zinc Oxide 360 Appln/120 Gm Tube) 1 appln EXT UD [facility] Stop: 04/24/24 14:59 Dextrose (Dextrose 50% 50 Ml Syringe) 25 - 50 ml IV UD PRN; Protocol PRN Reason: Hypoglycemia Protocol Stop: 04/18/24 23:14 Glucagon (Glucagon For Inj 1 Mg Vial) 1 mg IM UD PRN; Protocol PRN Reason: Hypoglycemia Protocol Stop: 04/18/24 23:14 Glucose (Glucose 40% Gel 15 Gm Tube) 15 - 30 gm PO UD PRN; Protocol PRN Reason: Hypoglycemia Protocol Stop: 04/18/24 23:14 Glucose (Glucose 10 Tab/Tube) 4 - 8 tab PO UD PRN; Protocol PRN Reason: Hypoglycemia Protocol Stop: 04/18/24 23:14 Heparin Sodium (Porcine) (Heparin Sod 5,000 Unit/0.5 Ml Vial) 7,500 units SQ TID [facility] Stop: 04/21/24 13:59 Last Admin: 03/26/24 08:00 Dose: 7,500 units Ceftriaxone Sodium (Rocephin) 2,000 mg in 50 mls @ 100 mls/hr IV Q24H [facility] Stop: 04/04/24 11:59 Last Infusion: 03/25/24 11:56 Dose: Infused Sodium Chloride (Nss) 1,000 mls @ 0 mls/hr IV .Q0M PRN PRN Reason: For Hemodialysis Use ONLY Stop: 03/26/24 12:59 Sodium Chloride (Nss) 1,000 mls @ 0 mls/hr IV .Q0M PRN PRN Reason: For Hemodialysis Use ONLY Stop: 03/26/24 12:59 Insulin Aspart (Insulin Aspart Per Unit Charge) 0 units SC ACHS [facility]; Protocol Stop: 04/24/24 16:29 Last Admin: 03/26/24 07:59 Dose: 4 units Insulin Glargine (Lantus Per Unit Charge) 0 units SC QAM [facility]; Protocol Stop: 04/23/24 08:59 Last Admin: 03/26/24 08:00 Dose: 20 units Miscellaneous (Carbohydrates For Hypoglycemia ) 15 - 30 gm PO UD PRN PRN Reason: Hypoglycemia Treatment Stop: 04/18/24 23:14 Miscellaneous Information (Pharmacy Glycemic Mgmt Consult) 1 each N/A UD PRN PRN Reason: Consult Stop: 04/19/24 01:38
--- NOTE | 2024-03-26 11:53 | Ultrasound Report ---
RENAL ULTRASOUND HISTORY: Follow-up study in a patient with renal enlargement R/o fluid collection around kidney COMPARISON: CT 03/24/2024 FINDINGS: Right kidney: 15.2 cm. No fluid collections. Nonshadowing 3 mm echogenic focus in the interpolar dist ribution, likely renal sinus fat. No shadowing renal calculi identified. No hydronephrosis. Diffuse h eterogeneity of the parenchyma redemonstrated. Left kidney: 14.7 cm. No fluid collections. No shadowing calculi. No hydronephrosis. Cc heterogeneity of the parenchyma redemonstrated. Bladder: No bladder wall thickening. The bilateral ureteral jets were not identified. IMPRESSION: 1. No definite renal calculi or hydronephrosis. 2. No fluid collections. 3. Renal enlargement with parenchymal echogenicity redemonstrated, better evaluated on the comparison CT. As previously described, these findings should be correlated with urinalysis. ACT 112: Negative or not required by law. Electronically signed by: Augusto Morris M.D. 03/26/2024 11:52 AM
--- NOTE | 2024-03-26 13:33 | Critical Care Progress Note ---
Date of Service March 26, 2024 Assessment & Plan (1) Bacteremia due to Escherichia coli: (2) Encephalopathy: (3) Sepsis: (4) Acute renal failure with oliguria: (5) Delirium due to general medical condition: Plan Impression: 39-year-old speaking male with PMH of DM type II sepsis secondary to E. 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 years have not been MRI compliant: unable to obtain history regarding spinal rods therefore cannot obtain MRI -LP performed: Minimal CSF, I doubt this represents infection; BioFire negative culture no growth to date Cardiac - Elevated troponins: Likely in the setting of acute kidney injury and sepsis -Echo reviewed Hypotension: Resolved: this appears to be secondary to sedative effects to facilitate mechanical ventilation Respiratory - Initial intubation was to facilitate dialysis given patient was very impulsive and agitated, patient was successfully extubated following course of dialysis Repeat intubation (03/24) to facilitate medical care again with dialysis optimized after CT with contrast and LP to further evaluate ongoing infectious etiologies and to facilitate evaluation of encephalopathy Extubated 03/25/2024 --Dependent atelectasis bilateral lower lobes with minimal pleural effusion I did not think there is empyema given especially patient does not have pleuritic chest pain -- Probable YENNI/OHS Recommend outpatient polysomnography GI - Hypertriglyceridemia RENAL/LYTES - Acute renal failure on suspected significant chronic diabetic kidney disease -Clinical findings concerning patient will need long-term renal replacement therapy. Nephrology on board - Foleystrict I's and O's ENDO - -- Diabetes type 2 Continue with ICU hypoglycemia protocol HEME - Leukocytosis: Persistent Anemia: Suspect related to underlying kidney disease - likely require epogen Thrombocytopenia --> ID - Sepsispansensitive E. coli bacteremia, pyelonephritis -Rocephin day: Will require 10-14 days from negative blood culture date (last negative culture 03/20/2024 -Repeat CT scan concerning for evolution of severe pyelonephritis, phlegmonous change of right kidney, no obvious abscess -At risk for possible development of nephric abscess: Continued monitoring Lumbar puncture PCR was negative for everything C. difficile - 03/25/2024 Patient--Prophylaxis VTE: Heparin GI: None Lines: Right IJ temporary HD cath 03/20 Left IJ triple-lumen CVC 03/24 Diet: Renal Plan: In/out: Approximately 5 L positive since coming to the hospital, did have 2 dialysis session with 2 L removed and each. Approximately +5 L For hemodialysis today. Continue with antibiotics Patient is having loose bowel movements, C. difficile was negative Still complaining of significant abdominal pain. Renal ultrasound today bilaterally did not show any fluid collection around the kidneys BiPAP nightly and as needed shortness of breath Will benefit from outpatient polysomnography Hemodynamically stable to be downgraded Case was discussed with primary team Please note the above document was generated using voice recognition software. It may contain grammatical, syntax or spelling errors.Any formal questions or concerns about the content, text or information contained within the body of this dictation should be directly addressed to the provider for clarification. Admission and Anticipated Discharge Date Admission Date: March 20, 2024 Subjective Patient seen and examined at bedside. No acute distress, no adverse events overnight Complain of mild headache Did complain of bilateral flank playing. Seem to be more on the left side Denies any nausea vomiting No blurry vision. Denies any shortness of breath although he was breathing a little bit heavy. Review of Systems 2 Review of Systems: All systems reviewed & are unremarkable except as noted in Subjective Physical Exam 2 Physical Exam: Constitutional: No acute distress HEENT: EOMI, PERRLA Respiratory system: Decreased air entry bilaterally, no wheeze, rhonchi, positive crackles CVS: S1-S2 positive, no murmurs or gallops, accentuated P2 Abdomen: Soft, nontender, nondistended, positive bowel sounds x4, obese Extremities: +2 pulses bilaterally radialis/ dorsalis pedis, no cyanosis, no edema Neuro: Awake alert oriented to self and place Psych: Normal mood and affect G/U: No Sinha Skin: no rashes, warm and dry Lymphatic: no cervical or axillary lymphadenopathy Results & Data Results & Data Vital Signs (Past 12 Hours) Vital Signs Temp Pulse Pulse Resp BP BP Pulse Ox 03/26/24 09:03 103 H 22 114/50 L 95 03/26/24 08:00 95 H 24 97 03/26/24 08:00 03/26/24 07:18 95 H 21 97 03/26/24 07:00 122/74 03/26/24 07:00 36.7 C 16 140/73 96 03/26/24 03:30 37 C 93 H 16 133/82 92 O2 Del Method O2 Flow Rate 03/26/24 09:03 03/26/24 08:00 03/26/24 08:00 Room Air, Nasal Cannula 03/26/24 07:18 03/26/24 07:00 03/26/24 07:00 03/26/24 03:30 Nasal Cannula 2 Laboratory Results 03/26/24 04:39 03/26/24 04:39 Coding Level of Care Code 82691 SUB INP/OBS CARE 3/50MIN Diagnoses Bacteremia due to Escherichia coli R78.81; B96.20 Encephalopathy G93.40 Sepsis due to Escherichia coli with acute renal failure without septic shock, unspecified acute renal failure type A41.51; R65.20; N17.9 Sepsis type: Escherichia coli Sepsis acute organ dysfunction status: with acute organ dysfunction Severe sepsis acute organ dysfunction type: acute renal failure Acute renal failure type: unspecified Severe sepsis shock status: without septic shock Acute renal failure with oliguria N17.9; R34 Delirium due to general medical condition F05 (3) Sepsis Sepsis type: Escherichia coli Sepsis acute organ dysfunction status: with acute organ dysfunction Severe sepsis acute organ dysfunction type: acute renal failure Acute renal failure type: unspecified Severe sepsis shock status: w ithout septic shock Qualified Code(s): A41.51 - Sepsis due to Escherichia coli [E. coli]; R65.20 - Severe sepsis without septic shock; N17.9 - Acute kidney failure, unspecified
[2024-03-26] MEDS: ACETAMINOPHEN 325 MG TAB PO PRN (14:31)
--- NOTE | 2024-03-26 14:55 | Pharmacy Report ---
Pharmacy Glycemic Short Note 2 - Date of Service March 26, 2024 - Glycemic Short BSG Results (Last 24 hours): 03/25/24 03/25/24 03/26/24 16:06 19:57 04:39 Glucose 129 H POC Glucose 123 H 189 H 03/26/24 03/26/24 07:21 11:00 Glucose POC Glucose 173 H 160 H OUTPATIENT ANTIDIABETIC REGIMEN: * Not taking any medications currently (previously on orals) * HbA1c 10.7% (03/20/24) ASSESSMENT: 03/26: * Patients received 17 units of insulin yesterday 15 of which were basal. BSGs were [phone] mg/dL and fasting this morning was 173 mg/dL. * Patient initiated on a diet yesterday and started eating this morning. AM lantus scale called for increased lantus dose of 20 units this morning. Will likely require this dose or slightly increased dose tomorrow given diet initiation. * Will monitor post prandial BSG trends today and adjust tomorrow accordingly. 03/23: * Patient was transitioned off insulin drip for only a short period yesterday and then it was resumed for BSGs persistently above 200 mg/dL. Insulin drip ran at 0.8 units/hr overnight. * Still NPO and encephalopathic. No HD today. Orders in for HD tomorrow. * Will give an increased basal dose this AM and shut insulin drip off. Novolog again will be started based on weight/stress of 2-3 with q4 checks to start. May need tightened throughout the evening. Would be hesitant to give any more basal today. 03/22: * Insulin drip ran all day yesterday at 2 units/hr. Patient has required 3 straight days of hemodialysis. * Discussed on ICU rounds. Still requiring norepinephrine, currently running at 0.04 mcg/kg/min. Patient was extubated this afternoon. Quality Assurance Director okay with transitioning off insulin drip at this time. * Will give 15 units basal x 1 dose. Overlap with the insulin drip for 2 hours and shut drip off (currently running at 0.8 units/hr). * Novolog will be ordered q4 with goal range 120-160. Carb ratio and correction will be based on weight/stress of 2-3. 03/21: * Patient completed 2.5 hours of HD yesterday, ending at ~2000. He is now intubated and on pressors in the ICU. * Since resuming the insulin drip at a lower rate of 2 units/hr yesterday, BSG's have remained in goal range consistently and no drip titrations have been needed * Discussed on ICU rounds - per Dr. Post, continue insulin drip but reduce goal range to 150-250 mg/dL 03/20: * 39 yo M w hx T2DM but not on any current medications admitted with complicated clinical picture of sepsis possibly 2nd urinary source, acute renal failure, hyponatremia, DKA (acidosis and anion gap noted) and possible HHS (calculated effective osmolality not elevated, but serum was) * Discussed extensively at ICU rounds - prefer to keep BSG's higher 2nd possible HHS and goal range was adjusted to 250-350 mg/dL, per Dr. Post. Insulin drip was temporarily put on hold for BSG below goal, per Dr. Post. OK to hold despite also having DKA picture as CO2 has normalized and pH is now elevated. Patient is not producing urine at this time. * Discussed fluids extensively as well - Plasmalyte w/o potassium reasonable as K is high/normal and patient is not making urine. OK to hold off on adding dextrose as insulin not as necessary at this time 2nd pH elevation and normal CO2. * Will continue to follow labs and make adjustments to regimen, with input from Dr. Post. * Discussed w Dr. Post again at 1630 - OK to resume insulin drip at this time. Discussed goal range of 250-350 mg/dL and resuming at lower rate of 2 units/hr. Discussed fluids - stopping all fluids. May or may not be DKA, but either way patient doesn't need dextrose at this point to keep BSG >250. Discussed pending order to flag RN to notify coordinator of genetic services if/when insulin drip falls below 1 unit/hr to consider need for supplemental dextrose at this time. Dr. Post agreed. HD planned for today. PLAN FOR INPATIENT GLYCEMIC CONTROL: * Basal * Lantus 20 units SC this morning * Reassess tomorrow morning with resumption of diet * Bolus * Accuchecks ACHS * Goal range: 110 - 140 mg/dL * Correction factor: 1 unit for every 25 mg/dL over goal range * Carb ratio: 1 unit for every 8 g of CHO eaten
--- NOTE | 2024-03-26 15:41 | Dialysis Progress Note ---
Date of Service March 26, 2024 Assessment & Plan Admission and Anticipated Discharge Date Admission Date: March 20, 2024 Subjective Assessment & Plan (1) Acute renal failure with oliguria: Plan: anuric renal failure with unknown baseline and uremic sx (encephalopathy) w/ large kidneys and cortical thickening. Most likely had some preexisting CKD from DM. but we dont know the baseline creat He had emergent dialysis yesterday given encephalopathy, anuria and severe renal failure. intubated in order to place dialysis catheter and to dialyze safely Dialysis today qb 300 Qd 600 take 3 kilo off . he is about 5 kilo +ve since adx. 3K bath; will do low dose heparin next dialysis will be on tue if he still needs it. making lot more urine so h opeful now for renal recovery Will give another 2 days before we plan for tunnelled HD cath. (2) Bacteremia due to Escherichia coli: Plan: TTE--normal. On abx. 3 ) Encephalopathy: Plan: Possibly uremic and septicemia. tox screen negative; head CT unremarkable. getting much better now. Subjective Seen on dialysis. So far tolerating fine. CVC working fine. Overall much better vital signs as well as mental status. also urine is lot more EXAM Constitutional: well developed, well nourished, much better now Respiratory: normal respiratory effort Auscultation: + diminished lung sounds Cardiovascular: Rate/Rhythm: + tachycardic Extremities: no edema Gastrointestinal (Abdomen): Inspection/Auscultation: + abdomen distended and normal bowel sounds Percussion/Palpation: abdomen soft; abdomen nontender and no ascites Musculoskeletal: Extremities: strength 5/5 throughout Skin: no rashes, warm and dry Results & Data Vital Signs (Past 12 Hours) Vital Signs Temp Pulse Pulse Resp BP Pulse Ox O2 Del Method 03/26/24 14:30 90 128/71 03/26/24 14:20 90 130/82 03/26/24 14:03 100 H 22 90 03/26/24 14:00 37.1 C 96 H 03/26/24 13:30 93 H 22 88 L 03/26/24 12:06 94 H 20 95 03/26/24 12:00 135/94 03/26/24 11:21 94 H 20 94 03/26/24 11:03 96 H 20 91 03/26/24 10:00 96 H 16 91 03/26/24 09:03 103 H 22 114/50 L 95 03/26/24 08:00 95 H 24 97 03/26/24 08:00 Room Air, Nasal Cannula 03/26/24 07:18 95 H 21 97 03/26/24 07:00 122/74 03/26/24 07:00 36.7 C 16 140/73 96
[2024-03-26] MEDS: EPOETIN ALFA 10,000 UNITS/ML VIAL IV ONE (16:04)
[2024-03-27 08:37] LABS: Hematocrit (blood only) 25.2 % (42.0-52.0); Hemoglobin 8.5 g/dl (14.0-18.0); Mean Corpuscular Hemoglobin 28.9 pg (25.0-34.0); Mean Corpuscular Hgb Conc 33.7 g/dL (32.0-36.0); Mean Corpuscular Volume 85.7 fL (80.0-100.0); Mean Platelet Volume 10.7 fL (9.4-12.4); Platelet Count 485 K/uL (130-400); RDW Coefficient of Variation 14.8 % (11.5-14.5); Red Blood Count 2.94 M/uL (4.70-6.10); White Blood Count 24.08 K/ul (4.8-10.8)
[2024-03-27] MEDS: ONDANSETRON INJ 2 MG/ML 2 ML VIAL IV SCH (08:54)
[2024-03-27 09:00] LABS: Calcium 7.3 mg/dl (8.6-10.3); Creatinine Clr Calc Pharmacy 17.7 ml/min; Est GFR (African American) 13.3 ml/min; Est GFR (Non-African American) 11.5 ml/min; Potassium 3.6 mmol/L (3.5-5.1)
[2024-03-27 09:02] LABS: Basophils # (auto) 0.07 K/uL (0.00-0.20); Basophils % (auto) 0.3 %; Eosinophils # (auto) 0.06 K/uL (0.00-0.50); Eosinophils % (auto) 0.2 %; Immature Granulocytes # (auto) 0.59 K/uL (0.01-0.20); Immature Granulocytes % (auto) 2.5 %; Lymphocytes # (auto) 1.08 K/uL (1.20-3.40); Lymphocytes % (auto) 4.5 %; Monocytes % (auto) 5.8 %; Neutrophils # (auto) 20.88 K/uL (1.40-6.50); Neutrophils % (auto) 86.7 %
[2024-03-27] MEDS: LIDOCAINE 5% 1 PATCH TD SCH (10:26)
--- NOTE | 2024-03-27 13:21 | Hospitalist Progress Note ---
Date of Service March 27, 2024 Assessment & Plan (1) Encephalopathy: Plan: Multifactorial: Complicated by sepsis, FER and hyponatremia Remains intubated on mechanical vent Sedated Management as per traffic superintendent Planned extubation after dialysis today 03/22/2024 S/p extubation on 03/22/2024 Remains hemodynamically stable with restlessness in bed Maintaining on 2 L of nasal cannula Required reintubation early this morning on 03/24/2024 Alert and awake and restlessness in bed And cephalopathy resolved-seems to be back to his baseline And cephalopathy is resolved completely Communicated through tube drawing supervisor Discussed about possible need for dialysis if no improvement of kidney function the next few days Likely his will be coming from [place] to take him home Hyperglycemic crisis (combined HHS/DKA), new diagnosis DM Has been on insulin infusion Intravenous fluid as needed Appreciate glycemic pharmacist input and recommendation Blood sugar seems to be reasonably controlled Blood sugar remains stable No issues with blood pressure Severe sepsis (SIRS plus lactic acidosis plus ARF plus encephalopathy) secondary to complicated UTI, atypical pneumonia Secondary to E. coli bacteremia Has been on intravenous Rocephin and will need help least 14 days of antibiotic from negative culture date Repeat blood cultures have been taken Leukocytosis has not improved yet and remains febrile Will continue current antibiotic White count remains elevated without any more fever and or chills Has had limited LP-fluid chemistry is not yet back but CSF viral serology have been negative. Gram stain did not show any WBC and or organisms and the culture is pending Continue with current antibiotic White cell count has been improving-white blood cell count remains elevated at 32 K Will continue current intravenous antibiotic White count has been improving-will need IV antibiotics to finish the course of 14 days in total Acute renal failure Likely complicated by sepsis with ATN Requiring dialysis Appreciate nephrology input and recommendation Monitor electrolytes and avoid any nephrotoxins Continue with hemodialysis as per gallery or museum attendant Has had dialysis today and will have dialysis tomorrow and on Tuesday as per gallery or museum attendant He has been producing enough urine and likely to improve kidney function and may not need dialysis in near future Continue dialysis for the next 2 or 3 sessions before deciding for tunnel catheter as per the gallery or museum attendant Hyponatremia Severe hyponatremia with sodium of 109 on admission Has been improved to 130 as of 03/21/2024 at 4 PM Appreciate nephrology input and recommendation Sodium level remains low at 129 Hyponatremia seems to be corrected at 134 today 03/23/2024 Sodium level has been low at 130-132 as of 03/27/2024 Past tobacco abuse Thrombocytopenia possibly from sepsis Nicotine replacement therapy as needed DVT prophylaxis. SCDs Re: Thrombocytopenia Has been on heparin subcu Full code Patient friend requesting updates providers. Mr. Blaine William, contact #[phone]. Will need social service and case management involvement Will try to call the family members Prognosis remains guarded Swazi-speaking Not yet ready to communicate normal Discussed with the friends and also his and daughter Discussed with the patient in detail Admission and Anticipated Discharge Date Admission Date: March 20, 2024 Subjective 03/21/2024 The patient was seen and examined in ICU Remains intubated and sedated Opens eyes but not in any acute distress 03/22/2024 The patient was seen and examined in ICU Remains intubated and sedated On hemodialysis Planned extubation today after dialysis 03/23/2024 The patient was seen and examined in ICU He is a status post extubation on 03/22/2024 Remains confused with occasional restlessness Remains hemodynamically stable 03/24/2024 The patient was seen and examined in ICU He is reintubated this morning Has had limited LP Remains sedated on vent with ongoing hemodialysis 03/25/2024 The patient was seen and examined in ICU He has been feeling little better today Remains confused and little restless Has been able to communicate 03/26/2024 The patient was seen and examined in ICU He has been much better today and communicating normally Does not have any more confusion Denies any significant symptoms 03/27/2024 The patient was seen and examined in ICU He has been feeling much better, communication was done through tube drawing supervisor Complains today of some back pain but no other symptoms Review of Systems Review of Systems: All systems reviewed and are unremarkable except as noted Physical Exam Physical Exam: Lying in bed without any distress except some back pain Constitutional: well developed, well nourished and + ill appearing Eyes: PERRL, conjunctivae normal, anicteric sclerae ENMT: external ear and nose normal, oropharynx normal Neck: trachea midline, no thyromegaly Respiratory: no respiratory distress Auscultation: + diminished lung sounds; no crackles (Bibasilar crackles) Cardiovascular: Rate/Rhythm: regular rate and regular rhythm; not tachycardic Heart Sounds: normal S1 and normal S2; no murmur Extremities: no edema Gastrointestinal (Abdomen): Inspection/Auscultation: normal bowel sounds; abdomen not distended Percussion/Palpation: abdomen soft; abdomen nontender Musculoskeletal: No acute arthritis involving any of the joint Neurologic: Alert, awake and oriented x 3. Moves all extremities without any focal neurodeficit Lymphatic: no cervical or axillary lymphadenopathy Results & Data Results & Data Vital Signs (Past 12 Hours) Vital Signs Temp Pulse Pulse Resp BP BP BP 03/27/24 12:15 100 H 22 03/27/24 12:00 37.2 C 95 H 20 03/27/24 11:00 100 H 20 112/63 03/27/24 10:49 37.6 C H 96 H 22 112/64 03/27/24 10:05 101 H 23 03/27/24 09:03 03/27/24 08:06 104 H 03/27/24 08:01 137/77 03/27/24 08:00 107 H 03/27/24 07:57 110 H 03/27/24 07:00 108 H 12 03/27/24 07:00 134/65 03/27/24 07:00 38.1 C H 03/27/24 06:03 106 H 16 03/27/24 05:18 37 C 153/85 H 03/27/24 05:15 107 H 27 H 03/27/24 04:54 107 H 17 03/27/24 04:30 104 H 14 03/27/24 04:00 96 H 32 H 03/27/24 04:00 109/55 L 03/27/24 03:45 97 H 31 H 03/27/24 03:30 99 H 33 H 03/27/24 03:24 87 18 03/27/24 03:18 98 H 33 H 03/27/24 03:12 104 H 22 03/27/24 02:39 87 22 03/27/24 02:18 94 H 22 03/27/24 02:12 89 23 03/27/24 01:24 86 31 H Pulse Ox O2 Del Method 03/27/24 12:15 03/27/24 12:00 96 Room Air 03/27/24 11:00 03/27/24 10:49 95 Room Air 03/27/24 10:05 03/27/24 09:03 89 L 03/27/24 08:06 88 L 03/27/24 08:01 03/27/24 08:00 03/27/24 07:57 94 03/27/24 07:00 77 L 03/27/24 07:00 03/27/24 07:00 03/27/24 06:03 94 03/27/24 05:18 03/27/24 05:15 94 03/27/24 04:54 86 L 03/27/24 04:30 93 03/27/24 04:00 87 L 03/27/24 04:00 03/27/24 03:45 86 L 03/27/24 03:30 86 L 03/27/24 03:24 96 03/27/24 03:18 93 03/27/24 03:12 93 03/27/24 02:39 97 03/27/24 02:18 96 03/27/24 02:12 100 03/27/24 01:24 97 Laboratory Results Short CBC 03/27/24 Range/Units 08:17 WBC 24.08 H (4.8-10.8) K/ul Hgb 8.5 L (14.0-18.0) g/dl Hct 25.2 L (42.0-52.0) % Plt Count 485 H (130-400) K/uL BMP 03/27/24 08:17 Sodium 132 L Potassium 3.6 Chloride 98 Carbon Dioxide 19 L BUN 34 H D Creatinine 5.68 H* D Glucose 172 H Calcium 7.3 L Medications Administered Current Inpatient Medications Acetaminophen (Acetaminophen 325 Mg Tab) 650 mg PO Q6 PRN PRN Reason: Pain or Fever Stop: 04/25/24 14:23 Last Admin: 03/27/24 07:41 Dose: 650 mg Calamine/Phenol (Menthol-Zinc Oxide 360 Appln/120 Gm Tube) 1 appln EXT UD LINDSEY Stop: 04/24/24 14:59 Dextrose (Dextrose 50% 50 Ml Syringe) 25 - 50 ml IV UD PRN; Protocol PRN Reason: Hypoglycemia Protocol Stop: 04/18/24 23:14 Glucagon (Glucagon For Inj 1 Mg Vial) 1 mg IM UD PRN; Protocol PRN Reason: Hypoglycemia Protocol Stop: 04/18/24 23:14 Glucose (Glucose 40% Gel 15 Gm Tube) 15 - 30 gm PO UD PRN; Protocol PRN Reason: Hypoglycemia Protocol Stop: 04/18/24 23:14 Glucose (Glucose 10 Tab/Tube) 4 - 8 tab PO UD PRN; Protocol PRN Reason: Hypoglycemia Protocol Stop: 04/18/24 23:14 Heparin Sodium (Porcine) (Heparin Sod 5,000 Unit/0.5 Ml Vial) 7,500 units SQ TID [facility] Stop: 04/21/24 13:59 Last Admin: 03/27/24 10:26 Dose: Not Given Ceftriaxone Sodium (Rocephin) 2,000 mg in 50 mls @ 100 mls/hr IV Q24H [facility] Stop: 04/04/24 11:59 Last Infusion: 03/27/24 12:14 Dose: Infused Insulin Aspart (Insulin Aspart Per Unit Charge) 0 units SC [facility]; Protocol Stop: 04/24/24 16:29 Last Admin: 03/27/24 11:45 Dose: 1 units Insulin Glargine (Lantus Per Unit Charge) 20 units SC [facility]; Protocol Stop: 04/23/24 08:59 Lidocaine (Lidocaine 5% 1 Patch) 1 patch TD [facility] Stop: 04/26/24 09:44 Last Admin: 03/27/24 10:26 Dose: 1 patch Miscellaneous (Carbohydrates For Hypoglycemia ) 15 - 30 gm PO UD PRN PRN Reason: Hypoglycemia Treatment Stop: 04/18/24 23:14 Miscellaneous (Remove Lidoderm Patch) 1 each N/A DAILY@2100 [facility] Stop: 04/26/24 20:59 Miscellaneous Information (Pharmacy Glycemic Mgmt Consult) 1 each N/A UD PRN PRN Reason: Consult Stop: 04/19/24 01:38 Ondansetron HCl (Ondansetron Inj 2 Mg/Ml 2 Ml Vial) 4 mg IV Q6H [facility] Stop: 04/26/24 08:44 Last Admin: 03/27/24 08:54 Dose: 4 mg
--- NOTE | 2024-03-27 14:34 | Nephrology Progress Note ---
Date of Service March 27, 2024 Assessment & Plan Admission and Anticipated Discharge Date Admission Date: March 20, 2024 Subjective Assessment & Plan (1) Acute renal failure with oliguria: Plan: anuric renal failure with unknown baseline and uremic sx (encephalopathy) w/ large kidneys and cortical thickening. Most likely had some preexisting CKD from DM. but we dont know the baseline creat He had emergent dialysis for uremic encephalopathy, anuria and severe renal failure. intubated in order to place dialysis catheter and to dialyze safely Dialysis planned for tomorrow if he still needs it. making lot more urine so hopeful now for renal recovery but may not happen right away. it will also depends whether he had pre-exisitng CKD or not--we dont know as we dont have baseline creat. based on rise of Creat from AM today and AM tomorrow will know and decide about dialysis tomorrow. Will give another 2 days before we plan for tunnelled HD cath. (2) Bacteremia due to Escherichia coli: Plan: TTE--normal. On abx. 3 ) Encephalopathy: Plan: Possibly uremic and septicemia. tox screen negative; head CT unremarkable. getting much better now. Subjective Seen on dialysis. So far tolerating fine. CVC working fine. Overall much better vital signs as well as mental status. also urine is lot more EXAM Constitutional: well developed, well nourished, much better now Respiratory: normal respiratory effort Auscultation: + diminished lung sounds Cardiovascular: Rate/Rhythm: + tachycardic Extremities: no edema Gastrointestinal (Abdomen): Inspection/Auscultation: + abdomen distended and normal bowel sounds Percussion/Palpation: abdomen soft; abdomen nontender and no ascites Musculoskeletal: Extremities: strength 5/5 throughout Skin: no rashes, warm and dry Results & Data Vital Signs (Past 12 Hours) Vital Signs Temp Pulse Pulse Resp BP BP BP 03/27/24 12:15 100 H 22 03/27/24 12:00 37.2 C 95 H 20 03/27/24 11:00 100 H 20 112/63 03/27/24 10:49 37.6 C H 96 H 22 112/64 03/27/24 10:05 101 H 23 03/27/24 09:03 03/27/24 08:06 104 H 03/27/24 08:01 137/77 03/27/24 08:00 107 H 03/27/24 07:57 110 H 03/27/24 07:00 108 H 12 03/27/24 07:00 134/65 03/27/24 07:00 38.1 C H 03/27/24 06:03 106 H 16 03/27/24 05:18 37 C 153/85 H 03/27/24 05:15 107 H 27 H 03/27/24 04:54 107 H 17 03/27/24 04:30 104 H 14 03/27/24 04:00 96 H 32 H 03/27/24 04:00 109/55 L 03/27/24 03:45 97 H 31 H 03/27/24 03:30 99 H 33 H 03/27/24 03:24 87 18 03/27/24 03:18 98 H 33 H 03/27/24 03:12 104 H 22 03/27/24 02:39 87 22 Pulse Ox O2 Del Method 03/27/24 12:15 03/27/24 12:00 96 Room Air 03/27/24 11:00 03/27/24 10:49 95 Room Air 03/27/24 10:05 03/27/24 09:03 89 L 03/27/24 08:06 88 L 03/27/24 08:01 03/27/24 08:00 03/27/24 07:57 94 03/27/24 07:00 77 L 03/27/24 07:00 03/27/24 07:00 03/27/24 06:03 94 03/27/24 05:18 03/27/24 05:15 94 03/27/24 04:54 86 L 03/27/24 04:30 93 03/27/24 04:00 87 L 03/27/24 04:00 03/27/24 03:45 86 L 03/27/24 03:30 86 L 03/27/24 03:24 96 03/27/24 03:18 93 03/27/24 03:12 93 03/27/24 02:39 97
[2024-03-28] MEDS: HYDROmorphone INJ 0.5 MG/0.5 ML SYR IV STA (04:57)
[2024-03-28 05:22] LABS: Basophils # (auto) 0.05 K/uL (0.00-0.20); Basophils % (auto) 0.3 %; Eosinophils # (auto) 0.14 K/uL (0.00-0.50); Eosinophils % (auto) 0.7 %; Hematocrit (blood only) 25.2 % (42.0-52.0); Hemoglobin 8.4 g/dl (14.0-18.0); Immature Granulocytes # (auto) 0.33 K/uL (0.01-0.20); Immature Granulocytes % (auto) 1.8 %; Lymphocytes # (auto) 1.16 K/uL (1.20-3.40); Lymphocytes % (auto) 6.2 %; Mean Corpuscular Hemoglobin 28.9 pg (25.0-34.0); Mean Corpuscular Hgb Conc 33.3 g/dL (32.0-36.0); Mean Corpuscular Volume 86.6 fL (80.0-100.0); Mean Platelet Volume 10.4 fL (9.4-12.4); Monocytes % (auto) 9.6 %; Neutrophils # (auto) 15.23 K/uL (1.40-6.50); Neutrophils % (auto) 81.4 %; Platelet Count 543 K/uL (130-400); RDW Standard Deviation 46.6 fL (36.4-46.3); Red Blood Count 2.91 M/uL (4.70-6.10); White Blood Count 18.71 K/ul (4.8-10.8)
[2024-03-28 05:40] LABS: Calcium 7.4 mg/dl (8.6-10.3); Est GFR (Non-African American) 8.6 ml/min; Magnesium 2.2 mg/dl (1.7-2.4); Potassium 3.7 mmol/L (3.5-5.1)
[2024-03-28] MEDS: LANTUS PER UNIT CHARGE SC SCH (08:04)
--- NOTE | 2024-03-28 08:07 | CT Scan Report ---
Exam(s): CT ABDOMEN + PELVIS Without Contrast EXAM: CT Abdomen and Pelvis Without Intravenous Contrast CLINICAL HISTORY: Reason for exam: abdominal pain. TECHNIQUE: Axial computed tomography images of the abdomen and pelvis without intravenous contrast. CTDI is 26 mGy and DLP is 1448 mGy-cm. Automated exposure control was utilized for the study. A dose lowering technique was utilized adhering to the principles of ALARA. COMPARISON: CT abdomen/pelvis with contrast dated march 24 2024 FINDINGS: Limitations: Limited evaluation in the absence of contrast. Lung bases: Mild dependent atelectatic changes. Pleural space: Small right pleural effusion. ABDOMEN: Liver: Unremarkable. Gallbladder and bile ducts: Unremarkable. No calcified stones. No ductal dilation. Pancreas: Unremarkable. No ductal dilation. Spleen: Unremarkable. No splenomegaly. Adrenals: Unremarkable. No mass. Kidneys and ureters: No evidence of radiopaque renal calculi or signs of collecting system dilatation. Diffuse perinephric and periureteral stranding. Findings may relate to patient's volume status. Sequela of ascending urinary tract infection also possible as seen on prior CT. Mildly enlarged bilateral kidneys, the left measuring 12.9 cm and the right measuring 12.7 cm in length. Stomach and bowel: No evidence of bowel obstruction. No mucosal thickening. PELVIS: Appendix: Normal appendix. Bladder: Unremarkable. No stones. Reproductive: Unremarkable as visualized. ABDOMEN and PELVIS: Intraperitoneal space: Unremarkable. No free air. No significant fluid collection. Bones/joints: Degenerative changes in the spine. No acute fracture. No dislocation. Soft tissues: Gynecomastia. Umbilical hernia containing fat. Vasculature: Atherosclerotic disease. No abdominal aortic aneurysm. Lymph nodes: Unremarkable. No enlarged lymph nodes. IMPRESSION: 1. Limited evaluation in the absence of contrast. 2. No evidence of radiopaque renal calculi or signs of collecting system dilatation. 3. Diffuse perinephric and periureteral stranding. Findings may relate to patient's volume status. Sequela of ascending urinary tract infection also possible as seen on prior CT. 4. Mildly enlarged bilateral kidneys, the left measuring 12.9 cm and the right measuring 12.7 cm in length. 5. No other acute findings. 6. Incidental findings as described. Electronically signed by: Elliot Reyes MD 03/28/24 08:06 AM
--- NOTE | 2024-03-28 10:20 | Dialysis Progress Note ---
Date of Service March 28, 2024 Assessment & Plan Admission and Anticipated Discharge Date Admission Date: March 20, 2024 Subjective Assessment & Plan (1) Acute renal failure with oliguria: Plan: anuric renal failure with unknown baseline and uremic sx (encephalopathy) w/ large kidneys and cortical thickening. Most likely had some preexisting CKD from DM. but we dont know the baseline creat He had emergent dialysis first given encephalopathy, anuria and severe renal failure. intubated in order to place dialysis catheter and to dialyze safely Dialysis today qb 300 Qd 600 take 2 kilo off No renal recovery. Plan for tunnelled HD cath by Dr Alvarenga. Consult placed. Can start the paperwork for outpt dialysis also. (2) Bacteremia due to Escherichia coli: Plan: TTE--normal. On abx. 3 ) Encephalopathy: Plan: Possibly uremic and septicemia. tox screen negative; head CT unremarkable. getting much better now. Subjective Seen on dialysis. he was having abd pain and nausea also even before dialysis. Having lot of pain and nausea now. Already had CT abdomen and did not really have So far tolerating fine. CVC working fine. Overall much better vital signs as well as mental status. also urine is lot more EXAM Constitutional: well developed, well nourished, much better now Respiratory: normal respiratory effort Auscultation: + diminished lung sounds Cardiovascular: Rate/Rhythm: + tachycardic Extremities: no edema Gastrointestinal (Abdomen): Diffuse tenderness in Abd Musculoskeletal: Extremities: strength 5/5 throughout Skin: no rashes, warm and dry Results & Data Vital Signs (Past 12 Hours) Vital Signs Temp Pulse Resp BP 03/28/24 06:15 101 H 25 H 03/28/24 06:06 99 H 15 03/28/24 05:33 102 H 33 H 03/28/24 05:00 99 H 23 03/28/24 04:51 104 H 23 03/28/24 04:30 98 H 20 03/28/24 03:45 85 21 03/28/24 03:30 36.9 C 121/65 03/28/24 03:30 85 21 03/28/24 03:21 87 22 03/28/24 02:45 84 21 03/28/24 02:30 96 H 21 03/28/24 02:15 101 H 29 H 03/28/24 01:48 90 25 H 03/28/24 01:36 84 21 03/28/24 01:06 85 21 03/28/24 00:45 90 24 03/28/24 00:36 92 H 27 H 03/28/24 00:21 92 H 13 03/28/24 00:00 89 23 03/27/24 23:45 95 H 28 H 03/27/24 23:36 99 H 14 03/27/24 23:18 98 H 28 H 03/27/24 23:03 96 H 21 03/27/24 22:45 94 H 17 03/27/24 22:33 94 H 27 H
[2024-03-28] MEDS: HYDROmorphone INJ 0.5 MG/0.5 ML SYR IV PRN (10:44)
[2024-03-28] MEDS: FAMOTIDINE 20MG IV PUSH 20 MG/5 ML SYR IV SCH (10:45)
--- NOTE | 2024-03-28 14:50 | Gastrointestinal Consultation ---
Date of Consultation March 28, 2024 Assessment & Plan (1) UTI (urinary tract infection): (2) Sepsis: (3) Abdominal pain: Plan Patient admitted with hyperglycemic crisis, encephalopathy and urosepsis in [facility] requiring hemodialysis now with abdominal pain and CT demonstrating nephritis. -Do not suspect a GI etiology to his abdominal pain/nausea. -Can consider adding Pantoprazole 40 mg daily for GI prophylaxis. -Continue medical management per primary team and nephrology. Thank you for allowing us to participate in the care of this patient. If you have any questions or concerns, please do not hesitate to contact us. Supervising Physician Co-Signing Physician Notes Agree with JENSEN Francis as above Abd: Soft, NT, ND Continue current therapy and supportive care Will follow clinical course and make further recommendations as needed History of Present Illness Reason for Consultation: Abdominal pain Requesting Physician: Rory Stovall Attending Physician: Wade Stovall MD History of Present Illness Patient is a 39 y.o. male admitted to the hospital with encephalopathy and found to be in hyperglycemic crisis and acute renal failure which has been r equiring hemodialysis. The patient resides in [place], [place] and no past medical history is accessible. History is limited as patient has limited [place]. He reports pelvic pain and right flank pain which has been improved with IV Dilaudid. There is associated nausea which is improved with antiemetics. CT a/p performed this morning was unremarkable from a GI perspective and demonstrated only nephritis. He is concurrently being treated for urosepsis and his WBC has been trending downward to 18.71 today. Per nursing, he has been having bowel movements that are not black or tarry or grossly bloody. Creatinine today was noted to be 7.22. Allergies Allergy/AdvReac Type Severity Reaction Status Date / Time No Known Allergies Allergy Unverified 03/20/24 00:57 Home Medications Medication Instructions Recorded Confirmed Type No Known Home Medications 03/20/24 03/20/24 History Patient History Medical History No chronic diseases present Surgical History No significant past surgical history Social History Smoking Status: Current some day smoker Tobacco Type: Cigarettes Hx Alcohol Use: No Hx Substance Use: No Preferred Language: [place] Islander Communication Ability: Unable Communication Tools: IPad and Language Line Vmware Consultant Vmware Consultant Required: Yes Beliefs That Will Affect Care: Confucianist Current Living Situation: Other Current Living Situation Comment: [facility]. Staying in [place] with friends for work Other Information That Helps Us Care for You: No Feels Safe at Home: Yes Safety Concerns: Feels Safe At This Time Review of Systems Constitutional: no fever and no chills Gastrointestinal: as per Subjective / HPI Physical Exam Constitutional: WD/WN, vitals as above Respiratory: normal respiratory effort, lungs clear to auscultation Cardiovascular: Rate/Rhythm: regular rate and regular rhythm Gastrointestinal (Abdomen): Inspection/Auscultation: normal bowel sounds and + significant pannus Percussion/Palpation: abdomen soft; abdomen nontender, no guarding and abdomen not rigid Results & Data Vital Signs (Past 12 Hours) Vital Signs Temp Pulse Pulse Pulse Resp BP BP 03/28/24 12:30 91 H 138/77 03/28/24 12:00 87 147/81 H 03/28/24 11:30 92 H 158/87 H 03/28/24 11:00 92 H 162/84 H 03/28/24 10:30 99 H 144/80 H 03/28/24 10:01 37.4 C 101 H 03/28/24 08:00 98 H 03/28/24 08:00 37.1 C 80 16 156/78 H 03/28/24 06:15 101 H 25 H 03/28/24 06:06 99 H 15 03/28/24 05:33 102 H 33 H 03/28/24 05:00 99 H 23 03/28/24 04:51 104 H 23 03/28/24 04:30 98 H 20 03/28/24 03:45 85 21 03/28/24 03:30 36.9 C 121/65 03/28/24 03:30 85 21 03/28/24 03:21 87 22 03/28/24 02:45 84 21 Pulse Ox O2 Del Method 03/28/24 12:30 03/28/24 12:00 03/28/24 11:30 03/28/24 11:00 03/28/24 10:30 03/28/24 10:01 03/28/24 08:00 03/28/24 08:00 96 Room Air 03/28/24 06:15 03/28/24 06:06 03/28/24 05:33 03/28/24 05:00 03/28/24 04:51 03/28/24 04:30 03/28/24 03:45 03/28/24 03:30 03/28/24 03:30 03/28/24 03:21 03/28/24 02:45 Diagnostic Findings Laboratory Results WBC 18.71 K/ul (4.8-10.8) H 03/28/24 04:48 RBC 2.91 M/uL (4.70-6.10) L 03/28/24 04:48 Hgb 8.4 g/dl (14.0-18.0) L 03/28/24 04:48 POC Hgb 10.5 g/dl (14.0-18.0) L 03/22/24 04:50 Hct 25.2 % (42.0-52.0) L 03/28/24 04:48 POC Hct 31 % (42-52) L 03/22/24 04:50 MCV 86.6 fL (80.0-100.0) 03/28/24 04:48 MCH 28.9 pg (25.0-34.0) 03/28/24 04:48 MCHC 33.3 g/dL (32.0-36.0) 03/28/24 04:48 RDW Std Deviation 46.6 fL (36.4-46.3) H 03/28/24 04:48 RDW Coeff of Eliza 15.0 % (11.5-14.5) H 03/28/24 04:48 Plt Count 543 K/uL (130-400) H 03/28/24 04:48 MPV 10.4 fL (9.4-12.4) 03/28/24 04:48 Immature Gran % (Auto) 1.8 % 03/28/24 04:48 Neut % (Auto) 81.4 % 03/28/24 04:48 Lymph % (Auto) 6.2 % 03/28/24 04:48 Imperial % (Auto) 9.6 % 03/28/24 04:48 Eos % (Auto) 0.7 % 03/28/24 04:48 Baso % (Auto) 0.3 % 03/28/24 04:48 Neut # (Auto) 15.23 K/uL (1.40-6.50) H 03/28/24 04:48 Lymph # (Auto) 1.16 K/uL (1.20-3.40) L 03/28/24 04:48 Imperial # (Auto) 1.80 K/uL (0.11-0.59) H 03/28/24 04:48 Eos # (Auto) 0.14 K/uL (0.00-0.50) 03/28/24 04:48 Baso # (Auto) 0.05 K/uL (0.00-0.20) 03/28/24 04:48 Immature Gran # (Auto) 0.33 K/uL (0.01-0.20) H 03/28/24 04:48 Absolute Nucleated RBC 0.03 K/uL (0.00-0.12) 03/22/24 04:32 Nucleated RBC % (auto) 0.1 % 03/22/24 04:32 Dohle Bodies 1+ 03/25/24 03:53 Polychromasia 1+ 03/24/24 03:46 Echinocytes 1+ 03/20/24 03:56 Peripher Smr Path Cons 03/20/24 14:25 Haptoglobin 318 mg/dL (43-212) H 03/20/24 14:25 PT 10.0 Seconds (9.0-12.0) 03/19/24 21:45 INR 0.9 (0.9-1.1) 03/19/24 21:45 APTT 26 Seconds (21-31) 03/19/24 21:45 PTT Ratio 1.0 03/19/24 21:45 Fibrinogen > 860 mg/dl (184-400) H 03/20/24 14:25 D-Dimer 4540 ug/L FEU (0-500) H* 03/20/24 14:25 vWF Cleav Pro [id number] 0.53 IU/mL (0.68-1.63) L 03/20/24 14:25 Sample Site Art Line 03/22/24 04:50 POC pH 7.38 (7.35-7.45) 03/22/24 04:50 POC pCO2 38 mmHg (35-46) 03/22/24 04:50 POC pO2 79 mmHg (80-95) L 03/22/24 04:50 POC HCO3 22 yessy/L (19-24) 03/22/24 04:50 POC Total CO2 23 mmol/L (24-31) L 03/22/24 04:50 POC Base Excess -3.0 yessy/L (-9-1.8) 03/22/24 04:50 ABG pH (Temp Correct) 7.358 (7.35-7.45) 03/22/24 04:50 ABG pCO2 (Temp Corrct 40 mmHg (35-46) 03/22/24 04:50 POC ABG pO2 at Pt Temp 86 03/22/24 04:50 POC ABG O2 Sat 95.0 % (90-95) 03/22/24 04:50 Eugene Test NA 03/22/24 04:50 VBG pH 7.33 (7.36-7.41) L 03/20/24 14:25 VBG pCO2 37 mmHg (38-50) L 03/19/24 23:05 VBG pO2 46 mmHg 03/19/24 23:05 VBG HCO3 17 mmol/L 03/19/24 23:05 VBG O2 Saturation 76.6 % 03/19/24 23:05 VBG Base Excess -9.2 mEq/L 03/19/24 23:05 O2 Delivery Device Ventilator 03/22/24 04:50 POC O2 Rate 24 03/22/24 04:50 Minute Ventilation 400 03/22/24 04:50 POC FiO2 40 % 03/22/24 04:50 Tidal Volume 400 03/22/24 04:50 PEEP 8 03/22/24 04:50 POC Sodium 129 mmol/L (135-144) L 03/22/24 04:50 Sodium 132 mmol/L (136-145) L 03/28/24 04:48 POC Potassium 4.0 mmol/L (3.3-5.0) 03/22/24 04:50 Potassium 3.7 mmol/L (3.5-5.1) 03/28/24 04:48 Chloride 98 mmol/L (98-107) 03/28/24 04:48 Carbon Dioxide 24 mmol/L (21-32) 03/28/24 04:48 Anion Gap 10 (3-11) 03/28/24 04:48 BUN 43 mg/dl (6-23) H 03/28/24 04:48 Creatinine 7.22 mg/dl (0.6-1.4) H* D 03/28/24 04:48 Est Cr Clr Drug Dosing 14.0 ml/min 03/28/24 04:48 Est GFR ( Amer) 10.0 ml/min 03/28/24 04:48 Est GFR (Non-Af Amer) 8.6 ml/min 03/28/24 04:48 BUN/Creatinine Ratio 6.0 (10-20) L 03/28/24 04:48 Glucose 188 mg/dl (70-99(Fasting)) H 03/28/24 04:48 POC Glucose 174 mg/dl (70-99) H 03/28/24 07:55 POC Glucose (other) 187 mg/dl (70-99) H 03/22/24 21:42 Estimat Average Glucose 260 mg/dl 03/20/24 Unknown Hemoglobin A1c 10.7 % (4.5-5.6) H 03/20/24 Unknown Osmolality 317 mOsm/kg (280-300) H 03/21/24 04:18 Lactate 1.1 mmol/L (0.4-2.0) 03/28/24 04:48 Calcium 7.4 mg/dl (8.6-10.3) L 03/28/24 04:48 Ionized Calcium 1.00 mmol/L (1.12-1.32) L 03/20/24 21:08 Phosphorus 8.8 mg/dl (2.5-4.9) H 03/24/24 03:46 Magnesium 2.2 mg/dl (1.7-2.4) 03/28/24 04:48 Total Bilirubin 1.6 mg/dl (0.2-1.0) H 03/19/24 21:45 AST 19 U/L (13-39) 03/19/24 21:45 ALT 41 U/L (7-52) 03/19/24 21:45 Alkaline Phosphatase 284 U/L (34-104) H 03/19/24 21:45 Ammonia 37.0 umol/L (18-72) 03/19/24 23:05 Lactate Dehydrogenase 433 U/L (86-244) H 03/20/24 14:25 Troponin I High Sens 23.9 pg/ml (0-20) H D 03/20/24 03:56 Total Protein 7.4 gm/dl (6.0-8.3) 03/19/24 21:45 Albumin 2.9 gm/dl (3.4-5.0) L 03/19/24 21:45 Globulin 4.5 gm/dl (2.5-4.0) H 03/19/24 21:45 Albumin/Globulin Ratio 0.6 (0.9-2) L 03/19/24 21:45 Triglycerides 419 mg/dl (0-150) H 03/21/24 04:18 Cholesterol 119 mg/dl (0-200) 03/21/24 04:18 LDL Cholesterol, Calc TNP 03/21/24 04:18 VLDL Cholesterol, Calc TNP 03/21/24 04:18 HDL Cholesterol 3 mg/dl 03/21/24 04:18 Cholesterol/HDL Ratio 39.7 (0-5) H 03/21/24 04:18 Vitamin B12 1091 pg/ml (180-914) H 03/20/24 14:25 TSH 1.142 uIu/ml (0.300-4.500) 03/19/24 21:45 Urine Color Yellow 03/19/24 21:50 Urine Appearance Cloudy (Clear) A 03/19/24 21:50 Urine pH 6.5 (4.5-7.5) 03/19/24 21:50 Ur Specific [place] 1.020 (1.000-1.030) 03/19/24 21:50 Urine Protein 3+ (Negative) H 03/19/24 21:50 Urine Glucose (UA) 2+ (Negative) H 03/19/24 21:50 Urine Ketones 1+ (Negative) H 03/19/24 21:50 Urine Blood 3+ (Negative) H 03/19/24 21:50 Urine Nitrite Positive (Negative) A 03/19/24 21:50 Urine Bilirubin 1+ (Negative) H 03/19/24 21:50 Urine Urobilinogen Negative (Negative) 03/19/24 21:50 Ur Leukocyte Esterase 3+ (Negative) H 03/19/24 21:50 Urine RBC 11-20 /hpf (0-2) H 03/19/24 21:50 Urine WBC >50 /hpf (0-5) H 03/19/24 21:50 Ur Epithelial Cells 6-10 /hpf (0-2) H 03/19/24 21:50 Urine Bacteria 2+ (None Seen) H 03/19/24 21:50 Urine Osmolality Cancelled 03/20/24 Unknown Ur Random Sodium Cancelled 03/20/24 Unknown Urine Sodium 108 mmol/L 03/21/24 00:15 Urine Potassium 15.6 mmol/L 03/21/24 00:15 Urine Chloride 69 mmol/L 03/21/24 00:15 CSF C.neoform/gat PCR Not Detected (NotDetected) 03/24/24 Unknown CSF CMV DNA (PCR) Not Detected (NotDetected) 03/24/24 Unknown CSF Enterovirus (PCR) Not Detected (NotDetected) 03/24/24 Unknown CSF E. coli K1 (PCR) Not Detected (NotDetected) 03/24/24 Unknown CSF H. influenzae (PCR) Not Detected (NotDetected) 03/24/24 Unknown CSF HSV I (PCR) Not Detected (NotDetected) 03/24/24 Unknown CSF HSV II (PCR) Not Detected (NotDetected) 03/24/24 Unknown CSF HHV 6 (PCR) Not Detected (NotDetected) 03/24/24 Unknown CSF L.monocytogenes PCR Not Detected (NotDetected) 03/24/24 Unknown CSF N. meningitidis PCR Not Detected (NotDetected) 03/24/24 Unknown CSF Parechovirus (PCR) Not Detected (NotDetected) 03/24/24 Unknown CSF S. agalactiae (PCR) Not Detected (NotDetected) 03/24/24 Unknown CSF S. pneumoniae (PCR) Not Detected (NotDetected) 03/24/24 Unknown CSF VZV DNA (PCR) Not Detected (NotDetected) 03/24/24 Unknown Nasal Screen MRSA (PCR) Negative (Negative) 03/20/24 03:50 Stl C. diff Tox B Gene Negative Cdiff Gene (Neg) 03/25/24 18:20 Urine Opiates Screen Neg (Neg) 03/19/24 21:50 Ur Methadone, Qual Neg (Neg) 03/19/24 21:50 Urine Fentanyl Screen Neg (Neg) 03/19/24 21:50 Acetaminophen 3 ug/ml (10-30) L 03/20/24 14:25 Urine Barbiturates Neg (Neg) 03/19/24 21:50 Ur Phencyclidine (PCP) Neg (Neg) 03/19/24 21:50 U Amphetamin/Meth Scrn Neg (Neg) 03/19/24 21:50 MDMA (Ecstasy) Screen Neg (Neg) 03/19/24 21:50 U Benzodiazepines Scrn Neg (Neg) 03/19/24 21:50 Ur Cocaine Metabolite Neg (Neg) 03/19/24 21:50 U Marijuana (THC) Screen Neg (Neg) 03/19/24 21:50 Ethylene Glycol <10.0 mg/L (see note) 03/20/24 11:06 Ethyl Alcohol mg/dL < 10.0 mg/dl (<10.0) 03/19/24 21:45 RPR Nonreactive (Nonreactive) 03/20/24 11:06 Adenovirus (PCR) Not Detected (NotDetected) 03/19/24 23:01 B. pertussis DNA (PCR) Not Detected (NotDetected) 03/19/24 23:01 B.parapertussis DNA PCR Not Detected (NotDetected) 03/19/24 23:01 C. pneumoniae DNA (PCR) Not Detected (NotDetected) 03/19/24 23:01 Coronavirus OC43 (PCR) Not Detected (NotDetected) 03/19/24 23:01 Coronavirus HKU1 (PCR) Not Detected (NotDetected) 03/19/24 23:01 Coronavirus 229E (PCR) Not Detected (NotDetected) 03/19/24 23:01 SARS-CoV-2 (PCR) Not Detected (NotDetected) 03/19/24 23:01 Coronavirus NL63 (PCR) Not Detected (NotDetected) 03/19/24 23:01 Enterobacterales (PCR) DETECTED (NotDetected) A 03/19/24 23:00 E. coli (PCR) DETECTED (NotDetected) A 03/19/24 23:00 Hep Bs Antigen NON-REACTIVE (NON-REACTIVE) 03/20/24 14:25 Hep Bs Ag Confirmation TNP 03/20/24 14:25 Hep Bs Antibody, Quant <5 mIU/mL (> OR = 10) L 03/20/24 14:25 Hep B Core IgM Ab NON-REACTIVE (NON-REACTIVE) 03/20/24 14:25 HIV (1&2) Ag & Ab Conf NON-REACTIVE (NON-REACTIVE) 03/20/24 14:25 Human Metapneumovir PCR Not Detected (NotDetected) 03/19/24 23:01 Influenza Type A (PCR) Not Detected (NotDetected) 03/19/24 23:01 Influenza Type B (PCR) Not Detected (NotDetected) 03/19/24 23:01 M. pneumoniae (PCR) Not Detected (NotDetected) 03/19/24 23:01 Parainfluenza 1 (PCR) Not Detected (NotDetected) 03/19/24 23:01 Parainfluenza 2 (PCR) Not Detected (NotDetected) 03/19/24 23:01 Parainfluenza 3 (PCR) Not Detected (NotDetected) 03/19/24 23:01 Parainfluenza 4 (PCR) Not Detected (NotDetected) 03/19/24 23:01 RSV (PCR) Not Detected (NotDetected) 03/19/24 23:01 Entero/Rhino (PCR) Not Detected (NotDetected) 03/19/24 23:01 mcr-1 Colistin Res Gene PCR Not Detected (NotDetected) 03/19/24 23:00 blaIMP Car res Gene PCR Not Detected (NotDetected) 03/19/24 23:00 KPC-Carbap Res Gene PCR Not Detected (NotDetected) 03/19/24 23:00 blaNDM Car Res Gene PCR Not Detected (NotDetected) 03/19/24 23:00 OXA-48 Carbapenem Resis Gene (PCR) Not Detected (NotDetected) 03/19/24 23:00 blaVIM Car Res Gene PCR Not Detected (NotDetected) 03/19/24 23:00 CTX-M Gene Resistance (PCR) Not Detected (NotDetected) 03/19/24 23:00 Bld Cult ID Panel PCR See PCR Comment (NotDetected) 03/19/24 23:[address] 03/20/24 01:28 Exam(s): CT CHEST Without Contrast EXAM: CT Chest Without Intravenous Contrast CLINICAL HISTORY: Cough. TECHNIQUE: Axial computed tomography images of the chest without intravenous contrast. CTDI is 28 mGy and DLP is 1596 mGy-cm. Automated exposure control was utilized for the study. A dose lowering technique was utilized adhering to the principles of ALARA. COMPARISON: No relevant prior studies available. FINDINGS: Lungs: Interseptal thickening could relate to atelectasis and/or pulmonary edema. No mass. Pleural space: Unremarkable. No pneumothorax. No significant effusion. Heart: Unremarkable. No cardiomegaly. No significant pericardial effusion. No significant coronary artery calcifications. Bones/joints: There are degenerative changes of the spine. Fusion of T3, T4 and T5 with posterior screws and rods extending from the cervical spine through T8. No acute fracture. No dislocation. Soft tissues: Unremarkable. Vasculature: Unremarkable. No thoracic aortic aneurysm. Lymph nodes: Unremarkable. No enlarged lymph nodes. IMPRESSION: Interseptal thickening could relate to atelectasis, atypical infection and/or pulmonary edema. Electronically signed by: Tracee Iqbal MD 03/20/24 03:58 AM Renal Artery Duplex 03/20/24 10:34 DOPPLER ULTRASOUND OF THE RENAL ARTERIES CLINICAL HISTORY: Acute renal insufficiency. COMPARISON STUDY: Renal ultrasound dated 03/20/2024. Abdominal CT dated 03/20/2024. TECHNIQUE: Doppler sonography of the renal arteries was performed to assess renal artery stenosis. Images are reviewed in the transverse and longitudinal planes. The examination is degraded by lack of patient cooperation. FINDINGS: The kidneys appear enlarged with cortical thickening. Echotexture is normal. The right kidney measures 14.2 cm in length and the left kidney measures 14.0 cm in length. There is no hydronephrosis. On the right, intrarenal arterial resistive indices range from 0.71 to 0.81. Intrarenal arterial waveforms are normal with brisk upstrokes. The proximal right renal artery is not visualized. Velocities within the mid to distal portions measure up to 232 cm/sec. The right renal vein is patent. On the left, intrarenal arterial resistive indices range from 0.47 to 0.76. Intrarenal arterial waveforms are normal with brisk upstrokes. The left renal arterial waveform is normal, and velocities within the left renal artery measure up to 112 cm/sec. The left renal vein is patent. The abdominal aorta is patent. Velocities within the abdominal aorta measure up to 121 cm/s. IMPRESSION: 1. The kidneys are enlarged and show cortical thickening. 2. There are mildly elevated velocities within the mid right renal artery. No significant atherosclerotic plaque was seen by CT and this may be artifactual. Stenosis is not excluded. 3. There is no sonographic evidence of left renal artery stenosis. ACT 112: Negative or not required by law. Electronically signed by: Rui Tee M.D. 03/20/2024 12:[address] 03/24/24 08:03 CT SCAN OF THE BRAIN WITHOUT IV CONTRAST CLINICAL HISTORY: Encephalopathy. COMPARISON STUDY: CT of the brain dated 03/20/2024. TECHNIQUE: Unenhanced axial CT scan of the brain is performed from the vertex to the skull base. A dose lowering technique was utilized adhering to the principles of ALARA. FINDINGS: Brain parenchyma: The brain parenchyma is normal in appearance. There is no hemorrhage, mass effect, or evidence of acute territorial ischemia by CT criteria. Alfonso-white matter differentiation is preserved. No extra-axial fluid collection is seen. Ventricles, sulci, cisterns: Normal in configuration. Intracranial vasculature: The visualized intracranial vasculature at the skull base is normal in appearance. Calvarium: Unremarkable. Sinuses and mastoids: There is mild mucosal thickening within the ethmoid sinuses. The remaining paranasal sinuses are clear. There is evidence of previous right mastoid surgery. There is fluid within the remaining right mastoid air cells as well as the right middle ear. The left the mastoid air cells are well pneumatized. Orbits: The bony orbits are grossly intact. IMPRESSION: There is no hemorrhage, mass effect, or evidence of acute territorial ischemia by CT criteria. ACT 112: Negative or not required by law. Electronically signed by: Rui Tee M.D. 03/24/2024 9:48 AM KUB X-Ray 03/24/24 14:16 KUB CLINICAL HISTORY: Enteric tube placement. FINDINGS: 2 AP, portable, supine abdominal radiographs are correlated with abdominal CT performed the same day 03/24/2024. An enteric tube has been placed. The tip is coiled above the gastroesophageal junction. No bowel obstruction is seen. No evidence of intraperitoneal free air is seen on these supine images. There are no abnormal abdominal calcifications. The bony structures appear intact. Postsurgical change is seen in the thoracic spine. IMPRESSION: 1. An enteric tube is coiled in the distal esophagus above the gastroesophageal junction. Repositioning is indicated. 2. No bowel obstruction is identified. Electronically signed by: Rui Tee M.D. 03/24/2024 2:40 PM Chest X-Ray 03/26/24 08:44 XR chest 1V portable CLINICAL HISTORY: CHF TECHNIQUE: Single frontal radiograph of the chest was obtained. Comparison: Comparison is made to chest radiograph 03/24/2024 FINDINGS: Posterior fixation hardware is seen. Stable right venous catheter. Cardiomegaly is noted. Prominence and cephalization of the vasculature is seen. No evidence of pleural effusion or pneumothorax. IMPRESSION: Cardiomegaly and mild pulmonary edema. Findings are increased from prior exam. Previously noted airspace opacities have resolved, likely representing atelectasis.. ACT 112: Negative or not required by law. Electronically signed by: Eloy Sparks M.D. 03/26/2024 9:32 AM Renal Ultrasound 03/26/24 10:09 RENAL ULTRASOUND HISTORY: Follow-up study in a patient with renal enlargement R/o fluid collection around kidney COMPARISON: CT 03/24/2024 FINDINGS: Right kidney: 15.2 cm. No fluid collections. Nonshadowing 3 mm echogenic focus in the interpolar distribution, likely renal sinus fat. No shadowing renal calculi identified. No hydronephrosis. Diffuse heterogeneity of the parenchyma redemonstrated. Left kidney: 14.7 cm. No fluid collections. No shadowing calculi. No hydronephrosis. Cc heterogeneity of the parenchyma redemonstrated. Bladder: No bladder wall thickening. The bilateral ureteral jets were not identified. IMPRESSION: 1. No definite renal calculi or hydronephrosis. 2. No fluid collections. 3. Renal enlargement with parenchymal echogenicity redemonstrated, better evaluated on the comparison CT. As previously described, these findings should be correlated with urinalysis. ACT 112: Negative or not required by law. Electronically signed by: Augusto Morris M.D. 03/26/2024 11:52 AM Abdomen/Pelvis CT 03/28/24 04:42 Exam(s): CT ABDOMEN + PELVIS Without Contrast EXAM: CT Abdomen and Pelvis Without Intravenous Contrast CLINICAL HISTORY: Reason for exam: abdominal pain. TECHNIQUE: Axial computed tomography images of the abdomen and pelvis without intravenous contrast. CTDI is 26 mGy and DLP is 1448 mGy-cm. Automated exposure control was utilized for the study. A dose lowering technique was utilized adhering to the principles of ALARA. COMPARISON: CT abdomen/pelvis with contrast dated march 24 2024 FINDINGS: Limitations: Limited evaluation in the absence of contrast. Lung bases: Mild dependent atelectatic changes. Pleural space: Small right pleural effusion. ABDOMEN: Liver: Unremarkable. Gallbladder and bile ducts: Unremarkable. No calcified stones. No ductal dilation. Pancreas: Unremarkable. No ductal dilation. Spleen: Unremarkable. No splenomegaly. Adrenals: Unremarkable. No mass. Kidneys and ureters: No evidence of radiopaque renal calculi or signs of collecting system dilatation. Diffuse perinephric and periureteral stranding. Findings may relate to patient's volume status. Sequela of ascending urinary tract infection also possible as seen on prior CT. Mildly enlarged bilateral kidneys, the left measuring 12.9 cm and the right measuring 12.7 cm in length. Stomach and bowel: No evidence of bowel obstruction. No mucosal thickening. PELVIS: Appendix: Normal appendix. Bladder: Unremarkable. No stones. Reproductive: Unremarkable as visualized. ABDOMEN and PELVIS: Intraperitoneal space: Unremarkable. No free air. No significant fluid collection. Bones/joints: Degenerative changes in the spine. No acute fracture. No dislocation. Soft tissues: Gynecomastia. Umbilical hernia containing fat. Vasculature: Atherosclerotic disease. No abdominal aortic aneurysm. Lymph nodes: Unremarkable. No enlarged lymph nodes. IMPRESSION: 1. Limited evaluation in the absence of contrast. 2. No evidence of radiopaque renal calculi or signs of collecting system dilatation. 3. Diffuse perinephric and periureteral stranding. Findings may relate to patient's volume status. Sequela of ascending urinary tract infection also possible as seen on prior CT. 4. Mildly enlarged bilateral kidneys, the left measuring 12.9 cm and the right measuring 12.7 cm in length. 5. No other acute findings. 6. Incidental findings as described. Electronically signed by: Elliot Reyes MD 03/28/24 08:06 AM PG Care Time/CCT Total # of Minutes Spent Total Time Spent with Patient: Total time spent is greater than 50% in coordination of care (as documented) at patient's floor/unit and/or counseling patient: Coding Level of Care Code 28460 OFFICE CONSULT LVL M Diagnoses Acute pyelonephritis N10 Urinary tract infection type: acute pyelonephritis Sepsis due to Escherichia coli with acute renal failure without septic shock, unspecified acute renal failure type A41.51; R65.20; N17.9 Acute renal failure type: unspecified Sepsis acute organ dysfunction status: with acute organ dysfunction Sepsis type: Escherichia coli Severe sepsis acute organ dysfunction type: acute renal failure Severe sepsis shock status: without septic shock Abdominal pain R10.9 (1) UTI (urinary tract infection) Urinary tract infection type: acute pyelonephritis Qualified Code(s): N10 - Acute pyelonephritis (2) Sepsis Acute renal failure type: unspecified Sepsis acute organ dysfunction status: with acute organ dysfunction Sepsis type: Escherichia coli Severe sepsis acute organ dysfunction type: acute renal failure Severe sepsis shock status: without septic shock Qualified Code(s): A41.51 - Sepsis due to Escherichia coli [E. coli]; R65.20 - Severe sepsis without septic shock; N17.9 - Acute kidney failure, unspecified
--- NOTE | 2024-03-28 15:52 | Communication Note ---
Date of Service: March 28, 2024 Will plan on a permcath insertion on Tuesday this week if he still needs dialysis
--- NOTE | 2024-03-28 17:08 | Hospitalist Progress Note ---
Date of Service March 28, 2024 Assessment & Plan (1) Encephalopathy: Plan: Acute metabolic encephalopathy Likely multifactorial secondary to sepsis, azotemia, hyponatremia, DKA --CT head:There is no hemorrhage, mass effect, or evidence of acute territorial ischemia by CT criteria. --S/P extubation S/P LP --Cannot do MRI due to spinal rods Mental status back to baseline Monitor Sepsis E. coli bacteremia Acute pyelonephritis --CT ABD:The kidneys are enlarged and edematous. No hydronephrosis is seen. There is markedly heterogeneous enhancement of both kidneys, right greater than left with perinephric inflammation and fluid. Correlate with clinical findings and urinalysis for evidence of infection/pyelonephritis. There is phlegmonous change with a small focus of gas involving the lower pole of the right kidney. No organized/drainable fluid collection is seen at this time to indicate abscess. The bladder wall appears thickened with surrounding inflammation and there is urothelial thickening with surrounding inflammation involving the ureters. Again, this could be related to cystitis/infection. Small pleural effusions with airspace consolidation at both lung bases. Trace abdominal pelvic ascites. Hepatomegaly and hepatic steatosis. --Blood, urine culture growing E. coli --Repeat blood cultures negative --CSF culture negative Continue IV Rocephin--need to complete 10 to 14 days of antibiotic course from first negative culture Continued abdominal pain Added PPI GI consulted Leukocytosis trending down Will obtain repeat stool for C. difficile if develops diarrhea Hyperglycemic crisis (combined HHS/DKA) New diagnosis DM HbA1c 10.7 IV insulin discontinued Continue SQ insulin while hospitalized Monitor BGs Appreciate glycemic pharmacist input and recommendation Acute renal failure Likely complicated by sepsis with ATN Requiring dialysis If continues to require dialysis, plan for tunneled hemodialysis catheter by vascular on Tuesday Continue dialysis as per nephrology Appreciate nephrology, vascular input next Avoid nephrotoxic agents as able Monitor renal function Probable YENNI/OHS Will need sleep study as outpatient Hyponatremia Severe hyponatremia with sodium of 109 on admission Sodium levels improved to 132 Monitor Past tobacco abuse Thrombocytopenia possibly from sepsis Nicotine replacement therapy as needed Thrombocytopenia resolved DVT Px: Heparin SQ CODE STATUS Full code Admission and Anticipated Discharge Date Admission Date: March 20, 2024 Subjective Patient is seen and examined at bedside States having abdominal pain associated nausea Had hemodialysis earlier today CT abdomen showed no acute findings No diarrhea today Denies any chest pain, dyspnea No other complaints Review of Systems Review of Systems: All systems reviewed & are unremarkable except as noted in Subjective Physical Exam Physical Exam: Physical Exam: Vitals signs as noted above General Appearance:Moderately built and nourished, no apparent distress Head: normocephalic, Atraumatic Eyes: normal inspection, EOMI Neck: supple, Trachea midline Respiratory/Chest: Decreased breath sounds, CTA, No accessory muscle use Cardiovascular: S1, S2, No murmur Abdomen/GI:Soft, +mild tender, Bowel sounds present Extremities/Musculoskeletal:normal inspection, no edema Neurologic/Psych:AAOX3, grossly no focal neurological deficits Skin: normal color, warm Results & Data Results & Data Vital Signs (Past 12 Hours) Vital Signs Temp Pulse Pulse Pulse Resp BP BP 03/28/24 16:43 37 C 03/28/24 16:33 100 H 21 119/62 03/28/24 16:18 99 H 19 03/28/24 16:00 102 H 20 03/28/24 16:00 96 H 03/28/24 15:06 100 H 21 03/28/24 14:44 37 C 103 H 16 03/28/24 14:42 105 H 20 03/28/24 14:40 161/86 H 03/28/24 14:20 37.4 C 89 138/77 03/28/24 14:00 88 140/76 03/28/24 13:30 87 146/77 H 03/28/24 13:00 98 H 156/82 H 03/28/24 12:30 91 H 138/77 03/28/24 12:00 87 147/81 H 03/28/24 11:30 92 H 158/87 H 03/28/24 11:00 92 H 162/84 H 03/28/24 10:30 99 H 144/80 H 03/28/24 10:01 37.4 C 101 H 03/28/24 09:48 106 H 18 03/28/24 09:00 101 H 32 H 03/28/24 08:03 104 H 25 H 03/28/24 08:00 98 H 03/28/24 08:00 37.1 C 80 16 03/28/24 07:00 102 H 24 03/28/24 06:15 101 H 25 H 03/28/24 06:06 99 H 15 03/28/24 05:33 102 H 33 H 03/28/24 05:00 99 H 23 BP Pulse Ox O2 Del Method 03/28/24 16:43 95 Room Air 03/28/24 16:33 03/28/24 16:18 03/28/24 16:00 03/28/24 16:00 03/28/24 15:06 95 Room Air 03/28/24 14:44 161/86 H 95 Room Air 03/28/24 14:42 03/28/24 14:40 03/28/24 14:20 03/28/24 14:00 03/28/24 13:30 03/28/24 13:00 03/28/24 12:30 03/28/24 12:00 03/28/24 11:30 03/28/24 11:00 03/28/24 10:30 03/28/24 10:01 03/28/24 09:48 03/28/24 09:00 03/28/24 08:03 03/28/24 08:00 03/28/24 08:00 156/78 H 96 Room Air 03/28/24 07:00 03/28/24 06:15 03/28/24 06:06 03/28/24 05:33 03/28/24 05:00 Laboratory Results Short CBC 03/28/24 Range/Units 04:48 WBC 18.71 H (4.8-10.8) K/ul Hgb 8.4 L (14.0-18.0) g/dl Hct 25.2 L (42.0-52.0) % Plt Count 543 H (130-400) K/uL BMP 03/28/24 04:48 Sodium 132 L Potassium 3.7 Chloride 98 Carbon Dioxide 24 BUN 43 H Creatinine 7.22 H* D Glucose 188 H Calcium 7.4 L
[2024-03-28] MEDS: PANTOprazole 40 MG TAB PO SCH (17:57)
[2024-03-29 05:11] LABS: Hematocrit (blood only) 24.1 % (42.0-52.0); Hemoglobin 7.9 g/dl (14.0-18.0); Mean Corpuscular Hemoglobin 28.6 pg (25.0-34.0); Mean Corpuscular Hgb Conc 32.8 g/dL (32.0-36.0); Mean Corpuscular Volume 87.3 fL (80.0-100.0); Mean Platelet Volume 10.1 fL (9.4-12.4); Platelet Count 506 K/uL (130-400); RDW Coefficient of Variation 14.6 % (11.5-14.5); Red Blood Count 2.76 M/uL (4.70-6.10); White Blood Count 16.18 K/ul (4.8-10.8)
[2024-03-29 05:59] LABS: BUN Creatinine Ratio 4.7 (10-20); Calcium 7.4 mg/dl (8.6-10.3); Creatinine Clr Calc Pharmacy 19.6 ml/min; Est GFR (African American) 15.2 ml/min; Est GFR (Non-African American) 13.1 ml/min; Potassium 3.6 mmol/L (3.5-5.1)
[2024-03-29] MEDS ORDERED: FAMOTIDINE 20MG IV PUSH 20 MG/5 ML SYR IV PRN (09:42)
--- NOTE | 2024-03-29 10:02 | Pharmacy Report ---
Pharmacy Glycemic Short Note 2 - Date of Service March 29, 2024 - Glycemic Short BSG Results (Last 24 hours): 03/28/24 03/28/24 03/28/24 14:47 16:38 20:42 Glucose POC Glucose 119 H 151 H 120 H 03/29/24 03/29/24 04:54 07:23 Glucose 162 H POC Glucose 124 H OUTPATIENT ANTIDIABETIC REGIMEN: * Not taking any medications currently (previously on orals) * HbA1c 10.7% (03/20/24) ASSESSMENT: 03/29: * Patient received total 21 units of insulin yesterday: 20 units basal and only 1 unit bolus. * BSGs yesterday were [phone] mg/dl. Fasting BSG today was 124 mg/dl. * He received hemodialysis yesterday and current basal and bolus parameters seem to be appropriate and providing good control. Will continue the same. 03/26: * Patients received 17 units of insulin yesterday 15 of which were basal. BSGs were [phone] mg/dL and fasting this morning was 173 mg/dL. * Patient initiated on a diet yesterday and started eating this morning. AM lantus scale called for increased lantus dose of 20 units this morning. Will likely require this dose or slightly increased dose tomorrow given diet initiation. * Will monitor post prandial BSG trends today and adjust tomorrow accordingly. 03/23: * Patient was transitioned off insulin drip for only a short period yesterday and then it was resumed for BSGs persistently above 200 mg/dL. Insulin drip ran at 0.8 units/hr overnight. * Still NPO and encephalopathic. No HD today. Orders in for HD tomorrow. * Will give an increased basal dose this AM and shut insulin drip off. Novolog again will be started based on weight/stress of 2-3 with q4 checks to start. May need tightened throughout the evening. Would be hesitant to give any more basal today. 03/22: * Insulin drip ran all day yesterday at 2 units/hr. Patient has required 3 straight days of hemodialysis. * Discussed on ICU rounds. Still requiring norepinephrine, currently running at 0.04 mcg/kg/min. Patient was extubated this afternoon. Facilities Specialist okay with transitioning off insulin drip at this time. * Will give 15 units basal x 1 dose. Overlap with the insulin drip for 2 hours and shut drip off (currently running at 0.8 units/hr). * Novolog will be ordered q4 with goal range 120-160. Carb ratio and correction will be based on weight/stress of 2-3. 6/5: * Patient completed 2.5 hours of HD yesterday, ending at ~2000. He is now intubated and on pressors in the ICU. * Since resuming the insulin drip at a lower rate of 2 units/hr yesterday, BSG's have remained in goal range consistently and no drip titrations have been needed * Discussed on ICU rounds - per Dr. Post, continue insulin drip but reduce goal range to 150-250 mg/dL 03/20: * 39 yo M w hx T2DM but not on any current medications admitted with complicated clinical picture of sepsis possibly 2nd urinary source, acute renal failure, hyponatremia, DKA (acidosis and anion gap noted) and possible HHS (calculated effective osmolality not elevated, but serum was) * Discussed extensively at ICU rounds - prefer to keep BSG's higher 2nd possible HHS and goal range was adjusted to 250-350 mg/dL, per Dr. Post. Insulin drip was temporarily put on hold for BSG below goal, per Dr. Post. OK to hold despite also having DKA picture as CO2 has normalized and pH is now elevated. Patient is not producing urine at this time. * Discussed fluids extensively as well - Plasmalyte w/o potassium reasonable as K is high/normal and patient is not making urine. OK to hold off on adding dextrose as insulin not as necessary at this time 2nd pH elevation and normal CO2. * Will continue to follow labs and make adjustments to regimen, with input from Dr. Post. * Discussed w Dr. Post again at 1630 - OK to resume insulin drip at this time. Discussed goal range of 250-350 mg/dL and resuming at lower rate of 2 units/hr. Discussed fluids - stopping all fluids. May or may not be DKA, but either way patient doesn't need dextrose at this point to keep BSG >250. Discussed pending order to flag RN to notify advertising dispatch clerks supervisor if/when insulin drip falls below 1 unit/hr to consider need for supplemental dextrose at this time. Dr. Post agreed. HD planned for today. PLAN FOR INPATIENT GLYCEMIC CONTROL: * Basal * Lantus 20 units SC QAM * Bolus * Accuchecks ACHS * Goal range: 110 - 140 mg/dL * Correction factor: 1 unit for every 25 mg/dL over goal range * Carb ratio: 1 unit for every 8 g of CHO eaten
--- NOTE | 2024-03-29 15:21 | Communication Note ---
Date of Service: March 29, 2024 Will keep patient npo after midnight tonight for planned permcath tuesday unless nephrology wants to hold off on the permcath insertion.
--- NOTE | 2024-03-29 16:33 | Hospitalist Progress Note ---
Date of Service March 29, 2024 Assessment & Plan (1) Encephalopathy: Plan: Acute metabolic encephalopathy Likely multifactorial secondary to sepsis, azotemia, hyponatremia, DKA --CT head:There is no hemorrhage, mass effect, or evidence of acute territorial ischemia by CT criteria. --S/P extubation S/P LP --Cannot do MRI due to spinal rods Mental status back to baseline Monitor Sepsis E. coli bacteremia Acute pyelonephritis --CT ABD:The kidneys are enlarged and edematous. No hydronephrosis is seen. There is markedly heterogeneous enhancement of both kidneys, right greater than left with perinephric inflammation and fluid. Correlate with clinical findings and urinalysis for evidence of infection/pyelonephritis. There is phlegmonous change with a small focus of gas involving the lower pole of the right kidney. No organized/drainable fluid collection is seen at this time to indicate abscess. The bladder wall appears thickened with surrounding inflammation and there is urothelial thickening with surrounding inflammation involving the ureters. Again, this could be related to cystitis/infection. Small pleural effusions with airspace consolidation at both lung bases. Trace abdominal pelvic ascites. Hepatomegaly and hepatic steatosis. --Blood, urine culture growing E. coli --Repeat blood cultures negative --CSF culture negative Continue IV Rocephin--need to complete 10 to 14 days of antibiotic course from first negative culture Continued abdominal pain Added PPI GI consulted Leukocytosis trending down Will obtain repeat stool for C. difficile if develops diarrhea Clinically improving, Continue current management Abdominal pain better, tolerating diet today Hyperglycemic crisis (combined HHS/DKA) New diagnosis DM HbA1c 10.7 IV insulin discontinued Continue SQ insulin while hospitalized Monitor BGs Appreciate glycemic pharmacist input and recommendation Acute renal failure Likely complicated by sepsis with ATN Requiring dialysis If continues to require dialysis, plan for tunneled hemodialysis catheter by vascular on Tuesday Continue dialysis as per nephrology Appreciate nephrology, vascular input next Avoid nephrotoxic agents as able Monitor renal function Probable YENNI/OHS Will need sleep study as outpatient Hyponatremia Severe hyponatremia with sodium of 109 on admission Sodium levels improved to 133 Monitor Past tobacco abuse Thrombocytopenia possibly from sepsis Nicotine replacement therapy as needed Thrombocytopenia resolved DVT Px: Heparin SQ CODE STATUS Full code Admission and Anticipated Discharge Date Admission Date: March 20, 2024 Subjective Patient is seen and examined at bedside Abdominal pain better when compared to yesterday Tolerating current diet Still has some diarrhea and nausea this morning No other complaints Review of Systems Review of Systems: All systems reviewed & are unremarkable except as noted in Subjective Physical Exam Physical Exam: Physical Exam: Vitals signs as noted above General Appearance:Moderately built and nourished, no apparent distress Head: normocephalic, Atraumatic Eyes: normal inspection, EOMI Neck: supple, Trachea midline Respiratory/Chest: Decreased breath sounds, CTA, No accessory muscle use Cardiovascular: S1, S2, No murmur Abdomen/GI:Soft, +mild tender, Bowel sounds present Extremities/Musculoskeletal:normal inspection, no edema Neurologic/Psych:AAOX3, grossly no focal neurological deficits Skin: normal color, warm Results & Data Results & Data Vital Signs (Past 12 Hours) Vital Signs Temp Pulse Pulse Pulse Resp BP BP 03/29/24 15:15 93 H 03/29/24 15:03 36.9 C 84 18 123/77 03/29/24 14:00 90 20 142/72 H 03/29/24 13:43 97 H 18 133/79 03/29/24 13:31 87 18 125/76 03/29/24 13:15 87 16 03/29/24 11:30 36.8 C 88 18 139/83 03/29/24 07:52 36.8 C 97 H 18 152/86 H 03/29/24 07:30 96 H 03/29/24 05:50 96 H 03/29/24 05:47 03/29/24 05:47 36.8 C 93 H 18 152/81 H BP Pulse Ox O2 Del Method 03/29/24 15:15 03/29/24 15:03 95 Room Air 03/29/24 14:00 94 Room Air 03/29/24 13:43 96 Room Air 03/29/24 13:31 97 Room Air 03/29/24 13:15 126/73 97 Room Air 03/29/24 11:30 96 Room Air 03/29/24 07:52 93 Room Air 03/29/24 07:30 03/29/24 05:50 03/29/24 05:47 Room Air 03/29/24 05:47 95 Room Air Laboratory Results Short CBC 03/29/24 Range/Units 04:54 WBC 16.18 H (4.8-10.8) K/ul Hgb 7.9 L (14.0-18.0) g/dl Hct 24.1 L (42.0-52.0) % Plt Count 506 H (130-400) K/uL BMP 03/29/24 04:54 Sodium 133 L Potassium 3.6 Chloride 99 Carbon Dioxide 27 BUN 24 H Creatinine 5.10 H* D Glucose 162 H Calcium 7.4 L
--- NOTE | 2024-03-29 22:44 | Communication Note ---
Date of Service: March 29, 2024
[2024-03-30] MEDS ORDERED: Nursing to Pharmacy Communication SCH ×2 (00:15→21:45)
[2024-03-30] MEDS: guaiFENesin SUGAR FREE 200 MG/10 ML UDC PO PRN (00:26)
[2024-03-30 00:42] LABS: Adenovirus PCR Not Detected (NotDetected); Bordetella parapertussis PCR Not Detected (NotDetected); Bordetella pertussis PCR Not Detected (NotDetected); Chlamydia pneumoniae PCR Not Detected (NotDetected); Coronavirus 229E PCR Not Detected (NotDetected); Coronavirus CoV-2 (COVID19)PCR Not Detected (NotDetected); Coronavirus HKU1 PCR Not Detected (NotDetected); Coronavirus NL63 PCR Not Detected (NotDetected); Coronavirus OC43PCR Not Detected (NotDetected); Human Metapneumovirus PCR Not Detected (NotDetected); Influenza A PCR Not Detected (NotDetected); Influenza B PCR Not Detected (NotDetected); Mycoplasma pneumoniae PCR Not Detected (NotDetected); Parainfluenza Virus 1 PCR Not Detected (NotDetected); Parainfluenza Virus 2 PCR Not Detected (NotDetected); Parainfluenza Virus 3 PCR Not Detected (NotDetected); Parainfluenza Virus 4 PCR Not Detected (NotDetected); Respiratory Syncytial VirusPCR Not Detected (NotDetected); Rhinovirus/Enterovirus PCR Not Detected (NotDetected)
[2024-03-30] MEDS: INSULIN ASPART PER UNIT CHARGE SC SCH ×2 (06:00→22:33)
[2024-03-30 06:38] LABS: Hematocrit (blood only) 24.9 % (42.0-52.0); Hemoglobin 8.3 g/dl (14.0-18.0); Mean Corpuscular Hemoglobin 28.9 pg (25.0-34.0); Mean Corpuscular Hgb Conc 33.3 g/dL (32.0-36.0); Mean Corpuscular Volume 86.8 fL (80.0-100.0); Mean Platelet Volume 10.2 fL (9.4-12.4); Platelet Count 515 K/uL (130-400); RDW Coefficient of Variation 14.2 % (11.5-14.5); RDW Standard Deviation 44.4 fL (36.4-46.3); Red Blood Count 2.87 M/uL (4.70-6.10); White Blood Count 18.27 K/ul (4.8-10.8)
--- NOTE | 2024-03-30 07:02 | XRay Report ---
SINGLE VIEW CHEST CLINICAL HISTORY: Cough FINDINGS: An AP, portable, upright chest radiograph is compared to study dated 03/26/2024. A right int ernal jugular central venous catheter is unchanged in position. A left internal jugular central venou s catheter has been removed. The heart is enlarged. There is pulmonary vascular congestion. Atelectas is is noted at the lung bases. No large pleural effusion or pneumothorax is seen. The bony thorax is grossly intact. Extensive fusion hardware is seen throughout the cervicothoracic spine. IMPRESSION: 1. Cardiomegaly with pulmonary vascular congestion. This appears modestly improved from previous. 2. No airspace consolidation or large pleural effusion is identified ACT 112: Negative or not required by law. Electronically signed by: Rui Tee M.D. 03/30/2024 7:00 AM
[2024-03-30 07:11] LABS: BUN Creatinine Ratio 5.2 (10-20); Calcium 7.6 mg/dl (8.6-10.3); Creatinine Clr Calc Pharmacy 14.4 ml/min; Est GFR (African American) 10.4 ml/min; Est GFR (Non-African American) 8.9 ml/min; Magnesium 1.9 mg/dl (1.7-2.4); Potassium 4.2 mmol/L (3.5-5.1)
--- NOTE | 2024-03-30 09:17 | History & Physical Bridge Note ---
Date of Service March 30, 2024 History & Physical Bridge Note Patient for permcath insertion today I have discussed the risks options and benefits of the procedure with the patient. The patient understands the risks options and benefits and agrees to the procedure. I have examined the patient, reviewed the History & Physical and in the interval since the performance of the History & Physical I have noted the following changes of clinical significance: no changes noted
--- NOTE | 2024-03-30 10:02 | Consultation ---
Date of Consultation March 30, 2024 Assessment & Plan (1) Acute renal failure: PermCath insertion was recommended. I have discussed the risks options and benefits of the procedure with the patient. The patient understands the risks options and benefits and agrees to the procedure. Thank you very much for letting us participate in the care of this patient. History of Present Illness Reason for Consultation: Acute kidney injury Attending Physician: Wade Stovall MD History of Present Illness This is a 39-year-old gentleman who presented with encephalopathy and acute kidney injury. Temporary dialysis catheter was placed and patient is on dialysis at this point. His kidney still not recovered at this time. Consult was obtained for insertion of a PermCath for dialysis. Allergies Allergy/AdvReac Type Severity Reaction Status Date / Time No Known Allergies Allergy Unverified 03/20/24 00:57 Home Medications Medication Instructions Recorded Confirmed Type No Known Home Medications 03/20/24 03/20/24 History Patient History Medical History No chronic diseases present Surgical History No significant past surgical history Social History Smoking Status: Current some day smoker Tobacco Type: Cigarettes Hx Alcohol Use: No Hx Substance Use: No Preferred Language: Burmese Communication Ability: Unable Communication Tools: IPad and Language Line Entry Level Electrical Engineer Entry Level Electrical Engineer Required: Yes Beliefs That Will Affect Care: Alevism Current Living Situation: Other Current Living Situation Comment: Patient from [place]. Staying in [place] with friends for work Other Information That Helps Us Care for You: No Feels Safe at Home: Yes Safety Concerns: Feels Safe At This Time Review of Systems Review of Systems: All systems reviewed & are unremarkable except as noted in HPI & below Physical Exam Constitutional: WD/WN, vitals as above Respiratory: normal respiratory effort, lungs clear to auscultation Cardiovascular: Rate/Rhythm: regular rate and regular rhythm Gastrointestinal (Abdomen): Inspection/Auscultation: abdomen normal to inspection; abdomen not distended Percussion/Palpation: abdomen soft Musculoskeletal: Extremities: strength 5/5 throughout Neurologic: CN's II-XI intact bilaterally and moves all extremities Psychiatric: Orientation: alert and oriented x 3 Results & Data Vital Signs (Past 12 Hours) Vital Signs Temp Pulse Pulse Resp BP Pulse Ox O2 Del Method 03/30/24 07:45 101 H 03/30/24 07:22 37.8 C H 104 H 18 145/77 H 96 Room Air 03/30/24 03:09 36.9 C 82 19 127/76 97 Room Air 03/29/24 22:47 36.7 C 81 19 136/79 95 Room Air 03/29/24 22:28 94 H
--- NOTE | 2024-03-30 11:40 | Pre Anesthesia Assessment ---
Date of Service March 30, 2024 Pre Sedation Assessment Vital Signs Temp Pulse Pulse Pulse Resp BP BP 03/30/24 10:24 37.6 C H 90 20 132/71 03/30/24 07:45 101 H 03/30/24 07:22 37.8 C H 104 H 18 145/77 H 03/30/24 03:09 36.9 C 82 19 127/76 03/29/24 22:47 36.7 C 81 19 136/79 03/29/24 22:28 94 H 03/29/24 19:50 03/29/24 19:05 36.6 C 94 H 18 03/29/24 15:15 93 H 03/29/24 15:03 36.9 C 84 18 123/77 03/29/24 14:00 90 20 142/72 H 03/29/24 13:43 97 H 18 133/79 03/29/24 13:31 87 18 125/76 03/29/24 13:15 87 16 BP Pulse Ox O2 Del Method 03/30/24 10:24 97 Room Air 03/30/24 07:45 03/30/24 07:22 96 Room Air 03/30/24 03:09 97 Room Air 03/29/24 22:47 95 Room Air 03/29/24 22:28 03/29/24 19:50 Room Air 03/29/24 19:05 125/75 97 Room Air 03/29/24 15:15 03/29/24 15:03 95 Room Air 03/29/24 14:00 94 Room Air 03/29/24 13:43 96 Room Air 03/29/24 13:31 97 Room Air 03/29/24 13:15 126/73 97 Room Air Cardiovascular RRR, no murmur, no edema Respiratory normal respiratory effort, lungs clear to auscultation Pre-Sedation Airway Assessment Smoking Status: Current some day smoker Hx Sleep Apnea: No Short, Thick Neck: Yes Thyromental Distance: < 3.5 Finger Breadths Oral Cavity: + WNL Mallampati Class: II ASA: ASA3 NPO Status Date of Last Intake of Fluids: 03/30/24 Time of Last Intake of Fluids: 06:30 Date of Last Intake of Solid Food: 03/29/24 Time of Last Intake of Solid Foods: 17:30 Procedure Planning Contraindications for Sedation: none Current Medications Reviewed: Yes Notes The planned sedation has been discussed with the patient. Informed Consent was obtained. I have identified the patient, determined the appropriateness of sedation and have assessed the patient immediately prior to the procedure. All medicine(s) and interventions are by my order.
[2024-03-30] MEDS: fentaNYL citrate PF 100 MCG/2 ML VIAL ONE ×2 (12:05→12:15)
[2024-03-30] MEDS: MIDAZOLAM HCL 1 MG/ML 2ML VIAL ONE ×2 (12:05→12:16)
[2024-03-30] MEDS: HEPARIN SOD (PORCINE) 5,000 UNITS/ML VIAL ONE (12:17)
--- NOTE | 2024-03-30 12:27 | Operative Report ---
Post Operative Report Pre & Post Diagnosis Operation Date: 03/30/24 07:00 Pre-Op Diagnosis: Acute Kidney Injury Post-Op Diagnosis: Acute Kidney Injury I identified the patient and participated in the time-out.: Yes Procedure Operation Date: 03/30/24 07:00 Actual Procedures p Insertion of Perm Catheter, Right Internal Jugular Approach,Ultrasound Localization of Right Internal Jugular Vein,Fluoroscopy for Positioning,Removal of Temporary Dialysis Catheter, Moderate Sedation [id number](Right) - Edgard Alvarenga MD Surgeon Edgard Alvarenga MD Form Grader Operator none Estimated Blood Loss 3 Findings Consistent with Post-Op Diagnosis Specimens none Anesthesia Type RN Sedation Complications none Disposition Accompanied Patient To Recovery: No Disposition: Recovery Room Indications This is a 39-year-old male who was admitted with encephalopathy and found to be in acute kidney injury. He underwent dialysis via temporary catheter and is now in need of a PermCath. I have discussed the risks options and benefits of the procedure with the patient. The patient understands the risks options and benefits and agrees to the procedure. Description of Procedure Patient was taken to the angio suite and placed in the supine position. The dressing was removed from the temporary catheter. Patient was identified and timeout was performed. The sutures were removed and the temporary catheter was removed. Pressure was applied. Adequate hemostasis was noted. The left side of the neck and chest wall were prepped and draped in a sterile manner. The patient was identified and a timeout performed. Local anesthesia was then administered to the appropriate areas of the neck and chest wall. Ultrasound was then used to locate the left internal jugular vein. The vein compressed easily, had no filing defects, and was patent. The vein was then punctured under direct ultrasound imaging. A guidewire was then passed centrally under fluoroscopic imaging. A stab wound was then made in the anterior chest wall and a 19 cm permcath was passed from the stab wound on the chest wall to the puncture site on the neck. The puncture site was then dilated till the 14Fr p eel away sheath was inserted. The permcath was then inserted through the sheath to a central position in the distal superior vena cava. The peel away sheath was then removed. The catheter was then sutured in place using nylon sutures. The puncture was then closed using a 4-0 Vicryl subcuticular suture. Dermabond was used for a dressing on the puncture site. Both ports aspirated and flushed easily and were then packed with heparin. A sterile dressing was applied to the catheter. The patient left the operation room in satisfactory condition and tolerated the procedure well. All needle and sponge counts were correct at the end of the procedure. I attest to the content of the Intraoperative Record and any orders documented therein. Any exceptions are noted below.
--- NOTE | 2024-03-30 12:31 | Post Anesthesia Assessment ---
Date of Service March 30, 2024 Post Sedation Assessment Vital Signs Temp Pulse Pulse Pulse Resp BP BP 03/30/24 12:23 92 H 24 122/72 03/30/24 12:23 93 H 22 117/72 03/30/24 12:20 90 16 121/74 03/30/24 12:15 87 32 H 119/83 03/30/24 12:10 85 21 121/75 03/30/24 12:05 92 H 21 136/77 03/30/24 12:00 87 15 134/80 03/30/24 10:24 37.6 C H 90 20 132/71 03/30/24 07:45 101 H 03/30/24 07:22 37.8 C H 104 H 18 145/77 H 03/30/24 03:09 36.9 C 82 19 127/76 03/29/24 22:47 36.7 C 81 19 136/79 03/29/24 22:28 94 H 03/29/24 19:50 03/29/24 19:05 36.6 C 94 H 18 03/29/24 15:15 93 H 03/29/24 15:03 36.9 C 84 18 123/77 03/29/24 14:00 90 20 142/72 H 03/29/24 13:43 97 H 18 133/79 03/29/24 13:31 87 18 125/76 03/29/24 13:15 87 16 BP Pulse Ox O2 Del Method O2 Flow Rate 03/30/24 12:23 98 Oxymask 2 03/30/24 12:23 100 Oxymask 2 03/30/24 12:20 99 Oxymask 2 03/30/24 12:15 100 Oxymask 2 03/30/24 12:10 100 Oxymask 2 03/30/24 12:05 100 Oxymask 2 03/30/24 12:00 100 Oxymask 2 03/30/24 10:24 97 Room Air 03/30/24 07:45 03/30/24 07:22 96 Room Air 03/30/24 03:09 97 Room Air 03/29/24 22:47 95 Room Air 03/29/24 22:28 03/29/24 19:50 Room Air 03/29/24 19:05 125/75 97 Room Air 03/29/24 15:15 03/29/24 15:03 95 Room Air 03/29/24 14:00 94 Room Air 03/29/24 13:43 96 Room Air 03/29/24 13:31 97 Room Air 03/29/24 13:15 126/73 97 Room Air Recovery Score Activity: Moves 4 extremities Respiration: Deep Breath/Cough Circulation: +/-20% PreAnes Value Consciousness: Fully Awake Oxygen Saturation: > 92% On Room Air Post Anesthesia Score: 10 Discharge Sedation Level of Care: Fast Track Phase II Post Sedation Plan On clinical assessment, the patient appears to have tolerated the sedation without complications. Patient is recovering as anticipated. Patient will continue to be monitored by nursing and may be discharged when sedation discharge criteria are met per below protocol. Upon Completions of procedure up to 15 minutes continue every 5 minute vital signs and the P.A.R. score; then discharge to a Phase I or Fast Track to Phase II per the following guidelines: * Discharge Patient to appropriate Phase II area if PAR is 8 or greater or return to pre- procedure baseline. The post - procedure orders will be as directed. * If PAR score is less than 8 or not return to pre-procedure baseline then patient will follow Phase I monitoring till PAR is reached for Phase II. The Phase I may be done in procedure room or may call to secure a Phase I area. * If naloxone or flumazenil are used for reversal, hold in Phase I for continued monitoring from when last reversal dose was given for a minimum of 60 minutes or longer pending the nurse and/or physician discretion of patient condition before discharge to Phase II. Please call the Sedation Physician to re-evaluate and complete post-note for discharge to Phase II area. Do NOT discharge from procedure sedation or Phase 1 until post- sedation evaluation note is complete by procedure /sedation MD Sedation Discharge Instructions to be given to the patient at discharge to home.
[2024-03-30] MEDS: LIDOCAINE 1% LOCAL 20 ML VIAL ONE (13:16)
--- NOTE | 2024-03-30 14:52 | Nephrology Progress Note ---
Date of Service March 30, 2024 Assessment & Plan Admission and Anticipated Discharge Date Admission Date: March 20, 2024 Subjective Subjective Assessment & Plan (1) Acute renal failure with oliguria: Plan: anuric renal failure with unknown baseline and uremic sx (encephalopathy) w/ large kidneys and cortical thickening. Most likely had some preexisting CKD from DM. but we dont know the baseline creat He had emergent dialysis first given encephalopathy, anuria and severe renal failure. intubated in order to place dialysis catheter and to dialyze safely for first 2 dialysis sessions. No renal recovery creat went up a lot overnight. However urine Output is normal now. Just had tunnelled HD cath by Dr Alvarenga. has been accepted by Dialysis unit in [place]--TTS schedule so will do his dialysis tomorrow 4hr 3 kilo 2k bath and epo + heparin. (2) Bacteremia due to Escherichia coli: Plan: TTE--normal. On abx. 3 ) Encephalopathy: Plan: Possibly uremic and septicemia. tox screen negative; head CT unremarkable. No normal. Subjective he had perm cath placed earlier. Abd pain/Nausea --CT normal. So far tolerating fine. No issues with dialysis. Overall much better vital signs as well as mental status. also urine is lot more EXAM Constitutional: well developed, well nourished, much better now Respiratory: normal respiratory effort Auscultation: + diminished lung sounds Cardiovascular: Rate/Rhythm: + tachycardic Extremities: no edema Gastrointestinal (Abdomen): Diffuse tenderness in Abd Musculoskeletal: Extremities: strength 5/5 throughout Skin: no rashes, warm and dry Results & Data Vital Signs (Past 12 Hours) Vital Signs Temp Pulse Pulse Pulse Resp BP BP 03/30/24 12:23 92 H 24 122/72 03/30/24 12:23 93 H 22 117/72 03/30/24 12:20 90 16 121/74 03/30/24 12:15 87 32 H 119/83 03/30/24 12:10 85 21 121/75 03/30/24 12:05 92 H 21 136/77 03/30/24 12:00 87 15 134/80 03/30/24 10:24 37.6 C H 90 20 132/71 03/30/24 07:45 101 H 03/30/24 07:22 37.8 C H 104 H 18 145/77 H 03/30/24 03:09 36.9 C 82 19 127/76 Pulse Ox O2 Del Method O2 Flow Rate 03/30/24 12:23 98 Oxymask 2 03/30/24 12:23 100 Oxymask 2 03/30/24 12:20 99 Oxymask 2 03/30/24 12:15 100 Oxymask 2 03/30/24 12:10 100 Oxymask 2 03/30/24 12:05 100 Oxymask 2 03/30/24 12:00 100 Oxymask 2 03/30/24 10:24 97 Room Air 03/30/24 07:45 03/30/24 07:22 96 Room Air 03/30/24 03:09 97 Room Air
[2024-03-30 16:13] LABS: Hepatitis C Vira RNA (Log) PCR <1.18 NOT DETECTED Log IU/mL (NOT DETECTED); Hepatitis C Viral RNA by PCR <15 NOT DETECTED IU/mL (NOT DETECTED)
--- NOTE | 2024-03-30 17:04 | Hospitalist Progress Note ---
Date of Service March 30, 2024 Assessment & Plan (1) Encephalopathy: Plan: Acute metabolic encephalopathy Likely multifactorial secondary to sepsis, azotemia, hyponatremia, DKA --CT head:There is no hemorrhage, mass effect, or evidence of acute territorial ischemia by CT criteria. --S/P extubation S/P LP --Cannot do MRI due to spinal rods Mental status back to baseline Monitor Sepsis E. coli bacteremia Acute pyelonephritis --CT ABD:The kidneys are enlarged and edematous. No hydronephrosis is seen. There is markedly heterogeneous enhancement of both kidneys, right greater than left with perinephric inflammation and fluid. Correlate with clinical findings and urinalysis for evidence of infection/pyelonephritis. There is phlegmonous change with a small focus of gas involving the lower pole of the right kidney. No organized/drainable fluid collection is seen at this time to indicate abscess. The bladder wall appears thickened with surrounding inflammation and there is urothelial thickening with surrounding inflammation involving the ureters. Again, this could be related to cystitis/infection. Small pleural effusions with airspace consolidation at both lung bases. Trace abdominal pelvic ascites. Hepatomegaly and hepatic steatosis. --Blood, urine culture growing E. coli --Repeat blood cultures negative --CSF culture negative Continue IV Rocephin--need to complete 10 to 14 days of antibiotic course from first negative culture Continued abdominal pain GI consulted Will obtain repeat stool for C. difficile if develops diarrhea Clinically improving Continue PPI, Pepcid as needed Tolerating current diet Hyperglycemic crisis (combined HHS/DKA) New diagnosis DM HbA1c 10.7 IV insulin discontinued Continue SQ insulin while hospitalized Monitor BGs Appreciate glycemic pharmacist input and recommendation Acute renal failure Likely complicated by sepsis with ATN Requiring dialysis Continue dialysis as per nephrology Appreciate nephrology, vascular input next Avoid nephrotoxic agents as able Monitor renal function And permanent dialysis catheter placement by Dr. Alvarenga on 03/30/2024 Plan for dialysis tomorrow Probable YENNI/OHS Will need sleep study as outpatient Hyponatremia Severe hyponatremia with sodium of 109 on admission Sodium levels improved to 130s Monitor Past tobacco abuse Thrombocytopenia possibly from sepsis Nicotine replacement therapy as needed Thrombocytopenia resolved DVT Px: Heparin SQ CODE STATUS Full code Admission and Anticipated Discharge Date Admission Date: March 20, 2024 Subjective Patient is seen and examined at bedside Patient had hemodialysis catheter placed today Offers no new complaints today Abdominal pain is controlled Denies any chest pain, dyspnea today Review of Systems Review of Systems: All systems reviewed & are unremarkable except as noted in Subjective Physical Exam Physical Exam: Physical Exam: Vitals signs as noted above General Appearance:Moderately built and nourished, no apparent distress Head: normocephalic, Atraumatic Eyes: normal inspection, EOMI Neck: supple, Trachea midline Respiratory/Chest: Decreased breath sounds, CTA, No accessory muscle use Cardiovascular: S1, S2, No murmur Abdomen/GI:Soft, +mild tender, Bowel sounds present Extremities/Musculoskeletal:normal inspection, no edema Neurologic/Psych:AAOX3, grossly no focal neurological deficits Skin: normal color, warm Results & Data Results & Data Vital Signs (Past 12 Hours) Vital Signs Temp Pulse Pulse Pulse Pulse Resp BP 03/30/24 15:21 37.3 C 93 H 20 124/66 03/30/24 12:23 92 H 24 03/30/24 12:23 93 H 22 03/30/24 12:20 90 16 03/30/24 12:15 87 32 H 03/30/24 12:10 85 21 03/30/24 12:05 92 H 21 03/30/24 12:00 87 15 03/30/24 10:24 37.6 C H 90 20 132/71 03/30/24 07:45 101 H 03/30/24 07:22 37.8 C H 104 H 18 145/77 H BP Pulse Ox O2 Del Method O2 Flow Rate 03/30/24 15:21 97 Room Air 03/30/24 12:23 122/72 98 Oxymask 2 03/30/24 12:23 117/72 100 Oxymask 2 03/30/24 12:20 121/74 99 Oxymask 2 03/30/24 12:15 119/83 100 Oxymask 2 03/30/24 12:10 121/75 100 Oxymask 2 03/30/24 12:05 136/77 100 Oxymask 2 03/30/24 12:00 134/80 100 Oxymask 2 03/30/24 10:24 97 Room Air 03/30/24 07:45 03/30/24 07:22 96 Room Air Laboratory Results Short CBC 03/30/24 Range/Units 06:12 WBC 18.27 H (4.8-10.8) K/ul Hgb 8.3 L (14.0-18.0) g/dl Hct 24.9 L (42.0-52.0) % Plt Count 515 H (130-400) K/uL BMP 03/30/24 06:12 Sodium 132 L Potassium 4.2 Chloride 97 L Carbon Dioxide 25 BUN 36 H Creatinine 6.99 H* D Glucose 122 H Calcium 7.6 L
[2024-03-30] MEDS: oxyCODONE HCL IR 5 MG TAB (IMMEDIATE RELEASE) PO PRN (19:34)
[2024-03-30] MEDS: HYDROmorphone INJ 0.5 MG/0.5 ML SYR IV PRN (20:50)
[2024-03-31 06:46] LABS: Hematocrit (blood only) 24.5 % (42.0-52.0); Hemoglobin 7.9 g/dl (14.0-18.0); Mean Corpuscular Hemoglobin 28.5 pg (25.0-34.0); Mean Corpuscular Hgb Conc 32.2 g/dL (32.0-36.0); Mean Corpuscular Volume 88.4 fL (80.0-100.0); Mean Platelet Volume 10.2 fL (9.4-12.4); Platelet Count 498 K/uL (130-400); RDW Coefficient of Variation 13.4 % (11.5-14.5); RDW Standard Deviation 43.9 fL (36.4-46.3); Red Blood Count 2.77 M/uL (4.70-6.10); White Blood Count 14.16 K/ul (4.8-10.8)
[2024-03-31] MEDS ORDERED: SODIUM CHLORIDE 0.9% 1,000 ML IV PRN (07:00)
[2024-03-31 07:26] LABS: BUN Creatinine Ratio 5.6 (10-20); Calcium 7.4 mg/dl (8.6-10.3); Creatinine Clr Calc Pharmacy 13.2 ml/min; Est GFR (African American) 9.3 ml/min; Magnesium 1.8 mg/dl (1.7-2.4); Potassium 4.1 mmol/L (3.5-5.1)
[2024-03-31] MEDS: EPOETIN ALFA 20,000 UNITS/ML VIAL IV ONE (10:51)
--- NOTE | 2024-03-31 14:48 | Hospitalist Progress Note ---
Date of Service March 31, 2024 Assessment & Plan (1) Encephalopathy: Plan: Acute metabolic encephalopathy Likely multifactorial secondary to sepsis, azotemia, hyponatremia, DKA --CT head:There is no hemorrhage, mass effect, or evidence of acute territorial ischemia by CT criteria. --S/P extubation S/P LP --Cannot do MRI due to spinal rods Mental status back to baseline Resolved Sepsis E. coli bacteremia Acute pyelonephritis --CT ABD:The kidneys are enlarged and edematous. No hydronephrosis is seen. There is markedly heterogeneous enhancement of both kidneys, right greater than left with perinephric inflammation and fluid. Correlate with clinical findings and urinalysis for evidence of infection/pyelonephritis. There is phlegmonous change with a small focus of gas involving the lower pole of the right kidney. No organized/drainable fluid collection is seen at this time to indicate abscess. The bladder wall appears thickened with surrounding inflammation and there is urothelial thickening with surrounding inflammation involving the ureters. Again, this could be related to cystitis/infection. Small pleural effusions with airspace consolidation at both lung bases. Trace abdominal pelvic ascites. Hepatomegaly and hepatic steatosis. --Blood, urine culture growing E. coli --Repeat blood cultures negative --CSF culture negative Continue IV Rocephin--need to complete 10 to 14 days of antibiotic course from first negative culture 03/20/24) Continued abdominal pain GI consulted Will obtain repeat stool for C. difficile if develops diarrhea Continue PPI, Pepcid Continue current management Hyperglycemic crisis (combined HHS/DKA) New diagnosis DM HbA1c 10.7 IV insulin discontinued Continue SQ insulin while hospitalized Monitor BGs Appreciate glycemic pharmacist input and recommendation Plan to discharge on Novolin 70/30 Acute renal failure Likely complicated by sepsis with ATN Requiring dialysis Continue dialysis as per nephrology Appreciate nephrology, vascular input next Avoid nephrotoxic agents as able Monitor renal function And permanent dialysis catheter placement by Dr. Alvarenga on 03/30/2024 Had HD today Probable YENNI/OHS Will need sleep study as outpatient Hyponatremia Severe hyponatremia with sodium of 109 on admission Sodium level 127 today Monitor Past tobacco abuse Thrombocytopenia possibly from sepsis Nicotine replacement therapy as needed Thrombocytopenia resolved DVT Px: Heparin SQ CODE STATUS Full code Admission and Anticipated Discharge Date Admission Date: March 20, 2024 Subjective Patient is seen and examined at bedside Had hemodialysis this morning Reports some discomfort at HD catheter site Denies any chest pain, dyspnea, abd pain today No other complaints Review of Systems Review of Systems: All systems reviewed & are unremarkable except as noted in Subjective Physical Exam Physical Exam: Physical Exam: Vitals signs as noted above General Appearance:Moderately built and nourished, no apparent distress Head: normocephalic, Atraumatic Eyes: normal inspection, EOMI Neck: supple, Trachea midline Respiratory/Chest: Decreased breath sounds, CTA, No accessory muscle use Cardiovascular: S1, S2, No murmur Abdomen/GI:Soft, +mild tender, Bowel sounds present Extremities/Musculoskeletal:normal inspection, no edema Neurologic/Psych:AAOX3, grossly no focal neurological deficits Skin: normal color, warm Results & Data Results & Data Vital Signs (Past 12 Hours) Vital Signs Temp Pulse Pulse Pulse Resp BP BP 03/31/24 13:10 37.0 C 88 03/31/24 12:30 79 108/60 03/31/24 12:00 77 103/60 03/31/24 11:30 77 107/57 L 03/31/24 11:00 80 102/54 L 03/31/24 10:30 89 118/56 L 03/31/24 10:00 96 H 118/66 03/31/24 09:30 100 H 106/57 L 03/31/24 09:00 96 H 121/69 03/31/24 08:55 104 H 126/73 03/31/24 08:50 36.9 C 103 H 03/31/24 07:15 105 H 03/31/24 07:12 37.3 C 95 H 18 101/60 BP Pulse Ox O2 Del Method 03/31/24 13:10 114/66 03/31/24 12:30 03/31/24 12:00 03/31/24 11:30 03/31/24 11:00 03/31/24 10:30 03/31/24 10:00 03/31/24 09:30 03/31/24 09:00 03/31/24 08:55 03/31/24 08:50 03/31/24 07:15 03/31/24 07:12 96 Room Air Laboratory Results Short CBC 03/31/24 Range/Units 05:45 WBC 14.16 H (4.8-10.8) K/ul Hgb 7.9 L (14.0-18.0) g/dl Hct 24.5 L (42.0-52.0) % Plt Count 498 H (130-400) K/uL BMP 03/31/24 05:45 Sodium 127 L Potassium 4.1 Chloride 93 L Carbon Dioxide 25 BUN 43 H Creatinine 7.64 H* D Glucose 97 Calcium 7.4 L
--- NOTE | 2024-03-31 15:07 | Nephrology Progress Note ---
Date of Service March 31, 2024 Assessment & Plan (1) Acute renal failure with oliguria: Plan: anuric renal failure Versus end-stage renal disease. unknown baseline and uremic sx (encephalopathy) w/ large kidneys and cortical thickening >> presume CKD; cannot r/o R ANGELICA, though BP has been controlled. Patient has been tolerating dialysis now on a Tuesday schedule. He tolerated dialysis well today with net UF of 2.9 L. Next dialysis will be on Tuesday. (2) Bacteremia due to Escherichia coli: Plan: also w/ Enterobacter on biofire >> this is apparently cross reactivity, not a true +. Patient is on ceftriaxone per primary team. Admission and Anticipated Discharge Date Admission Date: March 20, 2024 Subjective Seen for ESRD. Patient was seen and examined while on dialysis earlier. No shortness of breath or chest pain. No leg swelling. Review of Systems 2 Review of Systems: All other systems were reviewed and negative except as noted in HPI Physical Exam 2 Physical Exam: General exam: Appears comfortable, no acute distress HEENT: Pupils are equal and reactive to light Neck: No JVD, neck is supple trachea is midline Respiratory system: Clear breath sounds bilaterally. Gastrointestinal: Abdomen is soft, non distended, non tender, bowel sounds are present CVS: Regular rate and rhythm. No murmurs, rubs or gallops Musculoskeletal: No joint or muscle tenderness Extremities: Non tender, no edema, peripheral pulses are present Neuro: Oriented, no tremors, no focal neurological deficits Skin: No rashes Results & Data Vital Signs (Past 12 Hours) Vital Signs Temp Pulse Pulse Pulse Resp BP BP 03/31/24 13:10 37.0 C 88 03/31/24 12:30 79 108/60 03/31/24 12:00 77 103/60 03/31/24 11:30 77 107/57 L 03/31/24 11:00 80 102/54 L 03/31/24 10:30 89 118/56 L 03/31/24 10:00 96 H 118/66 03/31/24 09:30 100 H 106/57 L 03/31/24 09:00 96 H 121/69 03/31/24 08:55 104 H 126/73 03/31/24 08:50 36.9 C 103 H 03/31/24 07:15 105 H 03/31/24 07:12 37.3 C 95 H 18 101/60 BP Pulse Ox O2 Del Method 03/31/24 13:10 114/66 03/31/24 12:30 03/31/24 12:00 03/31/24 11:30 03/31/24 11:00 03/31/24 10:30 03/31/24 10:00 03/31/24 09:30 03/31/24 09:00 03/31/24 08:55 03/31/24 08:50 03/31/24 07:15 03/31/24 07:12 96 Room Air Laboratory Results 03/31/24 05:45 03/31/24 05:45 WBC 14.16 H RBC 2.77 L MCV 88.4 MCH 28.5 MCHC 32.2 RDW Std Deviation 43.9 RDW Coeff of Eliza 13.4 Plt Count 498 H MPV 10.2
[2024-03-31] MEDS: FAMOTIDINE 10 MG TABLET PO SCH (20:18)
[2024-04-01 07:11] LABS: Hematocrit (blood only) 23.4 % (42.0-52.0); Hemoglobin 7.7 g/dl (14.0-18.0); Mean Corpuscular Hemoglobin 28.7 pg (25.0-34.0); Mean Corpuscular Hgb Conc 32.9 g/dL (32.0-36.0); Mean Corpuscular Volume 87.3 fL (80.0-100.0); Mean Platelet Volume 10.5 fL (9.4-12.4); Platelet Count 446 K/uL (130-400); RDW Coefficient of Variation 14.1 % (11.5-14.5); RDW Standard Deviation 44.7 fL (36.4-46.3); Red Blood Count 2.68 M/uL (4.70-6.10); White Blood Count 12.03 K/ul (4.8-10.8)
[2024-04-01 07:37] LABS: BUN Creatinine Ratio 4.2 (10-20); Calcium 7.8 mg/dl (8.6-10.3); Creatinine Clr Calc Pharmacy 18.5 ml/min; Potassium 3.9 mmol/L (3.5-5.1)
[2024-04-01] MEDS: LANTUS PER UNIT CHARGE SC SCH (09:22)
--- NOTE | 2024-04-01 14:38 | Hospitalist Progress Note ---
Date of Service April 01, 2024 Assessment & Plan (1) Encephalopathy: Plan: Acute metabolic encephalopathy Likely multifactorial secondary to sepsis, azotemia, hyponatremia, DKA --CT head:There is no hemorrhage, mass effect, or evidence of acute territorial ischemia by CT criteria. --S/P extubation S/P LP --Cannot do MRI due to spinal rods Mental status back to baseline Resolved Sepsis E. coli bacteremia Acute pyelonephritis --CT ABD:The kidneys are enlarged and edematous. No hydronephrosis is seen. There is markedly heterogeneous enhancement of both kidneys, right greater than left with perinephric inflammation and fluid. Correlate with clinical findings and urinalysis for evidence of infection/pyelonephritis. There is phlegmonous change with a small focus of gas involving the lower pole of the right kidney. No organized/drainable fluid collection is seen at this time to indicate abscess. The bladder wall appears thickened with surrounding inflammation and there is urothelial thickening with surrounding inflammation involving the ureters. Again, this could be related to cystitis/infection. Small pleural effusions with airspace consolidation at both lung bases. Trace abdominal pelvic ascites. Hepatomegaly and hepatic steatosis. --Blood, urine culture growing E. coli --Repeat blood cultures negative --CSF culture negative Continue IV Rocephin--need to complete 10 to 14 days of antibiotic course from first negative culture 03/20/24) Continued abdominal pain GI consulted Will obtain repeat stool for C. difficile if develops diarrhea Continue PPI, Pepcid On Day 13/14 of IV Rocephin Hyperglycemic crisis (combined HHS/DKA) New diagnosis DM HbA1c 10.7 IV insulin discontinued Continue SQ insulin while hospitalized Monitor BGs Appreciate glycemic pharmacist input and recommendation Plan to discharge on Novolin 70/30 Acute renal failure Likely complicated by sepsis with ATN Requiring dialysis Continue dialysis as per nephrology Appreciate nephrology, vascular input next Avoid nephrotoxic agents as able Monitor renal function And permanent dialysis catheter placement by Dr. Alvarenga on 03/30/2024 HD per Nephrology Probable YENNI/OHS Will need sleep study as outpatient Hyponatremia Severe hyponatremia with sodium of 109 on admission Sodium level 129 today Monitor Past tobacco abuse Thrombocytopenia possibly from sepsis Nicotine replacement therapy as needed Thrombocytopenia resolved DVT Px: Heparin SQ CODE STATUS Full code Admission and Anticipated Discharge Date Admission Date: March 20, 2024 Subjective Patient is seen and examined at bedside States having some neck pain today Denies any chest pain, dyspnea, abd pain, nausea, vomiting No other complaints Review of Systems Review of Systems: All systems reviewed & are unremarkable except as noted in Subjective Physical Exam Physical Exam: Physical Exam: Vitals signs as noted above General Appearance:Moderately built and nourished, no apparent distress Head: normocephalic, Atraumatic Eyes: normal inspection, EOMI Neck: supple, Trachea midline Respiratory/Chest: Decreased breath sounds, CTA, No accessory muscle use Cardiovascular: S1, S2, No murmur Abdomen/GI:Soft, +mild tender, Bowel sounds present Extremities/Musculoskeletal:normal inspection, no edema Neurologic/Psych:AAOX3, grossly no focal neurological deficits Skin: normal color, warm Results & Data Results & Data Vital Signs (Past 12 Hours) Vital Signs Temp Pulse Pulse Resp BP BP BP 04/01/24 11:29 37.3 C 96 H 19 107/68 04/01/24 07:30 101 H 04/01/24 07:03 37.6 C H 96 H 18 119/70 04/01/24 02:45 37.2 C 85 17 109/68 Pulse Ox O2 Del Method 04/01/24 11:29 97 Room Air 04/01/24 07:30 04/01/24 07:03 98 Room Air 04/01/24 02:45 97 Room Air Laboratory Results Short CBC 04/01/24 Range/Units 06:26 WBC 12.03 H (4.8-10.8) K/ul Hgb 7.7 L (14.0-18.0) g/dl Hct 23.4 L (42.0-52.0) % Plt Count 446 H (130-400) K/uL BMP 04/01/24 06:26 Sodium 129 L Potassium 3.9 Chloride 95 L Carbon Dioxide 26 BUN 23 D Creatinine 5.46 H* D Glucose 95 Calcium 7.8 L
--- NOTE | 2024-04-01 15:01 | Nephrology Progress Note ---
Date of Service April 01, 2024 Assessment & Plan (1) Acute renal failure with oliguria: Plan: anuric renal failure Versus end-stage renal disease. unknown baseline and uremic sx (encephalopathy) w/ large kidneys and cortical thickening >> presume CKD; cannot r/o R ANGELICA, though BP has been controlled. Patient has been tolerating dialysis now on a Tuesday schedule. He tolerated dialysis well Tuesday with net UF of 2.9 L. Next dialysis will be on Tuesday. (2) Bacteremia due to Escherichia coli: Plan: also w/ Enterobacter on biofire >> this is apparently cross reactivity, not a true +. Patient is on ceftriaxone per primary team. Admission and Anticipated Discharge Date Admission Date: March 20, 2024 Subjective Seen for ESRD. No shortness of breath. Review of Systems 2 Review of Systems: All other systems were reviewed and negative except as noted in HPI Physical Exam 2 Physical Exam: General exam: Appears comfortable, no acute distress HEENT: Pupils are equal and reactive to light Neck: No JVD, neck is supple trachea is midline Respiratory system: Clear breath sounds bilaterally. Gastrointestinal: Abdomen is soft, non distended, non tender, bowel sounds are present CVS: Regular rate and rhythm. No murmurs, rubs or gallops Musculoskeletal: No joint or muscle tenderness Extremities: Non tender, no edema, peripheral pulses are present Neuro: Oriented, no tremors, no focal neurological deficits Skin: No rashes Results & Data Vital Signs (Past 12 Hours) Vital Signs Temp Pulse Pulse Resp BP BP Pulse Ox 04/01/24 11:29 37.3 C 96 H 19 107/68 97 04/01/24 07:30 101 H 04/01/24 07:03 37.6 C H 96 H 18 119/70 98 O2 Del Method 04/01/24 11:29 Room Air 04/01/24 07:30 04/01/24 07:03 Room Air Laboratory Results 04/01/24 06:26 04/01/24 06:26 WBC 12.03 H RBC 2.68 L MCV 87.3 MCH 28.7 MCHC 32.9 RDW Std Deviation 44.7 RDW Coeff of Eliza 14.1 Plt Count 446 H MPV 10.5
[2024-04-02 06:21] LABS: Hematocrit (blood only) 23.6 % (42.0-52.0); Hemoglobin 7.8 g/dl (14.0-18.0); Mean Corpuscular Hemoglobin 28.6 pg (25.0-34.0); Mean Corpuscular Hgb Conc 33.1 g/dL (32.0-36.0); Mean Corpuscular Volume 86.4 fL (80.0-100.0); Mean Platelet Volume 10.3 fL (9.4-12.4); Platelet Count 443 K/uL (130-400); RDW Standard Deviation 43.2 fL (36.4-46.3); Red Blood Count 2.73 M/uL (4.70-6.10)
[2024-04-02 06:33] LABS: Calcium 8.2 mg/dl (8.6-10.3); Est GFR (African American) 10.9 ml/min; Est GFR (Non-African American) 9.4 ml/min; Potassium 4.1 mmol/L (3.5-5.1)
[2024-04-02] MEDS: LANTUS PER UNIT CHARGE SC SCH (08:49)
--- NOTE | 2024-04-02 11:15 | Pharmacy Report ---
Pharmacy Glycemic Short Note 2 - Date of Service April 02, 2024 - Glycemic Short BSG Results (Last 24 hours): 04/01/24 04/01/24 04/01/24 11:14 16:15 20:11 Glucose POC Glucose 172 H 85 79 04/02/24 04/02/24 05:24 07:32 Glucose 87 POC Glucose 114 H OUTPATIENT ANTIDIABETIC REGIMEN: * Not taking any medications currently (previously on orals) * HbA1c 10.7% (03/20/24) ASSESSMENT: 04/02: * Patient received total of 35 units of insulin yesterday, of which 18 units were basal * Fasting BSG 87 mg/dL - we recently reduced to 18 units yesterday, will reduce to 15 units this AM * BSGs trending down at HS time yesterday, will loosen CR 03/29: * Patient received total 21 units of insulin yesterday: 20 units basal and only 1 unit bolus. * BSGs yesterday were 199-114-135-120 mg/dl. Fasting BSG today was 124 mg/dl. * He received hemodialysis yesterday and current basal and bolus parameters seem to be appropriate and providing good control. Will continue the same. 03/26: * Patients received 17 units of insulin yesterday 15 of which were basal. BSGs were [phone] mg/dL and fasting this morning was 173 mg/dL. * Patient initiated on a diet yesterday and started eating this morning. AM lantus scale called for increased lantus dose of 20 units this morning. Will likely require this dose or slightly increased dose tomorrow given diet initiation. * Will monitor post prandial BSG trends today and adjust tomorrow accordingly. 03/23: * Patient was transitioned off insulin drip for only a short period yesterday and then it was resumed for BSGs persistently above 200 mg/dL. Insulin drip ran at 0.8 units/hr overnight. * Still NPO and encephalopathic. No HD today. Orders in for HD tomorrow. * Will give an increased basal dose this AM and shut insulin drip off. Novolog again will be started based on weight/stress of 2-3 with q4 checks to start. May need tightened throughout the evening. Would be hesitant to give any more basal today. 03/22: * Insulin drip ran all day yesterday at 2 units/hr. Patient has required 3 straight days of hemodialysis. * Discussed on ICU rounds. Still requiring norepinephrine, currently running at 0.04 mcg/kg/min. Patient was extubated this afternoon. Staffing Specialist okay with transitioning off insulin drip at this time. * Will give 15 units basal x 1 dose. Overlap with the insulin drip for 2 hours and shut drip off (currently running at 0.8 units/hr). * Novolog will be ordered q4 with goal range 120-160. Carb ratio and correction will be based on weight/stress of 2-3. 6/5: * Patient completed 2.5 hours of HD yesterday, ending at ~1999. He is now intubated and on pressors in the ICU. * Since resuming the insulin drip at a lower rate of 2 units/hr yesterday, BSG's have remained in goal range consistently and no drip titrations have been needed * Discussed on ICU rounds - per Dr. Post, continue insulin drip but reduce goal range to 150-250 mg/dL 03/20: * 39 yo M w hx T2DM but not on any current medications admitted with complicated clinical picture of sepsis possibly 2nd urinary source, acute renal failure, hyponatremia, DKA (acidosis and anion gap noted) and possible HHS (calculated effective osmolality not elevated, but serum was) * Discussed extensively at ICU rounds - prefer to keep BSG's higher 2nd possible HHS and goal range was adjusted to 250-350 mg/dL, per Dr. Post. Insulin drip was temporarily put on hold for BSG below goal, per Dr. Post. OK to hold despite also having DKA picture as CO2 has normalized and pH is now elevated. Patient is not producing urine at this time. * Discussed fluids extensively as well - Plasmalyte w/o potassium reasonable as K is high/normal and patient is not making urine. OK to hold off on adding dextrose as insulin not as necessary at this time 2nd pH elevation and normal CO2. * Will continue to follow labs and make adjustments to regimen, with input from Dr. Post. * Discussed w Dr. Post again at 1630 - OK to resume insulin drip at this time. Discussed goal range of 250-350 mg/dL and resuming at lower rate of 2 units/hr. Discussed fluids - stopping all fluids. May or may not be DKA, but either way patient doesn't need dextrose at this point to keep BSG >250. 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 Dr. Post agreed. HD planned for today. PLAN FOR INPATIENT GLYCEMIC CONTROL: * Basal * Lantus 15 units SC QAM * Bolus * Accuchecks ACHS * Goal range: 110 - 140 mg/dL * Correction factor: 1 unit for every 30 mg/dL over goal range * Carb ratio: 1 unit for every 12 g of CHO eaten
--- NOTE | 2024-04-02 14:13 | CT Scan Report ---
CT soft tissue neck wo con HISTORY: 39 years-old Male Right Neck pain at HD Cath site Acute right neck pain status post placeme nt of a right IJ hemodialysis catheter. COMPARISON: None. TECHNIQUE: Multiple axial CT images of the soft tissues of the neck were obtained without IV contrast . A dose lowering technique was used consistent with the principals of GUILLERMO. FINDINGS: Cardiomegaly. Extensive cervical, thoracic, spinal fusion hardware. The imaged intracranial structure s demonstrate no acute abnormality. Disconjugate gaze. Patent airway. Parapharyngeal fat planes are s ymmetric and well-maintained. Nonspecific borderline enlarged bilateral cervical chain lymph nodes me asure up to approximately 10 mm. The glottis and subglottic airway is within normal limits. Unremarka ble thyroid, parotid and submandibular glands. Dual-lumen right IJ hemodialysis catheter is in place. There is subcutaneous edema surrounding the ca theter with asymmetric mild enlargement and heterogeneity within the superior aspect of the right pec toralis major muscle. No drainable fluid collections. The catheter appears appropriately positioned o n this noncontrast scan. Right mastoidectomy changes with chronic-appearing right mastoid and middle ear effusions. Soft tissu e density within the right middle ear cavity with erosion of the ossicles. Right tympanic membrane th ickening and retraction. Healed chronic left clavicular fracture deformity. No pneumothorax. IMPRESSION: 1. Right IJ hemodialysis catheter in place. Mild subcutaneous edema surrounding the catheter with mil d asymmetric enlargement and heterogeneity within the right pectoralis major muscle. Findings likely represent a small amount of postprocedural hemorrhage. Sterility, however, cannot be determined by im aging alone. 2. No discrete fluid collections are identified. 3. Borderline enlarged cervical chain lymph nodes are likely reactive. 4. Right mastoidectomy changes with possible cholesteatoma and ossicular erosion with tympanic membra ne thickening and retraction. The above report was generated using voice recognition software. It may contain grammatical, syntax o r spelling errors. Dictated: 04/02/2024 9:18 AM Transcribed: 04/02/2024 9:33 AM Jose [id number] [email or web address] Electronically signed by: Augusto Morris M.D. 04/02/2024 2:11 PM
--- NOTE | 2024-04-02 15:55 | Nephrology Progress Note ---
Date of Service April 02, 2024 Assessment & Plan (1) Acute renal failure with oliguria: Plan: anuric renal failure Versus end-stage renal disease. unknown baseline and uremic sx (encephalopathy) w/ large kidneys and cortical thickening >> presume CKD; cannot r/o R ANGELICA, though BP has been controlled. Patient has been tolerating dialysis now on a Tuesday schedule. He tolerated dialysis well Tuesday with net UF of 2.9 L. Next dialysis will be on Tuesday for 3-1/2 hours and a UF 3 L. (2) Bacteremia due to Escherichia coli: Plan: also w/ Enterobacter on biofire >> this is apparently cross reactivity, not a true +. Patient is on ceftriaxone per primary team. Admission and Anticipated Discharge Date Admission Date: March 20, 2024 Subjective Seen in follow-up for renal failure on dialysis. No shortness of breath or leg swelling. Review of Systems Review of Systems: All other systems were reviewed and negative except as noted in HPI Physical Exam Physical Exam: General exam: Appears comfortable, no acute distress HEENT: Pupils are equal and reactive to light Neck: No JVD, neck is supple trachea is midline Respiratory system: Clear breath sounds bilaterally. Gastrointestinal: Abdomen is soft, non distended, non tender, bowel sounds are present CVS: Regular rate and rhythm. No murmurs, rubs or gallops Musculoskeletal: No joint or muscle tenderness Extremities: Non tender, no edema, peripheral pulses are present Neuro: Oriented, no tremors, no focal neurological deficits Skin: No rashes Results & Data Vital Signs (Past 12 Hours) Vital Signs Temp Pulse Resp BP Pulse Ox O2 Del Method 04/02/24 07:04 37.4 C 96 H 18 107/68 95 Room Air
--- NOTE | 2024-04-02 16:38 | Hospitalist Progress Note ---
Date of Service April 02, 2024 Assessment & Plan (1) Encephalopathy: Plan: Acute metabolic encephalopathy Likely multifactorial secondary to sepsis, azotemia, hyponatremia, DKA --CT head:There is no hemorrhage, mass effect, or evidence of acute territorial ischemia by CT criteria. --S/P extubation S/P LP --Cannot do MRI due to spinal rods Mental status back to baseline Resolved Sepsis E. coli bacteremia Acute pyelonephritis --CT ABD:The kidneys are enlarged and edematous. No hydronephrosis is seen. There is markedly heterogeneous enhancement of both kidneys, right greater than left with perinephric inflammation and fluid. Correlate with clinical findings and urinalysis for evidence of infection/pyelonephritis. There is phlegmonous change with a small focus of gas involving the lower pole of the right kidney. No organized/drainable fluid collection is seen at this time to indicate abscess. The bladder wall appears thickened with surrounding inflammation and there is urothelial thickening with surrounding inflammation involving the ureters. Again, this could be related to cystitis/infection. Small pleural effusions with airspace consolidation at both lung bases. Trace abdominal pelvic ascites. Hepatomegaly and hepatic steatosis. --Blood, urine culture growing E. coli --Repeat blood cultures negative --CSF culture negative Continue IV Rocephin--need to complete 14 days of antibiotic course from first negative culture 03/20/24) Continued abdominal pain GI consulted Will obtain repeat stool for C. difficile if develops diarrhea Continue PPI, Pepcid Will complete IV Rocephin course tomorrow Hyperglycemic crisis (combined HHS/DKA) New diagnosis DM HbA1c 10.7 IV insulin discontinued Continue SQ insulin while hospitalized Monitor BGs Appreciate glycemic pharmacist input and recommendation Acute renal failure Likely complicated by sepsis with ATN Requiring dialysis Continue dialysis as per nephrology Appreciate nephrology, vascular input next Avoid nephrotoxic agents as able Monitor renal function And permanent dialysis catheter placement by Dr. Alvarenga on 03/30/2024 HD per Nephrology Next hemodialysis tomorrow Will receive EPO tomorrow Probable YENNI/OHS Will need sleep study as outpatient Hyponatremia Severe hyponatremia with sodium of 109 on admission Sodium level 127 today Monitor Past tobacco abuse Thrombocytopenia possibly from sepsis Nicotine replacement therapy as needed Thrombocytopenia resolved DVT Px: Heparin SQ CODE STATUS Full code Disposition Needs following scripts at the time of discharge1.) Lantus Solostar Pen. 2.) Pen Needle 32 gauge x 5/32 (4mm)- to inject 1x/day. 3.) True Metrix glucose meter. 4.) True Metrix test strips- to check 3x/day. 5.) Lancets- to check 3x/day. Admission and Anticipated Discharge Date Admission Date: March 20, 2024 Subjective Patient is seen and examined at bedside Neck pain much improved per patient Offers no new complaints Denies any chest pain, dyspnea, abd pain, nausea, vomiting Review of Systems Review of Systems: All systems reviewed & are unremarkable except as noted in Subjective Physical Exam Physical Exam: Physical Exam: Vitals signs as noted above General Appearance:Moderately built and nourished, no apparent distress Head: normocephalic, Atraumatic Eyes: normal inspection, EOMI Neck: supple, Trachea midline Respiratory/Chest: Decreased breath sounds, CTA, No accessory muscle use Cardiovascular: S1, S2, No murmur Abdomen/GI:Soft, +mild tender, Bowel sounds present Extremities/Musculoskeletal:normal inspection, no edema Neurologic/Psych:AAOX3, grossly no focal neurological deficits Skin: normal color, warm Results & Data Results & Data Vital Signs (Past 12 Hours) Vital Signs Temp Pulse Resp BP Pulse Ox O2 Del Method 04/02/24 15:56 36.8 C 84 18 97/63 L 98 Room Air 04/02/24 07:04 37.4 C 96 H 18 107/68 95 Room Air
[2024-04-03] MEDS ORDERED: SODIUM CHLORIDE 0.9% 1,000 ML IV PRN (07:00)
[2024-04-03 07:58] LABS: Hematocrit (blood only) 24.7 % (42.0-52.0); Hemoglobin 7.9 g/dl (14.0-18.0); Mean Corpuscular Hemoglobin 28.1 pg (25.0-34.0); Mean Corpuscular Volume 87.9 fL (80.0-100.0); Mean Platelet Volume 10.6 fL (9.4-12.4); Platelet Count 466 K/uL (130-400); RDW Coefficient of Variation 13.3 % (11.5-14.5); RDW Standard Deviation 42.5 fL (36.4-46.3); Red Blood Count 2.81 M/uL (4.70-6.10); White Blood Count 12.14 K/ul (4.8-10.8)
[2024-04-03 08:46] LABS: BUN Creatinine Ratio 4.7 (10-20); Calcium 8.4 mg/dl (8.6-10.3); Creatinine Clr Calc Pharmacy 14.3 ml/min; Est GFR (African American) 10.3 ml/min; Est GFR (Non-African American) 8.9 ml/min; Potassium 4.1 mmol/L (3.5-5.1)
[2024-04-03] MEDS: LANTUS PER UNIT CHARGE SC SCH (09:06)
[2024-04-03] MEDS: HEPARIN SOD (PORCINE) 1000 UNIT/ML IV SCH (09:37)
[2024-04-03] MEDS: HEPARIN SOD (PORCINE) 1000 UNIT/ML IV ONE (09:37)
--- NOTE | 2024-04-03 11:10 | Nephrology Progress Note ---
Date of Service April 03, 2024 Assessment & Plan (1) Acute renal failure with oliguria: Plan: anuric renal failure Versus end-stage renal disease. unknown baseline and uremic sx (encephalopathy) w/ large kidneys and cortical thickening >> presume CKD; cannot r/o R ANGELICA, though BP has been controlled. Patient has been tolerating dialysis now on a Tuesday schedule. He tolerated dialysis well Tuesday with net UF of 2.9 L.Patient tolerating dialysis well today. He is planned for room 3-1/2 hours a night UF of 3 L. Next dialysis will be outpt. (2) Bacteremia due to Escherichia coli: Plan: also w/ Enterobacter on biofire >> this is apparently cross reactivity, not a true +. Patient is on ceftriaxone per primary team. Admission and Anticipated Discharge Date Admission Date: March 20, 2024 Subjective Seen in follow-up for ESRD. Patient was seen and examined while on dialysis. No shortness of breath or leg swelling. Review of Systems 2 Review of Systems: All other systems were reviewed and negative except as noted in HPI Physical Exam 2 Physical Exam: General exam: Appears comfortable, no acute distress HEENT: Pupils are equal and reactive to light Neck: No JVD, neck is supple trachea is midline Respiratory system: Clear breath sounds bilaterally. Gastrointestinal: Abdomen is soft, non distended, non tender, bowel sounds are present CVS: Regular rate and rhythm. No murmurs, rubs or gallops Musculoskeletal: No joint or muscle tenderness Extremities: Non tender, no edema, peripheral pulses are present Neuro: Oriented, no tremors, no focal neurological deficits Skin: No rashes Results & Data Vital Signs (Past 12 Hours) Vital Signs Temp Pulse Pulse Pulse Resp BP BP 04/03/24 10:00 71 97/59 L 04/03/24 09:30 80 109/69 04/03/24 09:06 36.5 C 88 04/03/24 07:06 37.2 C 85 16 133/65 Pulse Ox O2 Del Method 04/03/24 10:00 04/03/24 09:30 04/03/24 09:06 04/03/24 07:06 95 Room Air Laboratory Results 04/03/24 06:44 04/03/24 06:44 WBC 12.14 H RBC 2.81 L MCV 87.9 MCH 28.1 MCHC 32.0 RDW Std Deviation 42.5 RDW Coeff of Eliza 13.3 Plt Count 466 H MPV 10.6
--- NOTE | 2024-04-03 12:25 | Hospitalist Progress Note ---
Date of Service April 03, 2024 Assessment & Plan (1) Encephalopathy: Plan: Acute metabolic encephalopathy Likely multifactorial secondary to sepsis, azotemia, hyponatremia, DKA --CT head:There is no hemorrhage, mass effect, or evidence of acute territorial ischemia by CT criteria. --S/P extubation S/P LP --Cannot do MRI due to spinal rods Mental status back to baseline Resolved Sepsis E. coli bacteremia Acute pyelonephritis --CT ABD:The kidneys are enlarged and edematous. No hydronephrosis is seen. There is markedly heterogeneous enhancement of both kidneys, right greater than left with perinephric inflammation and fluid. Correlate with clinical findings and urinalysis for evidence of infection/pyelonephritis. There is phlegmonous change with a small focus of gas involving the lower pole of the right kidney. No organized/drainable fluid collection is seen at this time to indicate abscess. The bladder wall appears thickened with surrounding inflammation and there is urothelial thickening with surrounding inflammation involving the ureters. Again, this could be related to cystitis/infection. Small pleural effusions with airspace consolidation at both lung bases. Trace abdominal pelvic ascites. Hepatomegaly and hepatic steatosis. --Blood, urine culture growing E. coli --Repeat blood cultures negative --CSF culture negative Continue IV Rocephin--need to complete 14 days of antibiotic course from first negative culture 03/20/24) Continued abdominal pain GI consulted Will obtain repeat stool for C. difficile if develops diarrhea Continue PPI, Pepcid Will complete IV ceftriaxone course today Hyperglycemic crisis (combined HHS/DKA) New diagnosis DM HbA1c 10.7 IV insulin discontinued Continue SQ insulin while hospitalized Monitor BGs Appreciate glycemic pharmacist input and recommendation Plan to discharge on long-acting insulin Acute renal failure Likely complicated by sepsis with ATN Requiring dialysis Continue dialysis as per nephrology Appreciate nephrology, vascular input next Avoid nephrotoxic agents as able Monitor renal function And permanent dialysis catheter placement by Dr. Alvarenga on 03/30/2024 HD per Nephrology Had hemodialysis today Probable YENNI/OHS Will need sleep study as outpatient Hyponatremia Severe hyponatremia with sodium of 109 on admission Sodium level 127 today Monitor Past tobacco abuse Thrombocytopenia possibly from sepsis Nicotine replacement therapy as needed Thrombocytopenia resolved DVT Px: Heparin SQ CODE STATUS Full code Disposition Needs following scripts at the time of discharge1.) Lantus Solostar Pen. 2.) Pen Needle 32 gauge x 5/32 (4mm)- to inject 1x/day. 3.) True Metrix glucose meter. 4.) True Metrix test strips- to check 3x/day. 5.) Lancets- to check 3x/day. Admission and Anticipated Discharge Date Admission Date: March 20, 2024 Subjective Patient is seen and examined at bedside Was having hemodialysis earlier today Neck pain resolved Offers no other complaints today Denies any chest pain, dyspnea, abd pain, nausea, vomiting Review of Systems Review of Systems: All systems reviewed & are unremarkable except as noted in Subjective Physical Exam Physical Exam: Physical Exam: Vitals signs as noted above General Appearance:Moderately built and nourished, no apparent distress Head: normocephalic, Atraumatic Eyes: normal inspection, EOMI Neck: supple, Trachea midline Respiratory/Chest: Decreased breath sounds, CTA, No accessory muscle use Cardiovascular: S1, S2, No murmur Abdomen/GI:Soft, +mild tender, Bowel sounds present Extremities/Musculoskeletal:normal inspection, no edema Neurologic/Psych:AAOX3, grossly no focal neurological deficits Skin: normal color, warm Results & Data Results & Data Vital Signs (Past 12 Hours) Vital Signs Temp Pulse Pulse Pulse Resp BP BP 04/03/24 10:00 71 97/59 L 04/03/24 09:30 80 109/69 04/03/24 09:06 36.5 C 88 04/03/24 07:06 37.2 C 85 16 133/65 Pulse Ox O2 Del Method 04/03/24 10:00 04/03/24 09:30 04/03/24 09:06 04/03/24 07:06 95 Room Air Laboratory Results Short CBC 04/03/24 Range/Units 06:44 WBC 12.14 H (4.8-10.8) K/ul Hgb 7.9 L (14.0-18.0) g/dl Hct 24.7 L (42.0-52.0) % Plt Count 466 H (130-400) K/uL BMP 04/03/24 06:44 Sodium 127 L Potassium 4.1 Chloride 92 L Carbon Dioxide 24 BUN 33 H Creatinine 7.04 H* D Glucose 85 Calcium 8.4 L
[2024-04-03] MEDS: EPOETIN ALFA 10,000 UNITS/ML VIAL IV SCH (12:33)
--- NOTE | 2024-04-03 12:39 | Discharge Summary ---
Date of Service April 03, 2024 Admission HPI Per Admitting Provider History obtained from patient, patient's friend and records. History limited from patient due to confusion and language barrier. Medical history significant for ongoing tobacco abuse. 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 Patient not feeling well the last few days. Achy abdominal pain with nausea, vomiting symptoms. Cough symptoms productive of junky sputum. Not sure about sick contacts. No chest pain, no SOB. Mild headache symptoms. Last night, patient noted to be confused and disoriented by work buddies. Patient with visual hallucinations. Patient denies EtOH abuse. Last drink was few weeks ago. Patient brought to the ER for evaluation. BSG 700s. NSS boluses, IV insulin, ceftriaxone, Zosyn administered at the ER. 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, occasional EtOH intake, demolition work Admission Exam Per Admitting Provider GENERAL: Lethargic, uncomfortable, obese, no respiratory distress SKIN: Normal color, warm HEENT: [place] palpebral conjunctivae, no ptosis, dry buccal mucosa NECK : Supple, no tenderness CHEST : Scattered expiratory wheezes,, no tenderness HEART : Tachycardic, no obvious murmurs ABDOMEN: Some distention, minimal central abdominal tenderness EXTREMITIES : Minimal LE swelling, no LE tenderness, no other conspicuous deformities noted NEUROLOGIC : Lethargic, no facial asymmetry, no other gross focality Principal Diagnosis Acute renal failure with oliguria Vs end-stage renal disease Acute metabolic encephalopathy Sepsis E. coli bacteremia Acute pyelonephritis Hyperglycemic crisis (combined HHS/DKA) New diagnosis DM Probable YENNI/OHS Hyponatremia Discharge Data Allergies Allergy/AdvReac Type Severity Reaction Status Date / Time No Known Allergies Allergy Unverified 03/20/24 00:57 Consultations 03/20/24 00:49 ED Decision to Admit Stat 03/20/24 01:34 Consult Nephrology Routine 03/20/24 03:05 Consult Diamond Setter Apprentice Routine 03/20/24 10:31 Consult Urology Routine 03/28/24 09:58 Consult Vascular Surgery Routine 03/28/24 13:00 Consult Gastroenterology Routine Procedures Performed Operation Date: 03/30/24 07:00 Actual Procedures p Insertion of Perm Catheter, Right Internal Jugular Approach,Ultrasound Localization of Right Internal Jugular Vein,Fluoroscopy for Positioning,Removal of Temporary Dialysis Catheter, Moderate Sedation [id number](Right) - Edgard Alvarenga MD Laboratory Results WBC 12.14 K/ul (4.8-10.8) H 04/03/24 06:44 RBC 2.81 M/uL (4.70-6.10) L 04/03/24 06:44 Hgb 7.9 g/dl (14.0-18.0) L 04/03/24 06:44 POC Hgb 10.5 g/dl (14.0-18.0) L 03/22/24 04:50 Hct 24.7 % (42.0-52.0) L 04/03/24 06:44 POC Hct 31 % (42-52) L 03/22/24 04:50 MCV 87.9 fL (80.0-100.0) 04/03/24 06:44 MCH 28.1 pg (25.0-34.0) 04/03/24 06:44 MCHC 32.0 g/dL (32.0-36.0) 04/03/24 06:44 RDW Std Deviation 42.5 fL (36.4-46.3) 04/03/24 06:44 RDW Coeff of Eliza 13.3 % (11.5-14.5) 04/03/24 06:44 Plt Count 466 K/uL (130-400) H 04/03/24 06:44 MPV 10.6 fL (9.4-12.4) 04/03/24 06:44 Immature Gran % (Auto) 1.8 % 03/28/24 04:48 Neut % (Auto) 81.4 % 03/28/24 04:48 Lymph % (Auto) 6.2 % 03/28/24 04:48 [place] % (Auto) 9.6 % 03/28/24 04:48 Eos % (Auto) 0.7 % 03/28/24 04:48 Baso % (Auto) 0.3 % 03/28/24 04:48 Neut # (Auto) 15.23 K/uL (1.40-6.50) H 03/28/24 04:48 Lymph # (Auto) 1.16 K/uL (1.20-3.40) L 03/28/24 04:48 [place] # (Auto) 1.80 K/uL (0.11-0.59) H 03/28/24 04:48 Eos # (Auto) 0.14 K/uL (0.00-0.50) 03/28/24 04:48 Baso # (Auto) 0.05 K/uL (0.00-0.20) 03/28/24 04:48 Immature Gran # (Auto) 0.33 K/uL (0.01-0.20) H 03/28/24 04:48 Absolute Nucleated RBC 0.03 K/uL (0.00-0.12) 03/22/24 04:32 Nucleated RBC % (auto) 0.1 % 03/22/24 04:32 Dohle Bodies 1+ 03/25/24 03:53 Polychromasia 1+ 03/24/24 03:46 Echinocytes 1+ 03/20/24 03:56 Peripher Smr Path Cons 03/20/24 14:25 Haptoglobin 318 mg/dL (43-212) H 03/20/24 14:25 PT 10.0 Seconds (9.0-12.0) 03/19/24 21:45 INR 0.9 (0.9-1.1) 03/19/24 21:45 APTT 26 Seconds (21-31) 03/19/24 21:45 PTT Ratio 1.0 03/19/24 21:45 Fibrinogen > 860 mg/dl (184-400) H 03/20/24 14:25 D-Dimer 4540 ug/L FEU (0-500) H* 03/20/24 14:25 vWF Cleav Pro [id number] 0.53 IU/mL (0.68-1.63) L 03/20/24 14:25 Sample Site Art Line 03/22/24 04:50 POC pH 7.38 (7.35-7.45) 03/22/24 04:50 POC pCO2 38 mmHg (35-46) 03/22/24 04:50 POC pO2 79 mmHg (80-95) L 03/22/24 04:50 POC HCO3 22 yessy/L (19-24) 03/22/24 04:50 POC Total CO2 23 mmol/L (24-31) L 03/22/24 04:50 POC Base Excess -3.0 yessy/L (-9-1.8) 03/22/24 04:50 ABG pH (Temp Correct) 7.358 (7.35-7.45) 03/22/24 04:50 ABG pCO2 (Temp Corrct 40 mmHg (35-46) 03/22/24 04:50 POC ABG pO2 at Pt Temp 86 03/22/24 04:50 POC ABG O2 Sat 95.0 % (90-95) 03/22/24 04:50 [place] Test NA 03/22/24 04:50 VBG pH 7.33 (7.36-7.41) L 03/20/24 14:25 VBG pCO2 37 mmHg (38-50) L 03/19/24 23:05 VBG pO2 46 mmHg 03/19/24 23:05 VBG HCO3 17 mmol/L 03/19/24 23:05 VBG O2 Saturation 76.6 % 03/19/24 23:05 VBG Base Excess -9.2 mEq/L 03/19/24 23:05 O2 Delivery Device Ventilator 03/22/24 04:50 POC O2 Rate 24 03/22/24 04:50 Minute Ventilation 400 03/22/24 04:50 POC FiO2 40 % 03/22/24 04:50 Tidal Volume 400 03/22/24 04:50 PEEP 8 03/22/24 04:50 POC Sodium 129 mmol/L (135-144) L 03/22/24 04:50 Sodium 127 mmol/L (136-145) L 04/03/24 06:44 POC Potassium 4.0 mmol/L (3.3-5.0) 03/22/24 04:50 Potassium 4.1 mmol/L (3.5-5.1) 04/03/24 06:44 Chloride 92 mmol/L (98-107) L 04/03/24 06:44 Carbon Dioxide 24 mmol/L (21-32) 04/03/24 06:44 Anion Gap 11 (3-11) 04/03/24 06:44 BUN 33 mg/dl (6-23) H 04/03/24 06:44 Creatinine 7.04 mg/dl (0.6-1.4) H* D 04/03/24 06:44 Est Cr Clr Drug Dosing 14.3 ml/min 04/03/24 06:44 Est GFR ( Amer) 10.3 ml/min 04/03/24 06:44 Est GFR (Non-Af Amer) 8.9 ml/min 04/03/24 06:44 BUN/Creatinine Ratio 4.7 (10-20) L 04/03/24 06:44 Glucose 85 mg/dl (70-99(Fasting)) 04/03/24 06:44 POC Glucose 95 mg/dl (70-99) 04/03/24 07:42 POC Glucose (other) 187 mg/dl (70-99) H 03/22/24 21:42 Estimat Average Glucose 260 mg/dl 03/20/24 Unknown Hemoglobin A1c 10.7 % (4.5-5.6) H 03/20/24 Unknown Osmolality 317 mOsm/kg (280-300) H 03/21/24 04:18 Lactate 1.1 mmol/L (0.4-2.0) 03/28/24 04:48 Calcium 8.4 mg/dl (8.6-10.3) L 04/03/24 06:44 Ionized Calcium 1.00 mmol/L (1.12-1.32) L 03/20/24 21:08 Phosphorus 8.8 mg/dl (2.5-4.9) H 03/24/24 03:46 Magnesium 1.8 mg/dl (1.7-2.4) 03/31/24 05:45 Total Bilirubin 1.6 mg/dl (0.2-1.0) H 03/19/24 21:45 AST 19 U/L (13-39) 03/19/24 21:45 ALT 41 U/L (7-52) 03/19/24 21:45 Alkaline Phosphatase 284 U/L (34-104) H 03/19/24 21:45 Ammonia 37.0 umol/L (18-72) 03/19/24 23:05 Lactate Dehydrogenase 433 U/L (86-244) H 03/20/24 14:25 Troponin I High Sens 23.9 pg/ml (0-20) H D 03/20/24 03:56 Total Protein 7.4 gm/dl (6.0-8.3) 03/19/24 21:45 Albumin 2.9 gm/dl (3.4-5.0) L 03/19/24 21:45 Globulin 4.5 gm/dl (2.5-4.0) H 03/19/24 21:45 Albumin/Globulin Ratio 0.6 (0.9-2) L 03/19/24 21:45 Triglycerides 419 mg/dl (0-150) H 03/21/24 04:18 Cholesterol 119 mg/dl (0-200) 03/21/24 04:18 LDL Cholesterol, Calc TNP 03/21/24 04:18 VLDL Cholesterol, Calc TNP 03/21/24 04:18 HDL Cholesterol 3 mg/dl 03/21/24 04:18 Cholesterol/HDL Ratio 39.7 (0-5) H 03/21/24 04:18 Vitamin B12 1091 pg/ml (180-914) H 03/20/24 14:25 TSH 1.142 uIu/ml (0.300-4.500) 03/19/24 21:45 Urine Color Yellow 03/19/24 21:50 Urine Appearance Cloudy (Clear) A 03/19/24 21:50 Urine pH 6.5 (4.5-7.5) 03/19/24 21:50 Ur Specific [place] 1.020 (1.000-1.030) 03/19/24 21:50 Urine Protein 3+ (Negative) H 03/19/24 21:50 Urine Glucose (UA) 2+ (Negative) H 03/19/24 21:50 Urine Ketones 1+ (Negative) H 03/19/24 21:50 Urine Blood 3+ (Negative) H 03/19/24 21:50 Urine Nitrite Positive (Negative) A 03/19/24 21:50 Urine Bilirubin 1+ (Negative) H 03/19/24 21:50 Urine Urobilinogen Negative (Negative) 03/19/24 21:50 Ur Leukocyte Esterase 3+ (Negative) H 03/19/24 21:50 Urine RBC 11-20 /hpf (0-2) H 03/19/24 21:50 Urine WBC >50 /hpf (0-5) H 03/19/24 21:50 Ur Epithelial Cells 6-10 /hpf (0-2) H 03/19/24 21:50 Urine Bacteria 2+ (None Seen) H 03/19/24 21:50 Urine Osmolality Cancelled 03/20/24 Unknown Ur Random Sodium Cancelled 03/20/24 Unknown Urine Sodium 108 mmol/L 03/21/24 00:15 Urine Potassium 15.6 mmol/L 03/21/24 00:15 Urine Chloride 69 mmol/L 03/21/24 00:15 CSF C.neoform/gat PCR Not Detected (NotDetected) 03/24/24 Unknown CSF CMV DNA (PCR) Not Detected (NotDetected) 03/24/24 Unknown CSF Enterovirus (PCR) Not Detected (NotDetected) 03/24/24 Unknown CSF E. coli K1 (PCR) Not Detected (NotDetected) 03/24/24 Unknown CSF H. influenzae (PCR) Not Detected (NotDetected) 03/24/24 Unknown CSF HSV I (PCR) Not Detected (NotDetected) 03/24/24 Unknown CSF HSV II (PCR) Not Detected (NotDetected) 03/24/24 Unknown CSF HHV 6 (PCR) Not Detected (NotDetected) 03/24/24 Unknown CSF L.monocytogenes PCR Not Detected (NotDetected) 03/24/24 Unknown CSF N. meningitidis PCR Not Detected (NotDetected) 03/24/24 Unknown CSF Parechovirus (PCR) Not Detected (NotDetected) 03/24/24 Unknown CSF S. agalactiae (PCR) Not Detected (NotDetected) 03/24/24 Unknown CSF S. pneumoniae (PCR) Not Detected (NotDetected) 03/24/24 Unknown CSF VZV DNA (PCR) Not Detected (NotDetected) 03/24/24 Unknown Nasal Screen MRSA (PCR) Negative (Negative) 03/20/24 03:50 Stl C. diff Tox B Gene Negative Cdiff Gene (Neg) 03/25/24 18:20 Urine Opiates Screen Neg (Neg) 03/19/24 21:50 Ur Methadone, Qual Neg (Neg) 03/19/24 21:50 Urine Fentanyl Screen Neg (Neg) 03/19/24 21:50 Acetaminophen 3 ug/ml (10-30) L 03/20/24 14:25 Urine Barbiturates Neg (Neg) 03/19/24 21:50 Ur Phencyclidine (PCP) Neg (Neg) 03/19/24 21:50 U Amphetamin/Meth Scrn Neg (Neg) 03/19/24 21:50 MDMA (Ecstasy) Screen Neg (Neg) 03/19/24 21:50 U Benzodiazepines Scrn Neg (Neg) 03/19/24 21:50 Ur Cocaine Metabolite Neg (Neg) 03/19/24 21:50 U Marijuana (THC) Screen Neg (Neg) 03/19/24 21:50 Ethylene Glycol <10.0 mg/L (see note) 03/20/24 11:06 Ethyl Alcohol mg/dL < 10.0 mg/dl (<10.0) 03/19/24 21:45 RPR Nonreactive (Nonreactive) 03/20/24 11:06 Adenovirus (PCR) Not Detected (NotDetected) 03/29/24 Unknown B. pertussis DNA (PCR) Not Detected (NotDetected) 03/29/24 Unknown B.parapertussis DNA PCR Not Detected (NotDetected) 03/29/24 Unknown C. pneumoniae DNA (PCR) Not Detected (NotDetected) 03/29/24 Unknown Coronavirus OC43 (PCR) Not Detected (NotDetected) 03/29/24 Unknown Coronavirus HKU1 (PCR) Not Detected (NotDetected) 03/29/24 Unknown Coronavirus 229E (PCR) Not Detected (NotDetected) 03/29/24 Unknown SARS-CoV-2 (PCR) Not Detected (NotDetected) 03/29/24 Unknown Coronavirus NL63 (PCR) Not Detected (NotDetected) 03/29/24 Unknown Enterobacterales (PCR) DETECTED (NotDetected) A 03/19/24 23:00 E. coli (PCR) DETECTED (NotDetected) A 03/19/24 23:00 Hep Bs Antigen NON-REACTIVE (NON-REACTIVE) 03/20/24 14:25 Hep Bs Ag Confirmation TNP 03/20/24 14:25 Hep Bs Antibody, Quant <5 mIU/mL (> OR = 10) L 03/20/24 14:25 Hep B Core IgM Ab NON-REACTIVE (NON-REACTIVE) 03/20/24 14:25 HCV RNA (PCR) IUs/ml <15 NOT DETECTED IU/mL (NOT DETECTED) 03/29/24 12:27 HCV RNA PCR log IUs/ml <1.18 NOT DETECTED Log IU/mL (NOT DETECTED) 03/29/24 12:27 HIV (1&2) Ag & Ab Conf NON-REACTIVE (NON-REACTIVE) 03/20/24 14:25 Human Metapneumovir PCR Not Detected (NotDetected) 03/29/24 Unknown Influenza Type A (PCR) Not Detected (NotDetected) 03/29/24 Unknown Influenza Type B (PCR) Not Detected (NotDetected) 03/29/24 Unknown M. pneumoniae (PCR) Not Detected (NotDetected) 03/29/24 Unknown Parainfluenza 1 (PCR) Not Detected (NotDetected) 03/29/24 Unknown Parainfluenza 2 (PCR) Not Detected (NotDetected) 03/29/24 Unknown Parainfluenza 3 (PCR) Not Detected (NotDetected) 03/29/24 Unknown Parainfluenza 4 (PCR) Not Detected (NotDetected) 03/29/24 Unknown RSV (PCR) Not Detected (NotDetected) 03/29/24 Unknown Entero/Rhino (PCR) Not Detected (NotDetected) 03/29/24 Unknown mcr-1 Colistin Res Gene PCR Not Detected (NotDetected) 03/19/24 23:00 blaIMP Car res Gene PCR Not Detected (NotDetected) 03/19/24 23:00 KPC-Carbap Res Gene PCR Not Detected (NotDetected) 03/19/24 23:00 blaNDM Car Res Gene PCR Not Detected (NotDetected) 03/19/24 23:00 OXA-48 Carbapenem Resis Gene (PCR) Not Detected (NotDetected) 03/19/24 23:00 blaVIM Car Res Gene PCR Not Detected (NotDetected) 03/19/24 23:00 CTX-M Gene Resistance (PCR) Not Detected (NotDetected) 03/19/24 23:00 Bld Cult ID Panel PCR See PCR Comment (NotDetected) 03/19/24 23:[address] 03/20/24 01:28 Exam(s): CT CHEST Without Contrast EXAM: CT Chest Without Intravenous Contrast CLINICAL HISTORY: Cough. TECHNIQUE: Axial computed tomography images of the chest without intravenous contrast. CTDI is 28 mGy and DLP is 1596 mGy-cm. Automated exposure control was utilized for the study. A dose lowering technique was utilized adhering to the principles of ALARA. COMPARISON: No relevant prior studies available. FINDINGS: Lungs: Interseptal thickening could relate to atelectasis and/or pulmonary edema. No mass. Pleural space: Unremarkable. No pneumothorax. No significant effusion. Heart: Unremarkable. No cardiomegaly. No significant pericardial effusion. No significant coronary artery calcifications. Bones/joints: There are degenerative changes of the spine. Fusion of T3, T4 and T5 with posterior screws and rods extending from the cervical spine through T8. No acute fracture. No dislocation. Soft tissues: Unremarkable. Vasculature: Unremarkable. No thoracic aortic aneurysm. Lymph nodes: Unremarkable. No enlarged lymph nodes. IMPRESSION: Interseptal thickening could relate to atelectasis, atypical infection and/or pulmonary edema. Electronically signed by: Tracee Iqbal MD 03/20/24 03:58 AM Renal Artery Duplex 03/20/24 10:34 DOPPLER ULTRASOUND OF THE RENAL ARTERIES CLINICAL HISTORY: Acute renal insufficiency. COMPARISON STUDY: Renal ultrasound dated 03/20/2024. Abdominal CT dated 03/20/2024. TECHNIQUE: Doppler sonography of the renal arteries was performed to assess renal artery stenosis. Images are reviewed in the transverse and longitudinal planes. The examination is degraded by lack of patient cooperation. FINDINGS: The kidneys appear enlarged with cortical thickening. Echotexture is normal. The right kidney measures 14.2 cm in length and the left kidney measures 14.0 cm in length. There is no hydronephrosis. On the right, intrarenal arterial resistive indices range from 0.71 to 0.81. Intrarenal arterial waveforms are normal with brisk upstrokes. The proximal right renal artery is not visualized. Velocities within the mid to distal portions measure up to 232 cm/sec. The right renal vein is patent. On the left, intrarenal arterial resistive indices range from 0.47 to 0.76. Intrarenal arterial waveforms are normal with brisk upstrokes. The left renal arterial waveform is normal, and velocities within the left renal artery measure up to 112 cm/sec. The left renal vein is patent. The abdominal aorta is patent. Velocities within the abdominal aorta measure up to 121 cm/s. IMPRESSION: 1. The kidneys are enlarged and show cortical thickening. 2. There are mildly elevated velocities within the mid right renal artery. No significant atherosclerotic plaque was seen by CT and this may be artifactual. Stenosis is not excluded. 3. There is no sonographic evidence of left renal artery stenosis. ACT 112: Negative or not required by law. Electronically signed by: Rui Tee M.D. 03/20/2024 12:[address] 03/24/24 08:03 CT SCAN OF THE BRAIN WITHOUT IV CONTRAST CLINICAL HISTORY: Encephalopathy. COMPARISON STUDY: CT of the brain dated 03/20/2024. TECHNIQUE: Unenhanced axial CT scan of the brain is performed from the vertex to the skull base. A dose lowering technique was utilized adhering to the principles of ALARA. FINDINGS: Brain parenchyma: The brain parenchyma is normal in appearance. There is no hemorrhage, mass effect, or evidence of acute territorial ischemia by CT criteria. Alfonso-white matter differentiation is preserved. No extra-axial fluid collection is seen. Ventricles, sulci, cisterns: Normal in configuration. Intracranial vasculature: The visualized intracranial vasculature at the skull base is normal in appearance. Calvarium: Unremarkable. Sinuses and mastoids: There is mild mucosal thickening within the ethmoid sinuses. The remaining paranasal sinuses are clear. There is evidence of previous right mastoid surgery. There is fluid within the remaining right mastoid air cells as well as the right middle ear. The left the mastoid air cells are well pneumatized. Orbits: The bony orbits are grossly intact. IMPRESSION: There is no hemorrhage, mass effect, or evidence of acute territorial ischemia by CT criteria. ACT 112: Negative or not required by law. Electronically signed by: Rui Tee M.D. 03/24/2024 9:48 AM KUB X-Ray 03/24/24 14:16 KUB CLINICAL HISTORY: Enteric tube placement. FINDINGS: 2 AP, portable, supine abdominal radiographs are correlated with abdominal CT performed the same day 03/24/2024. An enteric tube has been placed. The tip is coiled above the gastroesophageal junction. No bowel obstruction is seen. No evidence of intraperitoneal free air is seen on these supine images. There are no abnormal abdominal calcifications. The bony structures appear intact. Postsurgical change is seen in the thoracic spine. IMPRESSION: 1. An enteric tube is coiled in the distal esophagus above the gastroesophageal junction. Repositioning is indicated. 2. No bowel obstruction is identified. Electronically signed by: Rui Tee M.D. 03/24/2024 2:40 PM Renal Ultrasound 03/26/24 10:09 RENAL ULTRASOUND HISTORY: Follow-up study in a patient with renal enlargement R/o fluid collection around kidney COMPARISON: CT 03/24/2024 FINDINGS: Right kidney: 15.2 cm. No fluid collections. Nonshadowing 3 mm echogenic focus in the interpolar distribution, likely renal sinus fat. No shadowing renal calculi identified. No hydronephrosis. Diffuse heterogeneity of the parenchyma redemonstrated. Left kidney: 14.7 cm. No fluid collections. No shadowing calculi. No hydronephrosis. Cc heterogeneity of the parenchyma redemonstrated. Bladder: No bladder wall thickening. The bilateral ureteral jets were not identified. IMPRESSION: 1. No definite renal calculi or hydronephrosis. 2. No fluid collections. 3. Renal enlargement with parenchymal echogenicity redemonstrated, better evaluated on the comparison CT. As previously described, these findings should be correlated with urinalysis. ACT 112: Negative or not required by law. Electronically signed by: Augusto Morris M.D. 03/26/2024 11:52 AM Abdomen/Pelvis CT 03/28/24 04:42 Exam(s): CT ABDOMEN + PELVIS Without Contrast EXAM: CT Abdomen and Pelvis Without Intravenous Contrast CLINICAL HISTORY: Reason for exam: abdominal pain. TECHNIQUE: Axial computed tomography images of the abdomen and pelvis without intravenous contrast. CTDI is 26 mGy and DLP is 1448 mGy-cm. Automated exposure control was utilized for the study. A dose lowering technique was utilized adhering to the principles of ALARA. COMPARISON: CT abdomen/pelvis with contrast dated march 24 2024 FINDINGS: Limitations: Limited evaluation in the absence of contrast. Lung bases: Mild dependent atelectatic changes. Pleural space: Small right pleural effusion. ABDOMEN: Liver: Unremarkable. Gallbladder and bile ducts: Unremarkable. No calcified stones. No ductal dilation. Pancreas: Unremarkable. No ductal dilation. Spleen: Unremarkable. No splenomegaly. Adrenals: Unremarkable. No mass. Kidneys and ureters: No evidence of radiopaque renal calculi or signs of collecting system dilatation. Diffuse perinephric and periureteral stranding. Findings may relate to patient's volume status. Sequela of ascending urinary tract infection also possible as seen on prior CT. Mildly enlarged bilateral kidneys, the left measuring 12.9 cm and the right measuring 12.7 cm in length. Stomach and bowel: No evidence of bowel obstruction. No mucosal thickening. PELVIS: Appendix: Normal appendix. Bladder: Unremarkable. No stones. Reproductive: Unremarkable as visualized. ABDOMEN and PELVIS: Intraperitoneal space: Unremarkable. No free air. No significant fluid collection. Bones/joints: Degenerative changes in the spine. No acute fracture. No dislocation. Soft tissues: Gynecomastia. Umbilical hernia containing fat. Vasculature: Atherosclerotic disease. No abdominal aortic aneurysm. Lymph nodes: Unremarkable. No enlarged lymph nodes. IMPRESSION: 1. Limited evaluation in the absence of contrast. 2. No evidence of radiopaque renal calculi or signs of collecting system dilatation. 3. Diffuse perinephric and periureteral stranding. Findings may relate to patient's volume status. Sequela of ascending urinary tract infection also possible as seen on prior CT. 4. Mildly enlarged bilateral kidneys, the left measuring 12.9 cm and the right measuring 12.7 cm in length. 5. No other acute findings. 6. Incidental findings as described. Electronically signed by: Elliot Reyes MD 03/28/24 08:06 AM Chest X-Ray 03/29/24 22:43 SINGLE VIEW CHEST CLINICAL HISTORY: Cough FINDINGS: An AP, portable, upright chest radiograph is compared to study dated 03/26/2024. A right internal jugular central venous catheter is unchanged in position. A left internal jugular central venous catheter has been removed. The heart is enlarged. There is pulmonary vascular congestion. Atelectasis is noted at the lung bases. No large pleural effusion or pneumothorax is seen. The bony thorax is grossly intact. Extensive fusion hardware is seen throughout the cervicothoracic spine. IMPRESSION: 1. Cardiomegaly with pulmonary vascular congestion. This appears modestly improved from previous. 2. No airspace consolidation or large pleural effusion is identified ACT 112: Negative or not required by law. Electronically signed by: Rui Tee M.D. 03/30/2024 7:[address] Tissue Neck CT 04/02/24 07:27 CT soft tissue neck wo con HISTORY: 39 years-old Male Right Neck pain at HD Cath site Acute right neck pain status post placement of a right IJ hemodialysis catheter. COMPARISON: None. TECHNIQUE: Multiple axial CT images of the soft tissues of the neck were obtained without IV contrast. A dose lowering technique was used consistent with the principals of GUILLERMO. FINDINGS: Cardiomegaly. Extensive cervical, thoracic, spinal fusion hardware. The imaged intracranial structures demonstrate no acute abnormality. Disconjugate gaze. Patent airway. Parapharyngeal fat planes are symmetric and well-maintained. Nonspecific borderline enlarged bilateral cervical chain lymph nodes measure up to approximately 10 mm. The glottis and subglottic airway is within normal l imits. Unremarkable thyroid, parotid and submandibular glands. Dual-lumen right IJ hemodialysis catheter is in place. There is subcutaneous edema surrounding the catheter with asymmetric mild enlargement and heterogeneity within the superior aspect of the right pectoralis major muscle. No drainable fluid collections. The catheter appears appropriately positioned on this noncontrast scan. Right mastoidectomy changes with chronic-appearing right mastoid and middle ear effusions. Soft tissue density within the right middle ear cavity with erosion of the ossicles. Right tympanic membrane thickening and retraction. Healed chronic left clavicular fracture deformity. No pneumothorax. IMPRESSION: 1. Right IJ hemodialysis catheter in place. Mild subcutaneous edema surrounding the catheter with mild asymmetric enlargement and heterogeneity within the right pectoralis major muscle. Findings likely represent a small amount of postprocedural hemorrhage. Sterility, however, cannot be determined by imaging alone. 2. No discrete fluid collections are identified. 3. Borderline enlarged cervical chain lymph nodes are likely reactive. 4. Right mastoidectomy changes with possible cholesteatoma and ossicular erosion with tympanic membrane thickening and retraction. The above report was generated using voice recognition software. It may contain grammatical, syntax or spelling errors. Dictated: 04/02/2024 9:18 AM Transcribed: 04/02/2024 9:33 AM Jose [id number] [email or web address] Electronically signed by: Augusto Morris M.D. 04/02/2024 2:11 PM Ordered Studies 03/20/24 01:28 CT Abd and Pelvis [CT abd pelvis wo con] Stat CT chest diagnostic wo con Stat CT head/brain wo con Stat 03/20/24 10:34 US duplex renal artery Stat US renal/blad retro comp Stat 03/20/24 15:17 US point of care ultrasound Routine 03/24/24 07:21 CT abd pelvis IV con only Stat 03/24/24 07:40 US point of care ultrasound Routine 03/24/24 08:03 CT head/brain wo con Routine 03/26/24 10:09 US Renal Bladder [US renal/blad retro comp] Routine 03/28/24 04:42 CT Abd and Pelvis [CT abd pelvis wo con] Urgent 03/30/24 11:33 EV cvc insrt tunnel wo prt/lump inspector Routine US EV guide vascular access Routine 04/02/24 07:27 CT soft tissue neck wo con Urgent Hospital Course (1) Encephalopathy: Acute metabolic encephalopathy Likely multifactorial secondary to sepsis, azotemia, hyponatremia, DKA --CT head:There is no hemorrhage, mass effect, or evidence of acute territorial ischemia by CT criteria. --S/P extubation S/P LP --Cannot do MRI due to spinal rods Mental status back to baseline Resolved Sepsis E. coli bacteremia Acute pyelonephritis --CT ABD:The kidneys are enlarged and edematous. No hydronephrosis is seen. There is markedly heterogeneous enhancement of both kidneys, right greater than left with perinephric inflammation and fluid. Correlate with clinical findings and urinalysis for evidence of infection/pyelonephritis. There is phlegmonous change with a small focus of gas involving the lower pole of the right kidney. No organized/drainable fluid collection is seen at this time to indicate abscess. The bladder wall appears thickened with surrounding inflammation and there is urothelial thickening with surrounding inflammation involving the ureters. Again, this could be related to cystitis/infection. Small pleural effusions with airspace consolidation at both lung bases. Trace abdominal pelvic ascites. Hepatomegaly and hepatic steatosis. --Blood, urine culture growing E. coli --Repeat blood cultures negative --CSF culture negative Continue IV Rocephin--need to complete 14 days of antibiotic course from first negative culture 03/20/24) Continued abdominal pain GI consulted Will obtain repeat stool for C. difficile if develops diarrhea Continue PPI, Pepcid Will complete IV ceftriaxone course today Hyperglycemic crisis (combined HHS/DKA) New diagnosis DM HbA1c 10.7 IV insulin discontinued Continue SQ insulin while hospitalized Monitor BGs Appreciate glycemic pharmacist input and recommendation Plan to discharge on long-acting insulin Acute renal failure Likely complicated by sepsis with ATN Requiring dialysis Continue dialysis as per nephrology Appreciate nephrology, vascular input next Avoid nephrotoxic agents as able Monitor renal function And permanent dialysis catheter placement by Dr. Alvarenga on 03/30/2024 HD per Nephrology Had hemodialysis today Probable YENNI/OHS Will need sleep study as outpatient Hyponatremia Severe hyponatremia with sodium of 109 on admission Sodium level 127 today Monitor Past tobacco abuse Thrombocytopenia possibly from sepsis Nicotine replacement therapy as needed Thrombocytopenia resolved DVT Px: Heparin SQ CODE STATUS Full code Disposition Needs following scripts at the time of discharge1.) Lantus Solostar Pen. 2.) Pen Needle 32 gauge x 5/32 (4mm)- to inject 1x/day. 3.) True Metrix glucose meter. 4.) True Metrix test strips- to check 3x/day. 5.) Lancets- to check 3x/day. Total Time Total Time Spent Total Time Spent (In Minutes): 54 minutes Discharge Plan Discharge Items Patient Disposition: Home - Self-Care Reason For Visit: HYPONATREMIA Discharge Diagnosis: Acute renal failure with oliguria Vs end-stage renal disease Acute metabolic encephalopathy Sepsis E. coli bacteremia Acute pyelonephritis Hyperglycemic crisis (combined HHS/DKA) New diagnosis DM Probable YENNI/OHS Hyponatremia Activity: Resume your previous activity Exercise/Sports: Gradually increase as tolerated Non-emergency contact: Primary Care Provider and Senior Information Systems Architect Call non-emergency contact if: you have any medication questions, your symptoms worsen, your pain is concerning for you and you have a fever Follow-up/Referrals: PCP,NO [Primary Care Provider] - Diet: Carb Consistent or DM2 and Dialysis Renal Addtl Attending Provider Instructions: Follow-up with your primary care physician in 1 week Follow-up with your waxer for hemodialysis as advised (currently you are on Tuesday, , Tuesday hemodialysis) -- Continue dialysis as per your waxer --Get outpatient sleep study to rule out obstructive sleep apnea -- Monitor your blood glucose levels regularly as advised and discussed with your primary care physician for further adjustment of diabetic medications as needed. Seek immediate medical attention if your symptoms reoccur or worsen Please take all medications as instructed on discharge list below. Please call if you have any questions or problems. You can reach a [facility] hospitalist on duty at [facility] 24 hours a day by calling [phone] Pending Studies at Discharge: No Stand-Alone Forms: [facility] [employer], Smoking Cessation Medications and DC Order Prescriptions: New insulin degludec [Tresiba FlexTouch U-100] 100 unit/mL (3 mL) insulin pen 15 unit subcut DAILY Qty: 15 0RF famotidine [Acid Barrel Planer (famotidine)] 10 mg Tablet 10 mg PO HS Qty: 30 0RF pantoprazole 40 mg Tablet,Delayed Release (Dr/Ec) 40 mg PO QAM Qty: 30 0RF (DME) pen needle, diabetic [Pen Needle] 32 gauge x 5/32" needle See Rx Instructions .Route Qty: 100 0RF Rx Instructions: As directed (DME) blood-glucose meter [True Metrix Glucose Meter] Misc See Rx Instructions .Route Qty: 1 0RF Rx Instructions: As directed (DME) True Metrix Glucose Test Strip Strip See Rx Instructions .Route Qty: 100 0RF Rx Instructions: As directed. 3X/day (DME) lancets Misc See Rx Instructions .Route Qty: 100 0RF Rx Instructions: As directed 3X/day Discharge Orders: Discharge Order (Routine); Ordered 04/03/24 Ordered By: Wade Stovall Admission Data Admit Date/Time: 03/20/24 01:33 Attending Provider: Wade Stovall Admit Provider: Sarbjit Varner Primary Care Provider: PCP,NO Other Providers: Sarbjit Varner; Rocio Gonzalez; Humberto Enrique; Marcelo Herrera; Fidel Leavitt; Anila Lowry; Lemuel Post; Abbey Alvarenga; Karla Mayorga; Vern Huff; Farzaneh Chua; Lucina Reed; Karly Boggs; Lorie Matta; Lela Meier; Dawit Urban; Corrine Kruse; Darline Frances; Anup Kim; Love Macario; Mey Saini; Karma Rome; Merced Magaña; Ian Browne; Jean-Pierre Yip; Charly Trujillo; Evonne Taylor; Dea Cedeno Jr; Nuno Salgado
== END 2024-04-03 17:10 | disposition home or self-care (01) | DRG 871 ==
LOC: ED 21:34 → SUATTDRO 03-20 01:33 → 1E 03-20 01:33 → 2S 03-29 05:50 → 3N 04-02 00:18